=== PATIENT | female | born 1960 | race Caucasian/White ===

== ENCOUNTER 2019-11-28 14:50 | Emergency (ER) | payer OTHER, SELFPAY ==
[2019-11-28 15:01] VITALS: BP 125/74; PULSE 79; RESP 24; TEMP 36.7; O2SAT 95
--- NOTE | 2019-11-28 15:13 | ED.GENADULT ---
HPI - General Adult General Chief complaint: Skin/Abscess/Foreign Body Stated complaint: rash Time Seen by Provider: 11/28/19 15:13 Source: patient Mode of arrival: ambulatory Limitations: no limitations History of Present Illness HPI narrative: 59-year-old female patient presents to the [facility] with complaints of a rash to bilateral upper extremities and bilateral hands that started yesterday. Patient states that she has not had any new lotions soaps or detergents that she is aware of however she has started a new medication that she has been taking for anxiety. Patient states that she has been under a lot of stress recently as well. Patient states that the rash is itchy. Denies any pain to the rash. Denies any chest pain, shortness of breath. Denies any trouble swallowing or feeling like her throat is swelling up. Patient states she has been using hydrocortisone cream to the rash area. Related Data Home Medications Medication Instructions Recorded Confirmed alendronate mg PO 11/28/19 cyclobenzaprine mg 11/28/19 diclofenac sodium PO 11/28/19 ergocalciferol (vitamin D2) 11/28/19 gabapentin 11/28/19 levothyroxine 11/28/19 pravastatin 11/28/19 timolol maleate 11/28/19 Allergies Allergy/AdvReac Type Severity Reaction Status Date / Time codeine Allergy Mild Hives Verified 09/07/19 13:05 Penicillins Allergy Mild Hives Verified 09/07/19 13:05 Review of Systems Review of Systems: Narrative: CONSTITUTIONAL: Denies fever, chills, or sweats. EYES: Denies visual changes, redness, or discharge. ENT: Denies rhinorrhea, congestion, sore throat, or otalgia. CARDIOVASCULAR: Denies chest pain, palpitations, or edema. RESPIRATORY: Denies cough or dyspnea. GASTROINTESTINAL: Denies abdominal pain, nausea, vomiting, or diarrhea. GENITOURINARY: Denies dysuria or hematuria. SKIN: Positive rash with itching. MUSCULOSKELETAL: Denies back pain, joint pain, or myalgia. NEUROLOGIC: Denies headache, numbness, or weakness. PSYCHIATRIC: Denies anxiety or depression. [facility] Past Medical History Medical History Anxiety Depression Dyslipidemia Glaucoma Gout History of hepatitis C History of hypothyroidism Schizophrenia Surgical History Surgical History History of section Hx of cholecystectomy Social History Social History Substance use type: marijuana Comments At the time of my signature I agree with nursing past medical history, surgical, social, and family history. There is no relevant family history pertinent to the presenting complaint. Exam Narrative: Exam Narrative: GENERAL: Well-appearing, well-nourished, and in no acute distress. HEAD: Normocephalic, atraumatic. EYES: PERRLA and EOMI. ENT: Nares clear, no rhinorrhea or epistaxis. Mucous membranes moist. NECK: Supple. No lymphadenopathy CHEST: Clear to auscultation. No respiratory distress. HEART: Regular rate and rhythm. No murmur heard. Normal peripheral pulses. ABDOMEN: Soft, nontender, nondistended, normal active bowel sounds. EXTREMITIES: Normal range of motion. No edema. SKIN: Warm, dry, patient has large welts and irregular flat erythema areas to the left upper arm, areas to the left hand, and areas to the right upper arm. There is no open wounds or drainage. No tenderness noted on palpation. No warmth noted. NEURO: No focal deficits. Alert and oriented x3. Course Vital Signs Vital signs: Vital Signs Temperature 36.7 C 11/28/19 15:01 Pulse Rate 79 11/28/19 15:01 Respiratory Rate 24 H 11/28/19 15:01 Blood Pressure 125/74 11/28/19 15:01 Pulse Oximetry 95 11/28/19 15:01 Temperature 36.7 C 11/28/19 15:01 Pulse Rate 79 11/28/19 15:01 Respiratory Rate 24 H 11/28/19 15:01 Blood Pressure 125/74 11/28/19 15:01 Pulse Oximetry 95 11/28/19 15:01
== END 2019-11-28 15:24 | disposition home or self-care (01) ==
PROVIDERS: Emergency Provider Nurse Practitioner Family; PCP Internal Medicine Gastroenterology
DX: L50.9 Urticaria, unspecified (principal); E78.5 Hyperlipidemia, unspecified; H40.9 Unspecified glaucoma; M10.9 Gout, unspecified; Z86.19 Personal history of other infectious and parasitic diseases; E03.9 Hypothyroidism, unspecified
CPT/HCPCS: 99213; G0463

== ENCOUNTER 2021-06-03 10:25 | Emergency (ER) | payer OTHER, SELFPAY ==
--- NOTE | 2021-06-03 10:32 | ED.FEMALEGU ---
HPI - Female Genitourinary General Chief complaint: Urogenital-Female Stated complaint: uti symptoms/injured finger Source: patient Mode of arrival: ambulatory Limitations: no limitations History of Present Illness HPI Narrative: Patient is a 60-year-old female who presents complaining of dysuria and pressure intermittently x1 to 2 weeks. She denies fever, chills, body aches or other complaints. Patient denies flank pain. She denies exposure to Covid. Patient also reports injury to right index finger while lifting boxes, states it popped twice . She denies all other medical complaints at this time. Patient has not taken any [id number] medication for relief of symptoms. MD elicited complaint: UTI Related Data Home Medications Medication Instructions Recorded Confirmed alendronate mg PO 11/28/19 cyclobenzaprine mg 11/28/19 diclofenac sodium PO 11/28/19 ergocalciferol (vitamin D2) 11/28/19 gabapentin 11/28/19 levothyroxine 11/28/19 pravastatin 11/28/19 timolol maleate 11/28/19 Allergies Allergy/AdvReac Type Severity Reaction Status Date / Time codeine Allergy Mild Hives Verified 03/07/21 15:38 Penicillins Allergy Mild Hives Verified 03/07/21 15:38 Review of Systems Review of Systems: CONSTITUTIONAL: Denies fever, chills, or sweats. EYES: Denies visual changes, redness, or discharge. ENT: Denies rhinorrhea, congestion, sore throat, or otalgia. CARDIOVASCULAR: Denies chest pain, palpitations, or edema. RESPIRATORY: Denies cough or dyspnea. GASTROINTESTINAL: Denies abdominal pain, nausea, vomiting, or diarrhea. GENITOURINARY: Reports dysuria and pressure SKIN: Denies rash or itching. MUSCULOSKELETAL: Reports tenderness with range of motion to right index finger NEUROLOGIC: Denies headache, numbness, dizziness, or weakness. PSYCHIATRIC: Denies anxiety or depression. [facility] Past Medical History Medical History (Updated 06/03/21 @ 11:46 by BOB Corona) Anxiety Depression Dyslipidemia Glaucoma Gout History of hepatitis C History of hypothyroidism Schizophrenia Surgical History Surgical History History of section Hx of cholecystectomy Family History Family History Mother Family history of thyroid disease Hypertension Social History Social History Smoking status: Never smoker Alcohol intake: never Substance use type: marijuana Comments At the time of signature, I have reviewed and agree with nursing past medical, surgical, social, and family history unless otherwise noted. Please see nursing chart for further information. There is no relevant family history pertinent to the presenting complaint. Exam Narrative: GENERAL: Well-appearing, well-nourished, and in no acute distress. HEAD: Normocephalic, atraumatic. EYES: EOMI. No redness or drainage. Conjunctiva are normal. ENT: Mucous membranes pink and moist. . CHEST: No respiratory distress. HEART: Regular rate and rhythm. GI: Soft, nontender without rebound, or guarding. No distention. MUSCULOSKELETAL: No bony tenderness. EXTREMITIES: Normal range of motion. Mild edema to right index finger, tenderness with palpation SKIN: Warm, dry, no rash. NEURO: No focal deficits. Alert and oriented x3. Gait steady. PSYCH: Normal affect. No signs of depression or anxiety. Course Vital Signs Vital signs: Vital Signs Temperature 36.1 C L 06/03/21 10:34 Pulse Rate 62 06/03/21 10:34 Respiratory Rate 16 06/03/21 10:34 Blood Pressure 147/85 H 06/03/21 10:34 Pulse Oximetry 98 06/03/21 10:34 Temperature 36.1 C L 06/03/21 10:34 Pulse Rate 62 06/03/21 10:34 Respiratory Rate 16 06/03/21 10:34 Blood Pressure 147/85 H 06/03/21 10:34 Pulse Oximetry 98 06/03/21 10:34 Reviewed MDM - Female Genitourinary MDM Narr
[2021-06-03 10:34] VITALS: BP 147/85; PULSE 62; RESP 16; TEMP 36.1; O2SAT 98
== END 2021-06-03 11:14 | disposition home or self-care (01) ==
PROVIDERS: Emergency Provider Nurse Practitioner; PCP Internal Medicine Gastroenterology
DX: N39.0 Urinary tract infection, site not specified (principal); S69.91XA Unspecified injury of right wrist, hand and finger(s), initial encounter; X50.3XXA Overexertion from repetitive movements, initial encounter; E78.5 Hyperlipidemia, unspecified; H40.9 Unspecified glaucoma; M10.9 Gout, unspecified; E03.9 Hypothyroidism, unspecified; Z86.19 Personal history of other infectious and parasitic diseases
CPT/HCPCS: 81003; 87086; 87088; 99213; G0463

== ENCOUNTER 2021-08-04 11:25 | Emergency (ER) | payer OTHER, SELFPAY ==
--- NOTE | 2021-08-04 11:33 | ED.SKABFB ---
HPI - Skin/Abscess/Foreign Bdy General Chief complaint: Skin/Abscess/Foreign Body Stated complaint: pos spider bite Time Seen by Provider: 08/04/21 11:33 Source: patient and RN notes reviewed History of Present Illness HPI narrative: Patient is a 61-year-old female who presents the urgent care with complaints of a possible insect bite to the left wrist. Patient states that she noticed it at 6 PM last night and it has increased in swelling and redness since then. Patient denies of any fevers, nausea, vomiting. Is not sure what she got bit by about assumes is a spider . Patient has used ice to the area but denies any use of [id number] medication. No other acute complaints. No acute distress noted. Patient aware of the plan of care. Some parts of this dictation were generated by voice recognition software and may contain typographical and/or grammatical inaccuracies. Related Data Home Medications Medication Instructions Recorded Confirmed alendronate mg PO 11/28/19 07/23/21 ergocalciferol (vitamin D2) 11/28/19 07/23/21 levothyroxine 11/28/19 07/23/21 pravastatin 11/28/19 07/23/21 timolol maleate 11/28/19 07/23/21 bupropion HCl 300 mg 24 hr tablet, 300 mg PO QAM 07/22/21 07/23/21 extended release hydroxyzine HCl 25 mg tablet 25 mg PO BID PRN 07/22/21 07/23/21 tramadol 50 mg tablet 50 mg PO Q6H PRN 07/22/21 07/23/21 vilazodone 10 mg tablet 10 mg PO DAILY 07/22/21 07/23/21 Allergies Allergy/AdvReac Type Severity Reaction Status Date / Time codeine Allergy Mild Hives Verified 07/22/21 08:40 Penicillins Allergy Mild Hives Verified 07/22/21 08:40 Review of Systems Review of Systems: CONSTITUTIONAL: Denies fever, chills, or sweats. EYES: Denies visual changes, redness, or discharge. ENT: Denies rhinorrhea, congestion, sore throat, or otalgia. CARDIOVASCULAR: Denies chest pain, palpitations, or edema. RESPIRATORY: Denies cough or dyspnea. GASTROINTESTINAL: Denies abdominal pain, nausea, vomiting, or diarrhea. GENITOURINARY: Denies dysuria or hematuria. SKIN: Reports of a possible spider bite to the left wrist with redness, swelling and pain MUSCULOSKELETAL: Denies back pain, joint pain, or myalgia. NEUROLOGIC: Denies headache, numbness, or weakness. All other systems reviewed are negative, except as documented in HPI. [facility] Past Medical History Medical History Anxiety Depression Dyslipidemia Glaucoma Gout History of hepatitis C History of hypothyroidism Schizophrenia Surgical History Surgical History H/O breast augmentation H/O hemorrhoidectomy History of section Hx of cholecystectomy Family History Family History Mother Family history of thyroid disease Hypertension Social History Social History Smoking status: Current every day smoker Alcohol intake: never Substance use type: marijuana Comments At the time of my signature, I reviewed and agree with the nursing past medical, surgical, social, and family history. There is no relevant family history pertinent to the patient complaint. Exam Narrative: GENERAL: This is a well-nourished, well-developed patient, in no apparent distress. HEAD: normocephalic, atraumatic. EYES: PERRL. Sclera clear/white. Vision is grossly intact. EARS: External ears normal NOSE: External nose normal with no obvious nasal discharge, nares without redness, no rhinorrhea. THROAT: Mucous membranes moist NECK: Neck supple CARDIOVASCULAR: Regular rate and rhythm without murmurs, gallops, or rubs. RESPIRATORY: Clear to auscultation. Breath sounds equal bilaterally. No wheezes, rales, or rhonchi. SKIN: 12 x 5 cm area of erythema and mild edema to the dorsal aspect of the left breast with mild tenderness. Warm, intact with no suspicious l
[2021-08-04 11:37] VITALS: BP 142/77; PULSE 63; RESP 16; TEMP 36.3; O2SAT 98
== END 2021-08-04 11:45 | disposition home or self-care (01) ==
PROVIDERS: Emergency Provider Nurse Practitioner Family; PCP Internal Medicine Gastroenterology
DX: L03.114 Cellulitis of left upper limb (principal); E78.5 Hyperlipidemia, unspecified; H40.9 Unspecified glaucoma; M10.9 Gout, unspecified; E03.9 Hypothyroidism, unspecified; Z86.19 Personal history of other infectious and parasitic diseases; F17.200 Nicotine dependence, unspecified, uncomplicated; F32.A Depression, unspecified; F41.9 Anxiety disorder, unspecified
CPT/HCPCS: 99213; G0463

== ENCOUNTER → 2021-11-28 04:14 | Outpatient (CLI) | payer OTHER, SELFPAY ==
[2021-11-28 12:06] LABS: SARS-CoV-2 RNA PCR Negative
== END ==
PROVIDERS: PCP Family Medicine; Visit Provider Surgery
DX: Z01.812 Encounter for preprocedural laboratory examination (principal); Z20.822 Contact with and (suspected) exposure to COVID-19
CPT/HCPCS: 93005; C9803; U0003; U0005

== ENCOUNTER 2021-11-28 09:17 | Outpatient (CLI) | payer OTHER, SELFPAY ==
--- NOTE | 2021-11-28 09:26 | ECG_ITS ---
Measurements Intervals [place] Rate: 62 P: 60 [place]: 172 QRS: 48 QRSD: 93 T: 47 QT: 393 QTc: 401 Interpretive Statements SINUS RHYTHM BASELINE ARTIFACT- I, II, III, AVR, AVL, AVF, V4-V6 NORMAL ECG Electronically Signed On 11-28-2021 12:06:01 [address] REPORTER by Devon Ascencio D.O.
== END 2021-11-28 09:18 | disposition home or self-care (01) ==
PROVIDERS: PCP Internal Medicine Gastroenterology; Visit Provider Surgery
DX: Z72.0 Tobacco use (principal); Z01.818 Encounter for other preprocedural examination
CPT/HCPCS: 93005

== ENCOUNTER 2021-12-01 00:27 | Day surgery (SDC) | payer OTHER, SELFPAY ==
[2021-11-20 11:31] VITALS: BMI 33.2
--- NOTE | 2021-11-20 11:33 | PC.NURSE ---
Report to the Outpatient Waiting Room, entrance under the green pavilion located off [facility], at time _0600 on date __12/01/21 . OR Time: ____. - You will be asked a series of questions to screen for COVID 19 for your protection. - A mask is required within the hospital. - No visitors are allowed at this time. Preoperative COVID Testing Requirements: No COVID Test needed if: (proof is required; if not received patient will have Rapid Test prior to entry) - Patient has received COVID Vaccine at least 14 days prior to procedure date or - Patient has positive COVID test result within last 90 days of surgery date. COVID Test needed if above criteria is not met If not COVID vaccinated a COVID test must be conducted within 72 hours of surgery and patient is asked to isolate self from time of testing until procedure. You will go to the [facility] for your COVID testing. The [facility] is located at the corner of [address] [facility]. You will only be called if COVID results are positive and your surgeon may reschedule your elective surgery date. Patients may have clear liquids (water, carbonated beverages, clear teas, apple juice) until 3 hours prior to surgery with a maximum of 20 ounces. - No food from midnight until time of surgery - Infants may have breast milk until 4 hours before surgery, infant formula 6 hours prior to surgery. - Children will be allowed to drink immediately following surgery. If applicable, please bring a bottle or sippy cup to assist with drinking. Juice, water, soda, and popsicles are readily available. For infants on formula, please bring formula the day of surgery. Pacifiers are allowed. Take the following medications with a SIP of water the morning of surgery: ___LEVOTHYROXINE,HYDROXYZINE,TRAMADOL Medications to discontinue per physician VITAMIN D Date to take last dose DO NOT TAKE 11/30/21 Please no make-up, nail grenadian, hairspray, perfume, deodorant, or body powder the day of surgery. No jewelry (including any body piercings) or valuables the day of surgery, leave them at home. Please take a shower or bath the night before, or the morning of, surgery with an antibacterial soap. Wear comfortable, loose fitting clothing. Children are encouraged to wear pajamas. - Jewelry must be removed prior to entering the operating room. Rings and piercings that are not removed may be cut off. - The hospital will not accept responsibility for valuables. - Please leave all valuables, including medications, at home the day of surgery. If you are going home after surgery, a licensed entry driver operator must drive you home. - NO public transportation without another adult. - We recommend that an adult stay with you for 24 hours following discharge. - We also recommend that you do not drive, make important decision, drink alcoholic beverages, or take any drugs that were not prescribed by your health care provider for at least 24 hours after your discharge time. For Pediatric surgeries, we recommend two adults accompany the child home (only one inside the building at this time). Follow any additional instructions given to you from your surgeon. Telephone instructions given to __PT AND CAREGIVER and asked if any additional questions and then verbalized understanding. Patient advised to call surgeon office or pre surgery nurse liaison [phone] if any additional questions.
[2021-12-01] VITALS (7 sets, daily range): BP systolic 93–146; BP diastolic 52–82; PULSE 65–75; RESP 12–18; TEMP 36.2–36.4; O2SAT 97–99
[2021-12-01] MEDS: ACETAMINOPHEN 500 MG TABLET 1000 MG PO (08:20)
[2021-12-01] MEDS: LACTATED RINGERS 1,000 ML 30 ML IV CONT ×2 (08:30→11:12)
[2021-12-01] MEDS: KETOROLAC 15 MG/ML VIAL (*BKC) IV PUSH (09:11)
--- NOTE | 2021-12-01 09:14 | WPDANESEPPF ---
Anes - Initial Pre Proc Eval Procedure: Operation Date: 12/01/21 10:00 Proposed Procedures p Rectal Exam Under Anestheisa, Hemorrhoidectomy - Tati Morocho MD Date/Time: 12/01/21 09:14 Surgeon: Tati Morocho MD Pre Op Diagnosis: Hemorhoids Patient Data Age: 61 Gender: F Height: 1.6 m Weight: 84.5 kg Last Vital Signs Temp 36.2 C L 12/01/21 08:34 Pulse 66 12/01/21 08:34 Resp 18 12/01/21 08:34 BP 128/69 12/01/21 08:34 Pulse Ox 97 12/01/21 08:34 Allergies Allergy/AdvReac Type Severity Reaction Status Date / Time codeine Allergy Mild Hives Verified 12/01/21 08:13 Penicillins Allergy Mild Hives Verified 12/01/21 08:13 Home Medications Medication Instructions Recorded Confirmed Type alendronate 70 mg PO WEEKLY 11/28/19 12/01/21 History ergocalciferol (vitamin D2) 1,250 mcg PO WEEKLY 11/28/19 12/01/21 History levothyroxine 112 mcg PO DAILY 11/28/19 12/01/21 History pravastatin 20 mg PO DAILY 11/28/19 12/01/21 History timolol maleate 1 drp OPHTHALMIC (EYE) DAILY 11/28/19 12/01/21 History hydroxyzine HCl 25 mg tablet 25 mg PO BID PRN 07/22/21 12/01/21 History tramadol 50 mg tablet 50 mg PO Q6H PRN 07/22/21 12/01/21 History vilazodone 10 mg tablet 20 mg PO DAILY 07/22/21 11/20/21 History aripiprazole 5 mg PO DAILY 11/20/21 12/01/21 History Patient hx anesthesia problems: none Family hx anesthesia problems: none Results Review: All pre-operative results and documents have been reviewed as part of the pre-operative evaluation. [facility] Past Medical History Medical History Anxiety Depression Dyslipidemia Glaucoma Gout History of hepatitis C History of hypothyroidism Schizophrenia Surgical History Surgical History H/O breast augmentation H/O hemorrhoidectomy History of section Hx of cholecystectomy Family History Family History Mother Family history of thyroid disease Hypertension Social History Social History Smoking packs per day: 1 Smoking cigarettes per day: 20.0 Years smoked: 36 Smoking pack-years: 36.00 Smoking status: Current every day smoker Tobacco type: cigarettes Alcohol intake: never Substance use type: marijuana Other substance usage details: DAILY Living arrangements: alone Anes - Eval Final PreProcedure Day of Procedure 12/01/21 09:14 Patient weight: obese Heart: regular rate and rhythm Lungs: decreased breath sounds Airway: Mallampati scale class III Neurological: alert and oriented Last oral intake: >/= 8 hours ASA classification: III Emergent: no Anesthetic plan: proceed Anesthesia type and monitoring: general LMA and standard monitoring Results Review: All pre-operative results and documents have been reviewed as part of the pre-operative evaluation. Informed Consent: The patient's anesthetic plan and its attendant risks and benefits were discussed with the patient/family/POA. Questions were solicited and answers provided to the satisfaction of the patient/family/POA.
--- NOTE | 2021-12-01 09:19 | PM.IMHP ---
H&P: HPI History of Present Illness Date/Time: 12/01/21 09:19 She was originally evaluated on 07/22/2021 for external hemorrhoids with minimal inflammation, but no thrombosis. She was given a prescription for lidocaine/Nifedipine compound cream , but as it was not covered by insurance, she did not buy it. Instead, she was given Anusol, which didn't work, so she has been applying Vaseline and performing daily sitz baths also without relief of symptoms. She continues to experience persistent discomfort to the area, that worsens with activity. Chief Complaint: external hemorrhoids Review of Systems Review of Systems: All systems reviewed & are unremarkable except as noted in HPI and below PMFSH Past Medical History Medical History Anxiety Depression Dyslipidemia Glaucoma Gout History of hepatitis C History of hypothyroidism Schizophrenia Surgical History Surgical History H/O breast augmentation H/O hemorrhoidectomy History of section Hx of cholecystectomy Family History Family History Mother Family history of thyroid disease Hypertension Social History Social History Smoking packs per day: 1 Smoking cigarettes per day: 20.0 Years smoked: 36 Smoking pack-years: 36.00 Smoking status: Current every day smoker Tobacco type: cigarettes Alcohol intake: never Substance use type: marijuana Other substance usage details: DAILY Living arrangements: alone Meds Home Medications and Allergies Home Medications Medication Instructions Recorded Confirmed Type alendronate 70 mg PO WEEKLY 11/28/19 12/01/21 History ergocalciferol (vitamin D2) 1,250 mcg PO WEEKLY 11/28/19 12/01/21 History levothyroxine 112 mcg PO DAILY 11/28/19 12/01/21 History pravastatin 20 mg PO DAILY 11/28/19 12/01/21 History timolol maleate 1 drp OPHTHALMIC (EYE) DAILY 11/28/19 12/01/21 History hydroxyzine HCl 25 mg tablet 25 mg PO BID PRN 07/22/21 12/01/21 History tramadol 50 mg tablet 50 mg PO Q6H PRN 07/22/21 12/01/21 History vilazodone 10 mg tablet 20 mg PO DAILY 10/12/21 02/10/22 History aripiprazole 5 mg PO DAILY 11/20/21 12/01/21 History Allergies Allergy/AdvReac Type Severity Reaction Status Date / Time codeine Allergy Mild Hives Verified 12/01/21 08:13 Penicillins Allergy Mild Hives Verified 12/01/21 08:13 Vital Signs Vital Signs - 24 hr 12/01/21 08:34 Temperature 36.2 C L Pulse Rate 66 Respiratory Rate 18 Blood Pressure 128/69 Pulse Oximetry 97 Exam Const: General: cooperative, comfortable and no acute distress Orientation/consciousness: patient oriented x3 Limitations: no limitations Resp: Effort & Inspection: normal respiratory effort Auscultation: clear to auscultation bilaterally Cardio: Rate: regular rate Rhythm: regular rhythm GI: Inspection: normal to inspection and non-distended GI Palp: Yes Soft to palpation and No Tenderness to palpation present (GI) Other: external hemorrhoids - no thrombosis Assessment and Plan Assessment and plan (1) External hemorrhoids with complication: Code(s): K64.4 - Residual hemorrhoidal skin tags Status: Acute Assessment and Plan: refractory to conservative management, will setup for EUA, hemorrhoidectomy
--- NOTE | 2021-12-01 09:21 | WPDHPUPDATE1 ---
History and Physical Update Update Date/Time: 12/01/21 09:21 History and Physical has been reviewed, including an updated exam of the patient. There are NO changes in the patient's condition. Risks, benefits, and alternatives have been discussed and questions answered. Patient agrees to proceed with procedure.
[2021-12-01] MEDS: ceFAZolin 2 GM/D5W 50 ML 2 GM/50 ML BAG IVPB (09:43)
[2021-12-01] MEDS: LIDOCAINE HCL 2% GEL UROJET 10 ML PKG MUCOUS MEM (10:16)
--- NOTE | 2021-12-01 10:31 | W.PM.PROC2 ---
Procedure Note - Detailed Date of Procedure 12/01/21 Pre-op Diagnosis external hemorrhoids Post-op Diagnosis same Procedure Performed Exam under anesthesia, external hemorrhoidectomy involving left lateral and right anterior positions Surgeon Tati Morocho MD Anesthesia general Indications 61 y/o F c multiple external hemorrhoids c frequent flares causing pain, bleeding refractory to conservative measures. Findings multiple external hemorrhoids predominately in L lateral and R anterior Description of Procedure The patient was taken to the operating room and placed in the modified lithotomy position. After adequate induction of general anesthesia, the patient was prepped and draped in the normal sterile fashion. A time-out was then done to verify the patient's identity, as well as the procedure being performed. I began by doing a digital exam. There was noted to be multiple external hemorrhoids, however no internal hemorrhoids were noted. At this point, a bilateral pudendal block was done. Then used the lone Star retractor to further evaluate the anal canal as well as rectum, other than external hemorrhoids no other pathology was noted. I then began excising the external hemorrhoids using the hand-held LigaSure device. The hemorrhoids were noted to be in the left lateral and right anterior positions. Multiple hemorrhoids were excised using the LigaSure. The specimens will be sent to pathology for further review. Hemostasis was noted at all excision sites. I then placed a piece of Gelfoam covered with lidocaine jelly into the rectal vaultl. The patient tolerated the procedure and was extubated in the operating room postop. She will be transferred to the recovery room in stable condition. Implants Gelfoam covered with lidocaine jelly in the rectal vault Estimated Blood Loss 5 Drains No Packing Yes Pathology yes Complications No immediate complications Condition stable Disposition PACU
--- NOTE | 2021-12-01 12:05 | SUR.PHASEII ---
PATIENT STATES SHE HAS TOLERATED PERCOCET IN THE PAST. DR. SYKES AWARE AND WILL CHANGE PRESCRIPTION TO PERCOCET.
== END 2021-12-01 12:00 | disposition home or self-care (01) ==
PROVIDERS: PCP Internal Medicine Gastroenterology; Visit Provider Surgery
PROC: (CPT 46250; principal; 2021-12-01 10:00)
DX: K64.4 Residual hemorrhoidal skin tags (principal); E78.5 Hyperlipidemia, unspecified; F41.8 Other specified anxiety disorders; M10.9 Gout, unspecified; H40.9 Unspecified glaucoma; E03.9 Hypothyroidism, unspecified; F17.210 Nicotine dependence, cigarettes, uncomplicated; F12.90 Cannabis use, unspecified, uncomplicated
CPT/HCPCS: 46250; 88304; A9270; J0690; J1100; J1885; J2250; J2405; J2704; J3010; J7120

== ENCOUNTER 2022-02-07 12:42 | Emergency (ER) | payer OTHER, SELFPAY ==
[2022-02-07 12:51] VITALS: BP 139/76; PULSE 62; RESP 16; TEMP 35.7; O2SAT 98
[2022-02-07 12:54] VITALS: BP 139/76; PULSE 62; RESP 16; TEMP 35.7; O2SAT 98
--- NOTE | 2022-02-07 13:12 | ED.SKABFB ---
HPI - Skin/Abscess/Foreign Bdy General Chief complaint: Extremity Problem,Nontraumatic Stated complaint: fungus on big toe Source: patient, family, RN notes reviewed and old records reviewed Mode of arrival: ambulatory Limitations: no limitations History of Present Illness HPI narrative: 61 year old female accompanied by daughter with complaints of 2 week history of fungal infection to her right great toe. Patient states that previously noted whitish spot on her right great toe but now area has increased in size and her toe is slightly painful today. Patient states that she has appointment with her PCP on Wednesday and has other things to discuss with him didn't want to bother him with this too, Patient has past history of hepatitis and discussed with patient that oral treatment for toenail fungus require liver function studies prior to starting medication and we do not do labs at this facility. Wants to try topical preparation informed patient not sure if insurance will cover medication. MD complaint: other (fungus on right great toenail) Onset (ago): week(s) (2) Location: R foot (right great toe) Severity: mild Severity scale (1-10): 2 Quality: aching Treatments prior to arrival: none Related Data Home Medications Medication Instructions Recorded Confirmed alendronate 70 mg PO WEEKLY 11/28/19 12/17/21 ergocalciferol (vitamin D2) 1,250 mcg PO WEEKLY 11/28/19 12/17/21 levothyroxine 112 mcg PO DAILY 11/28/19 12/17/21 pravastatin 20 mg PO DAILY 11/28/19 12/17/21 timolol maleate 1 drp OPHTHALMIC (EYE) DAILY 11/28/19 12/17/21 hydroxyzine HCl 25 mg tablet 25 mg PO BID PRN 07/22/21 12/17/21 tramadol 50 mg tablet 50 mg PO Q6H PRN 07/22/21 12/17/21 vilazodone 10 mg tablet 20 mg PO DAILY 07/22/21 12/17/21 aripiprazole 5 mg PO DAILY 11/20/21 12/17/21 bupropion HCl PO 02/07/22 hydroxyzine HCl 02/07/22 Allergies Allergy/AdvReac Type Severity Reaction Status Date / Time codeine Allergy Mild Hives Verified 12/16/21 13:32 Penicillins Allergy Mild Hives Verified 12/16/21 13:32 Review of Systems Review of Systems: CONSTITUTIONAL: Denies fever, chills, or sweats. EYES: Denies visual changes, redness, or discharge. ENT: Denies rhinorrhea, congestion, sore throat, or otalgia. CARDIOVASCULAR: Denies chest pain, palpitations, or edema. RESPIRATORY: Denies cough or acute dyspnea. GASTROINTESTINAL: Denies abdominal pain, nausea, vomiting, or diarrhea. GENITOURINARY: Denies dysuria or hematuria. SKIN: Denies rash or itching.White area to right great toenail MUSCULOSKELETAL: Reports chronic neck pain, no other specific joint pain, or myalgia. NEUROLOGIC: Denies headache, numbness, or weakness. PSYCHIATRIC: Positive for history of anxiety or depression. All systems reviewed & are unremarkable except as noted in HPI and below PMFSH Past Medical History Medical History Anxiety Depression Dyslipidemia Glaucoma Gout History of hepatitis C History of hypothyroidism Schizophrenia Surgical History Surgical History H/O breast augmentation H/O hemorrhoidectomy History of section Hx of cholecystectomy Status post hemorrhoidectomy 12/01/21 Family History Family History Mother Family history of thyroid disease Hypertension Social History Social History Smoking packs per day: 1 Smoking cigarettes per day: 20.0 Years smoked: 36 Smoking pack-years: 36.00 Smoking status: Current every day smoker Tobacco type: cigarettes Alcohol intake: never Substance use type: marijuana Other substance usage details: DAILY Comments At time of signature, agree with nursing past medical, surgical, social and family history. There is no relevant family history pertinent to the presenting complaint Exam Narra
== END 2022-02-07 13:27 | disposition home or self-care (01) ==
PROVIDERS: Emergency Provider Registered Nurse; PCP Internal Medicine Gastroenterology
DX: B35.1 Tinea unguium (principal); F41.9 Anxiety disorder, unspecified; F32.9 Major depressive disorder, single episode, unspecified; E03.9 Hypothyroidism, unspecified; F17.210 Nicotine dependence, cigarettes, uncomplicated
CPT/HCPCS: 99213; G0463

== ENCOUNTER 2022-04-21 10:26 | Emergency (ER) | payer OTHER, SELFPAY ==
[2022-04-21 10:40] VITALS: BP 133/73; PULSE 59; RESP 16; TEMP 36; O2SAT 98
--- NOTE | 2022-04-21 10:45 | ED.FEMALEGU ---
HPI - Female Genitourinary General Chief complaint: Urogenital-Female Stated complaint: possible infection Time Seen by Provider: 04/21/22 11:00 Source: patient and RN notes reviewed Mode of arrival: ambulatory Limitations: no limitations History of Present Illness HPI Narrative: 61-year-old female presented for complaint of sharp intermittent pain in the vaginal area since yesterday. States it occurred about 5 times yesterday, states today it feels dry and painful like 'glass.' Endorses voiding smaller amounts despite drinking fluids. Denies vaginal bleeding, dysuria, hematuria, frequency or urgency. Denies abdominal pain, n/v/d, constipation, fever/chills. Follows with obgyn every 3 years. Related Data Home Medications Medication Instructions Recorded Confirmed alendronate 70 mg tablet 70 mg PO WEEKLY 11/28/19 04/21/22 ergocalciferol (vitamin D2) 1,250 1,250 mcg PO WEEKLY 11/28/19 04/21/22 mcg (50,000 unit) capsule levothyroxine 112 mcg tablet 112 mcg PO DAILY 11/28/19 04/21/22 pravastatin 20 mg tablet 20 mg PO DAILY 11/28/19 04/21/22 timolol maleate 0.5 % eye drops 1 drp ophthalmic (eye) DAILY 11/28/19 04/21/22 hydroxyzine HCl 25 mg tablet 25 mg PO BID PRN Anxiety 07/22/21 04/21/22 tramadol 50 mg tablet 50 mg PO Q6H PRN Pain 07/22/21 12/17/21 vilazodone 10 mg tablet (Viibryd) 20 mg PO DAILY 07/22/21 12/17/21 aripiprazole 5 mg tablet with 5 mg PO DAILY 11/20/21 04/21/22 sensor and strip bupropion HCl 100 mg tablet,12 hr 100 mg PO BID 02/07/22 04/21/22 sustained-release Allergies Allergy/AdvReac Type Severity Reaction Status Date / Time codeine Allergy Mild Hives Verified 04/21/22 10:59 Penicillins Allergy Mild Hives Verified 04/21/22 10:59 Review of Systems Review of Systems: CONSTITUTIONAL: Denies body aches, fever, chills, or sweats. CARDIOVASCULAR: Denies chest pain, palpitations, or edema. RESPIRATORY: Denies cough or dyspnea. GASTROINTESTINAL: Denies abdominal pain, nausea, vomiting, or diarrhea. GENITOURINARY: Denies dysuria, frequency, urgency, hematuria, flank pain SKIN: Denies rash, itching, or wounds. MUSCULOSKELETAL: Denies back pain or myalgia. [facility] Past Medical History Medical History Anxiety Depression Dyslipidemia Glaucoma Gout History of hepatitis C History of hypothyroidism Schizophrenia Surgical History Surgical History H/O breast augmentation H/O hemorrhoidectomy History of section Hx of cholecystectomy Status post hemorrhoidectomy 12/01/21 Family History Family History Mother Family history of thyroid disease Hypertension Social History Social History Smoking packs per day: 1 Smoking cigarettes per day: 20.0 Years smoked: 36 Smoking pack-years: 36.00 Smoking status: Current every day smoker Tobacco type: cigarettes Alcohol intake: never Substance use type: marijuana Other substance usage details: DAILY Comments At time of signature, I have reviewed and agree with nursing past medical, surgical, social and family history unless otherwise noted. Please see nursing chart for further information. There is no relevant family history pertinent to the presenting complaint Exam Narrative: GENERAL: Well-appearing ENT: Mucous membranes pink and moist. CHEST: Clear to auscultation. HEART: Regular rate and rhythm. ABDOMEN: Soft, nontender, nondistended, normal active bowel sounds. No CVA tenderness /Airway Controller: External labia without lesions, redness or swelling, alba is nontender with palpation, no active external drainage or bleeding SKIN: Warm, dry, no rash. NEURO: No focal deficits. Alert and oriented x3. PSYCH: Flat affect. Course Course Emergency Course: Patient is aware of diagnosis, understands and agre
== END 2022-04-21 11:27 | disposition home or self-care (01) ==
PROVIDERS: Emergency Provider Nurse Practitioner Family; PCP Internal Medicine Gastroenterology
DX: R10.2 Pelvic and perineal pain (principal); F17.210 Nicotine dependence, cigarettes, uncomplicated; E78.5 Hyperlipidemia, unspecified; H40.9 Unspecified glaucoma; M10.9 Gout, unspecified; E03.9 Hypothyroidism, unspecified; Z86.19 Personal history of other infectious and parasitic diseases; F41.9 Anxiety disorder, unspecified; F32.A Depression, unspecified
CPT/HCPCS: 81003; 87086; 87088; 99213; G0463

== ENCOUNTER 2023-09-16 16:50 | Emergency (ER) | payer MEDICARE, MEDICAID, SELFPAY ==
[2023-09-16 17:17] VITALS: BP 153/82; PULSE 70; RESP 18; TEMP 37; O2SAT 95
== END 2023-09-16 17:20 | disposition left against medical advice (07) ==
PROVIDERS: PCP Internal Medicine Gastroenterology
DX: S81.812A Laceration without foreign body, left lower leg, initial encounter (principal); W01.0XXA Fall on same level from slipping, tripping and stumbling without subsequent striking against object, initial encounter
CPT/HCPCS: 99199

== ENCOUNTER 2025-01-13 13:50 | Emergency (ER) | payer MEDICARE, MEDICAID, SELFPAY ==
--- NOTE | ~2025-01-13 | XR_ITS ---
EXAM: XR foot RT min 3V DATE: 01/13/2025 15:24 HISTORY: R heel pain . COMPARISON: 05/09/2018. FINDINGS: Osteopenia. No fracture or dislocation. No lytic or blastic lesion. Mild scattered degener ative changes. Achilles and plantar enthesopathy. No erosion or periosteal change. Soft tissues withi n normal limits. IMPRESSION: No acute osseous finding in the right foot. Reviewed, dictated and finalized at location K.
--- OUTSIDE RECORDS SUMMARY | 2025-01-13 13:52 | XMS_ITS | Continuity of Care Document ---
Author Organization [facility] Address [address] [place] [address] [address] [place] [address] Phone Care Team Providers Care Switchboard Operator Assistant Name Role Phone Rios Valentin Unavailable Unavailable Advance Directives Directive Yes / No Effective Date File Name No Information Encounters Encounter Description Practice Location Reason(s) For Visit Diagnoses Date Provider Providers Copied on Encounter [facility], [id number] [place] [address] [address], [place], [place], [id number], [place] tel:[phone] [address] [facility] No Information [address] , [address], [place], [address], [place]. tel:[phone] Family History Family Member Type Diagnosis Age At Onset No Information Payers Payer name Insurance type Covered alliance party ID Authoriza tion(s) Medicaid FORMERLY [facility] [id number] Social History Type Description Quantity Date Captured Comments Sex Female Smoking Status No Information Chief Complaint And Reason For Visit No Information Reason For Referral Reason For Referral No Information History Of Present Illness Encounter Date Complaint History Of Prese nt Illness No Information Functional Status Date Functional Assessmen t No Information Instructions Date Instruction Additional Infor mation No Information Assessments Type Assessment Date No Information Patient Care Teams Name Effective Dates (start - stop) Status Members No Information
--- OUTSIDE RECORDS SUMMARY | 2025-01-13 13:52 | XMS_ITS ---
Author Organization [facility] Address [address] [place] [address] Care Team Providers Care Framework Developer Name Role Phone Shae Philip Primary Care Provider Allergies Allergen (clinical drug ingredient) Drug/Non Drug Allergy documented on EMR Reaction Allergy Type Onset Date Status codeine Codeine hives Drug Allergy Active Penicillin hives Drug Allergy Active REASON FOR VISIT Psych F/U Medications Medication SIG (Take, Route, Frequency, Duration) Notes Start Date End Date Status traZODone HCl 150 MG 1 tablet at bedtime as needed Orally Once a day for 30 days Active Propranolol HCl 10 MG 1 tablet Orally On ce a day for 30 days Active Austedo XR 42 MG 1 tablet Orally Once a day for 30 days 12/06/2024 Active traZODone HCl 150 MG 1 tablet at bedtime Orally Once a day for 5 days 08/24/2024 Active Austedo XR 36 MG 1 tablet Orally Once a day for 14 days Active Influenza Vac Split Quad 0.5 ML as directed Intramuscular once Active hydrOXYzine HCl 50 MG TAKE 1 & 1/2 - 2 T ABLETS BY MOUTH ONCE DAILY if NEEDED FOR ANXIETY AND SLEEP for 30 days Active traMADol HCl 50 MG 1 tablet as needed O rally every 8 hours Active Levothyroxine Sodium 150 MCG 1 tablet on an empty stomach in the morning Orally Once a day Active Pravastatin Sodium 20 MG 1 tablet Orally Once a day for 30 day(s) 01/11/2020 Active Austedo XR 36 MG 1 tablet Orally Once a day for 2 weeks then increase to 42 mg script for 14 days Active ARIPiprazole 2 MG TAKE 1 TABLET BY [facility] DAILY for 30 days Active Alendronate Sodium 70 MG 1 tablet 30 min utes before the first food, beverage or medicine of the day with plain water Orally for 30 day(s) Active Cholecalciferol 1.25 MG (43650 UT) 1 capsule Orally once per week Active Wellbutrin XL 300 MG 1 tablet in the mor rick Orally Once a day for 30 days Active traZODone HCl 150 MG 1 tablet at bedtime as needed Orally Once a day for 30 days Active hydrOXYzine HCl 25 MG 1 tablet as needed Orally Once a day for 30 days Active Propranolol HCl 10 MG 1 tablet Orally On ce a day for 30 days Active Wellbutrin XL 150 MG 1 tablet in the mor rick Orally Once a day for 30 days Active ARIPiprazole 2 mg TAKE 1 TABLET BY ZOE TH DAILY for 30 Active Influenza Vac Subunit Quad 0.5 ML as directed Intramuscular once for 1 days Active Social History Sex Assigned At : Social History Observation Description Sex Assigned At Female Encounters Encounter Location Date Provider Diagnosis [address] [place] [address] 12/06/2024 Shae Philip Generalized anxiety disorder F41.1 ; Bipolar affective disorder F31.9 ; Tardive dyskinesia G24.01 ; Nicotine dependence, unspecified, uncomplicated F17.200 and Encounter for immunization Z23 Assessments Encounter Date Diagnosis (ICD Code) Assessment Notes Treatment Notes Treatment Clinical Notes Section Notes 12/06/2024 Generalized anxiety disorder (ICD-10 - F41.1) Hydroxyzine with rare use. Client reports intermittent dry mouth- discussed this can be SE of multiple medications and continue to monitor. Encouraged oral hygeine. 12/06/2024 Bipolar affective disorder (ICD-10 - F31.9) Will continue to monitor and evaluate as poor insight on patient behalf limits evaluation. May look to change SGA if needed, has not tried Geodon or Latuda. 12/06/2024 Tardive dyskinesia (ICD-10 - G24.01) Pt has Hx of TD since 02/2022. Pt has tried Ingrezza with no relief. 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 States has not tried alternatives besides ingrezza. Benztropine with worsened symptoms. 12/06/2024 Nicotine dependence, unspecified, uncomplicated (ICD-10 - F17.200) 12/06/2024 Encounter for immunization (ICD-10 - Z23) 12/06/2024 Other Reasons, potential benefits, potential risks, interactions and side effects of all medications were discussed. The Patient/Guardian asked appropriate questions, appeared to understand the answers, and decided to accept the treatment and continue being followed. Alternatives and expected course without treatment were reviewed. The Patient/Guardian is aware of the need to contact the office or return for an earlier appointment if any problems or concerns arise. May also contact the 24-hour crisis hotline (R), refer to the closest emergency room or call 911 if new symptoms arise of existing symptoms worsen. The Patient/Guardian is aware that this would apply to symptoms like: suicidal ideation, homicidal ideation, high risk behaviors, manic symptoms, psychotic symptoms, physical symptoms, or any other symptoms that may be dangerous to self or others. Greater than 50% of time spent on coordination and counseling where psychopharmacology as well as psychotherapeutic interventions were discussed along with review of treatments in the past. Education provided concerning need for adequate hydration. Patient/Guardian verbalized understanding of education, treatment plan and follow up. This session was completed telephonically with client/parental/guard sakshi consent: Unable to determine movement status, assess appearance, affect, AIMS, or vital signs. Plan Of Treatment Medication Medication Name Sig Start Date Stop Date Notes Austedo XR 42 MG 1 tablet Orally Once a day for 30 days 12/06/2024 Austedo XR 36 MG 1 tablet Orally Once a day for 2 weeks then increase to 42 mg script for 14 days Benztropine Mesylate 1 MG 1 tablet Orall y Twice a day for 30 days ARIPiprazole 2 MG TAKE 1 TABLET BY ZOE TH DAILY for 30 days Wellbutrin XL 300 MG 1 tablet in the mor rick Orally Once a day for 30 days traZODone HCl 150 MG 1 tablet at bedtime as needed Orally Once a day for 30 days hydrOXYzine HCl 25 MG 1 tablet as needed Orally Once a day for 30 days Propranolol HCl 10 MG 1 tablet Orally On ce a day for 30 days Wellbutrin XL 150 MG 1 tablet in the mor rick Orally Once a day for 30 days Treatment Notes Assessment Notes Generalized anxiety disorder Hydroxyzine with rare use. Client reports intermittent dry mouth- discussed this can be SE of multiple medications and continue to monitor. Encouraged oral hygeine. Tardive dyskinesia Pt has Hx of TD since 02/2022. Pt has tried Ingrezza with no relief. Pt understands that TD symptoms would be alf and irreversible. States has not tried alternatives besides ingrezza. Benztropine with worsened symptoms. Other Reasons, potential benefits, potential risks, interactions and side effects of all medications were discussed. The Patient/Guardian asked appropriate questions, appeared to understand the answers, and decided to accept the treatment and continue being followed. Alternatives and expected course without treatment were reviewed. The Patient/Guardian is aware of the need to contact the office or return for an earlier appointment if any problems or concerns arise. May also contact the 24-hour crisis hotline (R), refer to the closest emergency room or call 911 if new symptoms arise of existing symptoms worsen. The Patient/Guardian is aware that this would apply to symptoms like: suicidal ideation, homicidal ideation, high risk behaviors, manic symptoms, psychotic symptoms, physical symptoms, or any other symptoms that may be dangerous to self or others. Greater than 50% of time spent on coordination and counseling where psychopharmacology as well as psychotherapeutic interventions were discussed along with review of treatments in the past. Education provided concerning need for adequate hydration. Patient/Guardian verbalized understanding of education, treatment plan and follow up. This session was completed telephonically with client/parental/guardian consent: Unable to determine movement status, assess appearance, affect, AIMS, or vital signs. Next Appt Details Follow Up: 4 Weeks, Reason: Psych F/U in-office Progress Notes * Elin GÓMEZDOB:1960 ([age] yo F)Acc No.[id number]:12/06/2024 Patient: Collins JOSEki Provider: Juan Philip, MSN, HOTEL FRONT DESK CLERK, FINANCIAL REPRESENTATIVE-C :1960 A ge:64 Y S ex:Female Date:12/06/2024 Phone: Address:[facility] [place], [address] Subjective: * Chief Complaints: * P sych F/U * HPI: D epression Screening: PHQ-9 L ittle interest or pleasure in doing things M ore than half the days, F eeling down, depressed, or hopeless M ore than half the days, T rouble falling or staying asleep, or sleeping too much S everal days, F eeling tired or having little energy M ore than half the days, P oor appetite or overeating S everal days,?Feeling bad about yourself or that you are a failure, or have let yourself or your family down More than half the days, T rouble concentrating on things, such as reading the newspaper or watching television M ore than half the days, M oving or speaking so slowly that other people could have noticed; or the opposite, being so fidgety or restless that you have been moving around a lot more than usual N early every day, T houghts that you would be better off or of hurting yourself in some way N ot at all, T otal Score 1 5, I nterpretation M oderately Severe Depression. I ntervention D epression Screening Findings P ositive, F ollow-Up for Depression N o Referral necessary, patient involved in behavioral health treatment .. C SSRS Interpretation and Follow Up Plan: CSSRS Interpretation and Follow Up Plan C SSRS Screen documented using SF Y es, R isk Disposition from L ow - No Follow Up Plan Required, F ollow Up Plan N o Follow Up Plan required at this time.. S creening: Ruth Suicide Severity Rating Scale (LF) D o you want to initiate with S creener form, 1 . Wish to be : Have you wished you were or wished you could go to sleep and not wake up? N o, 2 . Suicidal Thoughts: Have you actually had any thoughts of killing yourself? N o, 6 . Suicide Behavior Question: Have you ever done anything,started to do anything, or prepared to end your life? N o, I nterpretation: L ow Risk. P sychiatric Assessment - Current Symptoms: How ct. doing today? Client is a 64 yo F on the phone today reporting she has been doing fair. Reports continued trouble with TD. States she feels mouth movements have worsened since decrease in Austedo. Is not sure if she started benztropine or not. Depression: A little, about the same. Anxiety: Still some Anger/irritability: A little Energy: Low Reports mouth movements have gotten worse. Sleep: Good with trazodone Appetite: Good Social: Gets out for appts, talks with Daya Reports doing self care. Hallucinations: Denies Paranoia: A little, about the same. Denies SI/HI. * ROS: P sych ROS: Constitutional D enies. E yes R eports, g laucoma. E ars/Nose/Mouth/Throat D enies. R espiratory D enies. A llergic/Immunologic?Denies. C ardiovascular D enies. G I D enies. G U D enies. M usculoskeletal R eports, a rthritis. N eurological D enies. I ntegumentary D enies. E ndocrine R eports, H ypothyroidism. H ematological/Lymphatic D enies. P sych R eports depression/anxiety. * Medical History: * Surgical History: C -section 1997 1997Kidney stone removed 2015breast implants-saline hemorrhoidectomy-[facility] 2021Left cataract removal ight cataract removal 09/2022 * Hospitalization/Major Diagno stic Procedure: * Family History: F ather: . M other: . 4 sister(s) . 1 son(s) , 1 daughter(s) - healthy. . Mother and sisters-thyroid problems. * Social History: P rimary Social History: L iving Arrangement L iving Arrangement: I ndependent Living. A lcohol Use A lcohol Use Frequency: N ever. I llicit Substance Usage I llicit Substance Usage: N o.?Employment Status E mployment Status: O n Disability. * Medications: T akingAlendronate Sodium 70 MG Tablet 1 tablet 30 minutes before the first food, beverage or medicine of the day with plain water Orally Cholecalciferol 1.25 MG (02321 UT) Capsule 1 capsule Orally once per week Levothyroxine Sodium 150 MCG Tablet 1 tablet on an empty stomach in the morning Orally Once a day Pravastatin Sodium 20 MG Tablet 1 tablet Orally Once a day traMADol HCl 50 MG Tablet 1 tablet as needed Orally every 8 hours Influenza Vac Split Quad 0.5 ML Suspension Prefilled Syringe as directed Intramuscular once hydrOXYzine HCl 50 MG Tablet TAKE 1 & 1/2 - 2 TABLETS BY MOUTH ONCE DAILY if NEEDED FOR ANXIETY AND SLEEP traZODone HCl 150 MG Tablet 1 tablet at bedtime as needed Orally Once a day Propranolol HCl 10 MG Tablet 1 tablet Orally Once a day traZODone HCl 150 MG Tablet 1 tablet at bedtime Orally Once a day Austedo XR 36 MG Tablet Extended Release 24 Hour 1 tablet Orally Once a day Wellbutrin XL 300 MG Tablet Extended Release 24 Hour 1 tablet in the morning Orally Once a day Propranolol HCl 10 MG Tablet 1 tablet Orally Once a day Wellbutrin XL 150 MG Tablet Extended Release 24 Hour 1 tablet in the morning Orally Once a day traZODone HCl 150 MG Tablet 1 tablet at bedtime as needed Orally Once a day hydrOXYzine HCl 25 MG Tablet 1 tablet as needed Orally Once a day Benztropine Mesylate 1 MG Tablet 1 tablet Orally Twice a day Influenza Vac Subunit Quad 0.5 ML Suspension Prefilled Syringe as directed Intramuscular once Austedo XR 30 MG Tablet Extended Release 24 Hour 1 tablet Orally Once a day , Notes to Pharmacist: Sending a 7 day bridge refill to cover until f/u.ARIPiprazole 2 mg Tablet TAKE 1 TABLET BY MOUTH DAILY Taking Alendronate Sodium 70 MG Tablet 1 tablet 30 minutes before the first food, beverage or medicine of the day with plain water Orally Taking Cholecalciferol 1.25 MG (85359 UT) Capsule 1 capsule Orally once per week Taking Levothyroxine Sodium 150 MCG Tablet 1 tablet on an empty stomach in the morning Orally Once a day Taking Pravastatin Sodium 20 MG Tablet 1 tablet Orally Once a day Taking traMADol HCl 50 MG Tablet 1 tablet as needed Orally every 8 hours Taking Influenza Vac Split Quad 0.5 ML Suspension Prefilled Syringe as directed Intramuscular once Taking hydrOXYzine HCl 50 MG Tablet TAKE 1 & 1/2 - 2 TABLETS BY MOUTH ONCE DAILY if NEEDED FOR ANXIETY AND SLEEP Taking traZODone HCl 150 MG Tablet 1 tablet at bedtime as needed Orally Once a day Taking Propranolol HCl 10 MG Tablet 1 tablet Orally Once a day Taking traZODone HCl 150 MG Tablet 1 tablet at bedtime Orally Once a day Taking Austedo XR 36 MG Tablet Extended Release 24 Hour 1 tablet Orally Once a day Taking Wellbutrin XL 300 MG Tablet Extended Release 24 Hour 1 tablet in the morning Orally Once a day Taking Propranolol HCl 10 MG Tablet 1 tablet Orally Once a day Taking Wellbutrin XL 150 MG Tablet Extended Release 24 Hour 1 tablet in the morning Orally Once a day Taking traZODone HCl 150 MG Tablet 1 tablet at bedtime as needed Orally Once a day Taking hydrOXYzine HCl 25 MG Tablet 1 tablet as needed Orally Once a day Taking Benztropine Mesylate 1 MG Tablet 1 tablet Orally Twice a day Taking Influenza Vac Subunit Quad 0.5 ML Suspension Prefilled Syringe as directed Intramuscular once Taking Austedo XR 30 MG Tablet Extended Release 24 Hour 1 tablet Orally Once a day , Notes to Pharmacist: Sending a 7 day bridge refill to cover until f/u.Taking ARIPiprazole 2 mg Tablet TAKE 1 TABLET BY MOUTH DAILY * Allergies: P enicillin: hives - AllergyCodeine: hives - Allergyno[Allergies Verified] Objective: * Vitals: * Examination: M ental Status Exam: SENSORIUM AND COGNITION Alert, Oriented to Person, Oriented to Place, Oriented to Time, Oriented to Situation. ATTENTION AND CONCENTRATION No deficits. ATTITUDE AND BEHAVIOR Cooperative, Receptive. MEMORY G rossly intact. MOOD E uthymic, intermittently dysphoric. SPEECH QUANTITY Appropriate. SPEECH QUALITY A ppropriate volume, Minimal slurring noted.? THOUGHT PROCESS Coherent and goal directed. THOUGHT CONTENT Appropriate - WNL. MOTOR ACTIVITY R eports worsened mouth/tongue movements..? SUICIDAL IDEATION Denies suicidal ideation. HOMICIDAL IDEATION Denies homicidal ideation. HALLUCINATIONS Denies hallucinations. INSIGHT F air. JUDGMENT F air. FUND OF KNOWLEDGE F air-poor. ABILITY TO PARTICIPATE IN TREATMENT M oderate. WILLINGNESS TO PARTICIPATE IN TREATMENT M oderate. SIGNIFICANT FINDINGS REGARDING MENTAL STATUS c aregibárbara Stapleton is helpful with client's compliance.. Assessment: * Assessment: 1. G eneralized anxiety disorder - F41.1 2 . B ipolar affective disorder - F31.9 (Primary) N otes :Will continue to monitor and evaluate as poor insight on patient behalf limits evaluation. 3 . T ardive dyskinesia - G24.01 4 . N icotine dependence, unspecified, uncomplicated - F17.200 5 . E ncounter for immunization - Z23 Plan: * Treatment: 2. G eneralized anxiety disorder Refill Wellbutrin XL Tablet Extended Release 24 Hour, 300 MG, 1 tablet in the morning, Orally, Once a day, 30 days, 30, Refills 0; R efill Propranolol HCl Tablet, 10 MG, 1 tablet, Orally, Once a day, 30 days, 30 Tablet, Refills 0; R efill Wellbutrin XL Tablet Extended Release 24 Hour, 150 MG, 1 tablet in the morning, Orally, Once a day, 30 days, 30, Refills 0; R efill hydrOXYzine HCl Tablet, 25 MG, 1 tablet as needed, Orally, Once a day, 30 days, 30, Refills 0. Notes: Hydroxyzine with rare use. Client reports intermittent dry mouth- discussed this can be SE of multiple medications and continue to monitor. Encouraged oral hygeine. 3. T ardive dyskinesia Increase Austedo XR Tablet Extended Release 24 Hour, 36 MG, 1 tablet, Orally, Once a day for 2 weeks then increase to 42 mg script, 14 days, 14, Refills 0; S top Benztropine Mesylate Tablet, 1 MG, 1 tablet, Orally, Twice a day, 30 days, 60 Tablet; I ncrease Austedo XR Tablet Extended Release 24 Hour, 42 MG, 1 tablet, Orally, Once a day, 30 days, 30, Refills 0. Notes: Pt has Hx of TD since 02/2022. Pt has tried Ingrezza with no relief. Pt understands that TD symptoms would be alf and irreversible. States has not tried alternatives besides ingrezza. Benztropine with worsened symptoms. 4. O thers Notes: Reasons, potential benefits, potential risks, interactions and side effects of all medications were discussed. The Patient/Guardian asked appropriate questions, appeared to understand the answers, and decided to accept the treatment and continue being followed. Alternatives and expected course without treatment were reviewed. The Patient/Guardian is aware of the need to contact the office or return for an earlier appointment if any problems or concerns arise. May also contact the 24-hour crisis hotline ([facility]), refer to the closest emergency room or call 911 if new symptoms arise of existing symptoms worsen. The Patient/Guardian is aware that this would apply to symptoms like: suicidal ideation, homicidal ideation, high risk behaviors, manic symptoms, psychotic symptoms, physical symptoms, or any other symptoms that may be dangerous to self or others. Greater than 50% of time spent on coordination and counseling where psychopharmacology as well as psychotherapeutic interventions were discussed along with review of treatments in the past. Education provided concerning need for adequate hydration. Patient/Guardian verbalized understanding of education, treatment plan and follow up. This session was completed telephonically with client/parental/guardian consent: Unable to determine movement status, assess appearance, affect, AIMS, or vital signs. * Procedure Codes: * Follow Up: 4 Weeks (Reason: Psych F/U in-office) * * TECHNICIAN Sign off status: Completed true * Provider: Juan Philip, MSN, HOTEL FRONT DESK CLERK, FINANCIAL REPRESENTATIVE-C Date: 12/06/2024 Generated for Lorenzo white/Brenda/eTransmitting on: 0 01/13/2025 01:52 PM CDT History and Physical Notes * HPI (History of Present Illness) Category Sub-Category Detail Notes Category Not es Depression Screening PHQ-9 Little inte rest or pleasure in doing things: More than half the days Feeling down, depressed, or hopeless: Mo re than half the days Trouble falling or staying asleep, or sl eeping too much: Several days Feeling tired or having little energy: M ore than half the days Poor appetite or overeating: Several day s Feeling bad about yourself o r that you are a failure, or have let yourself or your family down: More than half the days Trouble concentrating on thi ngs, such as reading the newspaper or watching television: More than half the days Moving or speaking so slowly that other people could have noticed; or the opposite, being so fidgety or restless that you have been moving around a lot more than usual: Nearly every day Thoughts that you would be b ginny off or of hurting yourself in some way: Not at all Total Score: 15 Interpretation: Moderately Severe Depres monalisa Intervention Depression Screening Findings: P ositive Follow-Up for Depression: No Referral necessary, patient involved in behavioral health treatment . Psychiatric Assessment - Current Symptoms How ct. doing today? Client is a 64 yo F on the phone today reporting she has been doing fair. Reports continued trouble with TD. States she feels mouth movements have worsened since decrease in Austedo. Is not sure if she started benztropine or not. Depression: A little, about the same. Anxiety: Still some Anger/irritability: A little Energy: Low Reports mouth movements have gotten worse. Sleep: Good with trazodone Appetite: Good Social: Gets out for appts, talks with Daya Reports doing self care. Hallucinations: Denies Paranoia: A little, about the same. Denies SI/HI. Screening Ruth Suicide Severity Rating Scale (LF) Do you want to initiate with: Screener form 1. Wish to be : Have you wished you were or wished you could go to sleep and not wake up?: No 2. Suicidal Thoughts: Have you actually had any thoughts of killing yourself?: No 6. Suicide Behavior Question: Have you ever done anything,started to do anything, or prepared to end your life?: No Interpretation:: Low Risk CSSRS Interpretation and Follow Up Plan CSSRS Interpretation and Follow Up Plan CSSRS Screen documented using SF: Yes Risk Disposition from SF: Low - No Follo w Up Plan Required Follow Up Plan: No Follow Up Plan requir ed at this time. Examination Category Sub-Category Detail Notes Category Not es Mental Status Exam SENSORIUM AND COGNITION Alert , Oriented to Person, Oriented to Place, Oriented to Time, Oriented to Situation ATTENTION AND CONCENTRATION No deficits ATTITUDE AND BEHAVIOR Cooperative, Application Performance Engineer tive MEMORY Grossly intact MOOD Euthymic, intermitte ntly dysphoric SPEECH QUANTITY Appropriate SPEECH QUALITY Appropriate volume, Minimal slurring noted THOUGHT PROCESS Coherent and goal di rected THOUGHT CONTENT Appropriate - WNL MOTOR ACTIVITY Reports worsened zoe th/tongue movements. SUICIDAL IDEATION Denies suicidal idea tion HOMICIDAL IDEATION Denies homicidal benedict ation HALLUCINATIONS Denies hallucination s INSIGHT Fair JUDGMENT Fair FUND OF KNOWLEDGE Fair-poor ABILITY TO PARTICIPATE IN TREATMENT Mode rate WILLINGNESS TO PARTICIPATE IN TREATMENT Moderate SIGNIFICANT FINDINGS REGARDI NG MENTAL STATUS caregiver Daya is helpful with client 's compliance.
--- OUTSIDE RECORDS SUMMARY | 2025-01-13 13:52 | XMS_ITS | Encounter Summary ---
Author Organization [facility] Address [address] [place] [address] Care Team Providers Care Human Resources Office Assistant Name Role Phone Noe Crooks MD Unavailable [phone] Paxton Lay MD Primary Care Provider [phone] Manpreet LAURA MD, Lan Copeland Primary Care Provider + [phone] Reason for Visit * Reason Onset Date Comments Medication Problem 06/12/2021 Encounter Details Date Type Department Care Team (Late st Contact Info) Description 06/12/2021 Telephone [facility] [address], [place] [id number] Omar Da Silva MD [address] [facility] [address] [place] [address] Medication Problem Social History Tobacco Use Types Packs/Day Years Used Date Smoking Tobacco: Every Day Cigarettes 1 40 Smokeless Tobacco: Never Alcohol Use Standard Drinks/Week Comments No 0 (1 standard drink = 0.6 oz pur e alcohol) Sex and Gender Information Value Date Recorded Sex Assigned at Not on file Gender Identity Not on file Sexual Orientation Not on file documented as of this encounter Miscellaneous Notes * Telephone Encounter - Omar Da Silva MD - 06/13/2021 4:32 PM CDT Sent rx for am lactin--computer says covered by insurance. Thank you * Telephone Encounter - Hiwot Foss - 06/12/2021 1:44 PM CDT Pt calling to report her Insurance does not cover this medication EpiCeram and it is NO LONGER IN STOCK , this cannot even be ordered, NO LONGER AVAILABLE. Pt had script sent to [facility] on [address] [phone] Pt phone [phone]. Please call to advise/discuss. documented in this encounter Plan of Treatment Upcoming Encounters Date Type Department Care Team (Late st Contact Info) Description 05/15/2025 10:00 AM CDT Office Visit [facility] - Ophthalmology [address] [place] [address] Gurmeet Romo OD [address] [place] [phone] documented as of this encounter Goals Goal Patient Goal Type Associated Problems Recent Progress Patient-Stated? Author Medication Management General No Lindsey Fontaine, RN Note: Expected end date: Ongoing Interventions: Take all medications as prescribed Let your doctor know right away about any changes in your medications Make sure to request a refill of your medication at least one week prior to your last dose documented as of this encounter Visit Diagnoses Not on filedocumented in this encounter Care Teams Human Resources Office Assistant Relationship Specialty Start Date End Date Paxton Lay MD [address] [place] [id number] PCP - General 11/28/19 10/22/21 Lan Case III, MD [address] [place] [address] [address] [place] [phone] PCP - General 10/23/21 Noe Crooks MD Dermatology 10/24/18 documented as of this encounter
--- OUTSIDE RECORDS SUMMARY | 2025-01-13 13:52 | XMS_ITS | Continuity of Care Document ---
Author Organization [facility] Address [address] [facility] [address] [facility] [place] [address] Phone Care Team Providers Care Oracle Brm Developer Name Role Phone Lindsey Wyman OT Unavailable Unavailable Procedures Procedure Date Therapeutic Activities Hot or Cold Pack Progress Note Therapeutic Activities Hot or Cold Pack Therapeutic Activities Hot or Cold Pack Therapeutic Activities Hot or Cold Pack Therapeutic Activities Hot or Cold Pack Therapeutic Activities Neuromuscular Re-Ed Hot or Cold Pack Therapeutic Activities Neuromuscular Re-Ed Hot or Cold Pack Doc neg elder mal no plan PRES/ABSN URINE INCON ASSESS Identified as not an unhealthy alcohol u ser Not identified as unhealthy alcohol via screening Identified as not an unhealthy alcohol u ser Not identified as unhealthy alcohol via screening Identified as not an unhealthy alcohol u ser Not identified as unhealthy alcohol via screening OT Evaluation Moderate Complexity Therapeutic Activities Neuromuscular Re-Ed Hot or Cold Pack Advance Directives Directive Yes / No Effective Date File Name No Information Encounters Encounter Description Practice Location Reason(s) For Visit Diagnoses Date Provider Providers Copied on Encounter [facility] [address], [place], [place], [id number], tel:[phone] [place] No Information 4 Zamzam Portillo. . [facility] [address], [place], [place], [id number], [place] tel:[phone] [place] No Information 4 Harcaprice Portillo. . Referring Provider: Kiley Zepeda [address], [place], [address]. tel:[phone] [facility] [address], [place], [place], [id number], tel:[phone] [place] No Information 4 Zamzam Portillo. . Referring Provider: Kiley Zepeda [address], [place], [address]. tel:[phone] [facility] [address], [place], [place], [id number], [place] tel:[phone] [place] No Information 4 Zamzam Portillo. . Referring Provider: Kiley Zepeda [address], [place], [address]. tel:[phone] [facility] [address], [place], [place], [id number], [place] tel:[phone] [place] No Information 4 Zamzam Portillo. . Referring Provider: Kiley Zepeda [address], [place], [address]. tel:[phone] [facility] [address], [place], [place], [id number], [place] tel:[phone] [place] No Information 4 Zamzam Portillo. . Referring Provider: Day [address] [facility] [address], [place], [address]. tel:[phone] [address], [place], [place], [id number], tel:[phone] [place] No Information Feb-0 8 4 Zamzam Portillo. . Referring Provider: Willie Dong [facility] [facility] [address], [place], [address]. tel:[phone], [place], [place], [id number], tel:[phone] [place] No Information Feb-0 4 Zamzam Portillo. . Referring Provider: Willie Dong [facility] [facility] [address], [place], [address]. tel:[phone] [address] [address], [place], [place], [id number], tel:[phone] [place] Unspecified urinary incontinence Feb-0 4 Carrillo Watson. . Referring Provider: Willie Dong [facility] [facility] [address], [place], [address]. tel:[phone] Family History Family Member Type Diagnosis Age At Onset No Information Payers Payer name Insurance type Covered libertarian ID Authoriza tion(s) Medicare [place] MB [id number] Medicaid OON Write Off CI 00 Social History Type Description Quantity Date Captured Comments Sex Female Smoking Status No Information Chief Complaint And Reason For Visit No Information Reason For Referral Reason For Referral No Information Plan Of Treatment Date Type Action Status Goal Tobacco cessation counseling completed Goal Tobacco Cessation Counseling completed Goal Tobacco Cessation Counseling completed Goal Tobacco Cessation Counseling completed Referral Ordered: Referrals: Specialist. Evaluate and Treat (related to Adjustment disorder with depressed mood) ordered Referral Ordered: Depression: Depression management program timeframe: 1 Day. (related to Depression) ordered Referral Ordered: Clinical Psychology (related to Depression) ordered Referral Ordered: Referrals: Specialist. Evaluate and Treat (related to Adjustment disorder with depressed mood) ordered Referral Ordered: Depression: Depression management program timeframe: 1 Day. (related to Depression) ordered Referral Ordered: Clinical Psychology (related to Depression) ordered Referral Ordered: Urology (related to Unspecified urinary incontinence) ordered Referral Ordered: Referrals: Specialist. Evaluate and Treat (related to Adjustment disorder with depressed mood) ordered Referral Ordered: Depression: Depression management program timeframe: 1 Day. (related to Depression) ordered Referral Ordered: Clinical Psychology (related to Depression) ordered Referral Ordered: Urology (related to Unspecified urinary incontinence) ordered History Of Present Illness Encounter Date Complaint History Of Prese nt Illness No Information Functional Status Date Functional Assessmen t No Information Instructions Date Instruction Additional Infor mation No Information Assessments Type Assessment Date No Information Patient Care Teams Name Effective Dates (start - stop) Status Members No Information
--- OUTSIDE RECORDS SUMMARY | 2025-01-13 13:52 | XMS_ITS ---
[facility] Organization [facility] Address [address] [place] [address] Care Team Providers Care Outbound Sales Professional Name Role Phone Shae Philip Primary Care Provider [phone] REASON FOR VISIT refill Medications Medication SIG (Take, Route, Frequency, Duration) Notes Start Date End Date Status Austedo XR 30 MG 1 tablet Orally Once a day for 7 days Sending a 7 day bridge refill to cover until f/u. Active Social History Sex Assigned At : Social History Observation Description Sex Assigned At Female Encounters Encounter Location Date Provider Diagnosis [facility] [address] [place] [address] 11/27/2024 Shae Philip Tardive dyskinesia G24.01 Assessments Encounter Date Diagnosis (ICD Code) Assessment Notes Treatment Notes Treatment Clinical Notes Section Notes 11/27/2024 Tardive dyskinesia (ICD-10 - G24.01) Plan Of Treatment Medication Medication Name Sig Start Date Stop Date Notes Austedo XR 30 MG 1 tablet Orally Once a day for 7 days Sending a 7 day brid ge refill to cover until f/u. Progress Notes * Elin GÓMEZDOB:1960 ([age] yo F)Acc No.[id number]:11/27/2024 Patient: Dilma BINTALukasElin :1960 A ge:64 Y S ex:Female Phone: Address:[address], [place], [address] * Refills Refill Austedo XR Tablet Extended Release 24 Hour, 30 MG, Orally, 7 Tablet, 1 tablet, Once a day, 7 days, Refills=0 * true * Date: Generated for Lorenzo white/Brenda/Tasneem on: 0 01/13/2025 01:52 PM CDT
--- OUTSIDE RECORDS SUMMARY | 2025-01-13 13:52 | XMS_ITS | Data Portability ---
Author Organization [facility], PTeodoraCTeodora Massena Address [address] [place] [address] Care Team Providers Care [facility] Former [facility] Name Role Phone LINDA FRANCISCO Primary Care Provider Assessment No assessment recorded. Plan of Treatment Reminders Order Date Submit Date Provider Last Modified By Organization Details Last Modified Time Details Appointments None recorded. Lab None recorded. Referral None recorded. Procedures None recorded. Surgeries None recorded. Imaging None recorded. Medication Orders fluconazole 150 mg tablet 2021 [place] [id number], [address] [place], [place], [phone], 15:49:35 nystatin-tr iamcinolone 100,000 unit/gram-0 .1 % topical ointment [id number] [address] [place], [place], [phone], 15:49:35 Patient TargetsNo targets recorded. Patient InstructionsNo instructions recorded. Reason for Referral None Reported. Results Created Date Observation Date Name Description Value Unit Range Abnormal Flag Note LastModifiedBy Organization Detail LastModifiedTime 04/23/2004/23/2022 VAGIN ITIS/ VAGIN OSIS, DNA PROBE tristen sp. detection, direct probe Negati ve negati ve Not Available [facility] [address] [place], [address], 04/24/2022 15:33:41 04/23/20 22 04/23/2022 VAGIN ITIS/ VAGIN OSIS, DNA PROBE gardnerella vag. detection, direct probe Negati ve negati ve Not Available [facility] [address] [place], [address], 04/24/2022 15:33:41 04/23/2004/23/2022 VAGIN ITIS/ VAGIN OSIS, DNA PROBE trichomonas vag. detection, direct probe Negati ve negati ve Not Available [facility] [address] [place], [address], 04/24/2022 15:33:41 Result Notes None recorded. Problems No Known Problems Procedures Surgical History Date Name Laterality Status Provider Name and Address Organization Details Recorded Time Date of Last Pap Smear completed Munira Gu [facility] 04/23/2022 15:20:29 Imaging Results None recorded. Procedure Notes None recorded. Medical Equipment None Reported. Allergies Allergen ID Allergen Name Allergen Category Reaction Reaction Severity Criticality Documentation Date Start Date Code Code System Note Provider Name and Address Organization Details Recorded Time 19322 codeine medicatio n Not available Not available Not available 04/23/2022 2670 RxNorm Munira n[address] [facility] 2 15:19:37 59624 Product containin g penicilli n (product) medicatio n Not available Not available Not available 04/23/2022 79131 8001 [facility]ED [facility] 15:19:56 Medications Name Sig Start Date Stop Date Status Note LastModified by Organization Details LastModified Time latanoprost 0.005 % eye drops INSTILL 1 DROP IN BOTH EYES EVERY NIGHT AT BEDTIME active Not Available Not Available N ot Available bupropion HCl SR 150 mg tablet,12 hr sustained-re lease TAKE 1 TABLET BY MOUTH EVERY DAY IN THE MORNING active Not Available Not Available No t Available prednisone 10 mg tablet active Not Available Not Available Not Available ammonium lactate 12 % lotion APPLY TOPICALLY TO AREAS PRONE TO DRYNESS TWICE DAILY active Not Available Not Available Not Available citalopram 40 mg tablet active Not Available Not Available Not Available nystatin 100,000 unit/gram topical ointment APPLY TOPICALLY TO THE AFFECTED AREA TWICE DAILY active Not Available Not Available No t Available fluconazole 150 mg tablet TAKE 1 TABLET BY MOUTH ONCE FOR 1 DAY active Not Available Not Available No t Available hydrocodone 5 mg-acetamino phen 325 mg tablet TAKE 1 TABLET BY MOUTH THREE TIMES DAILY NEEDED active Not Available Not Available No t Available alendronate 70 mg tablet TAKE 1 TABLET BY MOUTH EVERY WEEK active Not Available Not Available No t Available hydroxyzine HCl 50 mg tablet TAKE 1 & 1/2 - 2 TABLETS BY MOUTH ONCE DAILY NEEDED FOR ANXIETY AND SLEEP active Not Available Not Available No t Available tramadol 50 mg tablet TAKE 1 TABLET BY MOUTH EVERY 6 HOURS NEEDED FOR PAIN active Not Available Not Available No t Available bupropion HCl SR 100 mg tablet,12 hr sustained-re lease TAKE 1 TABLET BY MOUTH TWICE DAILY FOR 30 DAYS active Not Available Not Available No t Available ketorolac 0.5 % eye drops INSTILL 1 DROP IN LEFT EYE FOUR TIMES DAILY FOR 5 DAYS active Not Available Not Available No t Available nystatin-tri amcinolone 100,000 unit/gram-0. 1 % topical ointment APPLY TOPICALLY TO THE AFFECTED AREA TWICE DAILY FOR 5 DAYS active Not Available Not Available No t Available oxycodone-ac etaminophen 5 mg-325 mg tablet TAKE 1 TABLET BY MOUTH EVERY 6 HOURS NEEDED FOR PAIN active Not Available Not Available No t Available hydrocortiso ne 2.5 % topical cream with perineal applicator APPLY RECTALLY TO THE AFFECTED AREA DAILY NEEDED FOR HEMORRHOIDS active Not Available Not Available Not Available propranolol 10 mg tablet TAKE 1 TABLET BY MOUTH EVERY DAY FOR 14 DAYS NEEDED FOR ANXIETY active Not Available Not Available No t Available doxycycline monohydrate 100 mg capsule TAKE 1 CAPSULE BY MOUTH TWICE DAILY active Not Available Not Available No t Available triamcinolon e acetonide 0.1 % topical ointment APPLY THIN LAYER TOPICALLY TO THE AFFECTED AREA TWICE DAILY active Not Available Not Available No t Available levothyroxin e 150 mcg tablet TAKE 1 TABLET BY MOUTH EVERY DAY active Not Available Not Available No t Available lidocaine HCl 3 % topical cream APPLY TOPICALLY TO THE AFFECTED AREA ON SKIN THREE TIMES DAILY NEEDED FOR PAIN active Not Available Not Available No t Available hydroxyzine HCl 25 mg tablet active Not Available Not Available Not Available pravastatin 20 mg tablet TAKE 1 TABLET BY MOUTH EVERY DAY active Not Available Not Available No t Available ergocalcifer ol (vitamin D2) 1,250 mcg (50,000 unit) capsule TAKE 1 CAPSULE BY MOUTH EVERY WEDNESDAY active Not Available Not Available No t Available ibuprofen 600 mg tablet TAKE 1 TABLET BY MOUTH TWICE DAILY WITH FOOD OR MILK NEEDED FOR PAIN active Not Available Not Available No t Available methylpredni solone 4 mg tablets in a dose pack FOLLOW PACKAGE DIRECTIONS active Not Available Not Available N ot Available timolol maleate 0.5 % eye drops INSTILL 1 DROP IN BOTH EYES TWICE DAILY active Not Available Not Available Not Available fluoxetine 20 mg capsule TAKE 1 CAPSULE BY MOUTH EVERY DAY active Not Available Not Available No t Available levothyroxin e 112 mcg tablet TAKE 1 TABLET BY MOUTH EVERY DAY active Not Available Not Available No t Available aripiprazole 5 mg tablet TAKE 1 TABLET BY MOUTH EVERY DAY active Not Available Not Available No t Available nitrofuranto in monohydrate/ macrocrystal s 100 mg capsule TAKE 1 CAPSULE BY MOUTH EVERY 12 HOURS FOR 5 DAYS active Not Available Not Available N ot Available aripiprazole 2 mg tablet TAKE 1 TABLET BY MOUTH EVERY DAY active Not Available Not Available No t Available Viibryd 10 mg tablet TAKE 1 TABLET BY MOUTH EVERY DAY WITH FOOD FOR 8 DAYS active Not Available Not Available No t Available Viibryd 20 mg tablet TAKE 1 TABLET BY MOUTH EVERY DAY WITH FOOD active Not Available Not Available No t Available Rexulti 1 mg tablet TAKE 1 TABLET BY MOUTH EVERY DAY active Not Available Not Available No t Available Rexulti 2 mg tablet TAKE 1 TABLET BY MOUTH EVERY DAY active Not Available Not Available No t Available Vitals Date Recorded Body height Body mass index (BMI) Body weight Systolic blood pressure Diastolic blood pressure Provider Name and Address Organization Details Last Updated DateTime 04/23/2022 160.02 cm 31.7 kg/m2 34775.75 g 105 mm[Hg] 71 mm[Hg] Munira Gu [facility] 14:58:20 Social History Question Answer Notes LastModified by Organizat ion Details LastModified Time Tobacco Smoking Status Current Every Day Smoker Munira Gu [facility] 04/23/2022 15:22:30 What Is Your Level Of Alcohol Consumption? None Information not available 04/23/2022 Are You Blind Or Do You Have Difficulty Seeing? No Information not available 04/23/2022 Are You Deaf Or Do You Have Serious Difficulty Hearing? No Information not available 04/23/2022 What Type Of Diet Are You Following? REGULAR Information not available 04/23/2022 Sex: Unknown Functional Status Question Answer Note LastModified by Organizat ion Details LastModified Time Do you have difficulty walking or climbing stairs? No Information not available 04/23/2022 Are you able to walk? YESWOREST Information not available 04/23/2022 Are you able to care for yourself? Yes Information not available 04/23/2022 Do you have difficulty dressing or bathing? No Information not available 04/23/2022 What is your exercise level? None Information not available 04/23/2022 Mental Status None recorded. Family History Nothing Reported. Medical History Condition Response Allergies (Food, seasonal, environmental ) N Other N Breast Cancer N Drug/Latex Allergies/Reactions N Blood Transfusion N Dermatologic Disorders N Lung Disease N Defects or Inherited Disease N Breast Problem N Gestational Diabetes N Hematologic disorders N Anesthesia Complications N History of STI N Deep Vein Thrombosis N Polycystic ovary syndrome N Anxiety Disorder N Autoimmune disease N Arthritis N Infertility N Polyps N Acid Reflux (GERD) N History of abnormal pap N Cancer N Stroke N Varicosities N Neurologic/Epilepsy N Endometriosis N High Cholesterol Y Headaches N Fibromyalgia N Kidney Disease N Heart Problems N Kidney or Bladder Problems N Thyroid Problems Y GI Problems N Eating Disorder N Anemia N Art (IVF or FET) N Psychiatric Illness N Ovarian Cancer N Diabetes N Pulmonary (TB, Asthma) N Hepatitis/Liver Disease N No Past Medical History N Eczema N Urinary Tract Infection N Abuse/Domestic Violence N Asthma N Trauma/Violence N Depression/ depression N Heart Disease N Pre-Eclampsia N Hypertension N Osteoporosis N Thrombophilias N Gynecological History Statement/Question Response STIs/STDs N HPV Vaccine N Date of Last Pap Smear 10/11/2018 Sexual Problems? N Current Control Method Menopause Sexually Active? N Obstetrics History GPAL:G 3 P 0 0 2 1 Type Value Induced 2 Living 1 Total 3 Past Encounters Encounter ID Performer Location Encounter Start Date Encounter Closed Date Diagnosis/Indication Diagnosis SNOMED-CT Code Diagnosis ICD10 Code Diagnosis Note [id number] Emili JadechristopherJAMES Massena [address] [address] 04/23/2022 14:48:43 04/23/2022 16:06:11 Vaginal irritation 866783148 N89.8 On exam, mild vaginal atrophy notedPatie nt request only smallest speculum to be used, view of cervix was limitedVag initis panel sentGiven antibiotic use and vaginal itching/ir ritation, we discussed treatment for yeast infection based on symptoms. Patient requested fluconazol e, does NOT want to use creams. Has taken fluconazol e in the past with her current medication s she is on and states it worked well for her, no adverse effects.We discussed possibilit y of irritation being related to postmenopa usal changes/va ginal atrophy.We discussed vaginal estrogen, as I think this could help her symptomsPa tient declined vaginal estrogen at this time, would like to be treated for yeast firstTo use crisco or extra virgin olive oil to vulva twice daily, strict vaginal moisturizi ng routine encouraged !To call the office if symptoms persist past treatment R/B of medication discussed and accepted by patient NOTE:Albertae nt unsure what medication s she is on, per patient and patient's family has:Macrob id for UTIHypothy roidism: on levothyrox ineOn cholestero l medication , unsure what kind or doseEye drops for glaucomaVi tamin D Time spent in visit is a total of 25 mins with at least 50% of visit consisting of counseling and review of plan of care. Health Concerns Section Related Observation LastModified by Organization Detai ls LastModified Time None Recorded Concern Status LastModified by Organization Details LastModified Time None Recorded Advance Directives Directive None Recorded Payers Encounter Date Sequence Insurance Name Policy Number Policy Curran Covered Member ID Curran Member ID Guarantor Name 04/23/2022 1 [facility] - DOS ON OR AFTER 21 (MEDICAID REPLACEMENT - HMO) Elin Stevenson [id number] Elin Stevenson Notes Date Note Type Note Provider Name and Address Organization Details Recorded Time 04/23/2022 text/html Here for vaginal pain / itching x 3 daysLocated in the vagina on the right side per patientNo odors or dischargeOn antibiotics for UTI, macrobid, diagnosed at the urgent careNo sexually activeNo urinary symptoms currentlyPap smear last 3 years ago, normal per patient. No hx of abnormal papsDoes not wear pads dailyNo vaginal soaps or products JAMES Fernandez [address], [place], [address], [place] [facility] 04/23/2022 15:54:16 OBGyn Episode Ob Episode Information Episode Created Date Number of Fetuses Patient Bloodtype Patient rh Status Prepregnancy Weight lbs Domestic Partner Domestic Partner Phone Father Name Regulatory Attorney Status 04/23/20 22 1 CLOSED Fetus Data First Name Last Name Admitted to NICU Weight (g) Sex Living Outcome Pediatric Complications Fetus ID Race Codes Race Delivery Type 3401.94 F [id number] Primary Jhon Calculation Initial Jhon Date Initial Exam Date Initial Exam Provider Initial Ultrasound Date Last Menstrual Period Date Ultra Sound Weeks Gestation 0 Eighteen To Twenty Week Jhon Update Ultra Sound Date Fundal Height At Umbil Quickening Date Ultra Sound Latest Weeks Gestation Final Jhon Confirmed By Final Jhon Confirmed Date Final Jhon Date Ultra Sound Latest Days Gestation 0 0 Menstrual History Last Menstrual Date Menses Monthly On Bcp Conception Prior Menses Frequency Hcg Plus Date Menarche Onset Age Delivery Information Delivery Date Delivery Type Labor Anesthesia Weeks Gestation Incision Type Labor Labor Length Hrs Delivered By Post Complications Tubal Sterilization Discharge Date Comments 3 Discharge Information Feeding Method Contraceptive Method Maternal HG B and HCT Levels
--- OUTSIDE RECORDS SUMMARY | 2025-01-13 13:52 | XMS_ITS | Clinical Summary ---
Author Organization [facility] Address [address] [place] [address] Care Team Providers Care Senior Java Architect Name Role Phone Noe Crooks MD Unavailable [phone] Manpreet LAURA MD, Lan Copeland Primary Care Provider [phone] Source Comments [facility],non-owned Affiliates and Associated Physician Practices is amultiple site organization consisting of ambulatory clinics and hospital sitesin [place], [place], [place] and [place]. This disclosure is being madepursuant to the Care Everywhere program and may not contain all information available regarding this patient. Last updated 18.[facility] Allergies Active Allergy Reactions Criticality Noted Date Comments Codeine Urticaria Medium 02/03/2022 Glecaprevir-Pibrentasvir Urticaria Medium 01/10/2019 Penicillins Urticaria Medium 12/24/2017 Medications * Be aware that medications may not be up to date on this document. Alwaysverify current medications with the patient. Medication Sig Dispensed Refills Start Date End Date Status vitamin D, ergocalciferol, (DRISDOL) 79305 UNITS capsule Take 1 (one) capsule by mouth every 7 days 10 12/02/2018 Active pravastatin (PRAVACHOL) 20 MG tablet Take 1 (one) tablet by mouth at bedtime Active alendronate (FOSAMAX) 70 MG tablet Take 1 (one) tablet by mouth every 7 days before meal Take in morning with full glass of water on empty stomach and remain upright for 30 min Active cetirizine (ZYRTEC) 10 MG tablet TK 2 TS PO BID 07/09/2020 Active hyaluronan (ORTHOVISC) 30 MG/2ML prefilled syringe 2 mL Active traMADol (ULTRAM) 50 MG tablet 1 tablet as needed Active buPROPion XL 24hr (Wellbutrin-XL) 150 MG tablet TAKE 1 TABLET BY MOUTH EVERY DAY IN THE MORNING Active Lidocaine HCl 3 % APPLY TOPICALLY TO THE AFFECTED AREA ON SKIN THREE TIMES DAILY NEEDED FOR PAIN Active nicotine (Nicoderm CQ) 14 MG/24HR patch APPLY 1 PATCH TOPICALLY TO THE SKIN EVERY DAY Active Austedo XR 12 MG TB24 03/08/2024 Act michael Austedo XR 6 MG TB24 03/08/2024 Acti ve hydrOXYzine HCl (Atarax) 25 MG tablet Act michael traZODone (Desyrel) 100 MG tablet Take 1 (one) tablet by mouth at bedtime 03/08/2024 Active buPROPion XL 24hr (Wellbutrin-XL) 300 MG tablet TAKE 1 TABLET BY MOUTH DAILY IN THE MORNING 03/08/2024 Active levothyroxine (Synthroid) 150 MCG tablet Take 1 (one) tablet by mouth once daily Active propranolol (Inderal) 10 MG tablet TAKE 1 TABLET BY MOUTH EVERY DAY FOR 14 DAYS NEEDED FOR ANXIETY Active Active Problems Problem Noted Date Diagnosed Date Age-related nuclear cataract of right eye 2021 Chronic angle-closure glaucoma, mild stage, righ t 07/11/2021 Overview (07/11/2021): Baseline gonioscopy on the glaucoma service shows significant plateau configuration of the iris left eye greater than right with suggestion of possible old appositional closure and early peripheral anterior synechia inferior temporal on the right and borderline superiorly on the left with areas of borderline appositional closure undilated with 1+ trabecular meshwork pigmentation were visible. 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 We are considering options of cataract extraction versus laser iridotomy in addition to medication. Shant Castillo MD 07/11/2021 11:05 AM Chronic angle-closure glaucoma of eye, left, mod erate stage 07/11/2021 Rash and other nonspecific skin eruption 020 History of hepatitis 05/22/2020 Medication monitoring encounter 05/22/2020 Post-inflammatory hyperpigmentation 05/22/2020 Other pruritus 05/12/2020 Chronic urticaria 05/12/2020 High risk medications (not anticoagulants) long- term use 05/12/2020 Chronic hepatitis C 05/05/2018 Overview (06/26/2018): 06/06/18 Fibroscan CAP 147, E 6.5 kPa Primary open angle glaucoma (POAG) of left eye, moderate stage Encounters Date Type Department Care Team Description 11/15/2024 3:20 PM SEAL DELIVERY VEHICLE TEAM TECHNICIAN Clinical Support [facility] - Ophthalmology [address] [place] [phone] Gurmeet Romo, OD Primary open angle glaucoma (POAG) of left eye, moderate stage (Primary Dx) 11/15/2024 3:15 PM SEAL DELIVERY VEHICLE TEAM TECHNICIAN [facility] [address] [place] [phone] Gurmeet Romo, OD Primary open angle glaucoma (POAG) of left eye, moderate stage (Primary Dx) 11/15/2024 3:00 PM SEAL DELIVERY VEHICLE TEAM TECHNICIAN Office Visit [facility] - Ophthalmology [address] [place] [phone] Gurmeet Romo, OD Primary open angle glaucoma (POAG) of left eye, moderate stage (Primary Dx); Primary open angle glaucoma (POAG) of right eye, mild stage; Pseudophakia 11/15/2024 Travel from Last 3 Months Family History Medical History Relation Name Comments Cancer - Skin, Melanoma Sister Cancer - Skin, Non Melanoma Sister Glaucoma Sister Asthma Neg Hx CVA Neg Hx Cancer - Breast Neg Hx Cancer - Other Neg Hx Eczema Neg Hx Hemophilia Neg Hx Psoriasis Neg Hx Relation Name Status Comments Sister Social History Tobacco Use Types Packs/Day Years Used Date Smoking Tobacco: Every Day Cigarettes 0.5 48 Smokeless Tobacco: Never Tobacco Cessation:Ready to Q uit: Not Asked; Counseling Given: Not Answered Alcohol Use Standard Drinks/Week Comments No 0 (1 standard drink = 0.6 oz pur e alcohol) Sex and Gender Information Value Date Recorded Sex Assigned at Not on file Gender Identity Not on file Sexual Orientation Not on file Last Filed Vital Signs Vital Sign Reading Time Taken Comments Blood Pressure 107/61 09/09/2022 1:55 PM SEAL DELIVERY VEHICLE TEAM TECHNICIAN Pulse 60 09/09/2022 1:55 PM SEAL DELIVERY VEHICLE TEAM TECHNICIAN Temperature 36.2 C (97.2 F) 09/09/2022 1:40 PM SEAL DELIVERY VEHICLE TEAM TECHNICIAN Respiratory Rate 16 09/09/2022 1:55 PM SEAL DELIVERY VEHICLE TEAM TECHNICIAN Oxygen Saturation 97% 09/09/2022 1:55 PM SEAL DELIVERY VEHICLE TEAM TECHNICIAN Inhaled Oxygen Concentration - - Weight 77.1 kg (170 lb) 09/09/2022 10:48 AM SEAL DELIVERY VEHICLE TEAM TECHNICIAN Height 160 cm (5' 3 ) 09/09/2022 10:48 AM SEAL DELIVERY VEHICLE TEAM TECHNICIAN Body Mass Index 30.11 09/09/2022 10:48 AM SEAL DELIVERY VEHICLE TEAM TECHNICIAN Plan of Treatment Upcoming Encounters Date Type Department Care Team (Late st Contact Info) Description 05/15/2025 10:00 AM CDT Office Visit [facility] - Ophthalmology [address] [place] [phone] Gurmeet Romo, PEDRO [address] [place] [address] Health Maintenance Due Date Last Done Comments BONE DENSITY TESTING 1960 COLOGUARD (AGES 45-75) - COLON CA SCREENING 1958 COLON MONITORING 1958 COLONOSCOPY - COLON CA SCREENING 1958 CT COLONOGRAPHY - COLON CA SCREENING 1958 Colorectal Cancer Screening 1958 FIT - COLON CA SCREENING 1958 FLEX SIG - COLON CA SCREENING 1958 MAMMOGRAM 1960 MEDICARE AWV 12 MONTHS 1958 DTAP/TDAP/TD VACCINES (1 - Tdap) 1977 PNEUMOCOCCAL VACCINE 50+ (1 of 2 - PCV) 1977 LUNG CANCER SCREENING 2008 ZOSTER VACCINE (1 of 2) 2008 HEPATITIS B VACCINE (1 of 3 - Risk 3-dose series) 2018 Respiratory Syncytial Virus (RSV) Vaccine Pt: or over 60 yrs (1 - Risk 60-74 years 1-dose series) 2018 COVID-19 VACCINE ( season) 2024 DEPRESSION SCREENING 10/11/2024 HEPATITIS C SCREENING Completed 05/31/2020 , 05/31/2020, 02/14/2019, Additional history exists INFLUENZA VACCINE Completed 10/24/2024 HIB VACCINE Aged Out No longer eligi ble based on patient's age to complete this topic HPV VACCINE Aged Out No longer eligi ble based on patient's age to complete this topic MENINGOCOCCAL (Group B) VACCINE SHARED DECISION-MAKING Aged Out No longer eligible based on patient's age to complete this topic MENINGOCOCCAL GROUPS A/C/Y/W VACCINE Aged Out No longer eligible based on patient's age to complete this topic Goals Goal Patient Goal Type Associated Problems Recent Progress Patient-Stated? Author Medication Management General No Lindsey Fontaine, RN Note: Expected end date: Ongoing Interventions: Take all medications as prescribed Let your doctor know right away about any changes in your medications Make sure to request a refill of your medication at least one week prior to your last dose Mobility General No Danielle Man, MARY Note: Expected end date: 10/10/2021 The goal is to maintain or improve your mobility at the optimum level for you. Interventions: Medical Devices Implanted Type Area Joint Cutter Machine Device Identifier Shelf Expiration Date Model / Serial / Lot [employer] - Envista Iol Implanted:Qty: 1 on 09/09/2022 by Shant Castillo MD at [facility] Ocular [employer] 10/10/2024 [id number] / [id number] / NA [employer] Implanted:Qty: 1 on 08/26/2022 by Shant Castillo MD at [facility] Left: Eye 10/10/2024 MX60E 22.5 / [id number] / [id number] Procedures Procedure Name Priority Date/Time Associated Diagnosis Comments OPTIC NERVE ANALYSIS OCT Routine 11/15/2024 3:11 PM SEAL DELIVERY VEHICLE TEAM TECHNICIAN Primary open angle glaucoma (POAG) of left eye, moderate stage MELÉNDEZ AUT[employer] VISUAL FIELD EXTENDED Routine 11/15/2024 3:11 PM SEAL DELIVERY VEHICLE TEAM TECHNICIAN Primary open angle glaucoma (POAG) of left eye, moderate stage HEPATITIS C AB W/RFLX TO HCV RNA QN PCR Routine 05/31/2020 1:05 PM CDT History of hepatitis from Last 3 Months or Most Recently Relevant to Health Maintenance Results * OPTIC NERVE ANALYSIS OCT (11/15/2024 3:11 PM SEAL DELIVERY VEHICLE TEAM TECHNICIAN) Anatomical Region Laterality Modality Head External-Camera Photography Narrative 11/15/2024 3:51 PM SEAL DELIVERY VEHICLE TEAM TECHNICIAN Images from the original result were not included. OD: poor quality, large artifact (likely due to small pupil) or PCO OS: good image (9) - overall stable with average RNFL drop from 81 --> 79, inferior average difference (47 --> 46) Overall stable Gurmeet Romo OD OPHTHALMOLOGY SCHED ORD W PACS * MELÉNDEZ AUTO VISUAL FIELD EXTENDED (11/15/2024 3:11 PM SEAL DELIVERY VEHICLE TEAM TECHNICIAN) Anatomical Region Laterality Modality Head External-Camera Photography Narrative 11/15/2024 3:53 PM SEAL DELIVERY VEHICLE TEAM TECHNICIAN Images from the original result were not included. OD: high Fls, significant rim artifact - overall no glaucomatous concerns OS: some Fls, Fps, and Fns - very stable SAD as seen to match on RNFL with inferior thinning Gurmeet Romo OD OPHTHALMOLOGY SCHED ORD W PACS * (ABNORMAL) HEPATITIS C AB W/RFLX TO HCV RNA QN PCR (05/31/2020 1:05 PM CDT) Hepatitis C Antibody REACTIVE( A) NON-REACT [facility] Signal to Cut-Off 32.90(H) <1.00 [facility] Comment: HCV antibody was reactive. The sample will be tested for HCV RNA by a Nucleic Acid Amplification Test (NAAT) to determine if the patient has a current active infection. Test Performed at: [facility] [id number] [place] [address] MADELEINE WALKER DO,MPH Blood BLOOD SPECIMEN / Unknown 05/31/2020 1:05 PM CDT 05/31/2020 1:10 PM CDT Catrachita Zamudio MD LAB - CHEMISTRY [place] [facility] [id number] [place] [address] from Last 3 Months or Most Recently Relevant to Health Maintenance Care Teams Senior Java Architect Relationship Specialty Start Date End Date Lan Case III, MD [address] [address] PCP - General 10/23/21 Noe Crooks MD Dermatology 10/24/18
--- OUTSIDE RECORDS SUMMARY | 2025-01-13 13:52 | XMS_ITS | CONTINUITY OF CARE DOCUMENT ---
Author Name aryan baeza Address Unknown Organization [facility] Address [address] [place] [address] Phone [phone] Care Team Providers Care Double Cut Off Saw Operator Name Role Phone Joaquin Pabon MD Unavailable [phone] LINDA FRANCISCO MD Unavailable [phone] LINDA FRANCISCO MD Unavailable INSURANCE PROVIDERS Payer name Policy type / Coverage type [place] red republican ID [place] Medicare [id number] [place] (2) Medicaid [id number]
--- OUTSIDE RECORDS SUMMARY | 2025-01-13 13:53 | XMS_ITS | Continuity of Care Document ---
Author Organization [facility] Address [address] [place] [address] Phone Care Team Providers Care Document Improvement Specialist Name Role Phone Yuri London MD Unavailable Unavailable Allergies, Adverse Reactions, Alerts Substance Reaction Status Criticality penicillin G Active No Information Medications Medication Instructions Dosage Effective Dates (start - stop) Status Comments Adderall 30 mg tablet take 1 tablet (30MG) by oral route 2 times every day 30 MG - Active oxycodone 15 mg tablet take 1 tablet (15MG) by oral route 4 times every day 15 MG - Active avoid driving or operate machines Synthroid 100 mcg tablet take 1 tablet (100MCG) by oral route every day 100 MCG - Active Procedures Procedure Date OFFICE/OUTPATIENT VISIT, EST OFFICE/OUTPATIENT VISIT, EST OFFICE/OUTPATIENT VISIT, EST OFFICE/OUTPATIENT VISIT, EST OFFICE/OUTPATIENT VISIT, EST OFFICE/OUTPATIENT VISIT, EST OFFICE/OUTPATIENT VISIT, EST OFFICE/OUTPATIENT VISIT, EST OFFICE/OUTPATIENT VISIT, EST OFFICE/OUTPATIENT VISIT, EST Advance Directives Directive Yes / No Effective Date File Name No Information Encounters Encounter Description Practice Location Reason(s) For Visit Diagnoses Date Provider Providers Copied on Encounter [facility], [address], [id number], [place] tel:[phone] [facility] No Information 3 Surya Welch. [email or web address], [place], [place], [address] , [place]. tel:[phone] Referring Provider: Ricardo Crespo [address], [place], [place], [id number]. tel:[phone] OFFICE/OUTPA TIENT VISIT, [facility], [address], [place], [place], [address], [place] tel:[phone] [facility] chronic pain (chief complaint)ADd (chief complaint) Dietary surveillance and counselingAtte ntion deficit disorder of childhood without mention of hyperactivityC HRONIC PAIN NEC 3 Surya Welch. [address], [address], [place], [place], [address] , [place]. tel:[phone] Referring Provider: Ricardo Crespo [address], [place], [place], [address]. tel:[phone] OFFICE/OUTPA TIENT VISIT, [facility], [address], [place], [place], [address], [place] tel:[phone] [facility] Neck pain (chief complaint)ADD (chief complaint)Hep C (chief complaint) Dietary surveillance and counselingCHRO LILI PAIN NECAttention deficit disorder of childhood without mention of hyperactivityH ypertension, Unspecified 3 Surya Welch. [address], [address], [place], [place], [address] , [place]. tel:[phone] Referring Provider: Ricardo Crespo [address], [place], [place], [address]. tel:[phone] OFFICE/OUTPA TIENT VISIT, [facility], [address], [place], [address], [place] tel:[phone] [facility] chronic pain (chief complaint)ADD (chief complaint)Hep C (chief complaint) Dietary surveillance and counselingCHRO LILI PAIN NECHypothyroid ismAcute hepatitis C without mention of hepatic coma 3 Surya Welch. [address], [address], [place], [place], [address] , [place]. tel:[phone] Referring Provider: Yuri London, [address], [place], [place], [address]. tel:[phone] OFFICE/OUTPA TIENT VISIT, [facility], [address], [place], [place], [address], [place] tel:[phone] [facility] Neck pain (chief complaint)Hypot hryoidism (chief complaint)ADD (chief complaint) Dietary surveillance and counselingCHRO LILI PAIN NECHypothyroid ismAttention deficit disorder of childhood without mention of hyperactivityH ypertension, Unspecified Jan- 3 Surya Welch. [address], [address], [place], [place], [address] , [place]. [phone] Referring Provider: Yuri London [address], [place], [place], [address]. tel:[phone] OFFICE/OUTPA TIENT VISIT, [facility], [address], [place], [address], [place] tel:[phone] [facility] hypothyroidism (chief complaint)neck pain (chief complaint)ADD (chief complaint) Dietary surveillance and counselingCerv icalgiaHypothy roidismAttenti on deficit disorder of childhood without mention of hyperactivity 3 Surya Welch. [address], [address], [place], [place], [address] , [place]. [phone] Referring Provider: Ricardo Crespo [address], [place], [place], [address]. tel:[phone] OFFICE/OUTPA TIENT VISIT, [facility], [address], [place], [place], [address], [place] tel:[phone] [facility] Neck pain (chief complaint)ADD (chief complaint)Hypot hyroidism (chief complaint) Dietary surveillance and counselingHypo thyroidismCHRO LILI PAIN NECAttention deficit disorder of childhood without mention of hyperactivity 3 Surya Welch. [address], [address], [place], [place], [address] , [place]. tel:[phone] Referring Provider: Ricardo Crespo [address], [place], [place], [address]. tel:[phone] OFFICE/OUTPA TIENT VISIT, [facility], [address], [place], [address], [place] tel:[phone] [facility] neck pain (chief complaint)Hypot hyroidism (chief complaint)ADD (chief complaint) Dietary surveillance and counselingCHRO LILI PAIN NECAttention deficit disorder of childhood without mention of hyperactivity 2 Surya Welch. [address], [address], [place], [place], [address] , [place]. [phone] Referring Provider: Ricardo Crespo [address], [place], [place], [address]. tel:[phone] OFFICE/OUTPA TIENT VISIT, [facility], [facility] [address], [place], [place], [address], [place] tel:[phone] [facility] hep C (chief complaint)HLP (chief complaint)hypot hyroidism (chief complaint)chron ic pain (chief complaint) Dietary surveillance and counselingOthe r and unspecified hyperlipidemia Acute hepatitis C without mention of hepatic comaOther specified acquired hypothyroidism CHRONIC PAIN NEC 2 Surya Welch. [address], [address], [place], [place], [address] , [place]. [phone] Referring Provider: Ricardo Crespo [address], [place], [place], [address]. tel:[phone] OFFICE/OUTPA TIENT VISIT, [facility], [address], [place], [address], [place] tel:[phone] [facility] well woman (chief complaint) CHRONIC PAIN NEC 2 Surya Welch. [address], [address], [place], [address] , [place]. [phone] Referring Provider: Ricardo Crespo [address], [place], [place], [address]. tel:[phone] OFFICE/OUTPA TIENT VISIT, EST [facility], [address], [place], [place], [address], [place] tel:[phone] [facility] neck pain (chief complaint)ADD (chief complaint) Dietary surveillance and counselingCHRO LILI PAIN NECAttention deficit disorder of childhood without mention of hyperactivity 2 Surya Yuri. [address], [address], [address] , [place]. tel:[phone] Referring Provider: Yuri London, [address], [place], [place], [address]. tel:[phone] Family History Family Member Type Diagnosis Age At Onset Father Problem (finding) suicide Mother Problem (finding) colon infection Payers Payer name Insurance type Covered green party ID Authoriza tion(s) No Information Social History Type Description Quantity Date Captured Comments Sex Female Smoking Status No Information Chief Complaint And Reason For Visit No Information Plan Of Treatment Date Type Action Status Goal Tobacco cessation counseling completed Goal Tobacco cessation counseling completed Goal Tobacco cessation counseling completed Goal Tobacco cessation counseling completed Goal Tobacco cessation counseling completed Goal Tobacco cessation counseling completed Goal Tobacco cessation counseling completed Goal Tobacco cessation counseling completed Goal Tobacco cessation counseling completed Referral Ordered: Referral: OBGYN. ordered History Of Present Illness Encounter Date Complaint History Of Prese nt Illness No Information Instructions Date Instruction Additional Infor ulices Decrease caloric intake Related to Dietary surveillance counseling Dietary counseling Related to Di etary surveillance counseling Decrease caloric intake Related to Dietary surveillance counseling Dietary counseling Related to Di etary surveillance counseling Dietary counseling Related to Di etary surveillance counseling Decrease caloric intake Related to Dietary surveillance counseling Decrease caloric intake Related to Dietary surveillance counseling Dietary counseling Related to Di etary surveillance counseling Decrease caloric intake Related to Dietary surveillance counseling Dietary counseling Related to Di etary surveillance counseling Dietary counseling Related to Di etary surveillance counseling Decrease caloric intake Related to Dietary surveillance counseling Dietary counseling Related to Di etary surveillance counseling Decrease caloric intake Related to Dietary surveillance counseling Decrease caloric intake Related to Dietary surveillance counseling Dietary counseling Related to Di etary surveillance counseling Dietary counseling Related to Di etary surveillance counseling Decrease caloric intake Related to Dietary surveillance counseling Assessments Type Assessment Date No Information
--- OUTSIDE RECORDS SUMMARY | 2025-01-13 13:53 | XMS_ITS ---
Author Organization [facility] Address [address] [place] [address] Care Team Providers Care Field Specialist Name Role Phone Shae Philip Primary Care Provider Allergies Allergen (clinical drug ingredient) Drug/Non Drug Allergy documented on EMR Reaction Allergy Type Onset Date Status codeine Codeine hives Drug Allergy Active Penicillin hives Drug Allergy Active REASON FOR VISIT 4 week F/U Medications Medication SIG (Take, Route, Frequency, Duration) Notes Start Date End Date Status Cholecalciferol 1.25 MG (75767 UT) 1 capsule Orally once per week Not-Taking Levothyroxine Sodium 150 MCG 1 tablet on an empty stomach in the morning Orally Once a day Not-Taking ARIPiprazole 2 mg TAKE 1 TABLET BY MOUTH DAILY for 30 Active Austedo XR 36 MG 1 tablet Orally Once a day for 14 days Active Influenza Vac Subunit Quad 0.5 ML as directed Intramuscular once for 1 days Active traZODone HCl 150 MG 1 tablet at bedtime as needed Orally Once a day for 30 days Active Propranolol HCl 10 MG 1 tablet Orally Once a day for 30 days Active Influenza Vac Split Quad 0.5 ML as directed Intramuscular once Active hydrOXYzine HCl 50 MG TAKE 1 & 1/2 - 2 TABLETS BY MOUTH ONCE DAILY if NEEDED FOR ANXIETY AND SLEEP for 30 days Active Pravastatin Sodium 20 MG 1 tablet Orally Once a day for 30 day(s) 01/11/2020 Active traMADol HCl 50 MG 1 tablet as needed Orally every 8 hours Active Alendronate Sodium 70 MG 1 tablet 30 minutes before the first food, beverage or medicine of the day with plain water Orally Once a week for 30 days Active traZODone HCl 150 MG 1 tablet at bedtime as needed Orally Once a day for 30 days Active Austedo XR 48 MG 1 tablet Orally Once a day for 2 weeks then increase to 42 mg script for 14 days 42 mg x 2 weeks then increase to 48 mg; thanks 01/23/2025 Active Austedo XR 42 MG 1 tablet Orally Once a day for 30 days 42 mg x 2 weeks then increase to 48 mg; thanks 01/09/2025 Active hydrOXYzine HCl 25 MG 1 tablet as needed Orally Once a day for 30 days Active ARIPiprazole 2 MG TAKE 1 TABLET BY MOUTH DAILY for 30 days Active Wellbutrin XL 150 MG 1 tablet in the morning Orally Once a day for 30 days Active Propranolol HCl ER 60 MG 1 capsule Orally Once a day for 30 day(s) 01/09/2025 Active Wellbutrin XL 300 MG 1 tablet in the morning Orally Once a day for 30 days Active Social History Tobacco Use: Social History Observation Description Date Details (start date - stop date) Never Smoker NA - NA Sex Assigned At : Social History Observation Description Sex Assigned At Female Tobacco Control (Standard) Question Answer Notes Tobacco use: Nonsmoker Problems Problem Type SNOMED Code ICD Code Onset Dates Problem Status W/U Status Risk Notes Problem Overweight (132560107) Over weight (E66.3) Active confirmed Vital Signs Weight 164.0 lbs 01/09/2025 Height 63 in 01/09/2025 BMI 29.05 kg/m2 01/09/2025 Blood pressure systolic 128 mm Hg 01/10/20 25 Blood pressure diastolic 88 mm Hg 025 Heart Rate 67 /min 01/09/2025 Oximetry 99 % 01/09/2025 Temperature 97.9 degrees Fahrenheit 01/10/20 25 Respiratory Rate 16 /min 01/09/2025 Encounters Encounter Location Date Provider Diagnosis [facility] [address] [place] [address] 01/09/2025 Shae Philip Over weight E66.3 ; Generalized anxiety disorder F41.1 ; Bipolar affective disorder F31.9 ; Tardive dyskinesia G24.01 ; Nicotine dependence, unspecified, uncomplicated F17.200 and Encounter for immunization Z23 Assessments Encounter Date Diagnosis (ICD Code) Assessment Notes Treatment Notes Treatment Clinical Notes Section Notes 01/09/2025 Over weight (ICD-10 - E66.3) 01/09/2025 Generalized anxiety disorder (ICD-10 - F41.1) Changing to propranolol ER for anxiety- discussed r/b/se, monitor depression. Hydroxyzine with rare use. Client reports intermittent dry mouth- discussed this can be SE of multiple medications and continue to monitor. Encouraged oral hygeine. 01/09/2025 Bipolar affective disorder (ICD-10 - F31.9) Will continue to monitor and evaluate as poor insight on patient behalf limits evaluation. May look to change SGA if needed, has not tried Geodon or Latuda. 01/09/2025 Tardive dyskinesia (ICD-10 - G24.01) Pt has Hx of TD since 02/2022. Pt has tried Ingrezza with no relief. Pt understands that TD symptoms would be snf and irreversible. States has not tried alternatives besides ingrezza. Benztropine with worsened symptoms. Increase Austedo. 01/09/2025 Nicotine dependence, unspecified, uncomplicated (ICD-10 - F17.200) 01/09/2025 Encounter for immunization (ICD-10 - Z23) 01/09/2025 Other Reasons, potential benefits, potential risks, interactions [...] of education, treatment plan and follow up. Plan Of Treatment Medication Medication Name Sig Start Date Stop Date Notes traZODone HCl 150 MG 1 tablet at bedtime as needed Orally Once a day for 30 days Austedo XR 48 MG 1 tablet Orally Once a day for 2 weeks then increase to 42 mg script for 14 days 01/23/2025 42 mg x 2 weeks then increase to 48 mg; thanks Austedo XR 42 MG 1 tablet Orally Once a day for 30 days 01/09/2025 42 mg x 2 weeks then increase to 48 mg; thanks hydrOXYzine HCl 25 MG 1 tablet as needed Orally Once a day for 30 days ARIPiprazole 2 MG TAKE 1 TABLET BY MOUTH DAILY for 30 days Wellbutrin XL 150 MG 1 tablet in the morning Orally Once a day for 30 days Propranolol HCl ER 60 MG 1 capsule Orall y Once a day for 30 day(s) 01/09/2025 Wellbutrin XL 300 MG 1 tablet in the morning Orally Once a day for 30 days Propranolol HCl 10 MG 1 tablet Orally On ce a day for 30 days Treatment Notes Assessment Notes Generalized anxiety disorder Changing to propranolol ER for anxiety- discussed r/b/se, monitor depression. Hydroxyzine with rare use. Client reports intermittent dry mouth- discussed this can be SE of multiple medications and continue to monitor. Encouraged oral hygeine. Tardive dyskinesia Pt has Hx of TD since 02/2022. Pt has tried Ingrezza with no relief. Pt understands that TD symptoms would be long term acute care registered nurse and irreversible. States has not tried alternatives besides ingrezza. Benztropine with worsened symptoms. Increase Austedo. Other Reasons, potential benefits, potential risks, interactions [...] of education, treatment plan and follow up. Next Appt Details Follow Up: 4 Weeks, Reason: Psych F/U in-office Progress Notes * Elin GÓMEZDOB:1960 ([age] yo F)Acc No.[id number]:01/09/2025 Patient: Elin JOSE Provider: Juan Philip, MSN, SOLID FIBER PASTER OPERATOR, FUR DRY CLEANER-C :1960 A ge:64 Y S ex:Female Date:01/09/2025 Phone: Address:[facility] [address] [address], [address] Check In:10:29 AM LEAD DATABASE ADMINISTRATOR Subjective: * Chief Complaints: * 4 week F/U * HPI: I nterim History: Emergency room visit N o. W as hospitalized N o.? D epression Screening: PHQ-9 L ittle interest or pleasure in doing things N early every day, F eeling down, depressed, or hopeless N early every day, T rouble falling or staying asleep, or sleeping too much N ot at all, F eeling tired or having little energy Nearly every day, P oor appetite or overeating N ot at all, F eeling bad about yourself or that you are a failure, or have let yourself or your family down N early every day, Trouble concentrating on things, such as reading the newspaper or watching television N early every day, M oving or speaking so slowly that other people could have noticed; or the opposite, being so fidgety or restless that you have been moving around a lot more than usual N ot at all,?Thoughts that you would be better off or of hurting yourself in some way N ot at all, Total Score 1 5, I nterpretation M oderately Severe Depression. I ntervention?Depression Screening Findings P ositive, F ollow-Up for Depression N o Referral necessary, patient involved in behavioral health treatment .. S creening: Pacific Suicide Severity Rating Scale (LF) D o [...] N o, I nterpretation: L ow Risk. C SSRS Interpretation and Follow Up Plan: CSSRS Interpretation and Follow Up Plan C SSRS Screen documented using SF Y es, R isk Disposition from SF L ow - No Follow Up Plan Required, F ollow Up Plan N o Follow Up Plan required at this time., T imeframe of Screening T tobias.? D epression Screening PHQ9: c/o PHQ-2 (2015 Edition). PHQ9 D epression Screening Finding P ositive, F ollow-up Depression W arm hand-off to staff. P reventative Health and Wellness follow-up: . P sychiatric Assessment - Current Symptoms: How is ct doing today? Client is a 64 yo F in the office today states she is doing fair. States has been feeling off-balance sometimes. Reports this has been intermittent, last time feeling off-balance was last night. Reports taking her off benztroping due to confusion a few weeks ago, med was d/c'd by provider as well. Depression: Reports sadness, about the same. Anxiety: Bad, about the same Concentration is poor Anger/irritability: Denies Appetite: Good Sleep: Good with the trazodone Energy: No, nonexistent. PCP is Archie Lay States her dry mouth is same Denies SI/HI. A bnormal Involuntary Movement Scale: Facial and Oral Movements M uscles of Facial Expression?0- None, L ips and Perioral Area 1 - Minimal, J aw 2 - Mild, T ongue 3 - Moderate. E xtremity Movements U pper (arms, wrists, hands, fingers) 1 - Minimal, L ower (legs, knees, ankles, toes) 0 - None. T runk Movements N rosy, Shoulders and hips?0- None. G lobal Judgement S everity of abnormal movements overall 3 - Moderate, I ncapacitation due to abnormal movements 3 - Moderate, P atient's awareness of abnormal movements 3 - Aware, moderate distress. D ental Status C urrent problems with teeth and/or dentures N o, D o movements disappear with sleep? N o. * ROS: P sych ROS: Constitutional D [...] removal 09/2022 * Hospitalization/Major Diagno stic Procedure: N o Hospitalization History. * Family History: F ather: . M other: . 4 sister(s) . 1 son(s) , 1 daughter(s) - healthy. . Mother and sisters-thyroid problems. * Social History: P rimary Social History: L iving Arrangement L iving Arrangement: I ndependent Living. A lcohol Use A lcohol Use Frequency: N ever. I llicit Substance Usage I llicit Substance Usage: N o. Employment Status E mployment Status: O n Disability. S gisselle Question Alcohol Screening H ow may times in the past year have you had (4 for women, or 5 for men) or more drinks in a day? 0 . T obacco Use: T obacco Control (Standard) T obacco use: N onsmoker. M iscellaneous: M ethod of learning P referred method of learning: R marino,Discussion,Demonstration,Hearing. * Medications: T akingAlendronate Sodium 70 MG Tablet 1 tablet 30 minutes before the first food, beverage or medicine of the day with plain water Orally Once a week Pravastatin Sodium 20 MG Tablet 1 tablet Orally Once a day traMADol HCl 50 MG Tablet 1 tablet as needed Orally every 8 hours Influenza Vac Split Quad 0.5 ML Suspension Prefilled Syringe as directed Intramuscular once hydrOXYzine HCl 50 MG Tablet TAKE 1 & 1/2 - 2 TABLETS BY MOUTH ONCE DAILY if NEEDED FOR ANXIETY AND SLEEP Austedo XR 36 MG Tablet Extended Release 24 Hour 1 tablet Orally Once a day Influenza Vac Subunit Quad 0.5 ML Suspension Prefilled Syringe as directed Intramuscular once ARIPiprazole 2 mg Tablet TAKE 1 TABLET BY MOUTH DAILY Wellbutrin XL 300 MG Tablet Extended Release 24 Hour 1 tablet in the morning Orally Once a day Wellbutrin XL 150 MG Tablet Extended Release 24 Hour 1 tablet in the morning Orally Once a day traZODone HCl 150 MG Tablet 1 tablet at bedtime as needed Orally Once a day Propranolol HCl 10 MG Tablet 1 tablet Orally Once a day Taking Alendronate Sodium 70 MG Tablet 1 tablet 30 minutes before the first food, beverage or medicine of the day with plain water Orally Once a week Taking Pravastatin Sodium 20 MG Tablet 1 [...] if NEEDED FOR ANXIETY AND SLEEP Taking Austedo XR 36 MG Tablet Extended Release 24 Hour 1 tablet Orally Once a day Taking Influenza Vac Subunit Quad 0.5 ML Suspension Prefilled Syringe as directed Intramuscular once Taking ARIPiprazole 2 mg Tablet TAKE 1 TABLET BY MOUTH DAILY Taking Wellbutrin XL 300 MG Tablet Extended Release 24 Hour 1 tablet in the morning Orally Once a day Taking Wellbutrin XL 150 MG Tablet Extended Release 24 Hour 1 tablet in the morning Orally Once a day Taking traZODone HCl 150 MG Tablet 1 tablet at bedtime as needed Orally Once a day Taking Propranolol HCl 10 MG Tablet 1 tablet Orally Once a day Not-TakingCholecalciferol 1.25 MG (49147 UT) Capsule 1 capsule Orally once per week Levothyroxine Sodium 150 MCG Tablet 1 tablet on an empty stomach in the morning Orally Once a day hydrOXYzine HCl 25 MG Tablet 1 tablet as needed Orally Once a day Not-Taking Cholecalciferol 1.25 MG (55560 UT) Capsule 1 capsule Orally once per week Not-Taking Levothyroxine Sodium 150 MCG Tablet 1 tablet on an empty stomach in the morning Orally Once a day Not-Taking hydrOXYzine HCl 25 MG Tablet 1 tablet as needed Orally Once a day DiscontinuedARIPiprazole 2 MG Tablet TAKE 1 TABLET BY MOUTH DAILY Austedo XR 36 MG Tablet Extended Release 24 Hour 1 tablet Orally Once a day for 2 weeks then increase to 42 mg script Austedo XR 42 MG Tablet Extended Release 24 Hour 1 tablet Orally Once a day Medication List reviewed and reconciled with the patientDiscontinued ARIPiprazole 2 MG Tablet TAKE 1 TABLET BY MOUTH DAILY Discontinued Austedo XR 36 MG Tablet Extended Release 24 Hour 1 tablet Orally Once a day for 2 weeks then increase to 42 mg script Discontinued Austedo XR 42 MG Tablet Extended Release 24 Hour 1 tablet Orally Once a day Medication List reviewed and reconciled with the patient * Allergies: P enicillin: hives - AllergyCodeine: hives - Allergyno[Allergies Verified] Objective: * Vitals: I nitials: TT, Wt:164.0, Ht: 63, BMI:29.05, BP:128/88, HR:67, Oxygen sat %:99, Temp:97.9, RR:16, LMP: No Menses, Pain scale:0. * Examination: M ental Status Exam: SENSORIUM [...] oderate. SIGNIFICANT FINDINGS REGARDING MENTAL STATUS c nancy Stapleton is helpful with client's compliance.. Assessment: * Assessment: 1. O bárbara weight - E66.3 2 . G eneralized anxiety disorder - F41.1 ? 3 . B ipolar affective disorder - F31.9 (Primary) N otes :Will continue to monitor and evaluate as poor insight on patient behalf limits evaluation. 4 . T ardive dyskinesia - G24.01 5 . N icotine dependence, unspecified, uncomplicated - F17.200 6 . E ncounter for immunization - Z23 Plan: * Treatment: 2. G eneralized anxiety disorder Refill Wellbutrin XL Tablet Extended Release 24 Hour, 300 MG, 1 tablet in the morning, Orally, Once a day, 30 days, 30, Refills 0; S top Propranolol HCl Tablet, 10 MG, 1 tablet, Orally, Once a day, 30 days, 30 Tablet; R efill Wellbutrin XL Tablet Extended Release 24 Hour, 150 MG, 1 tablet in the morning, Orally, Once a day, 30 days, 30, Refills 0; R efill hydrOXYzine HCl Tablet, 25 MG, 1 tablet as needed, Orally, Once a day, 30 days, 30, Refills 0; S tart Propranolol HCl ER Capsule Extended Release 24 Hour, 60 MG, 1 capsule, Orally, Once a day, 30 day(s), 30. Notes: Changing to propranolol ER for anxiety- discussed r/b/se, monitor depression. Hydroxyzine with rare use. Client reports intermittent dry mouth- discussed this can be SE of multiple medications and continue to monitor. Encouraged oral hygeine. 3. T ardive dyskinesia Increase Austedo XR Tablet Extended Release 24 Hour, 48 MG, 1 tablet, Orally, Once a day for 2 weeks then increase to 42 mg script, 14 days, 14, Refills 0, Notes to Pharmacist: 42 mg x 2 weeks then increase to 48 mg; thanks; I ncrease Austedo XR Tablet Extended Release 24 Hour, 42 MG, 1 tablet, Orally, Once a day, 30 days, 30, Refills 0, Notes to Pharmacist: 42 mg x 2 weeks then increase to 48 mg; thanks. Notes: Pt has Hx of TD since 02/2022. Pt has tried Ingrezza with no relief. Pt understands that TD symptoms would be long term acute care registered nurse and irreversible. States has not tried alternatives besides ingrezza. Benztropine with worsened symptoms. Increase Austedo. 4. O thers Notes: Reasons, potential benefits, [...] May also contact the 24-hour crisis hotline ([facility]), refer to the closest emergency room or [...] of education, treatment plan and follow up. * Recommended Wellness and Pre vention Guidelines: * S tatus A lert L ast Done N ext Due A ction Taken N ONCOMPLIANT B reast cancer screening - 0 01/09/2025 - N ONCOMPLIANT C olorectal cancer screening - 0 01/09/2025 - N ONCOMPLIANT D epression followup 0 12/06/2024 0 01/09/2025 - N ONCOMPLIANT P neumococcal vaccine - 0 01/09/2025 - * Procedure Codes: 3 008F BODY MASS INDEX [id number] [facility] VISIT ESTABLISHED PATIENT * Preventive Medicine: Counseling: C are goal follow-up plan: B WA management provided Fred Balbuena Normal BMI Follow-up L ifestyle education regarding diet. * Follow Up: 4 Weeks (Reason: Psych F/U in-office) * * Sign off status: Completed true * Provider: Juan Philip, MSN, SOLID FIBER PASTER OPERATOR, FUR DRY CLEANER-C Date: 0 01/09/2025 Generated for Lorenzo white/Brenda/eTransmitting on: 0 01/13/2025 01:53 PM CDT History and Physical Notes * HPI (History of Present Illness) Category Sub-Category Detail Notes Category Not es Interim History Was hospitalized No Emergency room visit No Depression Screening PHQ9 PHQ9 Depression Screening Finding: Positive Follow-up Depression: Warm hand-off to [facility] staff Depression Screening PHQ-9 Little inte rest or pleasure in doing things: Nearly every day Feeling down, depressed, or hopeless: Ne lyndsay every day Trouble falling or staying asleep, or sl eeping too much: Not at all Feeling tired or having little energy: N early every day Poor appetite or overeating: Not at all Feeling bad about yourself o r that you are a failure, or have let yourself or your family down: Nearly every day Trouble concentrating on thi ngs, such as reading the newspaper or watching television: Nearly every day Moving or speaking so slowly that other people could have noticed; or the opposite, being so fidgety or restless that you have been moving around a lot more than usual: Not at all Thoughts that you would be b ginny off or of hurting yourself in some way: Not at all Total Score: 15 Interpretation: Moderately Severe Depres monalisa Intervention Depression Screening Findings: P ositive Follow-Up for Depression: No Referral necessary, patient involved in behavioral health treatment . Abnormal Involuntary Movement Scale Facial and Oral Movements Muscles of Facial Expression: 0- None Lips and Perioral Area: 1- Minimal Jaw: 2- Mild Tongue: 3- Moderate Extremity Movements Upper (arms, wrists, hands, fingers): 1- Minimal Lower (legs, knees, ankles, toes): 0- No ne Trunk Movements Neck, Shoulders and hips: 0- Non e Global Judgement Severity of abnormal movements overall: 3- Moderate Incapacitation due to abnormal movements : 3- Moderate Patient's awareness of abnormal movement s: 3- Aware, moderate distress Dental Status Current problems with teeth and/ or dentures: No Do movements disappear with sleep?: No Psychiatric Assessment - Current Symptoms How is ct doing today? Client is a 64 yo F in the office today states she is doing fair. States has been feeling off-balance sometimes. Reports this has been intermittent, last time feeling off-balance was last night. Reports taking her off benztroping due to confusion a few weeks ago, med was d/c'd by provider as well. Depression: Reports sadness, about the same. Anxiety: Bad, about the same Concentration is poor Anger/irritability: Denies Appetite: Good Sleep: Good with the trazodone Energy: No, nonexistent. PCP is Archie Lay States her dry mouth is same Denies SI/HI. Screening Pacific Suicide Severity Rating Scale (LF) Do you [...] end your life?: No Interpretation:: Low Risk Preventative Health and Wellness follow-up . CSSRS Interpretation and Follow Up Plan CSSRS Interpretation and Follow Up Plan CSSRS Screen documented using SF: Yes Risk Disposition from SF: Low - No Follo w Up Plan Required Follow Up Plan: No Follow Up Plan requir ed at this time. Timeframe of Screening: Today Examination Category Sub-Category Detail Notes Category Not es Mental Status Exam SENSORIUM AND COGNITION Alert , Oriented to Person, Oriented to Place, Oriented to Time, Oriented to Situation ATTENTION AND CONCENTRATION No deficits ATTITUDE AND BEHAVIOR Cooperative, [employer] tive MEMORY Grossly intact MOOD Euthymic, intermitte ntly dysphoric SPEECH QUANTITY Appropriate SPEECH QUALITY Appropriate volume, Minimal slurring noted THOUGHT PROCESS Coherent and goal di rected THOUGHT CONTENT Appropriate - WNL MOTOR ACTIVITY Reports worsened naun th/tongue movements. SUICIDAL IDEATION Denies suicidal idea tion HOMICIDAL IDEATION Denies homicidal benedict ation HALLUCINATIONS Denies hallucination s INSIGHT Fair JUDGMENT Fair FUND OF KNOWLEDGE Fair-poor ABILITY TO PARTICIPATE IN TREATMENT Mode rate WILLINGNESS TO PARTICIPATE IN TREATMENT Moderate SIGNIFICANT FINDINGS REGARDI NG MENTAL STATUS caregiver Daya is helpful with client 's compliance.
--- OUTSIDE RECORDS SUMMARY | 2025-01-13 13:53 | XMS_ITS | Clinical Summary ---
Author Organization [facility] Address [address], [facility] [address] [place] [address] Phone Care Team Providers Care Pinion Polisher Name Role Phone Braulio Mccabe MD Primary Care Provider [phone] Allergies Active Allergy Reactions Criticality Noted Date Comments Codeine Hives 12/24/2017 Penicillins Hives 12/24/2017 Medications latanoprost (XALATAN) 0.005 % Solution Place 2 Drops in affected eye(s) nightly. Each eye. 8 Active sertraline (ZOLOFT) 100 MG Tablet Take 100 mg by mouth daily. 8 Active levothyroxine (SYNTHROID) 112 MCG Tablet Take 112 mcg by mouth daily. 8 Active ergocalciferol (VITAMIN D) 07274 UNIT Capsule TK 1 C PO Q WK 8 Active hydrocortisone (PROCTOSOL HC) 2.5 % Cream Apply daily. Apply to rectum as directed. 1 Tube 8 Active Additional Information Patient not taking.Reported on 12/28/2017 polyethylene glycol (MIRALAX) Powder Use entire bottle of 255 grams of miralax for Colon prep as directed by office. 255 g 8 Active famotidine (PEPCID) 20 MG Tablet Take 1 Tab by mouth 2 times daily as needed. 30 Tab 8 Active Additional Information Patient not taking.Reported on 12/28/2017 cetirizine (ZYRTEC) 10 MG Tablet Take 1 Tab by mouth daily. 15 Tab 8 Active Additional Information Patient not taking.Reported on 12/28/2017 Active Problems No known active problems Family History Medical History Relation Name Comments Mental Disorder, Other Father Depression Mother Mental Disorder, Other Mother Thyroid Disease Mother Relation Name Status Comments Father Mother Social History Tobacco Use Types Packs/Day Years Used Date Smoking Tobacco: Some Days Cigarettes 0.5 44 Smokeless Tobacco: Never Tobacco Cessation:Ready to Q uit: No; Counseling Given: Yes Alcohol Use Standard Drinks/Week Comments No 0 (1 standard drink = 0.6 oz pur e alcohol) Comments No Sex and Gender Information Value Date Recorded Sex Assigned at Not on file Legal Sex Female 12:35 AM CDT Gender Identity Not on file Sexual Orientation Not on file Last Filed Vital Signs Vital Sign Reading Time Taken Comments Blood Pressure 145/91 12/24/2017 11:18 AM CDT Pulse 84 12/24/2017 10:49 AM CDT Temperature 36.1 C (96.9 F) 12/24/2017 10:49 AM CDT Respiratory Rate 18 12/24/2017 10:49 AM CDT Oxygen Saturation 94% 12/24/2017 10:49 AM CDT Inhaled Oxygen Concentration - - Weight 87.5 kg (193 lb) 12/28/2017 9:00 AM CDT Height 160 cm (5' 3 ) 12/28/2017 9:00 AM CDT Body Mass Index 34.19 12/28/2017 9:00 AM CDT Plan of Treatment Health Maintenance Due Date Last Done Comments Colonoscopy 2003 Colorectal Cancer Screening 2003 Cologuard 2008 Immunochemical Fecal Occult Blood 2008 Pneumococcal Immunization (5 0+ years) (1 of 1 - PCV) 2008 Zoster Immunization (1 of 2) 2008 Influenza Immunization (#1) 2024 11/0 11/2016, 09/23/2014 SARS-COV-2 Immunization ( - 2023- season) 2024 Respiratory Syncytial Virus (RSV) Immunization (Adult) (1 - 1-dose 75+ series) 2033 DTaP/Tdap/Td Immunization Discontinued 10/11/2013 TdaP Immunization Completed 10/11/2013 Hepatitis B Immunization Aged Out No longer eligible based on patient's age to complete this topic Meningococcal Immunization (ACWY) Aged Out No longer eligible based on patient's age to complete this topic Rotavirus Immunization Aged Out No lo nger eligible based on patient's age to complete this topic Insurance MEDICAID [employer] Care Teams Pinion Polisher Relationship Specialty Start Date End Date Braulio Mccabe MD [address] [place] [address] PCP - General Internal Medicine 06/10/17
[2025-01-13 13:55] VITALS: BP 125/81; PULSE 62; RESP 18; TEMP 36.6; O2SAT 98
--- OUTSIDE RECORDS SUMMARY | 2025-01-13 14:41 | XMS_ITS | Continuity of Care Document ---
Author Organization [facility] Address [address] [place] [address] Phone Care Team Providers Care Supervisor [employer] Name Role Phone Yuri London MD Unavailable Unavailable Allergies, Adverse Reactions, Alerts Substance Reaction Status Criticality penicillin G Active No Information Medications Medication Instructions Dosage Effective Dates (start - stop) Status Comments oxycodone 15 mg tablet take 1 tablet (15MG) by oral route 4 times every day 15 MG - Active avoid driving or operate machines Adderall 30 mg tablet take 1 tablet (30MG) by oral route 2 times every day 30 MG - Active Synthroid 100 mcg tablet take 1 tablet [...] Diagnoses Date Provider Providers Copied on Encounter [facility], [address], [address], [place] tel:[phone] [facility] No Information 3 Surya Welch. [address], [place], [place], [address] , [place]. tel:[phone] Referring Provider: Ricardo Crespo [address], [place], [place], [address]. tel:[phone] OFFICE/OUTPA TIENT VISIT, [facility], [place], [facility], [address], [place], [place], [address], [place] tel:[phone] [facility] chronic pain (chief complaint)ADd (chief complaint) Dietary surveillance and counselingAtte ntion deficit disorder of childhood without mention of hyperactivityC HRONIC PAIN NEC 3 Surya Welch. [address], [place], [place], [address] , [place]. tel:[phone] Referring Provider: Ricardo Crespo [address], [place], [place], [address]. tel:[phone] OFFICE/OUTPA TIENT VISIT, [facility] [place], [facility], [address], [place], [place], [address], [place] tel:[phone] [facility] Neck pain (chief complaint)ADD (chief complaint)Hep C (chief complaint) Dietary surveillance and counselingCHRO LILI PAIN NECAttention deficit disorder of childhood without mention of hyperactivityH ypertension, Unspecified 3 Surya Welch. [address], [address], [place], [place], [address] , [place]. tel:[phone] Referring Provider: Ricardo Crespo [address], [place], [place], [address]. tel:[phone] OFFICE/OUTPA TIENT VISIT, [facility] [place], [facility], [address], [place], [place], [address], [place] tel:[phone] [facility] chronic pain (chief complaint)ADD (chief complaint)Hep C (chief complaint) Dietary surveillance and counselingCHRO LILI PAIN NECHypothyroid ismAcute hepatitis C without mention of hepatic coma 3 Surya Welch. [address], [place], [place], [address] , [place]. tel:[phone] Referring Provider: Yuri London, [address], [place], [place], [address]. tel:[phone] OFFICE/OUTPA TIENT VISIT, [facility] [place], [address], [place], [place], [address], [place] tel:[phone] [facility] Neck pain (chief complaint)Hypot hryoidism (chief complaint)ADD (chief complaint) Dietary surveillance and counselingCHRO LILI PAIN NECHypothyroid ismAttention deficit disorder of childhood without mention of hyperactivityH ypertension, Unspecified Jan- 3 Surya Welch. [address], [place], [place], [address] , [place]. [phone] Referring Provider: Yuri London [address], [place], [place], [address]. tel:[phone] OFFICE/OUTPA TIENT VISIT, [facility] [place], [address], [place], [place], [address], [place] tel:[phone] [facility] hypothyroidism (chief complaint)neck pain (chief complaint)ADD (chief complaint) Dietary surveillance and counselingCerv icalgiaHypothy roidismAttenti on deficit disorder of childhood without mention of hyperactivity 3 Surya Welch. [address], [place], [place], [address] , [place]. [phone] Referring Provider: Ricardo Crespo [address], [place], [place], [address]. tel:[phone] OFFICE/OUTPA TIENT VISIT, [facility] [place], [address], [place], [place], [address], [place] tel:[phone] [facility] Neck pain (chief complaint)ADD (chief complaint)Hypot hyroidism (chief complaint) Dietary surveillance and counselingHypo thyroidismCHRO LILI PAIN NECAttention deficit disorder of childhood without mention of hyperactivity 3 Surya Welch. [address], [place], [place], [address] , [place]. tel:[phone] Referring Provider: Ricardo Cresp[address], [place], [place], [address]. tel:[phone] OFFICE/OUTPA TIENT VISIT, [facility] [place], [facility], [address], [place], [place], [address], [place] tel:[phone] [facility] neck pain (chief complaint)Hypot hyroidism (chief complaint)ADD (chief complaint) Dietary surveillance and counselingCHRO LILI PAIN NECAttention deficit disorder of childhood without mention of hyperactivity 2 Surya Welch. [address], [place], [place], [address] , [place]. [phone] Referring Provider: Ricardo Cresp[address], [place], [place], [address]. tel:[phone] OFFICE/OUTPA TIENT VISIT, [facility] [place], [facility] [address], [place], [place], [address], [place] tel:[phone] [facility] hep C (chief complaint)HLP (chief complaint)hypot hyroidism (chief complaint)chron ic pain (chief complaint) Dietary surveillance and counselingOthe r and unspecified hyperlipidemia Acute hepatitis C without mention of hepatic comaOther specified acquired hypothyroidism CHRONIC PAIN NEC 2 Surya Welch. [address], [address], [place], [place], [address] , [place]. [phone] Referring Provider: Ricardo Cresp[address], [place], [place], [address]. tel:[phone] OFFICE/OUTPA TIENT VISIT, [facility] [place], [address], [place], [place], [address], [place] tel:[phone] [facility] well woman (chief complaint) CHRONIC PAIN NEC 2 Surya Welch. [address], [address], [place], [place], [address] , [place]. [phone] Referring Provider: Ricardo [address], [place], [place], [address]. tel:[phone] OFFICE/OUTPA TIENT VISIT, [facility], [address], [place], [place], [address], [place] tel:[phone] [facility] Medicine neck pain (chief complaint)ADD (chief complaint) Dietary surveillance and counselingCHRO LILI PAIN NECAttention deficit disorder of childhood without mention of hyperactivity 2 Surya Yuri. [address], [address], [address] , [place]. tel:[phone] Referring Provider: Yuri London [address], [place], [place], [address]. tel:[phone] Family History Family Member Type Diagnosis Age At Onset Father Problem (finding) suicide Mother Problem (finding) colon infection Payers Payer name Insurance type Covered democrat ID Authoriza tion(s) No Information Social History [...] Information Instructions Date Instruction Additional Infor ulices Dietary counseling Related to Di etary surveillance [...]
--- OUTSIDE RECORDS SUMMARY | 2025-01-13 14:41 | XMS_ITS | Encounter Summary ---
Author Organization [facility] Address [address] [place] [address] Care Team Providers Care Bundle Helper Name Role Phone Noe Crooks MD Unavailable [phone] Paxton Lay MD Primary Care Provider [phone] Manpreet LAURA MD, Lan Copeland Primary Care Provider [phone] Reason for Visit * Reason Onset Date Comments Medication Problem 06/12/2021 Encounter Details Date Type Department Care Team (Late st Contact Info) Description 06/12/2021 Telephone [facility] [address] [place], [place] [id number] Omar Da Silva MD [address] [facility] [address] [place] [address] Medication Problem Social History Tobacco Use Types [...] LONGER AVAILABLE. Pt had script sent to [facility] on [address] [phone] Pt phone [phone]. Please call to advise/discuss. documented in this encounter Plan of Treatment Upcoming Encounters Date Type Department Care Team (Late st Contact Info) Description 05/15/2025 10:00 AM CDT Office Visit [facility] - Op[facility]mology [address] [place] [address] Gurmeet Romo OD [address] [place] [phone] documented as of this encounter Goals [...] on filedocumented in this encounter Care Teams Bundle Helper Relationship Specialty Start Date End Date Paxton Lay MD [address] [place] [phone] PCP - General 11/28/19 10/22/21 Lan Case III, MD [address] [place] [address] [address] [place] [address] PCP - General 10/23/21 Noe Crooks MD Dermatology 10/24/18 documented as of this encounter
--- OUTSIDE RECORDS SUMMARY | 2025-01-13 14:41 | XMS_ITS | CONTINUITY OF CARE DOCUMENT ---
Author Name aryan baeza Address Unknown Organization [facility] Address [address] [place] [address] Phone [phone] Care Team Providers Care Staff Appraiser Name Role Phone Joaquin Pabon MD Unavailable LINDA FRANCISCO MD Unavailable LINDA FRANCISCO MD Unavailable [phone] INSURANCE PROVIDERS Payer name Policy type / Coverage type Barnes red democrat ID [place] MED[place] Medicare [id number] [employer] (2) Medicaid [id number]
--- OUTSIDE RECORDS SUMMARY | 2025-01-13 14:41 | XMS_ITS | Continuity of Care Document ---
Author Organization [facility] Address [address] [place] [address] [address] [place] [address] Phone Care Team Providers Care Manufacturing Director Name Role Phone Rios Valentin Unavailable Unavailable Advance Directives Directive Yes / No Effective Date File Name No Information Encounters Encounter Description Practice Location Reason(s) For Visit Diagnoses Date Provider Providers Copied on Encounter [facility], [address] [place] [address] [address], [place], [place], [address], [place] tel:[phone] [facility] [place] No Information 1[address]. [address] [place] , [address], [place], [address], [place]. tel:[phone] Family History Family Member Type Diagnosis Age At Onset No Information Payers Payer name Insurance type Covered libertarian ID Authoriza tion(s) Medicaid [facility] [id number] Social History Type Description Quantity Date Captured [...]
--- OUTSIDE RECORDS SUMMARY | 2025-01-13 14:41 | XMS_ITS | Clinical Summary ---
Author Organization [facility] Address [address] [facility] [place] [address] Care Team Providers Care Auto Body Detailer Name Role Phone Noe Crooks MD Unavailable [phone] Manpreet LAURA MD, Lan Copeland Primary Care Provider [phone] [facility],non-owned Affiliates and Associated Physician Practices is amultiple site organization consisting of ambulatory clinics and hospital sitesin [place], [place] and [place]. This disclosure is being madepursuant to the Care Everywhere program and may not contain all information available regarding this patient. Last updated 18.[facility] Allergies Active Allergy Reactions Criticality Noted Date Comments Codeine Urticaria Medium 02/03/2022 Glecaprevir-Pibrentasvir Urticaria Medium 01/10/2019 Penicillins Urticaria Medium 12/24/2017 Medications * Be aware that medications may not be up to date on this document. Alwaysverify current medications with the patient. Medication Sig Dispensed Refills Start Date End Date Status vitamin D, ergocalciferol, (DRISDOL) 65960 UNITS capsule Take 1 (one) capsule by [...] Department Care Team Description 11/15/2024 3:20 PM SUPERVISOR MIRROR FABRICATION Clinical Support [facility] [address] [place] [phone] Gurmeet Romo, OD Primary open angle glaucoma (POAG) of left eye, moderate stage (Primary Dx) 11/15/2024 3:15 PM SUPERVISOR MIRROR FABRICATION [facility] [address] [place] [phone] Gurmeet Romo, OD Primary open angle glaucoma (POAG) of left eye, moderate stage (Primary Dx) 11/15/2024 3:00 PM SUPERVISOR MIRROR FABRICATION Office Visit [facility] [address] [place] [phone] Gurmeet Romo, OD Primary open angle glaucoma [...] Comments Blood Pressure 107/61 09/09/2022 1:55 PM SUPERVISOR MIRROR FABRICATION Pulse 60 09/09/2022 1:55 PM SUPERVISOR MIRROR FABRICATION Temperature 36.2 C (97.2 F) 09/09/2022 1:40 PM SUPERVISOR MIRROR FABRICATION Respiratory Rate 16 09/09/2022 1:55 PM SUPERVISOR MIRROR FABRICATION Oxygen Saturation 97% 09/09/2022 1:55 PM SUPERVISOR MIRROR FABRICATION Inhaled Oxygen Concentration - - Weight 77.1 kg (170 lb) 09/09/2022 10:48 AM SUPERVISOR MIRROR FABRICATION Height 160 cm (5' 3 ) 09/09/2022 10:48 AM SUPERVISOR MIRROR FABRICATION Body Mass Index 30.11 09/09/2022 10:48 AM SUPERVISOR MIRROR FABRICATION Plan of Treatment Upcoming Encounters Date Type Department Care Team (Late st Contact Info) Description 05/15/2025 10:00 AM CDT Office Visit [facility] [address] [place] [phone] Gurmeet Romo, PEDRO [address] [place] [address] Health Maintenance Due Date Last Done Comments [...] you. Interventions: Medical Devices Implanted Type Area Senior Resident Care Director Device Identifier Shelf Expiration Date Model / Serial / Lot [employer] - Envista Iol Implanted:Qty: 1 on 09/09/2022 by Shant Castillo MD at [facility] Ocular [employer] Surgical 10/10/2024 [id number] / [id number] / NA [employer] Implanted:Qty: 1 on 08/26/2022 by Shant Castillo MD at [facility] Left: Eye 10/10/2024 MX60E 22.5 / [id number] / [id number] Procedures Procedure Name Priority Date/Time Associated Diagnosis Comments OPTIC NERVE ANALYSIS OCT Routine 11/15/2024 3:11 PM SUPERVISOR MIRROR FABRICATION Primary open angle glaucoma (POAG) of left eye, moderate stage MELÉNDEZ AUTO VISUAL FIELD EXTENDED Routine 11/15/2024 3:11 PM SUPERVISOR MIRROR FABRICATION Primary open angle glaucoma (POAG) of left eye, moderate stage HEPATITIS C AB W/RFLX TO HCV RNA QN PCR Routine 05/31/2020 1:05 PM CDT History of hepatitis from Last 3 Months or Most Recently Relevant to Health Maintenance Results * OPTIC NERVE ANALYSIS OCT (11/15/2024 3:11 PM SUPERVISOR MIRROR FABRICATION) Anatomical Region Laterality Modality Head External-Camera Photography Narrative 11/15/2024 3:51 PM SUPERVISOR MIRROR FABRICATION Images from the original result were not included. OD: poor quality, large artifact (likely due to small pupil) or PCO OS: good image (9) - overall stable with average RNFL drop from 81 --> 79, inferior average difference (47 --> 46) Overall stable Gurmeet Romo OD OPHTHALMOLOGY SCHED ORD W PACS * MELÉNDEZ AUTO VISUAL FIELD EXTENDED (11/15/2024 3:11 PM SUPERVISOR MIRROR FABRICATION) Anatomical Region Laterality Modality Head External-Camera Photography Narrative 11/15/2024 3:53 PM SUPERVISOR MIRROR FABRICATION Images from the original result were not [...] a current active infection. Test Performed at: [facility] [address] [place] [address] MADELEINE WALKER DO,MPH Blood BLOOD SPECIMEN / Unknown 05/31/2020 1:05 PM CDT 05/31/2020 1:10 PM CDT Catrachita Zamudio MD LAB - CHEMISTRY [place] [facility] [place] [address] from Last 3 Months or Most Recently Relevant to Health Maintenance Care Teams Auto Body Detailer Relationship Specialty Start Date End Date Lan Case III, MD [address] [address] PCP - General 10/23/21 Noe Crooks MD Dermatology 10/24/18
--- OUTSIDE RECORDS SUMMARY | 2025-01-13 14:41 | XMS_ITS | Clinical Summary ---
Author Organization [facility] Address [address], [facility] [address] [place] [address] Phone Care Team Providers Care Creamery Worker Name Role Phone Braulio Mccabe MD Primary Care Provider [phone] Allergies Active Allergy Reactions Criticality Noted Date Comments Codeine Hives 12/24/2017 Penicillins Hives 12/24/2017 Medications latanoprost (XALATAN) 0.005 % Solution Place 2 Drops in affected eye(s) nightly. Each eye. 8 Active sertraline (ZOLOFT) 100 MG Tablet Take 100 mg by mouth daily. 8 Active levothyroxine (SYNTHROID) 112 MCG Tablet Take 112 mcg by mouth daily. 8 Active ergocalciferol (VITAMIN D) 53102 UNIT Capsule TK 1 C PO Q [...] Insurance MEDICAID [employer] Care Teams Creamery Worker Relationship Specialty Start Date End Date Braulio Mccabe MD [address] [place] [address] PCP - General Internal Medicine 06/10/17
--- OUTSIDE RECORDS SUMMARY | 2025-01-13 14:41 | XMS_ITS | Continuity of Care Document ---
Author Organization [facility] Address [address] [facility] [address] [place] [address] Phone Care Team Providers Care Outbound Sales Specialist Name Role Phone Lindsey Wyman OT Unavailable [...] Diagnoses Date Provider Providers Copied on Encounter [facility] [address], [place], [place], [address], tel:[phone] [place] No Information 4 Zamzam Portillo. . [facility] [address], [place], [place], [address], [place] tel:[phone] [place] No Information 4 Harcaprice Portillo. . Referring Provider: Kiley Z[address], [place], [address]. tel:[phone] [facility] [address], [place], [place], [address], tel:[phone] [place] No Information 4 Zamzam Portillo. . Referring Provider: Kiley [address], [place], [address]. tel:[phone] [facility] [address], [place], [place], [address], [place] tel:[phone] [place] No Information 4 Zamzam Portillo. . Referring Provider: Kiley [address], [place], [address]. tel:[phone] [facility] [address], [place], [place], [address], [place] tel:[phone] [place] No Information 4 Zamzam Portillo. . Referring Provider: Kiley [address], [place], [address]. tel:[phone] [facility] [address], [place], [place], [address], [place] tel:[phone] [place] No Information 4 Zamzam Portillo. . Referring Provider: Day [address] [facility] [address], [place], [address]. tel:[phone] [address], [place], [place], [address], tel:[phone] [place] No Information Feb-0 8 4 Zamzam Portillo. . Referring Provider: Willie Dong [facility] [facility] [address], [place], [address]. tel:[phone], [place], [place], [address], tel:[phone] [place] No Information Feb-0 4 Zamzam Portillo. . Referring Provider: Willie Dong [facility] [facility] [address], [place], [address]. tel:[phone] [address] [address], [place], [place], [address], tel:[phone] [place] Unspecified urinary incontinence Feb-0 4 Carrillo Watson. . Referring Provider: Willie Dong [facility] [facility] [address], [place], [address]. tel:[phone] Family History Family Member Type Diagnosis Age At Onset No Information Payers Payer name Insurance type Covered republican ID Authoriza tion(s) Medicare [place] MB [id number] Medicaid OON Write Off CI 00 Social [...]
--- OUTSIDE RECORDS SUMMARY | 2025-01-13 14:41 | XMS_ITS | Patient Health Record ---
Author Organization [facility] Address [address] [place] [address] Care Team Providers Care Ophthalmic Surgeon Name Role Phone Shae Philip Primary Care Provider [phone] JoshRadha Unavailable [phone] Allergies Allergen (clinical drug ingredient) Drug/Non Drug Allergy documented on EMR Reaction Allergy Type Onset Date Status codeine Codeine hives Drug Allergy Active Penicillin hives Drug Allergy Active Results Component Value Reference Range Notes CMP 14 Comprehensive Metabol ic Panel* Reviewed date:09/08/2024 09:27:29 AM Interpretation:Normal Performing Lab:[facility] [place], [address] [facility], [place], Phone - [phone], Director - Sridhar Notes/Report: Glucose 92 70-99 mg/dL BUN 18 8-27 mg/dL Creatinine 0.97 0.57-1.00 mg/dL eGFR 64 >59 mL/min/1.73 BUN/Creatinine Ratio 19 12-28 Sodium 144 134-144 mmol/L Potassium 4.1 3.5-5.2 mmol/L Chloride 104 96-106 mmol/L Carbon Dioxide, Total 24 20-29 mmol/L Calcium 9.5 8.7-10.3 mg/dL Protein, Total 6.8 6.0-8.5 g/dL Albumin 4.4 3.9-4.9 g/dL Globulin, Total 2.4 1.5-4.5 g/dL Bilirubin, Total 0.6 0.0-1.2 mg/dL Alkaline Phosphatase 61 44-121 IU/L AST (SGOT) 19 0-40 IU/L ALT (SGPT) 12 0-32 IU/L Lipid Panel* Reviewed date:09/08/2024 09:27:17 AM Interpretation:Normal Performing Lab:[facility], [address] [facility], Phone - [phone], Director - [facility] Notes/Report: Cholesterol, Total 184 100-199 mg/dL Triglycerides 88 0-149 mg/dL HDL Cholesterol 70 >39 mg/dL VLDL Cholesterol [place] 16 5-40 mg/dL LDL Chol Calc ([facility]) 98 0-99 mg/dL Vitamin D, 25-Hydroxy* Reviewed date:09/08/2024 09:26:29 AM Interpretation:Normal Performing Lab:[facility], [address] [facility], Phone - [phone], Director - [facility] Notes/Report: Vitamin D, 25-Hydroxy 63.6 30.0-100.0 ng/mL Vitamin D deficiency has been defined by the [place] of [place] and an Endocrine Society practice guideline as a level of serum 25-OH vitamin D less than 20 ng/mL (1,2). The Endocrine Society went on to further define vitamin D insufficiency as a level between 21 and 29 ng/mL (2). 1. IOM ([place] of [place]). 2010. Dietary reference intakes for calcium and D. [place]: The National Academies Press. 2. Deena MF, Martin [place], Raymon CHOWDARY, et al. Evaluation, treatment, and prevention of vitamin D deficiency: an Endocrine Society clinical practice guideline. JCEM. 2010; 96(7):1911-30. CBC With Differential/Platel et* Reviewed date:09/08/2024 09:27:41 AM Interpretation:Abnormal Performing Lab:[facility], [address] [facility], Phone - [phone], Director - [facility] Notes/Report: WBC 4.7 3.4-10.8 x10E3/uL Effective September 11, 2024 profile [id number] WBC will be made non-orderable as a stand-alone order code. RBC 4.37 3.77-5.28 x10E6/uL Hemoglobin 14.4 11.1-15.9 g/dL Hematocrit 43.7 34.0-46.6 % MCV 100 79-97 fL MCH 33.0 26.6-33.0 pg MCHC 33.0 31.5-35.7 g/dL RDW 12.2 11.7-15.4 % Platelets 277 150-450 x10E3/uL Neutrophils 46 Not Estab. % Lymphs 41 Not Estab. % Monocytes 10 Not Estab. % Eos 2 Not Estab. % Basos 1 Not Estab. % Neutrophils (Absolute) 2.1 1.4-7.0 x10E3/uL Lymphs (Absolute) 1.9 0.7-3.1 x10E3/uL Monocytes(Absolute) 0.5 0.1-0.9 x10E3/uL Eos (Absolute) 0.1 0.0-0.4 x10E3/uL Baso (Absolute) 0.1 0.0-0.2 x10E3/uL Immature Granulocytes 0 Not Estab. % Immature Grans (Abs) 0.0 0.0-0.1 x10E3/uL TSH* Reviewed date:09/08/2024 09:27:07 AM Interpretation:Low Performing Lab:[facility] [place], [address] [place] [address], Phone - [phone], Director - [facility] Notes/Report: TSH 0.036 0.450-4.500 uIU/mL Hemoglobin A1c* Reviewed date:09/08/2024 09:26:55 AM Interpretation:Normal Performing Lab:[facility] [address] [place] [address], Phone - [phone], Director - [facility] Notes/Report: Hemoglobin A1c 5.4 4.8-5.6 % . Prediabetes: 5.7 - 6.4 Diabetes: >6.4 Glycemic control for adults with diabetes: <7.0 Vitamin B12 and Folate Reviewed date:09/08/2024 09:26:42 AM Interpretation:Normal Performing Lab:[facility] [place], [address] [place] [address], Phone - [phone], Director - [facility] Notes/Report: Vitamin B12 640 847-9326 pg/mL Folate (Folic Acid), Serum >20.0 >3.0 ng/mL A serum folate concentration of less than 3.1 ng/mL is considered to represent clinical deficiency. Reason For Referral Reason Housing Diagnosis 1 Bipolar affective di sorder (F31.9) Diagnosis 2 Anxiety (F41.9) Referral Organization [facility] Referring Provider First Name Shae Referring Provider Last Name Cedrick Referring Provider Speciality Psychiatry Referred Provider Specialty Photoengraving PhotographerSports Equipment Racker Notes Shae Philip Fred 01:51:20 PM > Client states she is currently living in a mobile home that may lose access to water soon. She would like to discuss possible housing options with [place]. Please refer. Thank you! Clinical Notes Dalia Locke 07/27/2024 09:21:07 AM >HN reached the home health care worker for the client Elin Stevenson. HN's phone number was text to the client and home energy consultant, so the client could reach out later for resources pertaining to housing. Referral Priority Routine Reason Movement disorder, t ardive dyskinesia Diagnosis 1 Tardive dyskinesia ( G24.01) Referral Organization [facility] Referring Provider First Name Shae Referring Provider Last Name Cedrick Referring Provider Speciality Psychiatry Referred Provider Specialty Neurology General Notes Shae Philip Fred 12/2023 10:46:18 AM > Client has tried and failed multiple medications. Has been on Ingrezza and Austedo. Currently taking Austedo 48 mg (max dose). Please refer to neuro to see if they have any further suggestions and for further assessment. Thank you. Clinical Notes Francia Laura RN 06/2024 09:54:00 AM >Referral sent to [facility] in [place]. Referral Priority Routine Medications Medication SIG (Take, Route, Frequency, Duration) Notes Start Date End Date Status Wellbutrin XL 150 MG 1 tablet in the morning Orally Once a day for 30 days Active Propranolol HCl ER 60 MG 1 capsule Orally Once a day for 30 day(s) 01/09/2025 Active ARIPiprazole 2 mg TAKE 1 TABLET BY MOUTH DAILY for 30 Active traZODone HCl 150 MG 1 tablet at bedtime as needed Orally Once a day for 30 days Active Wellbutrin XL 300 MG 1 tablet in the morning Orally Once a day for 30 days Active Austedo XR 36 MG 1 tablet Orally Once a day for 14 days Active Influenza Vac Subunit Quad 0.5 ML as directed Intramuscular once for 1 days Active Influenza Vac Split Quad 0.5 ML as directed Intramuscular once Active hydrOXYzine HCl 50 MG TAKE 1 & 1/2 - 2 TABLETS BY MOUTH ONCE DAILY if NEEDED FOR ANXIETY AND SLEEP for 30 days Active Pravastatin Sodium 20 MG 1 tablet Orally Once a day for 30 day(s) 01/11/2020 Active Cholecalciferol 1.25 MG (56150 UT) 1 capsule Orally once per week Not-Taking traMADol HCl 50 MG 1 tablet as needed Orally every 8 hours Active Levothyroxine Sodium 150 MCG 1 tablet on an empty stomach in the morning Orally Once a day Not-Taking Austedo XR 48 MG 1 tablet Orally [...] BY MOUTH DAILY for 30 days Active traZODone HCl 150 MG 1 tablet at bedtime as needed Orally Once a day for 30 days Active Alendronate Sodium 70 MG 1 tablet 30 minutes before the first food, beverage or medicine of the day with plain water Orally Once a week for 30 days Active Propranolol HCl 10 MG 1 tablet Orally Once a day for 30 days Active Immunizations Vaccine Route Administration Date Status Comme nts Influenza, virus vaccine, trivalent, preservative free IM Intramuscular 10/24/2024 Administered Ludmila Ratliff 10/24/2024 10:33:36 AM HEALTH SCREENER >Pt tolerated well FLU VAC NO PRSV 4VAL 6 mo+ IM Intramuscular 07/27/2019 Administered Pt wil well. FLU VAC NO PRSV 4VAL 6 mo+ IM Intramuscular 07/17/2021 Administered Patient tolerated well. FLU VAC NO PRSV 4VAL 6 mo+ IM Intramuscular 08/19/2022 Administered Patient tolerated well. Social History Tobacco Use: Social History Observation Description Date Details (start date - stop date) Never Smoker NA - NA Sex Assigned At : Social History Observation Description Sex Assigned At Female Tobacco Control (Standard) Question Answer Notes Tobacco use: Nonsmoker Section Notes: [id number] 01/14/2022 01/13/2022 Hydrocodon-acetaminophen 21.0 7 5MG-325MG 15 Paxton Lay Md - [id number] [place], [place] NA 0 [place] 1 [id number] 12/16/2021 12/16/2021 oxyCODONE-ACETAMINOPHEN 20.0 5 5MG-325MG 30 Rashawn Duffy [facility] [id number] [place], [place] NA 0 [place] 1 [id number] 12/08/2021 12/08/2021 oxyCODONE-ACETAMINOPHEN 15.0 3 5MG-325MG 37.50 Km Wyman (Do) - [id number] [place], [place] NA 0 [place] 1 [id number] 12/01/2021 12/01/2021 oxyCODONE-ACETAMINOPHEN 30.0 7 5MG-325MG 32.14 [facility] Tati [facility] [id number] [place], [place] NA 0 [place] 1 [id number] 12/01/2021 12/01/2021 traMADol 30.0 7 50MG 21.43 Rashawn [id number] 01/14/2022 01/13/2022 Hydrocodon-acetaminophen 21.0 7 5MG-325MG 15 Paxton Lay Md [id number] [place], [place] NA [place] 1 [id number] 12/16/2021 12/16/2021 oxyCODONE-ACETAMINOPHEN 20.0 5 5MG-325MG 30 [facility] Tati [facility] [id number] [place], [place] 1 [id number] 12/08/2021 12/08/2021 oxyCODONE-ACETAMINOPHEN 15.0 3 5MG-325MG 37.50 Km Wyman () - [id number] [place], [place] NA [place] 1 [id number] 12/01/2021 12/01/2021 oxyCODONE-ACETAMINOPHEN 30.0 7 5MG-325MG 32.14 [place] T[facility] [id number] [place], [place] 1 [id number] 12/01/2021 12/01/2021 traMADol 30.0 7 50MG 21.43 Rashawn Stone [id number] 01/14/2022 01/13/2022 Hydrocodon-acetaminophen 21.0 7 5MG-325MG 15 Paxton Lay Md [id number] [place], [place] NA [place] 1 [id number] 12/16/2021 12/16/2021 oxyCODONE-ACETAMINOPHEN 20.0 5 5MG-325MG 30 Rashawn Duffy [facility] [id number] [place], [place] 1 [id number] 12/08/2021 12/08/2021 oxyCODONE-ACETAMINOPHEN 15.0 3 5MG-325MG 37.50 Km Wyman (Do) - [id number] [place], [place] 1 [id number] 12/01/2021 12/01/2021 oxyCODONE-ACETAMINOPHEN 30.0 7 5MG-325MG 32.14 [facility] Tati [facility] [id number] [place], [place] 1 [id number] 12/01/2021 12/01/2021 traMADol 30.0 7 50MG 21.43 Rashawn Duffy [id number] 01/14/2022 01/13/2022 Hydrocodon-acetaminophen 21.0 7 5MG-325MG 15 Paxton Lay Md [id number] [place], [place] 1 [id number] 12/16/2021 12/16/2021 oxyCODONE-ACETAMINOPHEN 20.0 5 5MG-325MG 30 Rashawn Duffy [facility] [id number] [place], [place] 1 [id number] 12/08/2021 12/08/2021 oxyCODONE-ACETAMINOPHEN 15.0 3 5MG-325MG 37.50 Km Wyman () - [id number] [place], [place] 1 [id number] 12/01/2021 12/01/2021 oxyCODONE-ACETAMINOPHEN 30.0 7 5MG-325MG 32.14 [place] T[facility] [id number] [place], [place] 1 [id number] 12/01/2021 12/01/2021 traMADol 30.0 7 50MG 21.43 Rashawn Duffy [facility]1449912 [id number] 01/14/2022 01/13/2022 Hydrocodon-acetaminophen 21.0 7 5MG-325MG 15 Paxton Lay Md [id number] [place], [place] 1 [id number] 12/16/2021 12/16/2021 oxyCODONE-ACETAMINOPHEN 20.0 5 5MG-325MG 30 Rashawn Duffy [facility] [id number] [place], [place] 1 [id number] 12/08/2021 12/08/2021 oxyCODONE-ACETAMINOPHEN 15.0 3 5MG-325MG 37.50 Km Wyman (Do) - [id number] [place], [place] NA 0 [place] 1 [id number] 12/01/2021 12/01/2021 oxyCODONE-ACETAMINOPHEN 30.0 7 5MG-325MG 32.14 Rashawn Duffy [facility] [id number] [place], [place] 1 [id number] 12/01/2021 12/01/2021 traMADol 30.0 7 50MG 21.43 Rashawn Stone [id number] 01/14/2022 01/13/2022 Hydrocodon-acetaminophen 21.0 7 5MG-325MG 15 Paxton Lay Md [id number] [place], [place] NA 0 [place] 1 [id number] 12/16/2021 12/16/2021 oxyCODONE-ACETAMINOPHEN 20.0 5 5MG-325MG 30 Rashawn Duffy [facility] [id number] [place], [place] 1 [id number] 12/08/2021 12/08/2021 oxyCODONE-ACETAMINOPHEN 15.0 3 5MG-325MG 37.50 Km Wyman (Do) - [id number] [place], [place] NA 0 [place] 1 [id number] 12/01/2021 12/01/2021 oxyCODONE-ACETAMINOPHEN 30.0 7 5MG-325MG 32.14 Rashawn Duffy [facility] [id number] [place], [place] 1 [id number] 12/01/2021 12/01/2021 traMADol 30.0 7 50MG 21.43 Rashawn Stone [id number] 01/14/2022 01/13/2022 Hydrocodon-acetaminophen 21.0 7 5MG-325MG 15 Paxton Lay Md [id number] [place], [place] NA [place] 1 [id number] 12/16/2021 12/16/2021 oxyCODONE-ACETAMINOPHEN 20.0 5 5MG-325MG 30 Rashawn Duffy [facility] [id number] [place], [place] 1 [id number] 12/08/2021 12/08/2021 oxyCODONE-ACETAMINOPHEN 15.0 3 5MG-325MG 37.50 Km Wyman (Do) - [id number] [place], [place] NA 0 [place] 1 [id number] 12/01/2021 12/01/2021 oxyCODONE-ACETAMINOPHEN 30.0 7 5MG-325MG 32.14 Rashawn Duffy [facility] [id number] [place], [place] 1 [id number] 12/01/2021 12/01/2021 traMADol 30.0 7 50MG 21.43 Rashawn Stone [id number] 01/14/2022 01/13/2022 Hydrocodon-acetaminophen 21.0 7 5MG-325MG 15 Paxton Lay Md [id number] [place], [place] 1 [id number] 12/16/2021 12/16/2021 oxyCODONE-ACETAMINOPHEN 20.0 5 5MG-325MG 30 Rashawn Duffy [facility] [id number] [place], [place] 1 [id number] 12/08/2021 12/08/2021 oxyCODONE-ACETAMINOPHEN 15.0 3 5MG-325MG 37.50 Km Wyman (Do) - [id number] [place], [place] 0 [place] 1 [id number] 12/01/2021 12/01/2021 oxyCODONE-ACETAMINOPHEN 30.0 7 5MG-325MG 32.14 [place] T[facility] [id number] [place], [place] 0 [place] 1 [id number] 12/01/2021 12/01/2021 traMADol 30.0 7 50MG 21.43 Rashawn Stone [id number] 01/14/2022 01/13/2022 Hydrocodon-acetaminophen 21.0 7 5MG-325MG 15 Paxton Lay Md [id number] [place], [place] NA 0 [place] 1 [id number] 12/16/2021 12/16/2021 oxyCODONE-ACETAMINOPHEN 20.0 5 5MG-325MG 30 [place] Tati Stone [id number] [place], [place] NA 0 [place] 1 [id number] 12/08/2021 12/08/2021 oxyCODONE-ACETAMINOPHEN 15.0 3 5MG-325MG 37.50 Km Wyman (Do) - [id number] [place], [place] NA 0 [place] 1 [id number] 12/01/2021 12/01/2021 oxyCODONE-ACETAMINOPHEN 30.0 7 5MG-325MG 32.14 [facility] Tati [facility] [id number] [place], [place] 0 [place] 1 [id number] 12/01/2021 12/01/2021 traMADol 30.0 7 50MG 21.43 Rashawn Stone [id number] 01/14/2022 01/13/2022 Hydrocodon-acetaminophen 21.0 7 5MG-325MG 15 Paxton Lay Md [id number] [place], [place] 0 [place] 1 [id number] 12/16/2021 12/16/2021 oxyCODONE-ACETAMINOPHEN 20.0 5 5MG-325MG 30 Rashawn Duffy [facility] [id number] [place], [place] 0 [place] 1 [id number] 12/08/2021 12/08/2021 oxyCODONE-ACETAMINOPHEN 15.0 3 5MG-325MG 37.50 Km Wyman (Do) - [id number] [place], [place] NA 0 [place] 1 [id number] 12/01/2021 12/01/2021 oxyCODONE-ACETAMINOPHEN 30.0 7 5MG-325MG 32.14 Rashawn Duffy [facility] [id number] [place], [place] 0 [place] 1 [id number] 12/01/2021 12/01/2021 traMADol 30.0 7 50MG 21.43 Rashawn Stone [id number] 01/14/2022 01/13/2022 Hydrocodon-acetaminophen 21.0 7 5MG-325MG 15 Paxton Lay Md [id number] [place], [place] NA 0 [place] 1 [id number] 12/16/2021 12/16/2021 oxyCODONE-ACETAMINOPHEN 20.0 5 5MG-325MG 30 Rashawn Stone [id number] [place], [place] NA 0 [place] 1 [id number] 12/08/2021 12/08/2021 oxyCODONE-ACETAMINOPHEN 15.0 3 5MG-325MG 37.50 Km Wyman (Do) - [id number] [place], [place] NA 0 [place] 1 [id number] 12/01/2021 12/01/2021 oxyCODONE-ACETAMINOPHEN 30.0 7 5MG-325MG 32.14 [place] Tati [facility] [id number] [place], [place] 0 [place] 1 [id number] 12/01/2021 12/01/2021 traMADol 30.0 7 50MG 21.43 Rashawn Stone [id number] 01/14/2022 01/13/2022 Hydrocodon-acetaminophen 21.0 7 5MG-325MG 15 Paxton Lay Md [id number] [place], [place] NA 0 [place] 1 [id number] 12/16/2021 12/16/2021 oxyCODONE-ACETAMINOPHEN 20.0 5 5MG-325MG 30 [place] Tati [facility] [id number] [place], [place] 0 [place] 1 [id number] 12/08/2021 12/08/2021 oxyCODONE-ACETAMINOPHEN 15.0 3 5MG-325MG 37.50 Km Wyman () - [id number] [place], [place] NA 0 [place] 1 [id number] 12/01/2021 12/01/2021 oxyCODONE-ACETAMINOPHEN 30.0 7 5MG-325MG 32.14 Rashawn Duffy [facility] [id number] [place], [place] 0 [place] 1 [id number] 12/01/2021 12/01/2021 traMADol 30.0 7 50MG 21.43 Rashawn Stone [id number] 01/14/2022 01/13/2022 Hydrocodon-acetaminophen 21.0 7 5MG-325MG 15 Paxton Lay Md [id number] [place], [place] NA 0 [place] 1 [id number] 12/16/2021 12/16/2021 oxyCODONE-ACETAMINOPHEN 20.0 5 5MG-325MG 30 Rashawn Duffy [facility] [id number] [place], [place] 0 [place] 1 [id number] 12/08/2021 12/08/2021 oxyCODONE-ACETAMINOPHEN 15.0 3 5MG-325MG 37.50 Km Wyman (Do) - [id number] [place], [place] 0 [place] 1 [id number] 12/01/2021 12/01/2021 oxyCODONE-ACETAMINOPHEN 30.0 7 5MG-325MG 32.14 [place] T[facility] [id number] [place], [place] 0 [place] 1 [id number] 12/01/2021 12/01/2021 traMADol 30.0 7 50MG 21.43 Rashawn Stone [id number] 01/14/2022 01/13/2022 Hydrocodon-acetaminophen 21.0 7 5MG-325MG 15 Paxton Lay Md [id number] [place], [place] NA 0 [place] 1 [id number] 12/16/2021 12/16/2021 oxyCODONE-ACETAMINOPHEN 20.0 5 5MG-325MG 30 Rashawn Stone [id number] [facility] [place] NA 0 [place] 1 [id number] 12/08/2021 12/08/2021 oxyCODONE-ACETAMINOPHEN 15.0 3 5MG-325MG 37.50 Km Wyman (Do) - [id number] [place], [place] NA 0 [place] 1 [id number] 12/01/2021 12/01/2021 oxyCODONE-ACETAMINOPHEN 30.0 7 5MG-325MG 32.14 Rashawn Stone [id number] [place], [place] NA 0 [place] 1 [id number] 12/01/2021 12/01/2021 traMADol 30.0 7 50MG 21.43 Rashawn [id number] 12/16/2021 12/16/2021 oxyCODONE-ACETAMINOPHEN 20.0 5.0 5MG-325MG 30 [place] Tati [facility] [id number] [place], [place] NA 0 [place] 1 [id number] 12/08/2021 12/08/2021 oxyCODONE-ACETAMINOPHEN 15.0 3.0 5MG-325MG 37.50 Km Wyman (Do) - [id number] [place], [place] NA 0 [place] 1 [id number] 12/01/2021 12/01/2021 oxyCODONE-ACETAMINOPHEN 30.0 7.0 5MG-325MG 32.14 [facility] Tati [facility] [id number] [place], [place] 0 [place] 1 [id number] 12/01/2021 12/01/2021 traMADol 30.0 7.0 50MG 21.43 Rashawn Duffy [facility] [id number] 01/14/2022 01/13/2022 Hydrocodon-acetaminophen 21.0 7 5MG-325MG 15 Paxton Lay Md - [id number] [place], [place] 1 [id number] 12/16/2021 12/16/2021 oxyCODONE-ACETAMINOPHEN 20.0 5 5MG-325MG 30 [facility] Tati [facility] [id number] [place], [place] NA 0 [place] 1 [id number] 12/08/2021 12/08/2021 oxyCODONE-ACETAMINOPHEN 15.0 3 5MG-325MG 37.50 Km Wyman (Do) - [id number] [place], [place] NA 0 [place] 1 [id number] 12/01/2021 12/01/2021 oxyCODONE-ACETAMINOPHEN 30.0 7 5MG-325MG 32.14 Rashawn Duffy [facility] [id number] [place], [place] 0 [place] 1 [id number] 12/01/2021 12/01/2021 traMADol 30.0 7 50MG 21.43 Rashawn Stone [id number] 01/14/2022 01/13/2022 Hydrocodon-acetaminophen 21.0 7 5MG-325MG 15 Paxton Lay Md [id number] [place], [place] NA 0 [place] 1 [id number] 12/16/2021 12/16/2021 oxyCODONE-ACETAMINOPHEN 20.0 5 5MG-325MG 30 Rashawn Stone [id number] [place], [place] 0 [place] 1 [id number] 12/08/2021 12/08/2021 oxyCODONE-ACETAMINOPHEN 15.0 3 5MG-325MG 37.50 Km Wyman (Do) - [id number] [place], [place] 0 [place] 1 [id number] 12/01/2021 12/01/2021 oxyCODONE-ACETAMINOPHEN 30.0 7 5MG-325MG 32.14 [place] T[facility] [id number] [place], [place] NA 0 [place] 1 [id number] 12/01/2021 12/01/2021 traMADol 30.0 7 50MG 21.43 Rashawn Stone [id number] 01/14/2022 01/13/2022 Hydrocodon-acetaminophen 21.0 7 5MG-325MG 15 Paxton Lay Md [id number] [place], [place] 0 [place] 1 [id number] 12/16/2021 12/16/2021 oxyCODONE-ACETAMINOPHEN 20.0 5 5MG-325MG 30 [place] Tati Stone [id number] [place], [place] NA 0 [place] 1 [id number] 12/08/2021 12/08/2021 oxyCODONE-ACETAMINOPHEN 15.0 3 5MG-325MG 37.50 Km Wyman (Do) - [id number] [place], [place] NA 0 [place] 1 [id number] 12/01/2021 12/01/2021 oxyCODONE-ACETAMINOPHEN 30.0 7 5MG-325MG 32.14 [place] T[facility] [id number] [place], [place] 0 [place] 1 [id number] 12/01/2021 12/01/2021 traMADol 30.0 7 50MG 21.43 Rashawn Stone [id number] 01/14/2022 01/13/2022 Hydrocodon-acetaminophen 21.0 7 5MG-325MG 15 Paxton Lay Md [id number] [place], [place] 0 [place] 1 [id number] 12/16/2021 12/16/2021 oxyCODONE-ACETAMINOPHEN 20.0 5 5MG-325MG 30 Rashawn Duffy [facility] [id number] [place], [place] 0 [place] 1 [id number] 12/08/2021 12/08/2021 oxyCODONE-ACETAMINOPHEN 15.0 3 5MG-325MG 37.50 Km Wyman (Do) - [id number] [place], [place] NA 0 [place] 1 [id number] 12/01/2021 12/01/2021 oxyCODONE-ACETAMINOPHEN 30.0 7 5MG-325MG 32.14 [place] T[facility] [id number] [place], [place] NA 0 [place] 1 [id number] 12/01/2021 12/01/2021 traMADol 30.0 7 50MG 21.43 Rashawn Stone [id number] 01/14/2022 01/13/2022 Hydrocodon-acetaminophen 21.0 7 5MG-325MG 15 Paxton Lay Md [id number] [place], [place] NA 0 [place] 1 [id number] 12/16/2021 12/16/2021 oxyCODONE-ACETAMINOPHEN 20.0 5 5MG-325MG 30 Rashawn Duffy [facility] [id number] [place], [place] NA 0 [place] 1 [id number] 12/08/2021 12/08/2021 oxyCODONE-ACETAMINOPHEN 15.0 3 5MG-325MG 37.50 Km Wyman (Do) - [id number] [place], [place] NA 0 [place] 1 [id number] 12/01/2021 12/01/2021 oxyCODONE-ACETAMINOPHEN 30.0 7 5MG-325MG 32.14 Rashawn Duffy [facility] [id number] [place], [place] NA 0 [place] 1 [id number] 12/01/2021 12/01/2021 traMADol 30.0 7 50MG 21.43 Rashawn Stone - [id number] Problems Problem Type SNOMED Code ICD Code Onset Dates Problem Status W/U Status Risk Notes Problem Tobacco user (455340788) Nicotine dependence, unspecified, uncomplicated (F17.200) Active confirmed Problem Generalized anxiety disorder (61485590) Generalized anxiety disorder (F41.1) Active confirmed Problem 73271422 Anxiety (F41.9) Active confirmed Problem Bipolar affective disorder (12778348) Bipolar affective disorder (F31.9) 10/20/19 22 Active confirmed Will continue to monitor and evaluate as poor insight on patient behalf limits evaluation . 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) Active confirmed Problem Tardive dyskinesia (228580699) Tardive dyskinesia (G24.01) Active confirmed Problem Body mass index 30.00 to 34.99 (4450205067002 07) Body mass index [BMI] 31.0-31.9, adult (Z68.31) Active confirmed Vital Signs Heart Rate 67 /min 01/09/2025 Temperature 97.9 degrees Fahrenheit 01/09/2025 Respiratory Rate 16 /min 01/09/2025 Oximetry 99 % 01/09/2025 Blood pressure diastolic 88 mm Hg 01/09/2025 Height 63 in 01/09/2025 Blood pressure systolic 128 mm Hg 01/09/2025 Weight 164.0 lbs 01/09/2025 BMI 29.05 kg/m2 01/09/2025 Encounters Encounter Location Date Provider Diagnosis [address] [place] [address] 02/09/2024 Radha Josh Nicotine dependence, unspecified, uncomplicated F17.200 ; Generalized anxiety disorder F41.1 ; Bipolar affective disorder F31.9 and Tardive dyskinesia G24.[address] [place] [address] 03/08/2024 Radha Josh Nicotine dependence, unspecified, uncomplicated F17.200 ; Generalized anxiety disorder F41.1 ; Bipolar affective disorder F31.9 and Tardive dyskinesia G24.[address] [address] 05/24/2024 Radha Josh Nicotine dependence, unspecified, uncomplicated F17.200 ; Generalized anxiety disorder F41.1 ; Bipolar affective disorder F31.9 and Tardive dyskinesia G24.[address] [address] 06/28/2024 Radha Josh Nicotine dependence, unspecified, uncomplicated F17.200 ; Generalized anxiety disorder F41.1 ; Bipolar affective disorder F31.9 and Tardive dyskinesia G24.[address] [address] [place] [address] 07/25/2024 Shae Philip Nicotine dependence, unspecified, uncomplicated F17.200 ; Generalized anxiety disorder F41.1 ; Bipolar affective disorder F31.9 and Tardive dyskinesia G24.01 [address] [place] [address] 08/29/2024 Shae Philip Generalized anxiety disorder F41.1 ; Bipolar affective disorder F31.9 ; Tardive dyskinesia G24.01 ; Fatigue R53.83 ; Medication monitoring encounter Z51.81 and Nicotine dependence, unspecified, uncomplicated F17.200 [address] [place] [address] 08/30/2024 Shae Philip Fatigue R53.83 ; Medication monitoring encounter Z51.81 and Bipolar affective disorder F31.[address] [place] [address] 09/25/2024 Shae Philip Generalized anxiety disorder F41.1 ; Bipolar affective disorder F31.9 ; Tardive dyskinesia G24.01 and Nicotine dependence, unspecified, uncomplicated F17.200 [facility] [place] [address] 10/24/2024 Shae Philip Generalized anxiety disorder F41.1 ; Bipolar affective disorder F31.9 ; Tardive dyskinesia G24.01 ; Nicotine dependence, unspecified, uncomplicated F17.200 and Encounter for immunization Z23 [address] [address] 12/06/2024 Shae Philip Generalized anxiety disorder F41.1 ; Bipolar affective disorder F31.9 ; Tardive dyskinesia G24.01 ; Nicotine dependence, unspecified, uncomplicated F17.200 and Encounter for immunization Z23 [address] [place] [address] 01/09/2025 Shae Philip Over weight E66.3 ; Generalized anxiety disorder F41.1 ; Bipolar affective disorder F31.9 ; Tardive dyskinesia G24.01 ; Nicotine dependence, unspecified, uncomplicated F17.200 and Encounter for immunization [address] [address] 02/15/2024 Radha Moreno [address] [address] 03/31/2024 Radha Moreno Tardive dyskinesia G24.[address] [place] [address] 05/03/2024 Radha Moreno Generalized anxiety disorder F41.1 and Bipolar affective disorder F31.[address] [place] [address] 06/07/2024 Radha Moreno [address] [place] [address] 07/25/2024 Shae Philip [address] [place] [address] 07/27/2024 Shae Philip Bipolar affective disorder F31.9 ; Generalized anxiety disorder F41.1 and Tardive dyskinesia G24.01 [facility] [address] [place] [address] 08/23/2024 Shae Philip [facility] [address] [place] [address] 08/24/2024 Shae Philip Bipolar affective disorder F31.9 and Tardive dyskinesia G24.[address] [place] [address] 09/05/2024 Shae Philip [address] [place] [address] 09/12/2024 Shae Philip Generalized anxiety disorder F41.1 and Tardive dyskinesia G24.01 [facility] [address] [address] 09/12/[address] [place] [address] 10/19/2024 [facility] [address] [place] [address] 11/27/2024 Shae Philip Tardive dyskinesia G24.01 Assessments Encounter Date Diagnosis (ICD Code) Assessment Notes Treatment Notes Treatment Clinical Notes Section Notes 02/09/2024 Nicotine dependence, unspecified, uncomplicated (ICD-10 - F17.200) 03/08/2024 Nicotine dependence, unspecified, uncomplicated (ICD-10 - F17.200) 03/31/2024 Tardive dyskinesia (ICD-10 - G24.01) 05/03/2024 Generalized anxiety disorder (ICD-10 - F41.1) 05/24/2024 Nicotine dependence, unspecified, uncomplicated (ICD-10 - F17.200) 06/28/2024 Nicotine dependence, unspecified, uncomplicated (ICD-10 - F17.200) 07/25/2024 Nicotine dependence, unspecified, uncomplicated (ICD-10 - F17.200) 07/27/2024 Bipolar affective disorder (ICD-10 - F31.9) Past symptoms c/w hypomania/ivette a with elevated moods, increased interest, racing thoughts, irritability and changes to sleep. Symptoms worsened with SSRI and has appeared to improve with Abilify. Will continue to monitor and evaluate as poor insight on patient behalf limits evaluation. 08/24/2024 Bipolar affective disorder (ICD-10 - F31.9) Past symptoms c/w hypomania/ivette a with elevated moods, increased interest, racing thoughts, irritability and changes to sleep. Symptoms worsened with SSRI and has appeared to improve with Abilify. Will continue to monitor and evaluate as poor insight on patient behalf limits evaluation. 08/29/2024 Generalized anxiety disorder (ICD-10 - F41.1) Hydroxyzine with rare use. Client reports intermittent dry mouth- discussed this can be SE of multiple medications and continue to monitor. Encouraged oral hygeine. 08/29/2024 Bipolar affective disorder (ICD-10 - F31.9) Will continue to monitor and evaluate as poor insight on patient behalf limits evaluation. May look to change SGA if needed, discussed fatigue, labs ordered, has not tried Geodon or Latuda. 08/30/2024 Fatigue (ICD-10 - R53.83) 09/25/2024 Generalized anxiety disorder (ICD-10 - F41.1) Hydroxyzine with rare use. Client reports intermittent dry mouth- discussed this can be SE of multiple medications and continue to monitor. Encouraged oral hygeine. 09/12/2024 Generalized anxiety disorder (ICD-10 - F41.1) 09/12/2024 Tardive dyskinesia (ICD-10 - G24.01) 10/24/2024 Generalized anxiety disorder (ICD-10 - F41.1) Hydroxyzine with rare use. Client reports intermittent dry mouth- discussed this can be SE of multiple medications and continue to monitor. Encouraged oral hygeine. 11/27/2024 Tardive dyskinesia (ICD-10 - G24.01) 12/06/2024 Generalized anxiety disorder (ICD-10 - F41.1) Hydroxyzine with rare use. Client reports intermittent dry mouth- discussed this can be SE of multiple medications and continue to monitor. Encouraged oral hygeine. 01/09/2025 Over weight (ICD-10 - E66.3) 12/06/2024 Bipolar affective disorder (ICD-10 - F31.9) Will continue to monitor and evaluate as poor insight on patient behalf limits evaluation. May look to change SGA if needed, has not tried Geodon or Latuda. 01/09/2025 Generalized anxiety disorder (ICD-10 - F41.1) Changing to propranolol ER for anxiety- discussed r/b/se, monitor depression. Hydroxyzine with rare use. Client reports intermittent dry mouth- discussed this can be SE of multiple medications and continue to monitor. Encouraged oral hygeine. 07/27/2024 Generalized anxiety disorder (ICD-10 - F41.1) 10/24/2024 Bipolar affective disorder (ICD-10 - F31.9) Will continue to monitor and evaluate as poor insight on patient behalf limits evaluation. May look to change SGA if needed, has not tried Geodon or Latuda. 09/25/2024 Bipolar affective disorder (ICD-10 - F31.9) Will continue to monitor and evaluate as poor insight on patient behalf limits evaluation. Client to f/u with PCP at her earliest convenience for thyroid monitoring. May look to change SGA if needed, discussed fatigue, has not tried Geodon or Latuda. 09/25/2024 Tardive dyskinesia (ICD-10 - G24.01) Pt has Hx of TD since 02/2022. Pt has tried Ingrezza with no relief. Reports that she feels mouth movements have worsened since increase in Austedo, decreasing. Pt understands that TD symptoms would be oil heaterman and irreversible. 08/30/2024 Medication monitoring encounter (ICD-10 - Z51.81) 08/29/2024 Tardive dyskinesia (ICD-10 - G24.01) Pt has Hx of TD since 02/2022. Pt has tried Ingrezza with no relief. Will increase Austedo XR to 48mg to aid TD symptoms. Pt has been toleratng Austedo XR well. Denies side effects. Pt understands that TD symptoms would be group home and irreversible. 08/24/2024 Tardive dyskinesia (ICD-10 - G24.01) 07/25/2024 Generalized anxiety disorder (ICD-10 - F41.1) Hydroxyzine with rare use. Client reports intermittent dry mouth- discussed this can be SE of multiple medications and continue to monitor. Encouraged oral hygeine. 06/28/2024 Generalized anxiety disorder (ICD-10 - F41.1) Pt and caregiver report that pt has only needed to take the Hydroxyzine a few times since her last visit. Will continue Hydroxyzine PRN to aid anxiety. Reports that she is tolerating meds well. Denies side effects. Pt denies therapy referral at this time. 05/24/2024 Generalized anxiety disorder (ICD-10 - F41.1) Pt and caregiver reprot that pt has only needed to take the Hydroxyzine a few times since her last visit.. Will continue Hydroxyzine PRN to aid anxiety. Reports that she is tolerating meds well. Denies side effects. Pt denies therapy referral at this time. 05/03/2024 Bipolar affective disorder (ICD-10 - F31.9) 03/08/2024 Generalized anxiety disorder (ICD-10 - F41.1) Pt and caregiver reprot that pt has only needed to take the Hydroxyzine a few times since her last visit.. Will continue Hydroxyzine PRN to aid anxiety. Reports that she is tolerating meds well. Denies side effects. Pt denies therapy referral at this time. 02/09/2024 Generalized anxiety disorder (ICD-10 - F41.1) Pt and caregiver reprot that pt has only needed to take the Hydroxyzine a few times since her last visit.. Will continue Hydroxyzine PRN to aid anxiety. Reports that she is tolerating meds well. Denies side effects. Pt denies therapy referral at this time. 02/09/2024 Bipolar affective disorder (ICD-10 - F31.9) Past symptoms c/w hypomania/ivette a with elevated moods, increased interest, racing thoughts, irritability and changes to sleep. Symptoms worsened with SSRI and has appeared to improve with Abilify. Will continue to monitor and evaluate as poor insight on patient behalf limits evaluation. Will increase Trazodone at this tme; pt reports that she has been sleeping better after taking 2 tablets of the trazodone at night. pt denies side effects to med at this time. Pt reports that her moods are stbale since stopping the Abilify and she does not want to restart a med at this time. Will cont to monitor moods. pt is concnered about drooling that she has noticed over the past ew months; reports that it worsened after stopping the Abilify. Pt refueses to restart Abilify at this time as her moods are under control. Will dsicuss stating Benztopine with colabhugo GOMEZ tomorrow 03/08/2024 Bipolar affective disorder (ICD-10 - F31.9) Past symptoms c/w hypomania/ivette a with elevated moods, increased interest, racing thoughts, irritability and changes to sleep. Symptoms worsened with SSRI and has appeared to improve with Abilify. Will continue to monitor and evaluate as poor insight on patient behalf limits evaluation. Will increase Trazodone at this time; pt reports that she has been sleeping better after taking 2 tablets of the trazodone at night. Pt reports that [facility] filled 50mg tabs of Trazodone and not 100mg tablets. Will refill 100mg tablets at this time. Pt denies side effects to med at this time. Pt reports that her moods are stable since stopping the Abilify, and she does not want to restart a med at this time. Will cont to monitor moods. Pt reports that drooling has improved. Pt refuses to restart Abilify at this time as her moods are under control. 05/24/2024 Bipolar affective disorder (ICD-10 - F31.9) Past symptoms c/w hypomania/ivette a with elevated moods, increased interest, racing thoughts, irritability and changes to sleep. Symptoms worsened with SSRI and has appeared to improve with Abilify. Will continue to monitor and evaluate as poor insight on patient behalf limits evaluation. Will increase Trazodone to 150mg at this time; pt reports that she has been sleeping better after taking increase dose of Trazodone; Pt denies side effects to med at this time. Pt reports that her moods are stable since stopping the Abilify, and she does not want to restart a med at this time. Will cont to monitor moods. Pt refuses to restart Abilify at this time as her moods are under control. 06/28/2024 Bipolar affective disorder (ICD-10 - F31.9) Past symptoms c/w hypomania/ivette a with elevated moods, increased interest, racing thoughts, irritability and changes to sleep. Symptoms worsened with SSRI and has appeared to improve with Abilify. Will continue to monitor and evaluate as poor insight on patient behalf limits evaluation. Will refill Trazodone 150mg at this time; pt reports that she has been sleeping well; Pt denies side effects to med at this time. Will refill Abiliy at this time; pt and caregiver feel like her moods have imporved since restarting medications. Will cont to monitor moods. Pt refuses to change anti-psychotics at this time and would like to increase Austedo first. 07/25/2024 Bipolar affective disorder (ICD-10 - F31.9) Past symptoms c/w hypomania/ivette a with elevated moods, increased interest, racing thoughts, irritability and changes to sleep. Symptoms worsened with SSRI and has appeared to improve with Abilify. Will continue to monitor and evaluate as poor insight on patient behalf limits evaluation. Discussed fatigue, client wants to try holding Abilify and will restart with any hyperactivity. Discussed r/b/se. May look to change SGA if needed, has not tried Geodon or Latuda. 07/27/2024 Tardive dyskinesia (ICD-10 - G24.01) 08/29/2024 Fatigue (ICD-10 - R53.83) 08/30/2024 Bipolar affective disorder (ICD-10 - F31.9) 10/24/2024 Tardive dyskinesia (ICD-10 - G24.01) Pt has Hx of TD since 02/2022. Pt has tried Ingrezza with no relief. Reports that she feels mouth movements have worsened since increase in Austedo, decreasing. Pt understands that TD symptoms would be oil heaterman and irreversible. States has not tried alternatives besides ingrezza, starting benztropine. 09/25/2024 Nicotine dependence, unspecified, uncomplicated (ICD-10 - F17.200) 01/09/2025 Bipolar affective disorder (ICD-10 - F31.9) Will continue to monitor and evaluate as poor insight on patient behalf limits evaluation. May look to change SGA if needed, has not tried Geodon or Latuda. 12/06/2024 Tardive dyskinesia (ICD-10 - G24.01) Pt has Hx of TD since 02/2022. Pt has tried Ingrezza with no relief. Pt understands that TD symptoms would be oil heaterman and irreversible. States has not tried alternatives besides ingrezza. Benztropine with worsened symptoms. 01/09/2025 Tardive dyskinesia (ICD-10 - G24.01) Pt has Hx of TD since 02/2022. Pt has tried Ingrezza with no relief. Pt understands that TD symptoms would be group home and irreversible. States has not tried alternatives besides ingrezza. Benztropine with worsened symptoms. Increase Austedo. 12/06/2024 Nicotine dependence, unspecified, uncomplicated (ICD-10 - F17.200) 10/24/2024 Nicotine dependence, unspecified, uncomplicated (ICD-10 - F17.200) 08/29/2024 Medication monitoring encounter (ICD-10 - Z51.81) 07/25/2024 Tardive dyskinesia (ICD-10 - G24.01) Pt has Hx of TD since 02/2022. Pt has tried Ingrezza with no relief. Will increase Austedo XR to 36mg to aid TD symptoms. Pt has been toleratng Austedo XR well. Denies side effects. Pt understands that TD symptoms would be oil heaterman and irreversible. 06/28/2024 Tardive dyskinesia (ICD-10 - G24.01) Pt has Hx of TD since 02/2022. Pt has tried Ingrezza with no relief. Will increase Austedo XR to 30mg to aid TD symptoms. Pt has been toleratng Austedo XR well. Denies side effects. Pt understands that TD symptoms would be oil heaterman and irreversible. 05/24/2024 Tardive dyskinesia (ICD-10 - G24.01) Pt has Hx of TD since 02/2022. Pt has tried Ingrezza with no relief. Will increase Austedo XR to 24mg to aid TD symptoms. Pt has been toleratng Austedo XR well. Denies side effects. Pt understands that TD symptoms would be oil heaterman and irreversible. 03/08/2024 Tardive dyskinesia (ICD-10 - G24.01) Pt has Hx of TD since 02/2022. Pt has tried Ingrezza with no relief. Pt and caregiver report that mouth movements have decreased since stopping Abilify. Will increase Austedo XR to 18mg to aid TD symptoms. Pt has been toleratng Austedo XR well. Denies side effects. Pt understands that TD symptoms would be group home and irreversible. 02/09/2024 Tardive dyskinesia (ICD-10 - G24.01) Pt has Hx of TD since 02/2022. Pt has tried Ingrezza with no relief. Pt and caregiver report that mouth movements have decreased since stopping Abilify. Pt and caregiver report that TD symptoms have improved some since the Austedo dose was increased at last visit but pt reports that there is still room for improvement. Will change Austedo to XR version to see if this helps the symptoms more. Pt understands that TD symptoms would be oil heaterman and irreversible. 08/29/2024 Nicotine dependence, unspecified, uncomplicated (ICD-10 - F17.200) 10/24/2024 Encounter for immunization (ICD-10 - Z23) pt tolerated well. Ordered per standing orders for administering influenza vaccine to adults. 01/09/2025 Nicotine dependence, unspecified, uncomplicated (ICD-10 - F17.200) 12/06/2024 Encounter for immunization (ICD-10 - Z23) 01/09/2025 Encounter for immunization (ICD-10 - Z23) 02/09/2024 Other Discussed treat ment planDiscussed sleep hygiene and caffeine intakeReturn to clinic 4 weeksEncouraged counselingDiscussed treatment plan; patient is agreeable and accepting of treatment plan. Patient denies further questions or concerns at this time. The Patient/Guardian asked appropriate questions, appeared to understand the answers, and decided to accept the treatment and continue being followed.The Patient/Guardian is aware of the need to contact the office or return for an earlier appointment if any problems or concerns arise. May also contact the 24-hour crisis hotline ([facility]), refer to the closest emergency room or call 911 if new symptoms arise of existing symptoms worsen; the Patient/Guardian is aware that this would apply to symptoms such as: suicidal ideation, homicidal ideation, high risk behaviors, manic symptoms, psychotic symptoms, physical symptoms, or any other symptoms that may be dangerous to self or others. 03/08/2024 Other Discussed treat ment planDiscussed sleep hygiene and caffeine intakeReturn to clinic 4 weeksEncouraged counselingDiscussed treatment plan; patient is agreeable and accepting of treatment plan. Patient denies further questions or concerns at this time. The Patient/Guardian asked appropriate questions, appeared to understand the answers, and decided to accept the treatment and continue being followed.The Patient/Guardian is aware of the need to contact the office or return for an earlier appointment if any problems or concerns arise. May also contact the 24-hour crisis hotline ([facility]), refer to the closest emergency room or call 911 if new symptoms arise of existing symptoms worsen; the Patient/Guardian is aware that this would apply to symptoms such as: suicidal ideation, homicidal ideation, high risk behaviors, manic symptoms, psychotic symptoms, physical symptoms, or any other symptoms that may be dangerous to self or others. 05/24/2024 Other Discussed treat ment planDiscussed sleep hygiene and caffeine intakeReturn to clinic 4 weeksEncouraged counselingDiscussed treatment plan; patient is agreeable and accepting of treatment plan. Patient denies further questions or concerns at this time. The Patient/Guardian asked appropriate questions, appeared to understand the answers, and decided to accept the treatment and continue being followed.The Patient/Guardian is aware of the need to contact the office or return for an earlier appointment if any problems or concerns arise. [facility] also [facility]), refer to the closest emergency room or call 911 if new symptoms arise of existing symptoms worsen; the Patient/Guardian is aware that this would apply to symptoms such as: suicidal ideation, homicidal ideation, high risk behaviors, manic symptoms, psychotic symptoms, physical symptoms, or any other symptoms that may be dangerous to self or others. 06/28/2024 Other Discussed treatment planDiscussed sleep hygiene and caffeine intakeReturn to clinic 4 weeksEncouraged counselingDiscussed treatment plan; patient is agreeable and accepting of treatment plan. Patient denies further questions or concerns at this time. The Patient/Guardian asked appropriate questions, appeared to understand the answers, and decided to accept the treatment and continue being followed.The Patient/Guardian is aware of the need to contact the office or return for an earlier appointment if any problems or concerns arise. May also contact the [address] [place] [address] ([facility]), refer to the closest emergency room or call 911 if new symptoms arise of existing symptoms worsen; the Patient/Guardian is aware that this would apply to symptoms such as: suicidal ideation, homicidal ideation, high risk behaviors, manic symptoms, psychotic symptoms, physical symptoms, or any other symptoms that may be dangerous to self or others. Patient made aware that this provider will be leaving [facility] as of 07/05/2024, and she will be transitioned to a new provider at that time. 07/25/2024 Other Reasons, potential benefits, potential risks, interactions [...] May also contact the 24-hour crisis hotline ([facility]), refer to the closest emergency room [...] of education, treatment plan and follow up. 08/29/2024 Other Reasons, potential benefits, potential risks, interactions [...] May also contact the 24-hour crisis hotline ([facility]), refer to the closest emergency room [...] assess appearance, affect, AIMS, or vital signs. 09/25/2024 Other Reasons, potential benefits, potential risks, interactions [...] May also contact the 24-hour crisis hotline ([facility]), refer to the closest emergency room [...] of education, treatment plan and follow up. 10/24/2024 Other Reasons, potential benefits, potential risks, interactions [...] May also contact the 24-hour crisis hotline ([facility]), refer to the closest emergency room [...] of education, treatment plan and follow up. 12/06/2024 Other Reasons, potential benefits, potential risks, [...] May also contact the 24-hour crisis hotline ([facility]), refer to the closest emergency room [...] assess appearance, affect, AIMS, or vital signs. 01/09/2025 Other Reasons, potential benefits, potential risks, [...] May also contact the 24-hour crisis hotline ([facility]), refer to the closest emergency room [...] plan and follow up. Plan Of Treatment No Information Insurance Providers Payer Name Payer Address Payer Phone Subscriber Number Group Number Insured Name Patient Relationship to Insured Coverage Start Date Coverage End Date MEDICARE PART A [address] [place] [address] [id number] Elin Stevenson Self - patient is the insured 3 [facility] Att[facility] Claims Department [address] [facility] [place] [address] [id number] Elin Stevenson Self - patient is the insured 3 MEDICARE [employer] [address] [place] [address] [id number] Elin Stevenson Self - patient is the insured 3 Medical (General) History Medical History History ICD Code glaucoma depression anxiety hepatitis C goiter hypothyroid disorder Arthritis Surgical History Surgery Date(Month/Year) 1997 1997 Kidney stone removed 2016 breast implants-saline hemorrhoidectomy-[facility] 2021 Left cataract removal 08/2022 Right cataract removal 09/2022 Hospitalization History Reason Date(Month/Year)
--- NOTE | 2025-01-13 15:52 | ED.EXTPRO ---
HPI - Extremity Problem General Chief complaint: Extremity Problem,Nontraumatic Stated complaint: R HEEL PAIN X3 WKS Time Seen by Provider: 01/13/25 14:30 Source: patient Mode of arrival: ambulatory Limitations: no limitations History of Present Illness HPI Narrative: This is a 64-year-old female who presents with her caregiver and for chief complaint of right heel pain. Reports this has been going on for the past 3-4 weeks. Reports it is worse in the morning when she wakes up from bed. Reports the pain does continue throughout the day in her to or with weight-bearing. States the pain is limited to the right heel. Denies injury. Denies numbness or weakness. Related Data Home Medications ?Medication ?Instructions ?Recorded ?Confirmed ?Last Taken ?Type alendronate 70 mg tablet 70 mg PO WEEKLY 11/28/19 04/21/22 11/30/21 History ergocalciferol (vitamin D2) 1,250 1,250 mcg PO WEEKLY 11/28/19 04/21/22 11/23/21 History mcg (50,000 unit) capsule levothyroxine 112 mcg tablet 112 mcg PO DAILY 11/28/19 04/21/22 11/30/21 History pravastatin 20 mg tablet 20 mg PO DAILY 11/28/19 04/21/22 11/30/21 History timolol maleate 0.5 % eye drops 1 drp ophthalmic (eye) DAILY 11/28/19 04/21/22 11/30/21 History hydroxyzine HCl 25 mg tablet 25 mg PO BID PRN Anxiety 07/22/21 04/21/22 Unknown History tramadol 50 mg tablet 50 mg PO Q6H PRN Pain 07/22/21 12/17/21 Unknown History vilazodone 10 mg tablet (Viibryd) 20 mg PO DAILY 07/22/21 12/17/21 Unknown History aripiprazole 5 mg tablet with 5 mg PO DAILY 11/20/21 04/21/22 11/30/21 History sensor and strip bupropion HCl 100 mg tablet,12 hr 100 mg PO BID 02/07/22 04/21/22 Unknown History sustained-release Allergies Allergy/AdvReac Type Severity Reaction Status Date / Time codeine Allergy Mild Hives Verified 01/13/25 13:51 Penicillins Allergy Mild Hives Verified 01/13/25 13:51 Review of Systems Review of Systems: All systems as dictated in [facility] Past Medical History Medical History Anxiety Depression Dyslipidemia Glaucoma Gout History of hepatitis C History of hypothyroidism Schizophrenia Surgical History Surgical History H/O breast augmentation H/O hemorrhoidectomy History of section Hx of cholecystectomy Status post hemorrhoidectomy 12/01/21 Family History Family History Mother Family history of thyroid disease Hypertension Social History Social History Smoking packs per day: 1 Smoking cigarettes per day: 20.0 Years smoked: 36 Smoking pack-years: 36.00 Smoking status: Current every day smoker Tobacco type: cigarettes Alcohol intake: never Substance use type: marijuana Other substance usage details: DAILY Living arrangements: alone Occupation/Education: unemployed Exam Narrative: GENERAL: Well-appearing, well-nourished, and in no acute distress. HEAD: Normocephalic, atraumatic. EYES: PERRLA and EOMI. ENT: Nares clear, no rhinorrhea or epistaxis. Mucous membranes moist. Oropharynx without tonsillar hypertrophy exudate or other lesions. NECK: Supple. No adenopathy or masses. CHEST: No respiratory distress. Clear to auscultation. No wheezes rales or rhonchi HEART: Regular rate and rhythm. No murmur heard. Normal peripheral pulses. ABDOMEN: Soft, nontender, nondistended, normal active bowel sounds. MSK: Normal range of motion. No edema. SKIN: Warm, dry, no rash. NEURO: Alert and oriented x4. No focal deficits. PSYCH: Normal mood and affect. Course Vital Signs Vital signs: Vital Signs Temperature 97.8 F 01/13/25 13:55 Pulse Rate 62 01/13/25 13:55 Respiratory Rate 18 01/13/25 13:55 Blood Pressure 125/81 01/13/25 13:55 Pulse Oximetry 98 01/13/25 13:55 Temperature 97.8 F 01/13/25 13:55 Pulse Rate 62 01/13/25 16:03 Respiratory Rate 18 01/13/25 16:03 Blood Pressure 127/80 01/13/25 16:03 Pulse Oximetry 99 01/13/25 16:03 MDM - Extremity (Nontraumatic) MDM Narrative Medical decision making narrative: This is a 64-year-old female who presents to the ED for chief complaint of right heel pain for the past several weeks. Vitals are normal. Exam consistent with plantar fasciitis. X-ray show enthesopathy of the heel which is consistent with her exam. Discussed supportive measures for plantar fascitis with the patient and gave podiatry referral. Pt will be discharged in stable condition. Return precautions given and supportive measures discussed. Pt is understanding and agreeable with plan for discharge and follow-up with podiatry Discharge Plan Discharge Clinical Impression: Plantar fasciitis of right foot Patient Disposition: Home, Self-Care Condition: Stable Instructions: Antibiotic Form, Plantar Fasciitis (ED) Additional Instructions: Exam today shows evidence of plantar fasciitis. Please use Tylenol 500 mg and ibuprofen 600 mg for additional pain and inflammation control. Follow-up with podiatry. Make sure that you are wearing comfortable she was with plenty of question. If you have any new or worsening symptoms please return to the ER for further evaluation. Patient Language: Estonian Prescriptions: No Action alendronate 70 mg tablet 70 mg PO WEEKLY Rx Instructions: WEDNESDAY ergocalciferol (vitamin D2) 1,250 mcg (50,000 unit) capsule 1,250 mcg PO WEEKLY Rx Instructions: WEDNESDAY levothyroxine 112 mcg tablet 112 mcg PO DAILY pravastatin 20 mg tablet 20 mg PO DAILY timolol maleate 0.5 % drops 1 drp ophthalmic (eye) DAILY bupropion HCl 100 mg tablet sustained-release 12 hr 100 mg PO BID ciclopirox 8 % solution 1 applic topical DAILY 28 Days Qty: 6.6 0RF Rx Instructions: apply to right great toe once daily after 7 days remove with acetone then start reapplication lidocaine HCl 3 % cream 1 applic topical TID PRN (Reason: pain) Qty: 28.3 0RF nitrofurantoin monohyd/m-cryst [Macrobid] 100 mg capsule 100 mg PO Q12H 5 Days Qty: 10 0RF Rx Instructions: must administer with a meal/food hydroxyzine HCl 25 mg tablet 25 mg PO BID PRN (Reason: Anxiety) tramadol 50 mg tablet 50 mg PO Q6H PRN (Reason: Pain) Viibryd 10 mg tablet 20 mg PO DAILY Rx Instructions: must administer with a meal/food aripiprazole 5 mg Tablet With Sensor And Strip 5 mg PO DAILY docusate sodium [Colace] 100 mg capsule 100 mg PO BID Qty: 30 0RF Follow-up/Referrals: Christo Alexander Jr., KVNGM [Physician] - Alireza,Paxton Ibarra MD [Primary Care Provider] - Time of Disposition: 15:55
[2025-01-13] MEDS: ACETAMINOPHEN 500 MG TABLET 1000 MG PO (15:59)
[2025-01-13] MEDS: IBUPROFEN 400 MG TABLET 800 MG PO (15:59)
[2025-01-13 16:03] VITALS: BP 127/80; PULSE 62; RESP 18; O2SAT 99
== END 2025-01-13 16:05 | disposition home or self-care (01) ==
PROVIDERS: Emergency Provider Physician Assistant; PCP Internal Medicine Gastroenterology
DX: M72.2 Plantar fascial fibromatosis (principal); E78.5 Hyperlipidemia, unspecified; E03.9 Hypothyroidism, unspecified; H40.9 Unspecified glaucoma; M10.9 Gout, unspecified; F20.9 Schizophrenia, unspecified; F32.A Depression, unspecified; F41.9 Anxiety disorder, unspecified; F17.210 Nicotine dependence, cigarettes, uncomplicated; Z86.19 Personal history of other infectious and parasitic diseases; Z90.49 Acquired absence of other specified parts of digestive tract; Z79.899 Other long term (current) drug therapy
CPT/HCPCS: 73630; 99283; A9270

== ENCOUNTER 2025-01-25 12:39 | Emergency (ER) | payer MEDICARE, MEDICAID, SELFPAY ==
--- NOTE | ~2025-01-25 | XR_ITS ---
3 VIEWS LUMBAR SPINE Ordering provider: Gwyn Bradshaw MD History: . back pain . Comparison: None. FINDINGS: VERTEBRAL BODIES: No visible fracture or subluxation. Osteopenia of the bones. Minimal anterolisthesi s at the level of L4-L5. DISK SPACES: Slight narrowing of the disc L2-L3 and L4-L5. SOFT TISSUES: Atherosclerotic changes of the aorta. IMPRESSION: No acute osseous abnormality lumbar spine. Mild narrowing of the disc L2-L3 and L4-L5. Reviewed, dictated and finalized at location A.
--- NOTE | ~2025-01-25 | CT_ITS ---
CT abdomen pelvis wo con Ordering provider: Gwyn Bradshaw MD History: 64 years Female with . back pain, hematuria . Comparison: November 18, 2017 Without IV and without oral contrast. 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 The dose-length product was 417.72 mGy-cm. Findings: Bilateral calcified breast implants. VISUALIZED LOWER CHEST: Normal. UPPER ABDOMINAL ORGANS: Liver: Normal. Gallbladder: Contracted. Spleen: Normal. Calcified granulomas. Stomach/duodenum: Small sliding hiatus hernia. Pancreas: Normal. Adrenals: Normal. Kidneys: Left kidney simple cyst measuring 1.9 cm. Focus of calcification is seen in the right kidney cortex. PELVIC ORGANS: The bladder is underfilled with thickened wall. Evaluation for cystitis is advised. BOWEL AND MESENTERY: Colon: No evidence of diverticulitis. The colon is loaded with fecal material.. Normal appendix. Small Bowel: Normal. No obstruction. Peritoneum/mesentery: No free air or free fluid. No mesenteric lymphadenopathy. RETROPERITONEUM: Mild atheromatous disease of the abdominal aorta. No retroperitoneal lymphadenopat hy. MUSCULOSKELETAL: Superficial soft tissues: Small fat-containing umbilical hernia. The superficial soft tissues are nor mal. Bones: Age appropriate degenerative changes of the spine. IMPRESSION: 1. No evidence of appendicitis, diverticulitis or intestinal obstruction. 2. Underfilled urinary bladder with thickened wall. Evaluation for cystitis advised. 3. Constipation 4. Focus of calcification the right renal cortex. 5. Left kidney cyst. Reviewed, dictated and finalized at location A. IMPRESSION: 1. No evidence of appendicitis, diverticulitis or intestinal obstruction. 2. Underfilled urinary bladder with thickened wall. Evaluation for cystitis ad vised. 3. Constipation 4. Focus of calcification the right renal cortex. 5. Left kidney cyst.
[2025-01-25 12:46] VITALS: BP 128/80; PULSE 61; RESP 17; TEMP 36.4; O2SAT 96
--- OUTSIDE RECORDS SUMMARY | 2025-01-25 12:51 | XMS_ITS ---
Author Organization [facility] Address [address] [place] [address] Care Team Providers Care Internship Name Role Phone Shae Philip Primary Care [...] ARIPiprazole 2 MG TAKE 1 TABLET BY [facility] DAILY for 30 days Active Alendronate Sodium 70 MG 1 tablet 30 min utes before the first food, beverage or medicine of the day with plain water Orally for 30 day(s) Active Cholecalciferol 1.25 MG (71632 UT) 1 capsule Orally once per week [...] Female Encounters Encounter Location Date Provider Diagnosis [address] [place] [address] 12/06/2024 Shae Philip Generalized anxiety disorder F41.1 [...] Pt understands that TD symptoms would be intermediate manager and irreversible. States has not tried alternatives [...] Pt understands that TD symptoms would be intermediate manager and irreversible. States has not tried alternatives [...] * Elin GÓMEZDOB:1960 ([age] yo F)Acc No.[id number]:12/06/2024 Patient: Collins JOSEki Provider: Juan Philip, MSN, SURGERY MANAGER, MANAGER SOURCING-C :1960 A ge:64 Y S ex:Female Date:12/06/2024 Phone: Address:[facility] [place], [address] Subjective: * Chief Complaints: * P [...] Plan required at this time.. S creening: [place] Suicide Severity Rating Scale (LF) D o [...] with plain water Orally Cholecalciferol 1.25 MG (14748 UT) Capsule 1 capsule Orally once per [...] plain water Orally Taking Cholecalciferol 1.25 MG (65304 UT) Capsule 1 capsule Orally once per [...] Pt understands that TD symptoms would be longterm and irreversible. States has not tried alternatives [...] May also contact the 24-hour crisis hotline ([facility]), refer to the closest emergency room or [...] Weeks (Reason: Psych F/U in-office) * * NDING PATHOLOGIST Sign off status: Completed true * Provider: Juan Philip, MSN, SURGERY MANAGER, MANAGER SOURCING-C Date: 0 12/06/2024 Generated for Lorenzo white/Brenda/eTransmitting on: 0 01/25/2025 12:51 PM CDT History and Physical Notes * [...] little, about the same. Denies SI/HI. Screening [place] Suicide Severity Rating Scale (LF) Do you [...] CONCENTRATION No deficits ATTITUDE AND BEHAVIOR Cooperative, Corrections Identification Technician tive MEMORY Grossly intact MOOD Euthymic, intermitte [...]
--- OUTSIDE RECORDS SUMMARY | 2025-01-25 12:51 | XMS_ITS | Encounter Summary ---
Author Organization [facility] Address [address] [place] [address] Care Team Providers Care Tax Compliance Agent Name Role Phone Noe Crooks MD Unavailable [phone] Paxton Lay MD Primary Care Provider [phone] Manpreet LAURA MD, Lan Copeland Primary Care Provider + [phone] Reason for Visit * Reason Onset Date Comments Medication Problem 06/12/2021 Encounter Details Date Type Department Care Team (Late st Contact Info) Description 06/12/2021 Telephone [facility] [address] [place] [address] Omar Da Silva MD [address] [facility] [address] [place] [address] Medication Problem Social History Tobacco Use Types Packs/Day Years Used Date Smoking Tobacco: Every Day Cigarettes 1 40 Smokeless Tobacco: Never Alcohol Use Standard Drinks/Week Comments No 0 (1 standard drink = 0.6 oz pur e alcohol) Comments No Sex and Gender Information Value Date Recorded Sex Assigned at Not on file 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 Pt had script sent to [facility] on [address] [phone] Pt phone [phone]. Please call to advise/discuss. documented in this encounter Plan of Treatment Upcoming Encounters Date Type Department Care Team (Late st Contact Info) Description 05/15/2025 10:00 AM CDT Office Visit [facility] - Ophthalmology [address] [place] [phone] Gurmeet Romo OD [address] [place] [phone] documented as of this encounter Goals Goal [...] on filedocumented in this encounter Care Teams Tax Compliance Agent Relationship Specialty Start Date End Date Paxton Lay MD [address] [place] [phone] PCP - General 11/28/19 10/22/21 Lan Case III, MD [address] [place] [address] [place] [phone] PCP - General 10/23/21 Noe Crooks MD Dermatology 10/24/18 documented as of this encounter
--- OUTSIDE RECORDS SUMMARY | 2025-01-25 12:51 | XMS_ITS | Data Portability ---
Author Organization [facility] Address [address] [place] [address] Care Team Providers Care Cotton Classer Aide Name Role Phone LINDA FRANCISCO Primary Care Provider [phone] Assessment No assessment recorded. Plan of Treatment Reminders Order Date Submit Date Provider Last Modified By Organization Details Last Modified Time Details Appointments None recorded. Lab None recorded. Referral None recorded. Procedures None recorded. Surgeries None recorded. Imaging None recorded. Medication Orders fluconazole 150 mg tablet 2021 [id number], [address] [place], [place], [id number], 15:49:35 nystatin-tr iamcinolone 100,000 unit/gram-0 .1 % topical ointment 2021 [id number] [address] [place], [place], [phone], 15:49:35 Patient TargetsNo targets recorded. Patient InstructionsNo instructions recorded. Reason for Referral None Reported. Results Created Date Observation Date Name Description Value Unit Range Abnormal Flag Note LastModifiedBy Organization Detail LastModifiedTime 04/23/2004/23/2022 VAGIN ITIS/ VAGIN OSIS, DNA PROBE tristen sp. detection, direct probe Negati ve negati ve Not Available [facility] [address] [place], [address], 04/24/2022 15:33:41 04/23/20 22 04/23/2022 VAGIN ITIS/ VAGIN OSIS, DNA PROBE gardnerella vag. detection, direct probe Negati ve negati ve Not Available [facility] [address] [place], [address], 04/24/2022 15:33:41 04/23/2004/23/2022 VAGIN ITIS/ VAGIN OSIS, DNA PROBE trichomonas vag. detection, direct probe Negati ve negati ve Not Available [facility] [address] [place], [address], 04/24/2022 15:33:41 Result Notes None recorded. Problems No Known Problems Procedures Surgical History Date Name Laterality Status Provider Name and Address Organization Details Recorded Time Date of Last Pap Smear completed Munira Gu [facility] 04/23/2022 15:20:29 Imaging Results None recorded. Procedure Notes None recorded. Medical Equipment None Reported. Allergies Allergen ID Allergen Name Allergen Category Reaction Reaction Severity Criticality Documentation Date Start Date Code Code System Note Provider Name and Address Organization Details Recorded Time 19109 codeine medicatio n Not available Not available Not available 04/23/2022 2670 RxNorm Munira nelson [facility] 2 15:19:37 57009 Product containin g penicilli n (product) medicatio n Not available Not available Not available 04/23/2022 65402 8001 SNOMED [facility] 15:19:56 Medications Name Sig Start [...] Updated DateTime 04/23/2022 160.02 cm 31.7 kg/m2 44588.75 g 105 mm[Hg] 71 mm[Hg] Munira Gu [facility] 14:58:20 Social History Question Answer Notes LastModified by Organizat ion Details LastModified Time Tobacco Smoking Status Current Every Day Smoker Munira Gu [facility] 04/23/2022 15:22:30 What Is Your Level [...] SNOMED-CT Code Diagnosis ICD10 Code Diagnosis Note [id number] Emili JadechristopherJAMES Tasley [address] [address] 04/23/2022 14:48:43 04/23/2022 16:06:11 Vaginal irritation [id number] N89.8 On exam, mild vaginal atrophy notedPatie [...] of medication discussed and accepted by patient NOTE:Alberate nt unsure what medication s she is [...] Curran Member ID Guarantor Name 04/23/2022 1 [facility] - DOS ON OR AFTER 21 (MEDICAID REPLACEMENT - HMO) Elin Stevenson [id number] Elin Stevenson Notes Date Note Type Note [...] or products JAMES Fernandez [address], [place], [address], [place] [facility] 04/23/2022 15:54:16 OBGyn Episode Ob Episode Information Episode Created Date Number of Fetuses Patient Bloodtype Patient rh Status Prepregnancy Weight lbs Domestic Partner Domestic Partner Phone Father Name Dispatch Specialist Status 04/23/20 22 1 CLOSED Fetus Data First Name Last Name Admitted to NICU Weight (g) Sex Living Outcome Pediatric Complications Fetus ID Race Codes Race Delivery Type 3401.94 F [id number] Primary Jhon Calculation Initial Jhon Date Initial [...]
--- OUTSIDE RECORDS SUMMARY | 2025-01-25 12:51 | XMS_ITS | Clinical Summary ---
Author Organization [facility] Address [address] [facility] [place] [address] Care Team Providers Care Recruitment Advertising Manager Name Role Phone Noe Crooks MD Unavailable [phone] Manpreet LAURA MD, Lan Copeland Primary Care Provider [phone] Source Comments [facility],non-owned Affiliates and Associated Physician Practices is amultiple site organization consisting of ambulatory clinics and hospital sitesin [place], [place] and [place]. This disclosure is being madepursuant to the Care Everywhere program and may not contain all information available regarding this patient. Last updated 18.[facility] Allergies Active Allergy Reactions Criticality Noted Date Comments Codeine Urticaria Medium 02/03/2022 Glecaprevir-Pibrentasvir Urticaria Medium 01/10/2019 Penicillins Urticaria Medium 12/24/2017 Medications * Be aware that medications may not be up to date on this document. Alwaysverify current medications with the patient. vitamin D, ergocalciferol, (DRISDOL) 18360 UNITS capsule Take 1 (one) capsule by mouth every 7 days 10 9 Active pravastatin (PRAVACHOL) 20 MG tablet Take 1 (one) tablet by mouth at bedtime Active alendronate (FOSAMAX) 70 MG tablet Take 1 (one) tablet by mouth every 7 days before meal Take in morning with full glass of water on empty stomach and remain upright for 30 min Active cetirizine (ZYRTEC) 10 MG tablet TK 2 TS PO BID 09/29/202 0 Active hyaluronan (ORTHOVISC) 30 MG/2ML prefilled syringe [...] DAY Active Austedo XR 12 MG TB24 4 Active Austedo XR 6 MG TB24 4 Active hydrOXYzine HCl (Atarax) 25 MG tablet Active traZODone (Desyrel) 100 MG tablet Take 1 (one) tablet by mouth at bedtime 4 Active buPROPion XL 24hr (Wellbutrin-XL) 300 MG tablet TAKE 1 TABLET BY MOUTH DAILY IN THE MORNING 4 Active levothyroxine (Synthroid) 150 MCG tablet Take [...] Care Team Description 11/15/2024 3:20 PM SUPERVISOR MAINSPRING FABRICATION Clinical Support [facility] [address] [place] [phone] Gurmeet Romo, OD Primary open angle glaucoma (POAG) of left eye, moderate stage (Primary Dx) 11/15/2024 3:15 PM SUPERVISOR MAINSPRING FABRICATION [facility] [address] [place] [phone] Gurmeet Romo, OD Primary open angle glaucoma (POAG) of left eye, moderate stage (Primary Dx) 11/15/2024 3:00 PM SUPERVISOR MAINSPRING FABRICATION Office Visit [facility] [address] [place] [phone] Gurmeet Romo, OD Primary open angle glaucoma [...] on file Legal Sex Female 6:18 AM SUPERVISOR MAINSPRING FABRICATION Gender Identity Not on file Sexual Orientation Not on file Last Filed Vital Signs Vital Sign Reading Time Taken Comments Blood Pressure 107/61 09/09/2022 1:55 PM SUPERVISOR MAINSPRING FABRICATION Pulse 60 09/09/2022 1:55 PM SUPERVISOR MAINSPRING FABRICATION Temperature 36.2 C (97.2 F) 09/09/2022 1:40 PM SUPERVISOR MAINSPRING FABRICATION Respiratory Rate 16 09/09/2022 1:55 PM SUPERVISOR MAINSPRING FABRICATION Oxygen Saturation 97% 09/09/2022 1:55 PM SUPERVISOR MAINSPRING FABRICATION Inhaled Oxygen Concentration - - Weight 77.1 kg (170 lb) 09/09/2022 10:48 AM SUPERVISOR MAINSPRING FABRICATION Height 160 cm (5' 3 ) 09/09/2022 10:48 AM SUPERVISOR MAINSPRING FABRICATION Body Mass Index 30.11 09/09/2022 10:48 AM SUPERVISOR MAINSPRING FABRICATION Plan of Treatment Upcoming Encounters Date Type Department Care Team (Late st Contact Info) Description 05/15/2025 10:00 AM CDT Office Visit [facility] [address] [facility], [place] [address] Gurmeet Romo, OD [address] [place] [address] Health Maintenance Due Date Last Done Comments [...] last dose Mobility General No Danielle Man, RN Note: Expected end date: 10/10/2021 The goal is to maintain or improve your mobility at the optimum level for you. Interventions: Medical Devices Implanted Type Area Financial Planning Consultant Device Identifier Shelf Expiration Date Model / Serial / Lot [employer] - Envista Iol Implanted:Qty: 1 on 09/09/2022 by Shant Castillo MD at [facility] Ocular [employer] Surgical 10/10/2024 [id number] / [id number] / NA [employer] Implanted:Qty: 1 on 08/26/2022 by Shant Castillo MD at [facility] Left: Eye 10/10/2024 MX60E 22.5 / [id number] / [id number] Procedures Procedure Name Priority Date/Time Associated Diagnosis Comments OPTIC NERVE ANALYSIS OCT Routine 11/15/2024 3:11 PM SUPERVISOR MAINSPRING FABRICATION Primary open angle glaucoma (POAG) of left eye, moderate stage MELÉNDEZ AUTO VISUAL FIELD EXTENDED Routine 11/15/2024 3:11 PM SUPERVISOR MAINSPRING FABRICATION Primary open angle glaucoma (POAG) of left eye, moderate stage HEPATITIS C AB W/RFLX TO HCV RNA QN PCR Routine 05/31/2020 1:05 PM CDT History of hepatitis from Last 3 Months or Most Recently Relevant to Health Maintenance Results * OPTIC NERVE ANALYSIS OCT (11/15/2024 3:11 PM SUPERVISOR MAINSPRING FABRICATION) Anatomical Region Laterality Modality Head External-Camera Photography Narrative 11/15/2024 3:51 PM SUPERVISOR MAINSPRING FABRICATION Images from the original result were not included. OD: poor quality, large artifact (likely due to small pupil) or PCO OS: good image (9) - overall stable with average RNFL drop from 81 --> 79, inferior average difference (47 --> 46) Overall stable us Gurmeet Romo OD OPHTHALMOLOGY SCHED ORD W PACS F inal Result * MELÉNDEZ AUTO VISUAL FIELD EXTENDED (11/15/2024 3:11 PM SUPERVISOR MAINSPRING FABRICATION) Anatomical Region Laterality Modality Head External-Camera Photography Narrative 11/15/2024 3:53 PM SUPERVISOR MAINSPRING FABRICATION Images from the original result were not included. OD: high Fls, significant rim artifact - overall no glaucomatous concerns OS: some Fls, Fps, and Fns - very stable SAD as seen to match on RNFL with inferior thinning us Gurmeet Romo OD OPHTHALMOLOGY SCHED ORD W PACS F inal Result * (ABNORMAL) HEPATITIS C AB W/RFLX TO HCV RNA QN PCR (05/31/2020 1:05 PM CDT) Hepatitis C Antibody REACTIVE( A) NON-REACT [facility] Signal to Cut-Off 32.90(H) <1.00 [facility] Comment: HCV antibody was reactive. The sample will be tested for HCV RNA by a Nucleic Acid Amplification Test (NAAT) to determine if the patient has a current active infection. Test Performed at: [facility] [address] [place] [address] MADELEINE WALKER DO,MPH Blood BLOOD SPECIMEN / Unknown 05/31/2020 1:05 PM CDT 05/31/2020 1:10 PM CDT us Catrachita Zamudio MD LAB - CHEMISTRY ORDERABLES F inal Result [facility] [address] [place] [address] from Last 3 Months or Most Recently Relevant to Health Maintenance Insurance [facility] MEDICARE Care Teams Recruitment Advertising Manager Relationship Specialty Start Date End Date Lan Case III, MD [address] [address] PCP - General 10/23/21 Noe Crooks MD Dermatology 10/24/18
--- OUTSIDE RECORDS SUMMARY | 2025-01-25 12:51 | XMS_ITS | CONTINUITY OF CARE DOCUMENT ---
Author Name aryan baeza Address Unknown Organization [facility] Address [address] [facility] [address] [place] [address] Phone [phone] Care Team Providers Care Distribution Field Technician Name Role Phone Joaquin Pabon MD Unavailable LINDA FRANCISCO MD Unavailable LINDA FRANCISCO MD Unavailable INSURANCE PROVIDERS Payer name Policy type / Coverage type [place] [employer] party ID [place] Medicare [id number] [place] (2) Medicaid [id number]
--- OUTSIDE RECORDS SUMMARY | 2025-01-25 12:52 | XMS_ITS | Clinical Summary ---
Author Organization [facility] Address [address], [facility] [address] [place] [address] Phone Care Team Providers Care Clinique Counter Manager Name Role Phone Braulio Mccabe MD Primary Care Provider [phone] Allergies Active Allergy Reactions Criticality Noted Date Comments Codeine Hives 12/24/2017 Penicillins Hives 12/24/2017 Medications latanoprost (XALATAN) 0.005 % Solution Place 2 Drops in affected eye(s) nightly. Each eye. 8 Active sertraline (ZOLOFT) 100 MG Tablet Take 100 mg by mouth daily. 8 Active levothyroxine (SYNTHROID) 112 MCG Tablet Take 112 mcg by mouth daily. 8 Active ergocalciferol (VITAMIN D) 41988 UNIT Capsule TK 1 C PO Q [...] Insurance MEDICAID [employer] Care Teams Clinique Counter Manager Relationship Specialty Start Date End Date Braulio Mccabe MD [address] [place] [address] PCP - General Internal Medicine 06/10/17
--- OUTSIDE RECORDS SUMMARY | 2025-01-25 12:52 | XMS_ITS ---
Author Organization [facility] Address [address] [place] [address] Care Team Providers Care Puncher Name Role Phone Shae Philip Primary Care Provider Allergies Allergen (clinical drug ingredient) Drug/Non Drug Allergy documented on EMR Reaction Allergy Type Onset Date Status codeine Codeine hives Drug Allergy Active Penicillin hives Drug Allergy Active REASON FOR VISIT 4 week F/U Medications Medication SIG (Take, Route, Frequency, Duration) Notes Start Date End Date Status Cholecalciferol 1.25 MG (01765 UT) 1 capsule Orally once per week [...] Status W/U Status Risk Notes Problem Overweight (958687466) Over weight (E66.3) Active confirmed Vital Signs Weight 164.0 lbs 01/09/2025 Height 63 in 01/09/2025 BMI 29.05 kg/m2 01/09/2025 Blood pressure systolic 128 mm Hg 01/10/20 25 Blood pressure diastolic 88 mm Hg 025 Heart Rate 67 /min 01/09/2025 Oximetry 99 % 01/09/2025 Temperature 97.9 degrees Fahrenheit 01/10/20 25 Respiratory Rate 16 /min 01/09/2025 Encounters Encounter Location Date Provider Diagnosis [facility] [address] [place] [address] 01/09/2025 Shae Philip Over weight E66.3 ; [...] Pt understands that TD symptoms would be halfway and irreversible. States has not tried alternatives [...] Pt understands that TD symptoms would be halfway and irreversible. States has not tried alternatives [...] * Elin GÓMEZDOB:1960 ([age] yo F)Acc No.[id number]:01/09/2025 Patient: Elin JOSE Provider: Juan Philip, MSN, DRIVER/MERCHANDISER, CLOTHING WORKER-C :1960 A ge:64 Y S ex:Female Date:01/09/2025 Phone: Address:[facility] [address], [address] Check In:10:[address] Subjective: * Chief Complaints: * 4 week [...] in behavioral health treatment .. S creening: [place] Suicide Severity Rating Scale (LF) D o [...] Orally Once a day Not-TakingCholecalciferol 1.25 MG (87981 UT) Capsule 1 capsule Orally once per week Levothyroxine Sodium 150 MCG Tablet 1 tablet on an empty stomach in the morning Orally Once a day hydrOXYzine HCl 25 MG Tablet 1 tablet as needed Orally Once a day Not-Taking Cholecalciferol 1.25 MG (06662 UT) Capsule 1 capsule Orally once per [...] Pt understands that TD symptoms would be halfway and irreversible. States has not tried alternatives [...] Procedure Codes: 3 008F BODY MASS INDEX [id number] [facility] VISIT ESTABLISHED PATIENT * Preventive Medicine: Counseling: C are goal follow-up plan: B NV management provided Fred Balbuena Normal BMI Follow-up L ifestyle education regarding diet. * Follow Up: 4 Weeks (Reason: Psych F/U in-office) * * Sign off status: Completed true * Provider: Juan Philip, MSN, DRIVER/MERCHANDISER, CLOTHING WORKER-C Date: 0 01/09/2025 Generated for Lorenzo white/Brenda/eTransmitting on: 0 01/25/2025 [...] dry mouth is same Denies SI/HI. Screening [place] Suicide Severity Rating Scale (LF) Do you [...] CONCENTRATION No deficits ATTITUDE AND BEHAVIOR Cooperative, Adjunct Psychology Faculty Member tive MEMORY Grossly intact MOOD Euthymic, intermitte [...]
--- OUTSIDE RECORDS SUMMARY | 2025-01-25 14:37 | XMS_ITS | CONTINUITY OF CARE DOCUMENT ---
Author Name aryan baeza Address Unknown Organization [facility] Address [address] [place] [address] Phone [phone] Care Team Providers Care Print Finishing Worker Name Role Phone Joaquin Pabon MD Unavailable LINDA FRANCISCO MD Unavailable LINDA FRANCISCO MD Unavailable INSURANCE PROVIDERS Payer name Policy type / Coverage type [place] red republican ID [place] MED[place] Medicare [id number] [employer] (2) Medicaid [id number]
--- OUTSIDE RECORDS SUMMARY | 2025-01-25 14:37 | XMS_ITS | Clinical Summary ---
Author Organization [facility] Address [address] [place] [address] Care Team Providers Care Correctional Cook Name Role Phone Noe Crooks MD Unavailable [phone] Manpreet LAURA MD, Lan Copeland Primary Care Provider [phone] Source Comments [facility],non-owned Affiliates and Associated Physician Practices is amultiple site organization consisting of ambulatory clinics and hospital sitesin [place], [place], [place] and [place]. This disclosure is being madepursuant to the Care Everywhere program and may not contain all information available regarding this patient. Last updated 18.[facility] Allergies Active Allergy Reactions Criticality Noted Date Comments Codeine Urticaria Medium 02/03/2022 Glecaprevir-Pibrentasvir Urticaria Medium 01/10/2019 Penicillins Urticaria Medium 12/24/2017 Medications * Be aware that medications may not be up to date on this document. Alwaysverify current medications with the patient. vitamin D, ergocalciferol, (DRISDOL) 05143 UNITS capsule Take 1 (one) capsule by [...] Department Care Team Description 11/15/2024 3:20 PM DIGITAL AD TRAFFICKER Clinical Support [facility] [address] [place] [phone] Gurmeet Romo, OD Primary open angle glaucoma (POAG) of left eye, moderate stage (Primary Dx) 11/15/2024 3:15 PM DIGITAL AD TRAFFICKER [facility] [address] [place] [phone] Gurmeet Romo, OD Primary open angle glaucoma (POAG) of left eye, moderate stage (Primary Dx) 11/15/2024 3:00 PM DIGITAL AD TRAFFICKER Office Visit [facility] [address] [place] [phone] Gurmeet Romo, OD Primary open angle glaucoma [...] on file Legal Sex Female 6:18 AM DIGITAL AD TRAFFICKER Gender Identity Not on file Sexual Orientation Not on file Last Filed Vital Signs Vital Sign Reading Time Taken Comments Blood Pressure 107/61 09/09/2022 1:55 PM DIGITAL AD TRAFFICKER Pulse 60 09/09/2022 1:55 PM DIGITAL AD TRAFFICKER Temperature 36.2 C (97.2 F) 09/09/2022 1:40 PM DIGITAL AD TRAFFICKER Respiratory Rate 16 09/09/2022 1:55 PM DIGITAL AD TRAFFICKER Oxygen Saturation 97% 09/09/2022 1:55 PM DIGITAL AD TRAFFICKER Inhaled Oxygen Concentration - - Weight 77.1 kg (170 lb) 09/09/2022 10:48 AM DIGITAL AD TRAFFICKER Height 160 cm (5' 3 ) 09/09/2022 10:48 AM DIGITAL AD TRAFFICKER Body Mass Index 30.11 09/09/2022 10:48 AM DIGITAL AD TRAFFICKER Plan of Treatment Upcoming Encounters Date Type Department Care Team (Late st Contact Info) Description 05/15/2025 10:00 AM CDT Office Visit [facility] [address] [facility], [place] [address] Gurmeet Romo, OD [address] [place] [address] Health Maintenance Due Date Last Done Comments [...] you. Interventions: Medical Devices Implanted Type Area Home Hospice Aide Device Identifier Shelf Expiration Date Model / Serial / Lot [employer] - Envista Iol Implanted:Qty: 1 on 09/09/2022 by Shant Castillo MD at [facility] Ocular [employer] Surgical 10/10/2024 [id number] / [id number] / NA [employer] Implanted:Qty: 1 on 08/26/2022 by Shant Castillo MD at [facility] Left: Eye 10/10/2024 MX60E 22.5 / [id number] / [id number] Procedures Procedure Name Priority Date/Time Associated Diagnosis Comments OPTIC NERVE ANALYSIS OCT Routine 11/15/2024 3:11 PM DIGITAL AD TRAFFICKER Primary open angle glaucoma (POAG) of left eye, moderate stage MELÉNDEZ AUTO VISUAL FIELD EXTENDED Routine 11/15/2024 3:11 PM DIGITAL AD TRAFFICKER Primary open angle glaucoma (POAG) of left eye, moderate stage HEPATITIS C AB W/RFLX TO HCV RNA QN PCR Routine 05/31/2020 1:05 PM CDT History of hepatitis from Last 3 Months or Most Recently Relevant to Health Maintenance Results * OPTIC NERVE ANALYSIS OCT (11/15/2024 3:11 PM DIGITAL AD TRAFFICKER) Anatomical Region Laterality Modality Head External-Camera Photography Narrative 11/15/2024 3:51 PM DIGITAL AD TRAFFICKER Images from the original result were not [...] AUTO VISUAL FIELD EXTENDED (11/15/2024 3:11 PM DIGITAL AD TRAFFICKER) Anatomical Region Laterality Modality Head External-Camera Photography Narrative 11/15/2024 3:53 PM DIGITAL AD TRAFFICKER Images from the original result were not [...] a current active infection. Test Performed at: [facility] [address] [place] [address] MADELEINE WALKER DO,MPH Blood BLOOD SPECIMEN / Unknown 05/31/2020 1:05 PM CDT 05/31/2020 1:10 PM CDT us Catrachita Zamudio MD LAB - CHEMISTRY ORDERABLES F inal Result [facility] [address] [place] [address] from Last 3 Months or Most Recently Relevant to Health Maintenance Insurance [facility] MEDICARE Care Teams Correctional Cook Relationship Specialty Start Date End Date Lan Case III, MD [address] [address] PCP - General 10/23/21 Noe Crooks MD Dermatology 10/24/18
--- OUTSIDE RECORDS SUMMARY | 2025-01-25 14:37 | XMS_ITS | Encounter Summary ---
Author Organization [facility] Address [address] [place] [place] [address] Care Team Providers Care Controls Designer Name Role Phone Noe Crooks MD Unavailable [phone] Paxton Lay MD Primary Care Provider [phone] Manpreet LAURA MD, Lan Copeland Primary Care Provider [phone] Reason for Visit * Reason Onset Date Comments Medication Problem 06/12/2021 Encounter Details Date Type Department Care Team (Late st Contact Info) Description 06/12/2021 Telephone [facility] [address] [place] [address] Omar Da Silva MD [address] [facility] [address] [place] [address] Medication Problem Social History Tobacco Use Types Packs/Day Years Used Date Smoking Tobacco: Every Day Cigarettes 1 40 Smokeless Tobacco: Never Alcohol Use Standard Drinks/Week Comments No 0 (1 standard drink = 0.6 oz pur e alcohol) Comments No Sex and Gender Information Value Date Recorded Sex Assigned at Not on file Legal Sex Female 6:18 AM EXTENSION SERVICE SUPERVISOR Gender Identity Not on file Sexual Orientation [...] LONGER AVAILABLE. Pt had script sent to [facility] on [address] [phone] Pt phone [phone]. Please call to advise/discuss. documented in this encounter Plan of Treatment Upcoming Encounters Date Type Department Care Team (Late st Contact Info) Description 05/15/2025 10:00 AM CDT Office Visit [facility] Op[facility]mology [address] [place] [phone] Gurmeet Romo OD [address] [place] [phone] documented as of this encounter Goals Goal [...] on filedocumented in this encounter Care Teams Controls Designer Relationship Specialty Start Date End Date Paxton Lay MD [address] [place] [phone] PCP - General 11/28/19 10/22/21 Lan Case III, MD [address] [place] [address] [place] [phone] PCP - General 10/23/21 Noe Crooks MD Dermatology 10/24/18 documented as of this encounter
--- OUTSIDE RECORDS SUMMARY | 2025-01-25 14:37 | XMS_ITS ---
Author Organization [facility] Address [address] [place] [address] Care Team Providers Care Orthopedic Brace Maker Name Role Phone Shae Philip Primary Care Provider REASON FOR VISIT refill Medications Medication SIG (Take, Route, Frequency, Duration) Notes Start Date End Date Status Austedo XR 30 MG 1 tablet Orally Once a day for 7 days Sending a 7 day bridge refill to cover until f/u. Active Social History Sex Assigned At : Social History Observation Description Sex Assigned At Female Encounters Encounter Location Date Provider Diagnosis [facility] [address] [place] [address] 11/27/2024 Shae Philip Tardive dyskinesia G24.01 Assessments [...] * Elin GÓMEZDOB:1960 ([age] yo F)Acc No.[id number]:11/27/2024 Patient: Dilma BINTALukasElin :1960 A ge:64 Y S ex:Female Phone: Address:[address], [place], [address] * Refills Refill Austedo XR Tablet Extended Release 24 Hour, 30 MG, Orally, 7 Tablet, 1 tablet, Once a day, 7 days, Refills=0 * true * Date: Generated for Lorenzo white/Brenda/Tasneem on: 0 01/25/2025 02:37 PM CDT
--- OUTSIDE RECORDS SUMMARY | 2025-01-25 14:38 | XMS_ITS | Patient Health Record ---
Author Organization [facility] Address [address] [place] [address] Care Team Providers Care Billing And Accounting Staff Assistant Name Role Phone Shae Philip Primary Care Provider JoshRadha Unavailable [phone] Allergies Allergen (clinical drug ingredient) Drug/Non Drug Allergy documented on EMR Reaction Allergy Type Onset Date Status codeine Codeine hives Drug Allergy Active Penicillin hives Drug Allergy Active Results Component Value Reference Range Notes CMP 14 Comprehensive Metabol ic Panel* Reviewed date:09/08/2024 09:27:29 AM Interpretation:Normal Performing Lab:[facility] [place], [address] [facility], [place], Phone - [phone], Director - Sridhar Notes/Report: Glucose 92 70-99 [...] Panel* Reviewed date:09/08/2024 09:27:17 AM Interpretation:Normal Performing Lab:[facility], [address] [facility], Phone - [phone], Director - [facility] Notes/Report: Cholesterol, Total 184 100-199 mg/dL Triglycerides 88 0-149 mg/dL HDL Cholesterol 70 >39 mg/dL VLDL Cholesterol [place] 16 5-40 mg/dL LDL Chol Calc ([facility]) 98 0-99 mg/dL Vitamin D, 25-Hydroxy* Reviewed date:09/08/2024 09:26:29 AM Interpretation:Normal Performing Lab[facility], [address] [facility], Phone - [phone], Director - [facility] Notes/Report: Vitamin D, 25-Hydroxy 63.6 30.0-100.0 ng/mL Vitamin D deficiency has been defined by the [place] of [employer] and an Endocrine Society practice guideline as a level of serum 25-OH vitamin D less than 20 ng/mL (1,2). The Endocrine Society went on to further define vitamin D insufficiency as a level between 21 and 29 ng/mL (2). 1. IOM ([place] of [employer]). 2010. Dietary reference intakes for calcium and D. [place]: The National Academies Press. 2. Deena MF, Martin [place], Raymon CHOWDARY, et al. Evaluation, treatment, and prevention of vitamin D deficiency: an Endocrine Society clinical practice guideline. JCEM. 2010; 96(7):1911-30. CBC With Differential/Platel et* Reviewed date:09/08/2024 09:27:41 AM Interpretation:Abnormal Performing Lab:[facility], [address] [facility], Phone - [phone], Director - [facility] Notes/Report: WBC 4.7 3.4-10.8 x10E3/uL Effective September 11, 2024 profile [id number] WBC will be made non-orderable as a [...] TSH* Reviewed date:09/08/2024 09:27:07 AM Interpretation:Low Performing Lab:[facility] [place], [address] [place] [address], Phone - [phone], Director - [facility] Notes/Report: TSH 0.036 0.450-4.500 uIU/mL Hemoglobin A1c* Reviewed date:09/08/2024 09:26:55 AM Interpretation:Normal Performing Lab[place] [address] [place] [address], Phone - [phone], Director - [facility] Notes/Report: Hemoglobin A1c 5.4 4.8-5.6 % . Prediabetes: 5.7 - 6.4 Diabetes: >6.4 Glycemic control for adults with diabetes: <7.0 Vitamin B12 and Folate Reviewed date:09/08/2024 09:26:42 AM Interpretation:Normal Performing Lab:[facility] [place], [address] [place] [address], Phone - [phone], Director - [facility] Notes/Report: Vitamin B12 896 647-7552 pg/mL Folate (Folic Acid), Serum >20.0 >3.0 ng/mL A serum folate concentration of less than 3.1 ng/mL is considered to represent clinical deficiency. Reason For Referral Reason Housing Diagnosis 1 Bipolar affective di sorder (F31.9) Diagnosis 2 Anxiety (F41.9) Referral Organization [facility] Referring Provider First Name Shae Referring Provider Last Name Cedrick Referring Provider Speciality Psychiatry Referred Provider Specialty Forensic AnthropologistLow Pressure Kettle Operator Notes Shae Philip Fred 01:51:20 PM > Client states she is currently living in a mobile home that may lose access to water soon. She would like to discuss possible housing options with [place]. Please refer. Thank you! Clinical Notes Dalia Locke 07/27/2024 09:21:07 AM >HN reached the home health care worker for the client Elni Stevenson. HN's phone number was text to the client and rn homecare, so the client could reach out later for resources pertaining to housing. Referral Priority Routine Reason Movement disorder, t ardive dyskinesia Diagnosis 1 Tardive dyskinesia ( G24.01) Referral Organization [facility] Referring Provider First Name Shae Referring Provider [...] RN 06/2024 09:54:00 AM >Referral sent to [facility] in [place]. Referral Priority Routine Medications Medication SIG (Take, [...] 30 day(s) 01/11/2020 Active Cholecalciferol 1.25 MG (44612 UT) 1 capsule Orally once per week [...] Vaccine Route Administration Date Status Comme nts FLU VAC NO PRSV 4VAL 6 mo+ IM Intramuscular 07/27/2019 Administered Pt wil well. FLU VAC NO PRSV 4VAL 6 mo+ IM Intramuscular 07/17/2021 Administered Patient tolerated well. FLU VAC NO PRSV 4VAL 6 mo+ IM Intramuscular 08/19/2022 Administered Patient tolerated well. Influenza, virus vaccine, trivalent, preservative free IM Intramuscular 10/24/2024 Administered Ludmila Ratliff 10/24/2024 10:33:36 AM ENVIRONMENTAL HEALTH AIDE >Pt tolerated well Social History Tobacco Use: Social History Observation Description Date Details (start date - stop date) Never Smoker NA - NA Sex Assigned At : Social History Observation Description Sex Assigned At Female Tobacco Control (Standard) Question Answer Notes Tobacco use: Nonsmoker Section Notes: [id number] 01/14/2022 01/13/2022 Hydrocodon-acetaminophen 21.0 7 5MG-325MG 15 Paxton Lay Md - [id number] [place], [place] 1 [id number] 12/16/2021 12/16/2021 oxyCODONE-ACETAMINOPHEN 20.0 5 5MG-325MG 30 Rashawn Duffy [facility] [id number] [place], [place] 1 [id number] 12/08/2021 12/08/2021 oxyCODONE-ACETAMINOPHEN 15.0 3 5MG-325MG 37.50 Km Wyman (Do) - [id number] [place], [place] NA [place] 1 [id number] 12/01/2021 12/01/2021 oxyCODONE-ACETAMINOPHEN 30.0 7 5MG-325MG 32.14 [facility] [id number] [place], [place] 1 [id number] 12/01/2021 12/01/2021 traMADol 30.0 7 50MG 21.43 Rashawn [id number] 01/14/2022 01/13/2022 Hydrocodon-acetaminophen 21.0 7 5MG-325MG 15 Paxton Lay Md [id number] [place], [place] 1 [id number] 12/16/2021 12/16/2021 oxyCODONE-ACETAMINOPHEN 20.0 5 5MG-325MG 30 [facility] [id number] [place], [place] 1 [id number] 12/08/2021 12/08/2021 oxyCODONE-ACETAMINOPHEN 15.0 3 5MG-325MG 37.50 Km Wyman () - [id number] [place], [place] 1 [id number] 12/01/2021 12/01/2021 oxyCODONE-ACETAMINOPHEN 30.0 7 5MG-325MG 32.14 [place] [facility] [id number] [place], [place] 1 [id number] 12/01/2021 12/01/2021 traMADol 30.0 7 50MG 21.43 Rashawn Stone [id number] 01/14/2022 01/13/2022 Hydrocodon-acetaminophen 21.0 7 5MG-325MG 15 Paxton Lay Md [id number] [place], [place] 1 [id number] 12/16/2021 12/16/2021 oxyCODONE-ACETAMINOPHEN 20.0 5 5MG-325MG 30 Rashawn Duffy [facility] [id number] [place], [place] 1 [id number] 12/08/2021 12/08/2021 oxyCODONE-ACETAMINOPHEN 15.0 3 5MG-325MG 37.50 Km Wyman (Do) - [id number] [place], [place] 1 [id number] 12/01/2021 12/01/2021 oxyCODONE-ACETAMINOPHEN 30.0 7 5MG-325MG 32.14 [facility] [id number] [place], [place] 1 [id number] 12/01/2021 12/01/2021 traMADol 30.0 7 50MG 21.43 Rashawn Duffy [id number] 01/14/2022 01/13/2022 Hydrocodon-acetaminophen 21.0 7 5MG-325MG 15 Paxton Lay Md [id number] [place], [place] 1 [id number] 12/16/2021 12/16/2021 oxyCODONE-ACETAMINOPHEN 20.0 5 5MG-325MG 30 Rashawn Duffy [facility] [id number] [place], [place] 1 [id number] 12/08/2021 12/08/2021 oxyCODONE-ACETAMINOPHEN 15.0 3 5MG-325MG 37.50 Km Wyman () - [id number] [place], [place] 1 [id number] 12/01/2021 12/01/2021 oxyCODONE-ACETAMINOPHEN 30.0 7 5MG-325MG 32.14 [place] [facility] [id number] [place], [place] 1 [id number] 12/01/2021 12/01/2021 traMADol 30.0 7 50MG 21.43 Rashawn Duffy [id number] 01/14/2022 01/13/2022 Hydrocodon-acetaminophen 21.0 7 5MG-325MG 15 Paxton Lay Md [id number] [place], [place] 1 [id number] 12/16/2021 12/16/2021 oxyCODONE-ACETAMINOPHEN 20.0 5 5MG-325MG 30 Rashawn Duffy [facility] [id number] [place], [place] 1 [id number] 12/08/2021 12/08/2021 oxyCODONE-ACETAMINOPHEN 15.0 3 5MG-325MG 37.50 Km Wyman (Do) - [id number] [place], [place] 1 [id number] 12/01/2021 12/01/2021 oxyCODONE-ACETAMINOPHEN 30.0 7 5MG-325MG 32.14 Rashawn Duffy [facility] [id number] [place], [place] 1 [id number] 12/01/2021 12/01/2021 traMADol 30.0 7 50MG 21.43 Rashawn Stone [id number] 01/14/2022 01/13/2022 Hydrocodon-acetaminophen 21.0 7 5MG-325MG 15 Paxton Lay Md [id number] [place], [place] 1 [id number] 12/16/2021 12/16/2021 oxyCODONE-ACETAMINOPHEN 20.0 5 5MG-325MG 30 Rashawn Duffy [facility] [id number] [place], [place] 1 [id number] 12/08/2021 12/08/2021 oxyCODONE-ACETAMINOPHEN 15.0 3 5MG-325MG 37.50 Km Wyman (Do) - [id number] [place], [place] 1 [id number] 12/01/2021 12/01/2021 oxyCODONE-ACETAMINOPHEN 30.0 7 5MG-325MG 32.14 Rashawn Duffy [facility] [id number] [place], [place] 1 [id number] 12/01/2021 12/01/2021 traMADol 30.0 7 50MG 21.43 Rashawn Stone [id number] 01/14/2022 01/13/2022 Hydrocodon-acetaminophen 21.0 7 5MG-325MG 15 Paxton Lay Md [id number] [place], [place] 1 [id number] 12/16/2021 12/16/2021 oxyCODONE-ACETAMINOPHEN 20.0 5 5MG-325MG 30 Rashawn Duffy [facility] [id number] [place], [place] 1 [id number] 12/08/2021 12/08/2021 oxyCODONE-ACETAMINOPHEN 15.0 3 5MG-325MG 37.50 Km Wyman (Do) - [id number] [place], [place] 1 [id number] 12/01/2021 12/01/2021 oxyCODONE-ACETAMINOPHEN 30.0 7 5MG-325MG 32.14 Rashawn Duffy [facility] [id number] [place], [place] 1 [id number] 12/01/2021 12/01/2021 traMADol 30.0 7 50MG 21.43 Rashawn Stone [id number] 01/14/2022 01/13/2022 Hydrocodon-acetaminophen 21.0 7 5MG-325MG 15 Paxton Lay Md [id number] [place], [place] 1 [id number] 12/16/2021 12/16/2021 oxyCODONE-ACETAMINOPHEN 20.0 5 5MG-325MG 30 Rashawn Duffy [facility] [id number] [place], [place] 1 [id number] 12/08/2021 12/08/2021 oxyCODONE-ACETAMINOPHEN 15.0 3 5MG-325MG 37.50 Km Wyman (Do) - [id number] [place], [place] 1 [id number] 12/01/2021 12/01/2021 oxyCODONE-ACETAMINOPHEN 30.0 7 5MG-325MG 32.14 [place] [facility] [id number] [place], [place] 1 [id number] 12/01/2021 12/01/2021 traMADol 30.0 7 50MG 21.43 Rashawn Stone [id number] 01/14/2022 01/13/2022 Hydrocodon-acetaminophen 21.0 7 5MG-325MG 15 Paxton Lay Md [id number] [place], [place] 1 [id number] 12/16/2021 12/16/2021 oxyCODONE-ACETAMINOPHEN 20.0 5 5MG-325MG 30 [place] Tati Stone [id number] [place], [place] 1 [id number] 12/08/2021 12/08/2021 oxyCODONE-ACETAMINOPHEN 15.0 3 5MG-325MG 37.50 Km Wyman (Do) - [id number] [place], [place] 1 [id number] 12/01/2021 12/01/2021 oxyCODONE-ACETAMINOPHEN 30.0 7 5MG-325MG 32.14 [facility] [id number] [place], [place] 1 [id number] 12/01/2021 12/01/2021 traMADol 30.0 7 50MG 21.43 Rashawn Stone [id number] 01/14/2022 01/13/2022 Hydrocodon-acetaminophen 21.0 7 5MG-325MG 15 Paxton Lay Md [id number] [place], [place] 1 [id number] 12/16/2021 12/16/2021 oxyCODONE-ACETAMINOPHEN 20.0 5 5MG-325MG 30 Rashawn Duffy [facility] [id number] [place], [place] 1 [id number] 12/08/2021 12/08/2021 oxyCODONE-ACETAMINOPHEN 15.0 3 5MG-325MG 37.50 Km Wyman (Do) - [id number] [place], [place] 1 [id number] 12/01/2021 12/01/2021 oxyCODONE-ACETAMINOPHEN 30.0 7 5MG-325MG 32.14 Rashawn Duffy [facility] [id number] [place], [place] 1 [id number] 12/01/2021 12/01/2021 traMADol 30.0 7 50MG 21.43 Rashawn Stone [id number] 01/14/2022 01/13/2022 Hydrocodon-acetaminophen 21.0 7 5MG-325MG 15 Paxton Lay Md [id number] [place], [place] 1 [id number] 12/16/2021 12/16/2021 oxyCODONE-ACETAMINOPHEN 20.0 5 5MG-325MG 30 Rashawn Stone [id number] [place], [place] 1 [id number] 12/08/2021 12/08/2021 oxyCODONE-ACETAMINOPHEN 15.0 3 5MG-325MG 37.50 Km Wyman (Do) - [id number] [place], [place] 1 [id number] 12/01/2021 12/01/2021 oxyCODONE-ACETAMINOPHEN 30.0 7 5MG-325MG 32.14 [place] [facility] [id number] [place], [place] 1 [id number] 12/01/2021 12/01/2021 traMADol 30.0 7 50MG 21.43 Rashawn Stone [id number] 01/14/2022 01/13/2022 Hydrocodon-acetaminophen 21.0 7 5MG-325MG 15 Paxton Lay Md [id number] [place], [place] 1 [id number] 12/16/2021 12/16/2021 oxyCODONE-ACETAMINOPHEN 20.0 5 5MG-325MG 30 [place] [facility] [id number] [place], [place] 1 [id number] 12/08/2021 12/08/2021 oxyCODONE-ACETAMINOPHEN 15.0 3 5MG-325MG 37.50 Km Wyman () - [id number] [place], [place] 1 [id number] 12/01/2021 12/01/2021 oxyCODONE-ACETAMINOPHEN 30.0 7 5MG-325MG 32.14 Rashawn Duffy [facility] [id number] [place], [place] 1 [id number] 12/01/2021 12/01/2021 traMADol 30.0 7 50MG 21.43 Rashawn Stone [id number] 01/14/2022 01/13/2022 Hydrocodon-acetaminophen 21.0 7 5MG-325MG 15 Paxton Lay Md [id number] [place], [place] 1 [id number] 12/16/2021 12/16/2021 oxyCODONE-ACETAMINOPHEN 20.0 5 5MG-325MG 30 Rashawn Duffy [facility] [id number] [place], [place] 1 [id number] 12/08/2021 12/08/2021 oxyCODONE-ACETAMINOPHEN 15.0 3 5MG-325MG 37.50 Km Wyman (Do) - [id number] [place], [place] 1 [id number] 12/01/2021 12/01/2021 oxyCODONE-ACETAMINOPHEN 30.0 7 5MG-325MG 32.14 [place] [facility] [id number] [place], [place] 1 [id number] 12/01/2021 12/01/2021 traMADol 30.0 7 50MG 21.43 Rashawn Stone [id number] 01/14/2022 01/13/2022 Hydrocodon-acetaminophen 21.0 7 5MG-325MG 15 Paxton Lay Md [id number] [place], [place] 1 [id number] 12/16/2021 12/16/2021 oxyCODONE-ACETAMINOPHEN 20.0 5 5MG-325MG 30 Rashawn Stone [id number] [facility] [place] 1 [id number] 12/08/2021 12/08/2021 oxyCODONE-ACETAMINOPHEN 15.0 3 5MG-325MG 37.50 Km Wyman (Do) - [id number] [place], [place] 1 [id number] 12/01/2021 12/01/2021 oxyCODONE-ACETAMINOPHEN 30.0 7 5MG-325MG 32.14 Rashawn Stone [id number] [place], [place] 1 [id number] 12/01/2021 12/01/2021 traMADol 30.0 7 50MG 21.43 [id number] 12/16/2021 12/16/2021 oxyCODONE-ACETAMINOPHEN 20.0 5.0 5MG-325MG 30 [place] [facility] [id number] [place], [place] 1 [id number] 12/08/2021 12/08/2021 oxyCODONE-ACETAMINOPHEN 15.0 3.0 5MG-325MG 37.50 Km Wyman (Do) - [id number] [place], [place] 0 [place] 1 [id number] 12/01/2021 12/01/2021 oxyCODONE-ACETAMINOPHEN 30.0 7.0 5MG-325MG 32.14 [facility] [id number] [place], [place] 1 [id number] 12/01/2021 12/01/2021 traMADol 30.0 7.0 50MG 21.43 Rashawn Duffy [facility] [id number] 01/14/2022 01/13/2022 Hydrocodon-acetaminophen 21.0 7 5MG-325MG 15 Paxton Lay Md - [id number] [place], [place] 1 [id number] 12/16/2021 12/16/2021 oxyCODONE-ACETAMINOPHEN 20.0 5 5MG-325MG 30 [facility] [id number] [place], [place] 1 [id number] 12/08/2021 12/08/2021 oxyCODONE-ACETAMINOPHEN 15.0 3 5MG-325MG 37.50 Km Wyman (Do) - [id number] [place], [place] 1 [id number] 12/01/2021 12/01/2021 oxyCODONE-ACETAMINOPHEN 30.0 7 5MG-325MG 32.14 Rashawn Duffy [facility] [id number] [place], [place] 1 [id number] 12/01/2021 12/01/2021 traMADol 30.0 7 50MG 21.43 Rashawn Stone [id number] 01/14/2022 01/13/2022 Hydrocodon-acetaminophen 21.0 7 5MG-325MG 15 Paxton Lay Md [id number] [place], [place] 0 [place] 1 [id number] 12/16/2021 12/16/2021 oxyCODONE-ACETAMINOPHEN 20.0 5 5MG-325MG 30 Rashawn Stone [id number] [place], [place] 0 [place] 1 [id number] 12/08/2021 12/08/2021 oxyCODONE-ACETAMINOPHEN 15.0 3 5MG-325MG 37.50 Km Wyman (Do) - [id number] [place], [place] 0 [place] 1 [id number] 12/01/2021 12/01/2021 oxyCODONE-ACETAMINOPHEN 30.0 7 5MG-325MG 32.14 [place] [facility] [id number] [place], [place] 1 [id number] 12/01/2021 12/01/2021 traMADol 30.0 7 50MG 21.43 Rashawn Stone [id number] 01/14/2022 01/13/2022 Hydrocodon-acetaminophen 21.0 7 5MG-325MG 15 Paxton Lay Md [id number] [place], [place] 0 [place] 1 [id number] 12/16/2021 12/16/2021 oxyCODONE-ACETAMINOPHEN 20.0 5 5MG-325MG 30 [place] Tati Stone [id number] [place], [place] 0 [place] 1 [id number] 12/08/2021 12/08/2021 oxyCODONE-ACETAMINOPHEN 15.0 3 5MG-325MG 37.50 Km Wyman (Do) - [id number] [place], [place] 1 [id number] 12/01/2021 12/01/2021 oxyCODONE-ACETAMINOPHEN 30.0 7 5MG-325MG 32.14 [place] [facility] [id number] [place], [place] 1 [id number] 12/01/2021 12/01/2021 traMADol 30.0 7 50MG 21.43 Rashawn Stone [id number] 01/14/2022 01/13/2022 Hydrocodon-acetaminophen 21.0 7 5MG-325MG 15 Paxton Lay Md [id number] [place], [place] 1 [id number] 12/16/2021 12/16/2021 oxyCODONE-ACETAMINOPHEN 20.0 5 5MG-325MG 30 Rashawn Duffy [facility] [id number] [place], [place] 1 [id number] 12/08/2021 12/08/2021 oxyCODONE-ACETAMINOPHEN 15.0 3 5MG-325MG 37.50 Km Wyman (Do) - [id number] [place], [place] 1 [id number] 12/01/2021 12/01/2021 oxyCODONE-ACETAMINOPHEN 30.0 7 5MG-325MG 32.14 [place] [facility] [id number] [place], [place] 1 [id number] 12/01/2021 12/01/2021 traMADol 30.0 7 50MG 21.43 Rashawn Stone [id number] 01/14/2022 01/13/2022 Hydrocodon-acetaminophen 21.0 7 5MG-325MG 15 Paxton Lay Md [id number] [place], [place] 1 1647433 12/16/2021 12/16/2021 oxyCODONE-ACETAMINOPHEN 20.0 5 5MG-325MG 30 Rashawn Duffy [facility] [id number] [place], [place] 1 [id number] 12/08/2021 12/08/2021 oxyCODONE-ACETAMINOPHEN 15.0 3 5MG-325MG 37.50 Km Wyman (Do) - [id number] [place], [place] 1 [id number] 12/01/2021 12/01/2021 oxyCODONE-ACETAMINOPHEN 30.0 7 5MG-325MG 32.14 Rashawn Duffy [facility] [id number] [place], [place] 1 [id number] 12/01/2021 12/01/2021 traMADol 30.0 7 50MG 21.43 Rashawn Stone - [id number] Problems Problem Type SNOMED Code ICD Code Onset Dates Problem Status W/U Status Risk Notes Problem Tobacco user (596939611) Nicotine dependence, unspecified, uncomplicated (F17.200) Active confirmed Problem Generalized anxiety disorder (57745648) Generalized anxiety disorder (F41.1) Active confirmed Problem 01119703 Anxiety (F41.9) Active confirmed Problem Bipolar affective disorder (78973626) Bipolar affective disorder (F31.9) 10/20/19 22 Active confirmed Will continue to monitor and evaluate as poor insight on patient behalf limits evaluation . Problem Overweight (349433205) Over weight (E66.3) Active confirmed Problem Chronic tension-type headache (418365832) Chronic tension headaches (G44.229) Active confirmed Problem 30673084 Depression, unspecified depression type (F32.9) Active confirmed Problem 033879089 Episode of recurrent major depressive disorder, unspecified depression episode severity (F33.9) Active confirmed Problem Drug monitoring done (231247787) Therapeutic drug monitoring (Z51.81) Active confirmed Problem 562753744 Methamphetamine use disorder, 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) Active confirmed Problem Tardive dyskinesia (716267359) Tardive dyskinesia (G24.01) Active confirmed Problem Body mass index 30.00 to 34.99 (4210067317600 07) Body mass index [BMI] 31.0-31.9, adult (Z68.31) Active confirmed Vital Signs Heart Rate 67 /min 01/09/2025 Temperature 97.9 degrees Fahrenheit 01/09/2025 Respiratory Rate 16 /min 01/09/2025 Oximetry 99 % 01/09/2025 Blood pressure diastolic 88 mm Hg 01/09/2025 Height 63 in 01/09/2025 Blood pressure systolic 128 mm Hg 01/09/2025 Weight 164.0 lbs 01/09/2025 BMI 29.05 kg/m2 01/09/2025 Encounters Encounter Location Date Provider Diagnosis [address] [place] [address] 02/09/2024 Radha Josh Nicotine dependence, unspecified, uncomplicated F17.200 ; Generalized anxiety disorder F41.1 ; Bipolar affective disorder F31.9 and Tardive dyskinesia G24.[address] [place] [address] 03/08/2024 Radha Josh Nicotine dependence, unspecified, uncomplicated F17.200 ; Generalized anxiety disorder F41.1 ; Bipolar affective disorder F31.9 and Tardive dyskinesia G24.[address] [address] 05/24/2024 Radha Josh Nicotine dependence, unspecified, uncomplicated F17.200 ; Generalized anxiety disorder F41.1 ; Bipolar affective disorder F31.9 and Tardive dyskinesia G24.[address] [address] 06/28/2024 Radha Josh Nicotine dependence, unspecified, uncomplicated F17.200 ; Generalized anxiety disorder F41.1 ; Bipolar affective disorder F31.9 and Tardive dyskinesia G24.01 [address] [address] [place] [address] 07/25/2024 Shae Philip Nicotine dependence, unspecified, uncomplicated F17.200 ; Generalized anxiety disorder F41.1 ; Bipolar affective disorder F31.9 and Tardive dyskinesia G24.01 [address] [address] [place] [address] 08/29/2024 Shae Philip Generalized anxiety disorder F41.1 ; Bipolar affective disorder F31.9 ; Tardive dyskinesia G24.01 ; Fatigue R53.83 ; Medication monitoring encounter Z51.81 and Nicotine dependence, unspecified, uncomplicated F17.200 [address] [address] [place] [address] 08/30/2024 Shae Philip Fatigue R53.83 ; Medication monitoring encounter Z51.81 and Bipolar affective disorder F31.[address] [place] [address] 09/25/2024 Shae Philip Generalized anxiety disorder F41.1 ; Bipolar affective disorder F31.9 ; Tardive dyskinesia G24.01 and Nicotine dependence, unspecified, uncomplicated F17.200 [facility] [place] [address] 10/24/2024 Shae Philip Generalized anxiety disorder F41.1 ; Bipolar affective disorder F31.9 ; Tardive dyskinesia G24.01 ; Nicotine dependence, unspecified, uncomplicated F17.200 and Encounter for immunization Z23 [address] [address] 12/06/2024 Shae Philip Generalized anxiety disorder F41.1 ; Bipolar affective disorder F31.9 ; Tardive dyskinesia G24.01 ; Nicotine dependence, unspecified, uncomplicated F17.200 and Encounter for immunization Z23 [address] [address] [place] [address] 01/09/2025 Shae Philip Over weight E66.3 ; Generalized anxiety disorder F41.1 ; Bipolar affective disorder F31.9 ; Tardive dyskinesia G24.01 ; Nicotine dependence, unspecified, uncomplicated F17.200 and Encounter for immunization [address] [address] 02/15/2024 Radha Moreno [address] [address] 03/31/2024 Radha Moreno Tardive dyskinesia G24.[address] [place] [address] 05/03/2024 Radha Moreno Generalized anxiety disorder F41.1 and Bipolar affective disorder F31.[address] [place] [address] 06/07/2024 Radha Moreno [address] [place] [address] 07/25/2024 Shae Philip [address] [place] [address] 07/27/2024 Shae Philip Bipolar affective disorder F31.9 ; Generalized anxiety disorder F41.1 and Tardive dyskinesia G24.01 [facility] [address] [place] [address] 08/23/2024 Shae Philip [facility] [address] [place] [address] 08/24/2024 Shae Philip Bipolar affective disorder F31.9 and Tardive dyskinesia G24.[address] [place] [address] 09/05/2024 Shae Philip [address] [place] [address] 09/12/2024 Shae Philip Generalized anxiety disorder F41.1 and Tardive dyskinesia G24.01 [facility] [address] [place] [address] 09/12/[address] [place] [address] 10/19/2024 [facility] [address] [place] [address] 11/27/2024 Shae Philip Tardive dyskinesia G24.01 Assessments [...] 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 08/30/2024 Medication monitoring encounter (ICD-10 - Z51.81) 08/29/2024 Tardive dyskinesia (ICD-10 - G24.01) Pt has Hx of TD since 02/2022. Pt has tried Ingrezza with no relief. Will increase Austedo XR to 48mg to aid TD symptoms. Pt has been toleratng Austedo XR well. Denies side effects. Pt understands that TD symptoms would be jail and irreversible. 08/24/2024 Tardive dyskinesia (ICD-10 - [...] Pt understands that TD symptoms would be jail and irreversible. States has not tried alternatives [...] Pt understands that TD symptoms would be jail and irreversible. 06/28/2024 Tardive dyskinesia (ICD-10 - G24.01) Pt has Hx of TD since 02/2022. Pt has tried Ingrezza with no relief. Will increase Austedo XR to 30mg to aid TD symptoms. Pt has been toleratng Austedo XR well. Denies side effects. 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 05/24/2024 Tardive dyskinesia (ICD-10 - G24.01) Pt has Hx of TD since 02/2022. Pt has tried Ingrezza with no relief. Will increase Austedo XR to 24mg to aid TD symptoms. Pt has been toleratng Austedo XR well. Denies side effects. 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 03/08/2024 Tardive dyskinesia (ICD-10 - G24.01) Pt has Hx of TD since 02/2022. Pt has tried Ingrezza with no relief. Pt and caregiver report that mouth movements have decreased since stopping Abilify. Will increase Austedo XR to 18mg to aid TD symptoms. Pt has been toleratng Austedo XR well. Denies side effects. Pt understands that TD symptoms would be jail and irreversible. 02/09/2024 Tardive dyskinesia (ICD-10 - [...] Pt understands that TD symptoms would be jail and irreversible. 08/29/2024 Nicotine dependence, unspecified, uncomplicated [...] May also contact the 24-hour crisis hotline ([facility]), refer to the closest emergency room [...] concerns arise. May also contact the [facility] ([facility]), refer to the closest emergency room [...] or concerns arise. May also contact the [address] [place] [address] ([facility]), refer to the closest emergency room [...] aware that this provider will be leaving [facility] as of 07/05/2024, and she will [...] May also contact the 24-hour crisis hotline ([facility]), refer to the closest emergency room [...] May also contact the 24-hour crisis hotline ([facility]), refer to the closest emergency room [...] May also contact the 24-hour crisis hotline ([facility]), refer to the closest emergency room [...] May also contact the 24-hour crisis hotline ([facility]), refer to the closest emergency room [...] May also contact the 24-hour crisis hotline ([facility]), refer to the closest emergency room [...] May also contact the 24-hour crisis hotline ([facility]), refer to the closest emergency room [...] Date MEDICARE PART A [address] [place] [address] [id number] Elin Stevenson Self - patient is the insured 3 [facility] Attn Claims Department [address] [facility] [place] [address] [id number] Elin Stevenson Self - patient is the insured 3 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
--- OUTSIDE RECORDS SUMMARY | 2025-01-25 14:38 | XMS_ITS | Clinical Summary ---
Author Organization [facility] Address [address], [facility] [address] [place] [address] Phone Care Team Providers Care Allergist/Pediatric Pulmonologist Name Role Phone Braulio Mccabe MD Primary Care Provider [phone] Allergies Active Allergy Reactions Criticality Noted Date Comments Codeine Hives 12/24/2017 Penicillins Hives 12/24/2017 Medications latanoprost (XALATAN) 0.005 % Solution Place 2 Drops in affected eye(s) nightly. Each eye. 8 Active sertraline (ZOLOFT) 100 MG Tablet Take 100 mg by mouth daily. 8 Active levothyroxine (SYNTHROID) 112 MCG Tablet Take 112 mcg by mouth daily. 8 Active ergocalciferol (VITAMIN D) 46968 UNIT Capsule TK 1 C PO Q [...] Insurance MEDICAID [employer] Care Teams Allergist/Pediatric Pulmonologist Relationship Specialty Start Date End Date Braulio Mccabe MD [address] [place] [address] PCP - General Internal Medicine 06/10/17
[2025-01-25 17:13] LABS: Add Urine Microscopic? YES; Appearance Urine Clear (Clear); Bacteria Urine None Seen /hpf; Bilirubin Urine Negative (Negative); Blood Urine 1+ (Negative); Color Urine Yellow (Yellow); Glucose Urine UA Negative (Negative); Ketones Urine Negative (Negative); Leukocyte Esterase Ur Negative LEU/UL (Negative); Nitrate Urine Negative (Negative); Non Pathogenic Casts 0-2; Protein Urine Negative (Negative); RBC Urine 0-2 /hpf (0-2); Squamous Epithelial Cell Urine None Seen /hpf (Few); Urobilinogen Urine 0.2 mg/dL (<2.0); WBC Urine 0-5 /hpf (0-3); pH Urine 5.5 (5.0-9.0)
--- NOTE | 2025-01-25 17:26 | ED.GENADULT ---
HPI - General Adult General Chief complaint: Back Pain/Injury Stated complaint: back pain Time Seen by Provider: 01/25/25 14:21 History of Present Illness HPI narrative: 64-year-old female presented emergency department for evaluation for lower back pain. Patient reports pain has been bothering her for the last few days. Patient denies any specific incident fall or injury. Patient has been taking tramadol for pain control without significant improvement. Patient denies any change in bowel or bladder habits. Patient denies any associated numbness or weakness. Related Data Home Medications ?Medication ?Instructions ?Recorded ?Confirmed ?Last Taken ?Type alendronate 70 mg tablet 70 mg PO WEEKLY 11/28/19 04/21/22 11/30/21 History ergocalciferol (vitamin D2) 1,250 1,250 mcg PO WEEKLY 11/28/19 04/21/22 11/23/21 History mcg (50,000 unit) capsule levothyroxine 112 mcg tablet 112 mcg PO DAILY 11/28/19 04/21/22 11/30/21 History pravastatin 20 mg tablet 20 mg PO DAILY 11/28/19 04/21/22 11/30/21 History timolol maleate 0.5 % eye drops 1 drp ophthalmic (eye) DAILY 11/28/19 04/21/22 11/30/21 History hydroxyzine HCl 25 mg tablet 25 mg PO BID PRN Anxiety 07/22/21 04/21/22 Unknown History tramadol 50 mg tablet 50 mg PO Q6H PRN Pain 07/22/21 12/17/21 Unknown History vilazodone 10 mg tablet (Viibryd) 20 mg PO DAILY 07/22/21 12/17/21 Unknown History aripiprazole 5 mg tablet with 5 mg PO DAILY 11/20/21 04/21/22 11/30/21 History sensor and strip bupropion HCl 100 mg tablet,12 hr 100 mg PO BID 02/07/22 04/21/22 Unknown History sustained-release Allergies Allergy/AdvReac Type Severity Reaction Status Date / Time codeine Allergy Mild Hives Verified 01/13/25 13:51 Penicillins Allergy Mild Hives Verified 01/13/25 13:51 Review of Systems Review of Systems: All systems reviewed & are unremarkable except as noted in HPI and below PMFSH Past Medical History Medical History Anxiety Depression Dyslipidemia Glaucoma Gout History of hepatitis C History of hypothyroidism Schizophrenia Surgical History Surgical History H/O breast augmentation H/O hemorrhoidectomy History of section Hx of cholecystectomy Status post hemorrhoidectomy 12/01/21 Family History Family History Mother Family history of thyroid disease Hypertension Social History Social History Smoking packs per day: 1 Smoking cigarettes per day: 20.0 Years smoked: 36 Smoking pack-years: 36.00 Smoking status: Current every day smoker Tobacco type: cigarettes Alcohol intake: never Substance use type: marijuana Other substance usage details: DAILY Living arrangements: alone Occupation/Education: unemployed Exam Narrative: APPEARANCE: Well appearing, no pain, no distress, well-nourished. HEAD: normocephalic, atraumatic. EYES: PERRLA/EOMI, conjunctivae clear. NOSE: Normal no drainage EARS:TMS clear with good light reflex. THROAT: Pharynx clear, no exudate. NECK: Supple. No adenopathy, no masses. RESPIRATORY: Airway patent, respirations nonlabored. Clear to auscultation bilaterally, no rales, rhonchi, wheezing. CARDIOVASCULAR: Regular rate and rhythm without murmurs rubs or gallops. ABDOMINAL: Soft, nontender, nondistended, normal bowel sounds MUSCULOSKELETAL: Midline lower back pain NEURO: Alert. Cranial nerves II through XII intact. Grossly intact SKIN: Warm, dry. Normal Color Course Vital Signs Vital signs: Vital Signs Temperature 97.6 F 01/25/25 12:46 Pulse Rate 61 01/25/25 12:46 Respiratory Rate 17 01/25/25 12:46 Blood Pressure 128/80 01/25/25 12:46 Pulse Oximetry 96 01/25/25 12:46 Oxygen Delivery Room Air 01/25/25 12:46 Temperature 97.6 F 01/25/25 12:46 Pulse Rate 61 01/25/25 12:46 Respiratory Rate 17 01/25/25 12:46 Blood Pressure 128/80 01/25/25 12:46 Pulse Oximetry 96 01/25/25 12:46 Oxygen Delivery Room Air 01/25/25 12:46 Medical Decision Making [facility] Narrative Medical decision making narrative: 64-year-old female present to the emergency department for evaluation for lower back pain. UA was negative for infection but did show evidence of hematuria. CT scan was ordered to evaluate for ureteral calculi this was negative. Patient was advised to stop her tramadol and she was switched to Flexeril and [place] for additional pain control. Patient was encouraged close follow-up with primary care physician. Differential Diagnosis Differential Diagnosis: Urinary tract infection, lumbar fracture, kidney stone Vital Signs Vital Signs: Vital Signs Temperature 97.6 F 01/25/25 12:46 Pulse Rate 61 01/25/25 12:46 Respiratory Rate 17 01/25/25 12:46 Blood Pressure 128/80 01/25/25 12:46 Pulse Oximetry 96 01/25/25 12:46 Oxygen Delivery Room Air 01/25/25 12:46 Temperature 97.6 F 01/25/25 12:46 Pulse Rate 61 01/25/25 12:46 Respiratory Rate 17 01/25/25 12:46 Blood Pressure 128/80 01/25/25 12:46 Pulse Oximetry 96 01/25/25 12:46 Oxygen Delivery Room Air 01/25/25 12:46 Lab Data Lab results reviewed: Yes I reviewed the patient's lab results. Labs: Lab Results 01/25/25 Range/Units 16:30 Urine Color Yellow (Yellow) Urine Appearance Clear (Clear) Urine pH 5.5 (5.0-9.0) Ur Specific [place] 1.010 (1.001-1.035) Urine Protein Negative (Negative) mg/dL Urine Glucose (UA) Negative (Negative) mg/dL Urine Ketones Negative (Negative) mg/dL Ur Blood (Man) 1+ H (Negative) Urine Nitrate Negative (Negative) Urine Bilirubin Negative (Negative) Urine Urobilinogen 0.2 (<2.0) mg/dL Leukocyte Esterase Rfl Negative (Negative) JUAN JOSE/UL Urine RBC 0-2 (0-2) /hpf Urine WBC 0-5 (0-3) /hpf Ur Squamous Epith Cells None seen (Few) /hpf Urine Bacteria None seen /hpf Urine Casts 0-2 Imaging Data Radiologist's impression: Impressions Lumbar Spine X-Ray 01/25/25 16:48 IMPRESSION: No acute osseous abnormality lumbar spine. Mild narrowing of the disc L2-L3 and L4-L5. Abdomen/Pelvis CT 01/25/25 18:02 IMPRESSION: 1. No evidence of appendicitis, diverticulitis or intestinal obstruction. 2. Underfilled urinary bladder with thickened wall. Evaluation for cystitis advised. 3. Constipation 4. Focus of calcification the right renal cortex. 5. Left kidney cyst. Discharge Plan Discharge Clinical Impression: Back pain Patient Disposition: Home Condition: Stable Instructions: Antibiotic Form, Back Pain (ED) Additional Instructions: Stop taking the tramadol. Replace with [place]. Flexeril for muscle spasm. Have close follow-up with your primary care physician. If you have any worsening symptoms then please call or return to the emergency department. Patient Language: German Prescriptions: New cyclobenzaprine 10 mg tablet 10 mg PO BID PRN (Reason: muscle spasm) Qty: 14 0RF hydrocodone-acetaminophen 5-325 mg tablet 1 tablet PO Q12H PRN (Reason: pain) Qty: 14 0RF No Action alendronate 70 mg tablet 70 mg PO WEEKLY Rx Instructions: WEDNESDAY ergocalciferol (vitamin D2) 1,250 mcg (50,000 unit) capsule 1,250 mcg PO WEEKLY Rx Instructions: WEDNESDAY levothyroxine 112 mcg tablet 112 mcg PO DAILY pravastatin 20 mg tablet 20 mg PO DAILY timolol maleate 0.5 % drops 1 drp ophthalmic (eye) DAILY bupropion HCl 100 mg tablet sustained-release 12 hr 100 mg PO BID ciclopirox 8 % solution 1 applic topical DAILY 28 Days Qty: 6.6 0RF Rx Instructions: apply to right great toe once daily after 7 days remove with acetone then start reapplication lidocaine HCl 3 % cream 1 applic topical TID PRN (Reason: pain) Qty: 28.3 0RF nitrofurantoin monohyd/m-cryst [Macrobid] 100 mg capsule 100 mg PO Q12H 5 Days Qty: 10 0RF Rx Instructions: must administer with a meal/food hydroxyzine HCl 25 mg tablet 25 mg PO BID PRN (Reason: Anxiety) tramadol 50 mg tablet 50 mg PO Q6H PRN (Reason: Pain) Viibryd 10 mg tablet 20 mg PO DAILY Rx Instructions: must administer with a meal/food aripiprazole 5 mg Tablet With Sensor And Strip 5 mg PO DAILY docusate sodium [Colace] 100 mg capsule 100 mg PO BID Qty: 30 0RF Follow-up/Referrals: Alireza,Paxton Ibarra MD [Primary Care Provider] -
== END 2025-01-25 18:26 | disposition home or self-care (01) ==
PROVIDERS: Emergency Provider Emergency Medicine; PCP Internal Medicine Gastroenterology
DX: M54.50 Low back pain, unspecified (principal); E78.5 Hyperlipidemia, unspecified; E03.9 Hypothyroidism, unspecified; H40.9 Unspecified glaucoma; M10.9 Gout, unspecified; F20.9 Schizophrenia, unspecified; F41.9 Anxiety disorder, unspecified; F32.A Depression, unspecified; Z86.19 Personal history of other infectious and parasitic diseases; Z90.49 Acquired absence of other specified parts of digestive tract; F17.210 Nicotine dependence, cigarettes, uncomplicated; Z79.899 Other long term (current) drug therapy; M48.061 Spinal stenosis, lumbar region without neurogenic claudication; K59.00 Constipation, unspecified; N28.1 Cyst of kidney, acquired; R93.41 Abnormal radiologic findings on diagnostic imaging of renal pelvis, ureter, or bladder
CPT/HCPCS: 72100; 74176; 81001; 99284

== ENCOUNTER 2025-03-14 10:36 | Outpatient (CLI) | payer MEDICARE, MEDICAID, SELFPAY ==
--- NOTE | ~2025-03-14 | XR_ITS ---
3 VIEWS THORACIC SPINE Ordering provider: Paxton Lay, History: . ACUTE RT SIDED THORACIC SPINE PAIN . Comparison: None. FINDINGS: VERTEBRAL BODIES: Severe kyphosis. Normal height and alignment. No visible fracture or subluxation. D egenerative changes of the spine DISK SPACES: Narrowing of multiple disc spaces in the mid and lower thoracic area. SOFT TISSUES: Normal. IMPRESSION: No acute osseous abnormality of the thoracic spine. Multilevel degenerative disc disease. Kyphosis. Reviewed, dictated and finalized at location A.
--- OUTSIDE RECORDS SUMMARY | 2025-03-14 10:42 | XMS_ITS | Patient Health Record ---
Author Organization [facility] Address [address] [place] [address] Care Team Providers Care Post Graduate Internship Name Role Phone Shae Philip Primary Care Provider JoshRadha Unavailable [phone] Allergies Allergen (clinical drug ingredient) Drug/Non Drug Allergy documented on EMR Reaction Allergy Type Onset Date Status codeine Codeine hives Drug Allergy Active Penicillin hives Drug Allergy Active Results Component Value Reference Range Notes CMP 14 Comprehensive Metabol ic Panel* Reviewed date:09/08/2024 09:27:29 AM Interpretation:Normal Performing Lab:[facility] [place], [address] [facility], [place], Phone - [phone], Director - Sridhar Notes/Report: Glucose 92 70-99 [...] Panel* Reviewed date:09/08/2024 09:27:17 AM Interpretation:Normal Performing Lab:[facility], [address] [facility], Phone - [phone], Director - [facility] Notes/Report: Cholesterol, Total 184 100-199 mg/dL Triglycerides 88 0-149 mg/dL HDL Cholesterol 70 >39 mg/dL VLDL Cholesterol [place] 16 5-40 mg/dL LDL Chol Calc ([facility]) 98 0-99 mg/dL Vitamin D, 25-Hydroxy* Reviewed date:09/08/2024 09:26:29 AM Interpretation:Normal [facility]forming Lab[facility], [address] [facility], Phone - [phone], Director - [facility] Notes/Report: Vitamin D, 25-Hydroxy 63.6 30.0-100.0 ng/mL Vitamin D deficiency has been defined by the [place] of Medicine and an Endocrine Society practice guideline as a level of serum 25-OH vitamin D less than 20 ng/mL (1,2). The Endocrine Society went on to further define vitamin D insufficiency as a level between 21 and 29 ng/mL (2). 1. IOM ([place] of Medicine). 2010. Dietary reference intakes for calcium and D. [place]: The National Academies Press. 2. Deena MF, Martin [place], Raymon CHOWDARY, et al. Evaluation, treatment, and prevention of vitamin D deficiency: an Endocrine Society clinical practice guideline. JCEM. 2010; 96(7):1911-30. CBC With Differential/Platel et* Reviewed date:09/08/2024 09:27:41 AM Interpretation:Abnormal [facility]forming Lab[facility], [address] [facility], Phone - [phone], Director - [facility] Notes/Report: WBC 4.7 3.4-10.8 x10E3/uL Effective September 11, 2024 profile [id number] WBC will be made non-orderable as a [...] TSH* Reviewed date:09/08/2024 09:27:07 AM Interpretation:Low Performing Lab:[facility] [place], [address] [place] [address], Phone - [phone], Director - [facility] Notes/Report: TSH 0.036 0.450-4.500 uIU/mL Hemoglobin A1c* Reviewed date:09/08/2024 09:26:55 AM Interpretation:Normal Performing Lab:[facility] [address] [place] [address], Phone - [phone], Director - [facility] Notes/Report: Hemoglobin A1c 5.4 4.8-5.6 % . Prediabetes: 5.7 - 6.4 Diabetes: >6.4 Glycemic control for adults with diabetes: <7.0 Vitamin B12 and Folate Reviewed date:09/08/2024 09:26:42 AM Interpretation:Normal Performing Lab:[facility] [place], [address] [place] [address], Phone - [phone], Director - [facility] Notes/Report: Vitamin B12 830 722-2716 pg/mL Folate (Folic Acid), Serum >20.0 >3.0 ng/mL A serum folate concentration of less than 3.1 ng/mL is considered to represent clinical deficiency. Reason For Referral Reason Housing Diagnosis 1 Bipolar affective di sorder (F31.9) Diagnosis 2 Anxiety (F41.9) Referral Organization [facility] Referring Provider First Name Shae Referring Provider Last Name Cedrick Referring Provider Speciality Psychiatry Referred Provider Specialty Energy Conservation SpecialistFruit Pitter Notes Shae Philip Fred 01:51:20 PM > Client states she is currently living in a mobile home that may lose access to water soon. She would like to discuss possible housing options with [place]. Please refer. Thank you! Clinical Notes Dalia Locke 07/27/2024 09:21:07 AM >HN reached the home health care worker for the client Elin Stevenson. HN's phone number was text to the client and psychometrist, so the client could reach out later for resources pertaining to housing. Referral Priority Routine Reason Movement disorder, t ardive dyskinesia Diagnosis 1 Tardive dyskinesia ( G24.01) Referral Organization [facility] Referring Provider First Name Shae Referring Provider [...] RN 06/2024 09:54:00 AM >Referral sent to [facility] in [place]. Referral Priority Routine Medications Medication SIG (Take, Route, Frequency, Duration) Notes Start Date End Date Status Wellbutrin XL 300 MG 1 tablet in the morning Orally Once a day for 7 days then decrease to 150mg script Active traZODone HCl 150 MG 1 tablet at bedtime as needed Orally Once a day for 30 days Active Wellbutrin XL 150 MG 1 tablet in the morning Orally Once a day for 7 days, then take every other day for 3 doses, then stop this medication Active ARIPiprazole 2 MG TAKE 1 TABLET BY MOUTH DAILY for 30 days Active hydrOXYzine HCl 25 MG 1 tablet as needed Orally Once a day for 30 days Active Austedo XR 48 MG 1 tablet Orally Once a day for 30 days . Active Propranolol HCl ER 60 MG 1 capsule Orally Once a day for 30 days Active Propranolol HCl 10 MG 1 tablet Orally Once a day for 30 days Active Influenza Vac Subunit Quad 0.5 ML as directed Intramuscular once for 1 days Active Austedo XR 42 MG 1 tablet Orally Once a day for 30 days 42 mg x 2 weeks then increase to 48 mg; thanks 01/09/2025 Not-Taking Alendronate Sodium 70 MG 1 tablet 30 minutes before the first food, beverage or medicine of the day with plain water Orally Once a week for 30 days Active traZODone HCl 150 MG 1 tablet at bedtime as needed Orally Once a day for 30 days Active buPROPion HCl ER (XL) 300 mg TAKE 1 TABLET BY MOUTH EVERY MORNING for 30 Active traMADol HCl 50 MG 1 tablet as needed Orally every 8 hours Active ARIPiprazole 2 MG TAKE 1 TABLET BY MOUTH DAILY for 30 days Active Pravastatin Sodium 20 MG 1 tablet Orally Once a day for 30 day(s) 01/11/2020 Active buPROPion HCl ER (XL) 150 mg TAKE 1 TABLET BY MOUTH EVERY MORNING for 30 Active hydrOXYzine HCl 50 MG TAKE 1 & 1/2 - 2 TABLETS BY MOUTH ONCE DAILY if NEEDED FOR ANXIETY AND SLEEP for 30 days Active Levothyroxine Sodium 150 MCG 1 tablet on an empty stomach in the morning Orally Once a day Not-Taking Influenza Vac Split Quad 0.5 ML as directed Intramuscular once Active Cholecalciferol 1.25 MG (70524 UT) 1 capsule Orally once per week Not-Taking Austedo XR 36 MG 1 tablet Orally Once a day for 14 days Active Immunizations Vaccine Route Administration Date Status Comme nts Influenza, virus vaccine, trivalent, preservative free IM Intramuscular 10/24/2024 Administered Ludmila Ratliff 10/24/2024 10:33:36 AM 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 FLU VAC NO PRSV 4VAL 6 mo+ IM Intramuscular 07/17/2021 Administered Patient tolerated well. FLU VAC NO PRSV 4VAL 6 mo+ IM Intramuscular 08/19/2022 Administered Patient tolerated well. Social History Tobacco Use: Social History Observation Description Date Details (start date - stop date) Current Smoker NA - NA Sex Assigned At : Social History Observation Description Sex Assigned At Female Tobacco Control (Standard) Question Answer Notes Tobacco use: Current smoker Section Notes: [id number] 01/14/2022 01/13/2022 Hydrocodon-acetaminophen 21.0 7 5MG-325MG 15 Paxton Lay Md [id number] [place], [place] NA 0 [place] 1 [id number] 12/16/2021 12/16/2021 oxyCODONE-ACETAMINOPHEN 20.0 5 5MG-325MG 30 Rashawn Duffy [facility] [id number] [place], [place] NA 0 [place] 1 [id number] 12/08/2021 12/08/2021 oxyCODONE-ACETAMINOPHEN 15.0 3 5MG-325MG 37.50 Km Wyman (Do) - [id number] [place], [place] NA 0 [place] 1 [id number] 12/01/2021 12/01/2021 oxyCODONE-ACETAMINOPHEN 30.0 7 5MG-325MG 32.14 Rashawn Duffy [facility] [id number] [place], [place] 1 [id number] 12/01/2021 12/01/2021 traMADol 30.0 7 50MG 21.43 Rashawn Stone [id number] 01/14/2022 01/13/2022 Hydrocodon-acetaminophen 21.0 7 5MG-325MG 15 Paxton Lay Md [id number] [place], [place] NA [place] 1 [id number] 12/16/2021 12/16/2021 oxyCODONE-ACETAMINOPHEN 20.0 5 5MG-325MG 30 Rashawn Duffy [facility] [id number] [place], [place] 1 [id number] 12/08/2021 12/08/2021 oxyCODONE-ACETAMINOPHEN 15.0 3 5MG-325MG 37.50 Km Wyman (Do) - [id number] [place], [place] 1 [id number] 12/01/2021 12/01/2021 oxyCODONE-ACETAMINOPHEN 30.0 7 5MG-325MG 32.14 Rashawn Duffy [facility] [id number] [place], [place] 1 [id number] 12/01/2021 12/01/2021 traMADol 30.0 7 50MG 21.43 Rashawn Stone [facility] [id number] 01/14/2022 01/13/2022 Hydrocodon-acetaminophen 21.0 7 5MG-325MG 15 Paxton Lay Md [id number] [place], [place] 1 [id number] 12/16/2021 12/16/2021 oxyCODONE-ACETAMINOPHEN 20.0 5 5MG-325MG 30 Rashawn Duffy [facility] [id number] [place], [place] 1 [id number] 12/08/2021 12/08/2021 oxyCODONE-ACETAMINOPHEN 15.0 3 5MG-325MG 37.50 Km Wyman (Do) - [id number] [place], [place] 1 [id number] 12/01/2021 12/01/2021 oxyCODONE-ACETAMINOPHEN 30.0 7 5MG-325MG 32.14 Rashawn Duffy [facility] [id number] [place], [place] 1 [id number] 12/01/2021 12/01/2021 traMADol 30.0 7 50MG 21.43 Rashawn Stone [id number] 01/14/2022 01/13/2022 Hydrocodon-acetaminophen 21.0 7 5MG-325MG 15 Paxton Lay Md [id number] [place], [place] 1 [id number] 12/16/2021 12/16/2021 oxyCODONE-ACETAMINOPHEN 20.0 5 5MG-325MG 30 Rashawn Duffy [facility] [id number] [place], [place] 1 [id number] 12/08/2021 12/08/2021 oxyCODONE-ACETAMINOPHEN 15.0 3 5MG-325MG 37.50 Km Wyman (Do) - [id number] [place], [place] 1 [id number] 12/01/2021 12/01/2021 oxyCODONE-ACETAMINOPHEN 30.0 7 5MG-325MG 32.14 Morocho Tati [facility] [id number] [place], [place] 1 [id number] 12/01/2021 12/01/2021 traMADol 30.0 7 50MG 21.43 Rashawn Stone [facility] [id number] 01/14/2022 01/13/2022 Hydrocodon-acetaminophen 21.0 7 5MG-325MG 15 Paxton Lay Md [id number] [place], [place] 1 [id number] 12/16/2021 12/16/2021 oxyCODONE-ACETAMINOPHEN 20.0 5 5MG-325MG 30 Morocho Tati Stone [id number] [place], [place] 1 [id number] 12/08/2021 12/08/2021 oxyCODONE-ACETAMINOPHEN 15.0 3 5MG-325MG 37.50 Km Wyman (Do) - [id number] [place], [place] 1 [id number] 12/01/2021 12/01/2021 oxyCODONE-ACETAMINOPHEN 30.0 7 5MG-325MG 32.14 [facility] Tati [facility] [id number] [place], [place] 1 [id number] 12/01/2021 12/01/2021 traMADol 30.0 7 50MG 21.43 Rashawn Stone [id number] 01/14/2022 01/13/2022 Hydrocodon-acetaminophen 21.0 7 5MG-325MG 15 Paxton Lay Md [id number] [place], [place] 1 [id number] 12/16/2021 12/16/2021 oxyCODONE-ACETAMINOPHEN 20.0 5 5MG-325MG 30 Rashawn Duffy [facility] [id number] [place], [place] 1 [id number] 12/08/2021 12/08/2021 oxyCODONE-ACETAMINOPHEN 15.0 3 5MG-325MG 37.50 Km Wyman (Do) - [id number] [place], [place] 1 [id number] 12/01/2021 12/01/2021 oxyCODONE-ACETAMINOPHEN 30.0 7 5MG-325MG 32.14 Rashawn Duffy [facility] [id number] [place], [place] 1 [id number] 12/01/2021 12/01/2021 traMADol 30.0 7 50MG 21.43 Rashawn Stone [id number] 01/14/2022 01/13/2022 Hydrocodon-acetaminophen 21.0 7 5MG-325MG 15 Paxton Lay Md [id number] [place], [place] 1 [id number] 12/16/2021 12/16/2021 oxyCODONE-ACETAMINOPHEN 20.0 5 5MG-325MG 30 Rashawn Stone [id number] [place], [place] 1 [id number] 12/08/2021 12/08/2021 oxyCODONE-ACETAMINOPHEN 15.0 3 5MG-325MG 37.50 Km Wyman (Do) - [id number] [place], [place] 1 [id number] 12/01/2021 12/01/2021 oxyCODONE-ACETAMINOPHEN 30.0 7 5MG-325MG 32.14 Morocho Tati [facility] [id number] [place], [place] 1 [id number] 12/01/2021 12/01/2021 traMADol 30.0 7 50MG 21.43 Rashawn Stone [id number] 01/14/2022 01/13/2022 Hydrocodon-acetaminophen 21.0 7 5MG-325MG 15 Paxton Lay Md [id number] [place], [place] 1 [id number] 12/16/2021 12/16/2021 oxyCODONE-ACETAMINOPHEN 20.0 5 5MG-325MG 30 Morocho Tati [facility] [id number] [place], [place] 1 [id number] 12/08/2021 12/08/2021 oxyCODONE-ACETAMINOPHEN 15.0 3 5MG-325MG 37.50 Km Wyman () - [id number] [place], [place] 1 [id number] 12/01/2021 12/01/2021 oxyCODONE-ACETAMINOPHEN 30.0 7 5MG-325MG 32.14 Rashawn Duffy [facility] [id number] [place], [place] 1 [id number] 12/01/2021 12/01/2021 traMADol 30.0 7 50MG 21.43 Rashawn Stone [id number] 01/14/2022 01/13/2022 Hydrocodon-acetaminophen 21.0 7 5MG-325MG 15 Paxton Lay Md [id number] [place], [place] 1 [id number] 12/16/2021 12/16/2021 oxyCODONE-ACETAMINOPHEN 20.0 5 5MG-325MG 30 Rashawn Duffy [facility] [id number] [place], [place] 1 [id number] 12/08/2021 12/08/2021 oxyCODONE-ACETAMINOPHEN 15.0 3 5MG-325MG 37.50 Km Wyman (Do) - [id number] [place], [place] 1 [id number] 12/01/2021 12/01/2021 oxyCODONE-ACETAMINOPHEN 30.0 7 5MG-325MG 32.14 Morocho Tati [facility] [id number] [place], [place] 1 [id number] 12/01/2021 12/01/2021 traMADol 30.0 7 50MG 21.43 Rashawn Stone [id number] 01/14/2022 01/13/2022 Hydrocodon-acetaminophen 21.0 7 5MG-325MG 15 Paxton Lay Md [id number] [place], [place] 1 [id number] 12/16/2021 12/16/2021 oxyCODONE-ACETAMINOPHEN 20.0 5 5MG-325MG 30 Rashawn Stone [id number] [facility], [place] 1 [id number] 12/08/2021 12/08/2021 oxyCODONE-ACETAMINOPHEN 15.0 3 5MG-325MG 37.50 Km Wyman (Do) - [id number] [place], [place] 0 [place] 1 [id number] 12/01/2021 12/01/2021 oxyCODONE-ACETAMINOPHEN 30.0 7 5MG-325MG 32.14 Rashawn Stone [id number] [place], [place] 1 [id number] 12/01/2021 12/01/2021 traMADol 30.0 7 50MG 21.43 Rashawn Duffy [id number] 01/14/2022 01/13/2022 Hydrocodon-acetaminophen 21.0 7 5MG-325MG 15 Paxton Lay Md [id number] [place], [place] 0 [place] 1 [id number] 12/16/2021 12/16/2021 oxyCODONE-ACETAMINOPHEN 20.0 5 5MG-325MG 30 [facility] Tati [facility] [id number] [place], [place] 1 [id number] 12/08/2021 12/08/2021 oxyCODONE-ACETAMINOPHEN 15.0 3 5MG-325MG 37.50 Km Wyman (Do) - [id number] [place], [place] 1 [id number] 12/01/2021 12/01/2021 oxyCODONE-ACETAMINOPHEN 30.0 7 5MG-325MG 32.14 [facility] Tati [facility] [id number] [place], [place] 1 [id number] 12/01/2021 12/01/2021 traMADol 30.0 7 50MG 21.43 Rashawn Duffy [facility] [id number] 01/14/2022 01/13/2022 Hydrocodon-acetaminophen 21.0 7 5MG-325MG 15 Paxton Lay Md [id number] [place], [place] 1 [id number] 12/16/2021 12/16/2021 oxyCODONE-ACETAMINOPHEN 20.0 5 5MG-325MG 30 [facility] [id number] [place], [place] 1 [id number] 12/08/2021 12/08/2021 oxyCODONE-ACETAMINOPHEN 15.0 3 5MG-325MG 37.50 Km Wyman (Do) - [id number] [place], [place] 1 [id number] 12/01/2021 12/01/2021 oxyCODONE-ACETAMINOPHEN 30.0 7 5MG-325MG 32.14 [facility] Tati [facility] [id number] [place], [place] 1 [id number] 12/01/2021 12/01/2021 traMADol 30.0 7 50MG 21.43 Rashawn Stone [id number] 01/14/2022 01/13/2022 Hydrocodon-acetaminophen 21.0 7 5MG-325MG 15 Paxton Lay Md [id number] [place], [place] 0 [place] 1 [id number] 12/16/2021 12/16/2021 oxyCODONE-ACETAMINOPHEN 20.0 5 5MG-325MG 30 [facility] Tati [facility] [id number] [place], [place] 1 [id number] 12/08/2021 12/08/2021 oxyCODONE-ACETAMINOPHEN 15.0 3 5MG-325MG 37.50 Km Wyman (Do) - [id number] [place], [place] 0 [place] 1 [id number] 12/01/2021 12/01/2021 oxyCODONE-ACETAMINOPHEN 30.0 7 5MG-325MG 32.14 [facility] [id number] [place], [place] 1 [id number] 12/01/2021 12/01/2021 traMADol 30.0 7 50MG 21.43 Rashawn Duffy [facility] [id number] 01/14/2022 01/13/2022 Hydrocodon-acetaminophen 21.0 7 5MG-325MG 15 Paxton Lay Md [id number] [facility], [place] 1 [id number] 12/16/2021 12/16/2021 oxyCODONE-ACETAMINOPHEN 20.0 5 5MG-325MG 30 [facility] [id number] [place], [place] 0 [place] 1 [id number] 12/08/2021 12/08/2021 oxyCODONE-ACETAMINOPHEN 15.0 3 5MG-325MG 37.50 Km Wyman () - [id number] [place], [place] 0 [place] 1 [id number] 12/01/2021 12/01/2021 oxyCODONE-ACETAMINOPHEN 30.0 7 5MG-325MG 32.14 [facility] Tati [facility] [id number] [place], [place] 1 [id number] 12/01/2021 12/01/2021 traMADol 30.0 7 50MG 21.43 Rashawn Stone [id number] 01/14/2022 01/13/2022 Hydrocodon-acetaminophen 21.0 7 5MG-325MG 15 Paxton Lay Md - [id number] [place], [place] 0 [place] 1 [id number] 12/16/2021 12/16/2021 oxyCODONE-ACETAMINOPHEN 20.0 5 5MG-325MG 30 [facility] [id number] [place], [place] 1 [id number] 12/08/2021 12/08/2021 oxyCODONE-ACETAMINOPHEN 15.0 3 5MG-325MG 37.50 Km Wyman () - [id number] [place], [place] 0 [place] 1 [id number] 12/01/2021 12/01/2021 oxyCODONE-ACETAMINOPHEN 30.0 7 5MG-325MG 32.14 [facility] [id number] [place], [place] 1 [id number] 12/01/2021 12/01/2021 traMADol 30.0 7 50MG 21.43 Rashawn Stone [id number] 12/16/2021 12/16/2021 oxyCODONE-ACETAMINOPHEN 20.0 5.0 5MG-325MG 30 [facility] [id number] [place], [place] 1 [id number] 12/08/2021 12/08/2021 oxyCODONE-ACETAMINOPHEN 15.0 3.0 5MG-325MG 37.50 Km Wyman () - [id number] [place], [place] 0 [place] 1 [id number] 12/01/2021 12/01/2021 oxyCODONE-ACETAMINOPHEN 30.0 7.0 5MG-325MG 32.14 [facility] [id number] [place], [place] 0 [place] 1 [id number] 12/01/2021 12/01/2021 traMADol 30.0 7.0 50MG 21.43 Rashawn Stone [id number] 01/14/2022 01/13/2022 Hydrocodon-acetaminophen 21.0 7 5MG-325MG 15 Paxton Lay Md [id number] [place], [place] 0 [place] 1 [id number] 12/16/2021 12/16/2021 oxyCODONE-ACETAMINOPHEN 20.0 5 5MG-325MG 30 Rashawn Stone [id number] [place], [place] 0 [place] 1 [id number] 12/08/2021 12/08/2021 oxyCODONE-ACETAMINOPHEN 15.0 3 5MG-325MG 37.50 Km Wyman (Do) - [id number] [place], [place] 1 [id number] 12/01/2021 12/01/2021 oxyCODONE-ACETAMINOPHEN 30.0 7 5MG-325MG 32.14 Rashawn Duffy [facility] [id number] [place], [place] 1 [id number] 12/01/2021 12/01/2021 traMADol 30.0 7 50MG 21.43 Rashawn Stone [id number] 01/14/2022 01/13/2022 Hydrocodon-acetaminophen 21.0 7 5MG-325MG 15 Paxton Lay Md [id number] [place], [place] NA 0 [place] 1 [id number] 12/16/2021 12/16/2021 oxyCODONE-ACETAMINOPHEN 20.0 5 5MG-325MG 30 Rashawn Stone [id number] [place], [place] NA 0 [place] 1 [id number] 12/08/2021 12/08/2021 oxyCODONE-ACETAMINOPHEN 15.0 3 5MG-325MG 37.50 Km Wyman (Do) - [id number] [place], [place] 0 [place] 1 [id number] 12/01/2021 12/01/2021 oxyCODONE-ACETAMINOPHEN 30.0 7 5MG-325MG 32.14 [facility] [id number] [place], [place] 1 [id number] 12/01/2021 12/01/2021 traMADol 30.0 7 50MG 21.43 Rashawn Duffy [facility] [id number] 01/14/2022 01/13/2022 Hydrocodon-acetaminophen 21.0 7 5MG-325MG 15 Paxton Lay Md [id number] [place], [place] 0 [place] 1 [id number] 12/16/2021 12/16/2021 oxyCODONE-ACETAMINOPHEN 20.0 5 5MG-325MG 30 [facility] [id number] [place], [place] 1 [id number] 12/08/2021 12/08/2021 oxyCODONE-ACETAMINOPHEN 15.0 3 5MG-325MG 37.50 Km Wyman (Do) - [id number] [place], [place] NA 0 [place] 1 [id number] 12/01/2021 12/01/2021 oxyCODONE-ACETAMINOPHEN 30.0 7 5MG-325MG 32.14 [facility] [id number] [place], [place] 1 [id number] 12/01/2021 12/01/2021 traMADol 30.0 7 50MG 21.43 Rashawn Duffy [facility] [id number] 01/14/2022 01/13/2022 Hydrocodon-acetaminophen 21.0 7 5MG-325MG 15 Paxton Lay Md [id number] [place], [place] NA 0 [place] 1 [id number] 12/16/2021 12/16/2021 oxyCODONE-ACETAMINOPHEN 20.0 5 5MG-325MG 30 [facility] [id number] [place], [place] 1 [id number] 12/08/2021 12/08/2021 oxyCODONE-ACETAMINOPHEN 15.0 3 5MG-325MG 37.50 Km Wyman () - [id number] [place], [place] NA 0 [place] 1 [id number] 12/01/2021 12/01/2021 oxyCODONE-ACETAMINOPHEN 30.0 7 5MG-325MG 32.14 Rashawn Stone [id number] [place], [place] NA 0 [place] 1 [id number] 12/01/2021 12/01/2021 traMADol 30.0 7 50MG 21.43 Rashawn Stone [id number] Problems Problem Type SNOMED Code ICD Code Onset Dates Problem Status W/U Status Risk Notes Problem Tobacco user (000062499) Nicotine dependence, unspecified, uncomplicated (F17.200) Active confirmed Problem Generalized anxiety disorder (93690191) Generalized anxiety disorder (F41.1) Active confirmed Problem 12988967 Anxiety (F41.9) Active confirmed Problem Bipolar affective disorder (76441560) Bipolar affective disorder (F31.9) 10/20/19 22 Active confirmed Will continue to monitor and evaluate as poor insight on patient behalf limits evaluation . Problem Overweight (748466150) Over weight (E66.3) Active confirmed Problem Chronic tension-type headache (979828508) Chronic tension headaches (G44.229) Active confirmed Problem 41995380 Depression, unspecified depression type (F32.9) Active confirmed Problem 296718465 Episode of recurrent major depressive disorder, unspecified depression episode severity (F33.9) Active confirmed Problem Drug monitoring done (893835515) Therapeutic drug monitoring (Z51.81) Active confirmed Problem 384603056 Methamphetamine use disorder, 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) Active confirmed Problem Tardive dyskinesia (561644830) Tardive dyskinesia (G24.01) Active confirmed Problem Body mass index 30.00 to 34.99 (6023287463193 07) Body mass index [BMI] 31.0-31.9, adult (Z68.31) Active confirmed Vital Signs Heart Rate 80 /min 03/06/2025 Temperature 97.7 degrees Fahrenheit 03/06/2025 Respiratory Rate 20 /min 03/06/2025 Oximetry 98 % 03/06/2025 Blood pressure diastolic 78 mm Hg 03/06/2025 Height 61 in 03/06/2025 Blood pressure systolic 138 mm Hg 03/06/2025 Weight 163.6 lbs 03/06/2025 BMI 30.91 kg/m2 03/06/2025 Encounters Encounter Location Date Provider Diagnosis [address] [place] [address] 05/24/2024 Radha Josh Nicotine dependence, unspecified, uncomplicated F17.200 ; Generalized anxiety disorder F41.1 ; Bipolar affective disorder F31.9 and Tardive dyskinesia G24.[address] [place] [address] 06/28/2024 Radha Josh Nicotine dependence, unspecified, uncomplicated F17.200 ; Generalized anxiety disorder F41.1 ; Bipolar affective disorder F31.9 and Tardive dyskinesia G24.01 [address] [address] [place] [address] 07/25/2024 Shae Philip Nicotine dependence, unspecified, uncomplicated F17.200 ; Generalized anxiety disorder F41.1 ; Bipolar affective disorder F31.9 and Tardive dyskinesia G24.01 [address] [address] [place] [address] 08/29/2024 Shae Philip Generalized anxiety disorder F41.1 ; Bipolar affective disorder F31.9 ; Tardive dyskinesia G24.01 ; Fatigue R53.83 ; Medication monitoring encounter Z51.81 and Nicotine dependence, unspecified, uncomplicated F17.200 [address] [place] [address] 08/30/2024 Shae Philip Fatigue R53.83 ; Medication monitoring encounter Z51.81 and Bipolar affective disorder F31.[address] [place] [address] 09/25/2024 Shae Philip Generalized anxiety disorder F41.1 ; Bipolar affective disorder F31.9 ; Tardive dyskinesia G24.01 and Nicotine dependence, unspecified, uncomplicated F17.200 [facility] [place] [address] 10/24/2024 Shae Philip Generalized anxiety disorder F41.1 ; Bipolar affective disorder F31.9 ; Tardive dyskinesia G24.01 ; Nicotine dependence, unspecified, uncomplicated F17.200 and Encounter for immunization Z23 [place] [place] [address] 12/06/2024 Shae Philip Generalized anxiety disorder F41.1 ; Bipolar affective disorder F31.9 ; Tardive dyskinesia G24.01 ; Nicotine dependence, unspecified, uncomplicated F17.200 and Encounter for immunization Z23 [address] [place] [address] 01/09/2025 Shae Philip Over weight E66.3 ; Generalized anxiety disorder F41.1 ; Bipolar affective disorder F31.9 ; Tardive dyskinesia G24.01 ; Nicotine dependence, unspecified, uncomplicated F17.200 and Encounter for immunization Z23 [address] [place] [address] 03/06/2025 Shae Philip Over weight E66.3 ; Generalized anxiety disorder F41.1 ; Bipolar affective disorder F31.9 ; Tardive dyskinesia G24.01 ; Nicotine dependence, unspecified, uncomplicated F17.200 and Encounter for immunization Z23 [address] [place] [address] 03/31/2024 Radha Moreno Tardive dyskinesia G24.[address] [place] [address] 05/03/2024 Radhamaría Moreno Generalized anxiety disorder F41.1 and Bipolar affective disorder F31.[address] [place] [address] 06/07/2024 Radha Moreno [address] [place] [address] 07/25/2024 Shae Philip [address] [place] [address] 07/27/2024 Shae Philip Bipolar affective disorder F31.9 ; Generalized anxiety disorder F41.1 and Tardive dyskinesia G24.[address] [address] 08/23/2024 Shae Philip [address] [address] [place] [address] 08/24/2024 Shae Philip Bipolar affective disorder F31.9 and Tardive dyskinesia G24.[address] [place] [address] 09/05/2024 Shae Philip [address] [place] [address] 09/12/2024 Saheeugene Philip Generalized anxiety disorder F41.1 and Tardive dyskinesia G24.01 [facility] [address] [address] 09/12/2024 Shae Philip [address] [place] [address] 10/19/2024 [facility] [address] [place] [address] 11/27/2024 Shae Philip Tardive dyskinesia G24.01 [facility] [address] [address] 02/13/2025 Shae Shoemakernnan Tardive dyskinesia G24.01 ; Bipolar affective disorder F31.9 and Generalized anxiety disorder F41.1 Assessments Encounter Date Diagnosis (ICD Code) Assessment Notes Treatment Notes Treatment Clinical Notes Section Notes 03/31/2024 Tardive dyskinesia (ICD-10 - G24.01) 05/03/2024 Generalized anxiety disorder (ICD-10 - F41.1) 08/30/2024 Fatigue (ICD-10 - R53.83) 12/06/2024 Generalized anxiety disorder (ICD-10 - F41.1) Hydroxyzine with rare use. Client reports intermittent dry mouth- discussed this can be SE of multiple medications and continue to monitor. Encouraged oral hygeine. 01/09/2025 Over weight (ICD-10 - E66.3) 03/06/2025 Over weight (ICD-10 - E66.3) 02/13/2025 Tardive dyskinesia (ICD-10 - G24.01) 11/27/2024 Tardive dyskinesia (ICD-10 - G24.01) 10/24/2024 Generalized anxiety disorder (ICD-10 - F41.1) Hydroxyzine with rare use. Client reports intermittent dry mouth- discussed this can be SE of multiple medications and continue to monitor. Encouraged oral hygeine. 09/25/2024 Generalized anxiety disorder (ICD-10 - F41.1) Hydroxyzine with rare use. Client reports intermittent dry mouth- discussed this can be SE of multiple medications and continue to monitor. Encouraged oral hygeine. 08/29/2024 Generalized anxiety disorder (ICD-10 - F41.1) [...] ordered, has not tried Geodon or Latuda. 09/12/2024 Generalized anxiety disorder (ICD-10 - F41.1) 09/12/2024 Tardive dyskinesia (ICD-10 - G24.01) 08/24/2024 Bipolar affective disorder (ICD-10 - F31.9) Past symptoms c/w hypomania/ivette a with elevated moods, increased interest, racing thoughts, irritability and changes to sleep. Symptoms worsened with SSRI and has appeared to improve with Abilify. Will continue to monitor and evaluate as poor insight on patient behalf limits evaluation. 07/27/2024 Bipolar affective disorder (ICD-10 - F31.9) Past symptoms c/w hypomania/ivette a with elevated moods, increased interest, racing thoughts, irritability and changes to sleep. Symptoms worsened with SSRI and has appeared to improve with Abilify. Will continue to monitor and evaluate as poor insight on patient behalf limits evaluation. 07/25/2024 Nicotine dependence, unspecified, uncomplicated (ICD-10 - F17.200) 06/28/2024 Nicotine dependence, unspecified, uncomplicated (ICD-10 - F17.200) 05/24/2024 Nicotine dependence, unspecified, uncomplicated (ICD-10 - F17.200) 05/24/2024 Generalized anxiety disorder (ICD-10 - F41.1) Pt and caregiver reprot that pt has only needed to take the Hydroxyzine a few times since her last visit.. Will continue Hydroxyzine PRN to aid anxiety. Reports that she is tolerating meds well. Denies side effects. Pt denies therapy referral at this time. 06/28/2024 Generalized anxiety disorder (ICD-10 - F41.1) Pt and caregiver report that pt has only needed to take the Hydroxyzine a few times since her last visit. Will continue Hydroxyzine PRN to aid anxiety. Reports that she is tolerating meds well. Denies side effects. Pt denies therapy referral at this time. 07/25/2024 Generalized anxiety disorder (ICD-10 - F41.1) Hydroxyzine with rare use. Client reports intermittent dry mouth- discussed this can be SE of multiple medications and continue to monitor. Encouraged oral hygeine. 08/24/2024 Tardive dyskinesia (ICD-10 - G24.01) 07/27/2024 Generalized anxiety disorder (ICD-10 - F41.1) 02/13/2025 Bipolar affective disorder (ICD-10 - F31.9) Will continue to monitor and evaluate as poor insight on patient behalf limits evaluation. 08/29/2024 Tardive dyskinesia (ICD-10 - G24.01) Pt has Hx of TD since 02/2022. Pt has tried Ingrezza with no relief. Will increase Austedo XR to 48mg to aid TD symptoms. Pt has been toleratng Austedo XR well. Denies side effects. Pt understands that TD symptoms would be intermediate and irreversible. 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 10/24/2024 Bipolar affective disorder (ICD-10 - F31.9) Will continue to monitor and evaluate as poor insight on patient behalf limits evaluation. May look to change SGA if needed, has not tried Geodon or Latuda. 03/06/2025 Generalized anxiety disorder (ICD-10 - F41.1) Client reports intermittent dry mouth- discussed this can be SE of multiple medications and continue to monitor. Encouraged oral hygeine. Wellbutrin has been seen to cause abnormal movements in some cases. This provider monitored and evaluated client's chart- noted mouth movements started around when wellbutrin was started in 2021, decrease and stop this medication. May look to add other antidepressant in if needed and mouth movement improvement noted. Client v/u and agreement to this plan. 12/06/2024 Bipolar affective disorder (ICD-10 - F31.9) [...] and continue to monitor. Encouraged oral hygeine. 08/30/2024 Medication monitoring encounter (ICD-10 - Z51.81) 05/03/2024 Bipolar affective disorder (ICD-10 - F31.9) 08/30/2024 Bipolar affective disorder (ICD-10 - F31.9) 12/06/2024 Tardive dyskinesia (ICD-10 - G24.01) Pt has Hx of TD since 02/2022. Pt has tried Ingrezza with no relief. Pt understands that TD symptoms would be intermediate and irreversible. States has not tried alternatives besides ingrezza. Benztropine with worsened symptoms. 01/09/2025 Bipolar affective disorder (ICD-10 - F31.9) Will continue to monitor and evaluate as poor insight on patient behalf limits evaluation. May look to change SGA if needed, has not tried Geodon or Latuda. 03/06/2025 Bipolar affective disorder (ICD-10 - F31.9) Will continue to monitor and evaluate as poor insight on patient behalf limits evaluation. May look to change SGA if needed, has not tried Geodon or Latuda. 02/13/2025 Generalized anxiety disorder (ICD-10 - F41.1) 10/24/2024 Tardive dyskinesia (ICD-10 - G24.01) Pt has Hx of TD since 02/2022. Pt has tried Ingrezza with no relief. Reports that she feels mouth movements have worsened since increase in Austedo, decreasing. 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 States has not tried alternatives besides ingrezza, starting benztropine. 09/25/2024 Nicotine dependence, unspecified, uncomplicated (ICD-10 - F17.200) 08/29/2024 Fatigue (ICD-10 - R53.83) 07/27/2024 Tardive dyskinesia (ICD-10 - G24.01) 07/25/2024 Bipolar affective disorder (ICD-10 - F31.9) [...] needed, has not tried Geodon or Latuda. 06/28/2024 Bipolar affective disorder (ICD-10 - F31.9) [...] and would like to increase Austedo first. 05/24/2024 Bipolar affective disorder (ICD-10 - F31.9) [...] as her moods are under control. 05/24/2024 Tardive dyskinesia (ICD-10 - G24.01) Pt has Hx of TD since 02/2022. Pt has tried Ingrezza with no relief. Will increase Austedo XR to 24mg to aid TD symptoms. Pt has been toleratng Austedo XR well. Denies side effects. Pt understands that TD symptoms would be intermediate and irreversible. 06/28/2024 Tardive dyskinesia (ICD-10 - G24.01) Pt has Hx of TD since 02/2022. Pt has tried Ingrezza with no relief. Will increase Austedo XR to 30mg to aid TD symptoms. Pt has been toleratng Austedo XR well. Denies side effects. 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 07/25/2024 Tardive dyskinesia (ICD-10 - G24.01) Pt has Hx of TD since 02/2022. Pt has tried Ingrezza with no relief. Will increase Austedo XR to 36mg to aid TD symptoms. Pt has been toleratng Austedo XR well. Denies side effects. Pt understands that TD symptoms would be intermediate and irreversible. 08/29/2024 Medication monitoring encounter (ICD-10 - Z51.81) 10/24/2024 Nicotine dependence, unspecified, uncomplicated (ICD-10 - F17.200) 01/09/2025 Tardive dyskinesia (ICD-10 - G24.01) Pt has Hx of TD since 02/2022. Pt has tried Ingrezza with no relief. 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 States has not tried alternatives besides ingrezza. Benztropine with worsened symptoms. Increase Austedo. 03/06/2025 Tardive dyskinesia (ICD-10 - G24.01) Pt has Hx of TD since 02/2022. Pt has tried Ingrezza with no relief. 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 States has not tried alternatives besides ingrezza. Benztropine with worsened symptoms. Continue Austedo. 12/06/2024 Nicotine dependence, unspecified, uncomplicated (ICD-10 - F17.200) 12/06/2024 Encounter for immunization (ICD-10 - Z23) 03/06/2025 Nicotine dependence, unspecified, uncomplicated (ICD-10 - F17.200) 01/09/2025 Nicotine dependence, unspecified, uncomplicated (ICD-10 - F17.200) 10/24/2024 Encounter for immunization (ICD-10 - Z23) pt tolerated well. Ordered per standing orders for administering influenza vaccine to adults. 08/29/2024 Nicotine dependence, unspecified, uncomplicated (ICD-10 - F17.200) 01/09/2025 Encounter for immunization (ICD-10 - Z23) 03/06/2025 Encounter for immunization (ICD-10 - Z23) 05/24/2024 Other Discussed treat ment planDiscussed sleep [...] also contact the 24-hour crisis hotline ([facility]), refer to the closest emergency room or call 911 if new symptoms arise of existing symptoms worsen; the Patient/Guardian is aware that this would apply to symptoms such as: suicidal ideation, homicidal ideation, high risk behaviors, manic symptoms, psychotic symptoms, physical symptoms, or any other symptoms that may be dangerous to self or others. Patient made aware that this provider will be leaving [facility] as of 07/05/2024, and she will [...] also contact the 24-hour crisis hotline ([facility]), refer to the closest emergency room or [...] also contact the 24-hour crisis hotline ([facility]), refer to the closest emergency room or [...] also contact the 24-hour crisis hotline ([facility]), refer to the closest emergency room or [...] also contact the 24-hour crisis hotline ([facility]), refer to the closest emergency room or [...] also contact the 24-hour crisis hotline ([facility]), refer to the closest emergency room or [...] also contact the 24-hour crisis hotline ([facility]), refer to the closest emergency room or [...] of education, treatment plan and follow up. 03/06/2025 Other Reasons, potential benefits, potential risks, interactions [...] also contact the 24-hour crisis hotline ([facility]), refer to the closest emergency room or [...] plan and follow up. Plan Of Treatment Next Appt Details Provider Name:Shae fuentes, 03/27/2025 01:00:00 PM, [address], [place], [address], Insurance Providers Payer Name Payer Address Payer Phone Subscriber Number Group Number Insured Name Patient Relationship to Insured Coverage Start Date Coverage End Date MEDICARE PART A [address] [place] [address] [id number] Elin Stevenson Self - patient is the insured 3 [facility] Claims Department [address] [place] [address] [phone] [id number] Elin Stevenson Self - patient is the insured 3 MEDICARE BEHAV HOUSING LIAISON [address] [place] [address] [id number] Elin Stevenson Self - patient is the insured 3 Medical (General) History Medical History History ICD Code glaucoma depression anxiety hepatitis C goiter hypothyroid disorder Arthritis Surgical History Surgery Date(Month/Year) 1997 1997 Kidney stone removed 2015 breast implants-saline hemorrhoidectomy-[facility] 2021 Left cataract removal 08/2022 Right cataract removal 09/2022 Hospitalization History Reason Date(Month/Year)
--- OUTSIDE RECORDS SUMMARY | 2025-03-14 10:42 | XMS_ITS ---
Author Organization [facility] Address [address] [place] [address] Care Team Providers Care Mint Wafer Depositor Name Role Phone Shae Philip Primary Care Provider REASON FOR VISIT 4 week F/U Social History Sex Assigned At : Social History Observation Description Sex Assigned At Female Encounters Encounter Location Date Provider Diagnosis [facility] [address] [place] [address] 02/20/2025 Shae Philip Plan Of Treatment Next Appt Details Provider Name:Shae fuentes, 03/27/2025 01:00:00 PM, [address], [place], [address], Progress Notes * Elin GÓMEZDOB:1960 ([age] yo F)Acc No.[id number]:02/20/2025 UNLOCKED PROGRESS NOTE Patient: Dilma [place] Elin Provider: Juan Philip, MSN, EMBEDDED HARDWARE ENGINEER, MANAGER WATER-C :1960 A ge:64 Y S ex:Female Date:02/20/2025 Phone: Address:[address], [facility] [address], [place] Subjective: * Chief Complaints: * 1 . 4 week F/U. * Medical History: Objective: * Vitals: Assessment: Plan: * Treatment: * * Electronic signature of Soraida Philip , [id number] on 03/14/2025 at 10:42 AM CDT Sign off status: Pending * Provider: Juan Philip, KATERINE, EMBEDDED HARDWARE ENGINEER, MANAGER WATER-C Date: 0 02/20/2025 Generated for Lorenzo white/Brenda/Tasneem on: 0 03/14/2025 10:42 AM CDT
== END 2025-03-14 10:37 | disposition home or self-care (01) ==
LOC: ANHASCIMG 10:38
PROVIDERS: PCP Internal Medicine Gastroenterology; Visit Provider Internal Medicine Gastroenterology
DX: M51.34 Other intervertebral disc degeneration, thoracic region (principal)
CPT/HCPCS: 72070

== ENCOUNTER 2025-04-12 14:14 | Emergency (ER) | payer MEDICARE, MEDICAID, SELFPAY ==
--- OUTSIDE RECORDS SUMMARY | 2025-04-12 14:18 | XMS_ITS | Encounter Summary ---
Author Organization [facility] Healthcare Address [address] [place] [address] Care Team Providers Care Makeup Editor Name Role Phone Shae Philip NP Primary Care Provider [phone] Reason for Visit * Consultation (Routine) - Closed Specialty Diagnoses / Procedures Referred By Melita wen Referred To Contact Neurology Diagnoses Tardive dyskinesia Shae Philip, [address] [place] [address] Phone: tel: fax: Parveen Bertrand MD [address] [place] [address] [address] [facility] [place] [address] Phone: tel: fax: Referral ID Status Reason Start Date Expiration Date V isits Requested Visits Authorized [id number] Closed Specialty Services Required 10/20/2024 11/19/2025 1 1 Encounter Details Date Type Department Care Team (Late st Contact Info) Description 04/11/2025 10:00 AM CDT Office [facility] [address] 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 Gender Identity Not on file Sexual Orientation Not on file documented as of this encounter Last Filed Vital Signs Vital Sign Reading Time Taken Comments Blood Pressure 142/68 04/11/2025 10:07 AM CDT Pulse 92 04/11/2025 10:07 AM CDT Temperature - - Respiratory Rate - - Oxygen Saturation 92% 04/11/2025 10:07 AM CDT Inhaled Oxygen Concentration - - Weight 71.7 kg (158 lb) 04/11/2025 10:07 AM CDT Height 154.9 cm (5' 1) 04/11/2025 10:07 AM CDT Body Mass Index 29.85 04/11/2025 10:07 AM CDT documented in this encounter Ordered Prescriptions Prescription Sig Dispense Quantity Refills Last Filled Start Date End Date amantadine (SYMMETREL) 100 mg capsule Take 1 capsule (100 mg total) by mouth 2 (two) times a day 60 capsule 5 04/11/2025 documented in this encounter Plan of Treatment Not on file documented as of this encounter Visit Diagnoses Diagnosis Tardive dyskinesia Subacute dyskinesia due to drugs documented in this encounter Discontinued Medications Medication Sig Discontinue Reason Start Date End Da te amantadine (SYMMETREL) 100 mg capsule Take 1 capsule (100 mg total) by mouth 2 (two) times a day Reorder 04/11/2025 documented as of this encounter Historical Medications * This list may reflect changes made after this encounter. hydrOXYzine (ATARAX) 25 mg tablet Take 1 tablet (25 mg total) by mouth every 6 (six) hours as needed traMADoL (ULTRAM) 50 mg tablet Take 1 tablet (50 mg total) by mouth 3 (three) times a day as needed levothyroxine (SYNTHROID) 137 mcg tablet Take 1 tablet (137 mcg total) by mouth fisher gill net before breakfast pravastatin (PRAVACHOL) 20 mg tablet Take 1 tablet (20 mg total) by mouth daily alendronate (FOSAMAX) 70 mg tablet Take 1 tablet (70 mg total) by mouth every 7 days amantadine (SYMMETREL) 100 mg capsule Take 1 capsule (100 mg total) by mouth 2 (two) times a day 5 added in this encounter Orders Outpatient Referral Count Last Ordered Date Fir st Ordered Date AMB REFERRAL TO NEUROLOGY 1 04/11/2025 documented in this encounter Care Teams Makeup Editor Relationship Specialty Start Date End Date Shae Philip NP [address] [place] [address] PCP - General Family Medicine 10/20/24 documented as of this encounter
--- OUTSIDE RECORDS SUMMARY | 2025-04-12 14:18 | XMS_ITS | Referral Summary ---
Author Organization [facility] Office Building [facility] Address [address] [place] [address] Care Team Providers Care Clinical Program Consultant Name Role Phone Shae Philip NP Primary Care Provider [phone] Encounters Date Type Department Care Team Description 04/11/2025 10:00 AM CDT Office [place] [facility] [address] [facility] [address] [place] [address] Parveen Bertrand MD Tardive dyskinesia from Last 3 Months Allergies Active Allergy Reactions Criticality Noted Date Comments Codeine Hives,Urticaria Medium 12/24/2017 Penicillins Medications alendronate (FOSAMAX) 70 mg tablet Take 1 tablet (70 mg total) by mouth every 7 days Active pravastatin (PRAVACHOL) 20 mg tablet Take 1 tablet (20 mg total) by mouth daily Active levothyroxine (SYNTHROID) 137 mcg tablet Take 1 tablet (137 mcg total) by mouth coupon redemption clerk before breakfast Active traMADoL (ULTRAM) 50 mg tablet Take 1 tablet (50 mg total) by mouth 3 (three) times a day as needed Active hydrOXYzine (ATARAX) 25 mg tablet Take 1 tablet (25 mg total) by mouth every 6 (six) hours as needed Active amantadine (SYMMETREL) 100 mg capsule Take 1 capsule (100 mg total) by mouth 2 (two) times a day 60 capsule 5 5 Active amantadine (SYMMETREL) 100 mg capsule Take 1 capsule (100 mg total) by mouth 2 (two) times a day 04/11/20 25 Discontinu ed(Reorder ) Social History Tobacco Use Types Packs/Day Years Used Date Smoking Tobacco: Never Smokeless Tobacco: Never Comments Unknown Sex and Gender Information Value Date Recorded Sex Assigned at Not on file 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
--- OUTSIDE RECORDS SUMMARY | 2025-04-12 14:18 | XMS_ITS | Clinical Summary ---
Author Organization [facility] Building [facility] Address [address] [place] [address] Care Team Providers Care Web Art Director Name Role Phone Shae Philip NP Primary Care Provider [phone] Allergies Active Allergy Reactions Criticality Noted Date Comments Codeine Hives,Urticaria Medium 12/24/2017 Penicillins Medications alendronate (FOSAMAX) 70 mg tablet Take 1 tablet (70 mg total) by mouth every 7 days Active pravastatin (PRAVACHOL) 20 mg tablet Take 1 tablet (20 mg total) by mouth daily Active levothyroxine (SYNTHROID) 137 mcg tablet Take 1 tablet (137 mcg total) by mouth heading saw operator before breakfast Active traMADoL (ULTRAM) 50 mg [...] (two) times a day 60 capsule 5 Active amantadine (SYMMETREL) 100 mg capsule Take 1 capsule (100 mg total) by mouth 2 (two) times a day 04/11/20 25 Discontinu ed(Reorder ) Encounters Date Type Department Care Team Description 04/11/2025 10:00 AM CDT Office Visit [facility] [address] [facility] [address] [place] [address] Parveen Bertrand MD Tardive dyskinesia from Last 3 Months Surgical History Surgery Date Site/Laterality Comments BREAST IMPLANT REMOVAL SECTION Medical History Medical History Date Comments Anxiety Arthritis Depression Thyroid disease Social History Tobacco Use Types Packs/Day Years Used Date Smoking Tobacco: Never Smokeless Tobacco: Never Comments Unknown Sex and Gender Information Value Date Recorded Sex Assigned at Not on file 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 Gender Identity Not on file Sexual Orientation Not on file Obstetrics History Last Filed Vital Signs Vital Sign Reading [...] 04/11/2025 10:07 AM CDT Plan of Treatment Health Maintenance Due Date Last Done Comments Breast Cancer Screening-Mammogram 1960 Colon Cancer Screening-Colonoscopy 1960 Depression Screening 1960 Fall Risk Assessment 1960 Osteoporosis Screening-Bone Density Scan 1960 DTaP/Tdap/Td Vaccine (1 - Tdap) 1969 Hepatitis B Screening 1976 Pneumococcal vaccine 65+ (1 of 1 - PCV) 2008 Zoster Vaccine (1 of 2) 2008 Well Visit 65+ 2023 Influenza Vaccine (#1) 2025 07/12/2018 Hepatitis C Screening Completed 02/13/2015 Insurance [employer] MEDICARE Care Teams Web Art Director Relationship Specialty Start Date End Date Shae Philip NP [address] [place] [address] PCP - General Family Medicine 10/20/24
--- OUTSIDE RECORDS SUMMARY | 2025-04-12 14:18 | XMS_ITS | Patient Health Record ---
Author Organization [facility] Address [address] [place] [address] Care Team Providers Care Athletic Equipment Manager Name Role Phone Shae Philip Primary Care Provider [phone] JoshAnupam wyattae Unavailable [phone] Allergies Allergen (clinical drug ingredient) Drug/Non Drug Allergy documented on EMR Reaction Allergy Type Onset Date Status codeine Codeine hives Drug Allergy Active Penicillin hives Drug Allergy Active Results Component Value Reference Range Notes Vitamin B12 and Folate Reviewed date:09/08/2024 09:26:42 AM Interpretation:Normal Performing Lab:[facility], [address] [facility] ([facility]), Phone - [phone], Director - Sridhar Notes/Report: Vitamin B12 395 010-0211 pg/mL Folate (Folic Acid), Serum >20.0 >3.0 ng/mL A serum folate concentration of less than 3.1 ng/mL is considered to represent clinical deficiency. Hemoglobin A1c* Reviewed date:09/08/2024 09:26:55 AM Interpretation:Normal Performing Lab:[facility], [employer] [employer] [facility] ([facility] Phone - [phone], Director - PhDNorma Notes/Report: Hemoglobin A1c 5.4 4.8-5.6 % . Prediabetes: 5.7 - 6.4 Diabetes: >6.4 Glycemic control for adults with diabetes: <7.0 TSH* Reviewed date:09/08/2024 09:27:07 AM Interpretation:Low Performing Lab:[facility], [address] [employer] [facility] ([facility] Phone - [phone], Director - PhDNorma Notes/Report: TSH 0.036 0.450-4.500 uIU/mL CBC With Differential/Platel et* Reviewed date:09/08/2024 09:27:41 AM Interpretation:Abnormal [facility]forming [facility], [address] [facility], Phone - [phone], Director - [facility] Notes/Report: WBC 4.7 3.4-10.8 x10E3/uL Effective September 11, 2024 profile [id number] WBC will be made non-orderable as a [...] % Immature Grans (Abs) 0.0 0.0-0.1 x10E3/uL Vitamin D, 25-Hydroxy* Reviewed date:09/08/2024 09:26:29 AM Interpretation:Normal Performing Lab:[facility] [place], [address] [facility] [place], Phone - [phone], Director [facility] Notes/Report: Vitamin D, 25-Hydroxy 63.6 30.0-100.0 ng/mL Vitamin D deficiency has been defined by the [place] of Medicine and an Endocrine Society practice guideline as a level of serum 25-OH vitamin D less than 20 ng/mL (1,2). The Endocrine Society went on to further define vitamin D insufficiency as a level between 21 and 29 ng/mL (2). 1. IOM ([place] of Medicine). 2010. Dietary reference intakes for calcium and D. [place]: The National Academies Press. 2. Deena MF, Martin ACOSTA, Raymon CHOWDARY, et al. Evaluation, treatment, and prevention of vitamin D deficiency: an Endocrine Society clinical practice guideline. JCEM. 2010; 96(7):1911-30. Lipid Panel* Reviewed date:09/08/2024 09:27:17 AM Interpretation:Normal [facility]forming [facility] [place], [address] [facility], Phone - [phone], Director - [facility] Notes/Report: Cholesterol, Total 184 100-199 mg/dL Triglycerides 88 0-149 mg/dL HDL Cholesterol 70 >39 mg/dL VLDL Cholesterol [place] 16 5-40 mg/dL LDL Chol Calc ([facility]) 98 0-99 mg/dL CMP 14 Comprehensive Metabol ic Panel* Reviewed date:09/08/2024 09:27:29 AM Interpretation:Normal Performing Lab:[facility] [place], [address] [facility], Phone - [phone], Director - [facility] Notes/Report: Glucose 92 70-99 mg/dL BUN 18 [...] 0-40 IU/L ALT (SGPT) 12 0-32 IU/L Reason For Referral Reason Housing Diagnosis 1 Bipolar affective di sorder (F31.9) Diagnosis 2 Anxiety (F41.9) Referral Organization [facility] Referring Provider First Name Shae Referring Provider Last Name Cedrick Referring Provider Speciality Psychiatry Referred Provider Specialty 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 She would like to discuss possible housing options with [place]. Please refer. Thank you! Clinical Notes Dalia Locke 07/27/2024 09:21:07 AM >HN reached the home health care worker for the client Elin Stevenson. HN's phone number was text to the client and personal care home administrator, so the client could reach out later for resources pertaining to housing. Referral Priority Routine Reason Movement disorder, t ardive dyskinesia Diagnosis 1 Tardive dyskinesia ( G24.01) Referral Organization [facility] Referring Provider First Name Shae Referring Provider Last Name Cedrick Referring Provider Speciality Psychiatry Referred Provider Specialty Neurology General Notes Cedrick Shae Ibarra 12/2023 10:46:18 AM > Client has tried and failed multiple medications. Has been on Ingrezza and Austedo. Currently taking Austedo 48 mg (max dose). Please refer to neuro to see if they have any further suggestions and for further assessment. Thank you. Clinical Notes Francia Laura RN 06/2024 09:54:00 AM >Referral sent to [facility] Neurology in [place]., Cedrick Shae Ibarra 03/27/2025 01:32:01 PM > Appointment in April. Referral Priority Routine Medications Medication SIG (Take, Route, Frequency, Duration) Notes Start Date End Date Status traZODone HCl 150 MG 1 tablet at bedtime as needed Orally Once a day; Duration: 30 days Not-Takin g Levothyroxine Sodium 150 MCG 1 tablet on an empty stomach in the morning Orally Once a day Active Propranolol HCl 10 MG 1 tablet Orally On ce a day; Duration: 30 days Active Influenza Vac Split Quad 0.5 ML as directed Intramuscular once Not-Taking Influenza Vac Subunit Quad 0.5 ML as directed Intramuscular once; Duration: 1 days Not-Taking hydrOXYzine HCl 50 MG TAKE 1 & 1/2 - 2 TABLETS BY MOUTH ONCE DAILY if NEEDED FOR ANXIETY AND SLEEP; Duration: 30 days Active Cholecalciferol 1.25 MG (46536 UT) 1 capsule Orally once per week Not-Taking Austedo XR 36 MG 1 tablet Orally Once a day; Duration: 14 days Active ARIPiprazole 2 MG TAKE 1 TABLET BY ZOE TH DAILY; Duration: 30 days Not-Taking Wellbutrin XL 300 MG 1 tablet in the mor rick Orally Once a day for 7 days then decrease to 150mg script Not-Taking buPROPion HCl ER (XL) 300 mg TAKE 1 TABLET BY MOUTH EVERY MORNING; Duration: 30 Not-Taking traZODone HCl 300 MG 1 tablet at bedtime as needed Orally Once a day; Duration: 30 days Active buPROPion HCl ER (XL) 150 mg TAKE 1 TABLET BY MOUTH EVERY MORNING; Duration: 30 Not-Taking traMADol HCl 50 MG 1 tablet as needed Orally every 8 hours Active Alendronate Sodium 70 MG 1 tablet 30 min utes before the first food, beverage or medicine of the day with plain water Orally Once a week; Duration: 30 days Active Wellbutrin XL 150 MG 1 tablet in the [facility] Orally Once a day for 7 days, then take every other day for 3 doses, then stop this medication Not-Taking Pravastatin Sodium 20 MG 1 tablet Orally Once a day; Duration: 30 day(s) 01/11/2020 Active Austedo XR 48 MG 1 tablet Orally Once a day; Duration: 30 days after 42 mg, start this script 04/11/2025 Active Austedo XR 42 MG 1 tablet Orally Once a day; Duration: 7 days after 36 mg, take 42 mg x1 week then increase to 48 mg script 04/11/2025 Active Austedo XR Patient Titration 12 & 18 & 24 & 30 MG as directed Orally 04/11/2025 Active hydrOXYzine HCl 25 MG 1 tablet as needed Orally Once a day; Duration: 30 days Active Austedo XR 36 MG 1 tablet Orally Once a day; Duration: 7 days after titration kit, take 36 mg x1 week then increase to 42 mg script 01/09/2025 Active Immunizations Vaccine Route Administration Date Status Comme nts FLU VAC NO PRSV 4VAL 6 mo+ IM Intramuscular 07/27/2019 Administered Pt wil well. FLU VAC NO PRSV 4VAL 6 mo+ IM Intramuscular 07/17/2021 Administered Patient tolerated well. FLU VAC NO PRSV 4VAL 6 mo+ IM Intramuscular 08/19/2022 Administered Patient tolerated well. Influenza, virus vaccine, trivalent, preservative free IM Intramuscular 10/24/2024 Administered Ratliff, Ludmila Sánchez 10/24/2024 10:33:36 AM WHEEL BUFFER >Pt tolerated well Social History Tobacco Use: Social History Observation Description Date Details (start date - stop date) Current Smoker NA - NA Sex Assigned At : Social History Observation Description Sex Assigned At Female Tobacco Control (Standard) Question Answer Notes Tobacco use: Current smoker Section Notes: [id number] 01/14/2022 01/13/2022 Hydrocodon-acetaminophen 21.0 7 5MG-325MG 15 Paxton Lay Md [id number] [place], [place] NA 0 [place] 1 [id number] 12/16/2021 12/16/2021 oxyCODONE-ACETAMINOPHEN 20.0 5 5MG-325MG 30 Rashawn Kauffman [id number] [place], [place] NA 0 [place] 1 [id number] 12/08/2021 12/08/2021 oxyCODONE-ACETAMINOPHEN 15.0 3 5MG-325MG 37.50 Km Wyman (Do) - [id number] [place], [place] NA [place] 1 [id number] 12/01/2021 12/01/2021 oxyCODONE-ACETAMINOPHEN 30.0 7 5MG-325MG 32.14 Rashawn Stone [id number] [place] 1 [id number] 12/01/2021 12/01/2021 traMADol 30.0 7 50MG 21.43 Rashawn Kauffman [id number] 01/14/2022 01/13/2022 Hydrocodon-acetaminophen 21.0 7 5MG-325MG 15 Paxton Lay Md [id number] [place], [place] 1 [id number] 12/16/2021 12/16/2021 oxyCODONE-ACETAMINOPHEN 20.0 5 5MG-325MG 30 Rashawn Kauffman [id number] [place], [place] 1 [id number] 12/08/2021 12/08/2021 oxyCODONE-ACETAMINOPHEN 15.0 3 5MG-325MG 37.50 Km Wyamn (Do) - [id number] [place] 1 [id number] 12/01/2021 12/01/2021 oxyCODONE-ACETAMINOPHEN 30.0 7 5MG-325MG 32.14 Rashawn Duffy [facility] [id number] [place] 1 [id number] 12/01/2021 12/01/2021 traMADol 30.0 7 50MG 21.43 Rashawn Stone [id number] 01/14/2022 01/13/2022 Hydrocodon-acetaminophen 21.0 7 5MG-325MG 15 Paxton Lya Md [id number] [place], [place] 1 [id number] 12/16/2021 12/16/2021 oxyCODONE-ACETAMINOPHEN 20.0 5 5MG-325MG 30 [facility] Tati [facility] [id number] [place], [place] 1 [id number] 12/08/2021 12/08/2021 oxyCODONE-ACETAMINOPHEN 15.0 3 5MG-325MG 37.50 Km Wyman (Do) - [id number] [place] 1 [id number] 12/01/2021 12/01/2021 oxyCODONE-ACETAMINOPHEN 30.0 7 5MG-325MG 32.14 Rashawn Duffy [facility] [id number] [place] 1 [id number] 12/01/2021 12/01/2021 traMADol 30.0 7 50MG 21.43 [facility]awn [id number] 01/14/2022 01/13/2022 Hydrocodon-acetaminophen 21.0 7 5MG-325MG 15 Paxton Lay Md [id number] [place], [place] 1 [id number] 12/16/2021 12/16/2021 oxyCODONE-ACETAMINOPHEN 20.0 5 5MG-325MG 30 [place] Tati [facility] [id number] [place] 1 [id number] 12/08/2021 12/08/2021 oxyCODONE-ACETAMINOPHEN 15.0 3 5MG-325MG 37.50 Km Wyman (Do) - [id number] [place] 1 [id number] 12/01/2021 12/01/2021 oxyCODONE-ACETAMINOPHEN 30.0 7 5MG-325MG 32.14 Rashawn Duffy [facility] [id number] [place] 1 [id number] 12/01/2021 12/01/2021 traMADol 30.0 7 50MG 21.43 Rashawn Stone [id number] 01/14/2022 01/13/2022 Hydrocodon-acetaminophen 21.0 7 5MG-325MG 15 Paxton Lay Md [id number] [place], [place] 1 [id number] 12/16/2021 12/16/2021 oxyCODONE-ACETAMINOPHEN 20.0 5 5MG-325MG 30 [facility] Tati [facility] [id number] [place], [place] 1 [id number] 12/08/2021 12/08/2021 oxyCODONE-ACETAMINOPHEN 15.0 3 5MG-325MG 37.50 Km Wyman (Do) - [id number] [place] 1 [id number] 12/01/2021 12/01/2021 oxyCODONE-ACETAMINOPHEN 30.0 7 5MG-325MG 32.14 Rashawn Duffy [facility] [id number] [place] 1 [id number] 12/01/2021 12/01/2021 traMADol 30.0 7 50MG 21.43 Rashawn Stone [id number] 01/14/2022 01/13/2022 Hydrocodon-acetaminophen 21.0 7 5MG-325MG 15 Paxton Lay Md [id number] [place], [place] 1 [id number] 12/16/2021 12/16/2021 oxyCODONE-ACETAMINOPHEN 20.0 5 5MG-325MG 30 [place] Tati [facility] [id number] [place], [place] 1 [id number] 12/08/2021 12/08/2021 oxyCODONE-ACETAMINOPHEN 15.0 3 5MG-325MG 37.50 Km Wyman (Do) - [id number] [place], [place] 1 [id number] 12/01/2021 12/01/2021 oxyCODONE-ACETAMINOPHEN 30.0 7 5MG-325MG 32.14 [place] Tati [facility] [id number] [place] 1 [id number] 12/01/2021 12/01/2021 traMADol 30.0 7 50MG 21.43 Rashawn Stone [id number] 01/14/2022 01/13/2022 Hydrocodon-acetaminophen 21.0 7 5MG-325MG 15 Paxton Lay Md [id number] [place], [place] 1 [id number] 12/16/2021 12/16/2021 oxyCODONE-ACETAMINOPHEN 20.0 5 5MG-325MG 30 Rashawn Duffy [facility] [id number] [place], [place] 1 [id number] 12/08/2021 12/08/2021 oxyCODONE-ACETAMINOPHEN 15.0 3 5MG-325MG 37.50 Km Wyman (Do) - [id number] [place] 1 [id number] 12/01/2021 12/01/2021 oxyCODONE-ACETAMINOPHEN 30.0 7 5MG-325MG 32.14 Rashawn Duffy [facility] [id number] [place], [place] 1 [id number] 12/01/2021 12/01/2021 traMADol 30.0 7 50MG 21.43 Rashawn Stone [id number] 01/14/2022 01/13/2022 Hydrocodon-acetaminophen 21.0 7 5MG-325MG 15 Paxton Lay Md [id number] [place], [place] 1 [id number] 12/16/2021 12/16/2021 oxyCODONE-ACETAMINOPHEN 20.0 5 5MG-325MG 30 Rashawn Duffy [facility] [id number] [place], [place] 1 [id number] 12/08/2021 12/08/2021 oxyCODONE-ACETAMINOPHEN 15.0 3 5MG-325MG 37.50 Km Wyman (Do) - [id number] [place], [place] 1 [id number] 12/01/2021 12/01/2021 oxyCODONE-ACETAMINOPHEN 30.0 7 5MG-325MG 32.14 Rashawn Stone [id number] [place] 1 [id number] 12/01/2021 12/01/2021 traMADol 30.0 7 50MG 21.43 Rashawn Stone [id number] 01/14/2022 01/13/2022 Hydrocodon-acetaminophen 21.0 7 5MG-325MG 15 Paxton Lay Md [id number] [place], [place] 1 [id number] 12/16/2021 12/16/2021 oxyCODONE-ACETAMINOPHEN 20.0 5 5MG-325MG 30 Rashawn Stone [id number] [place], [place] 1 [id number] 12/08/2021 12/08/2021 oxyCODONE-ACETAMINOPHEN 15.0 3 5MG-325MG 37.50 Km Wyman (Do) - [id number] [place], [place] 1 [id number] 12/01/2021 12/01/2021 oxyCODONE-ACETAMINOPHEN 30.0 7 5MG-325MG 32.14 Rashawn Stone [id number] [place], [place] 1 [id number] 12/01/2021 12/01/2021 traMADol 30.0 7 50MG 21.43 Rashawn Stone [id number] 01/14/2022 01/13/2022 Hydrocodon-acetaminophen 21.0 7 5MG-325MG 15 Paxton Lay Md [id number] [place], [place] 1 [id number] 12/16/2021 12/16/2021 oxyCODONE-ACETAMINOPHEN 20.0 5 5MG-325MG 30 Rashawn Duffy [facility] [id number] [place], [place] 1 [id number] 12/08/2021 12/08/2021 oxyCODONE-ACETAMINOPHEN 15.0 3 5MG-325MG 37.50 Km Wyman (Do) - [id number] [place] 1 [id number] 12/01/2021 12/01/2021 oxyCODONE-ACETAMINOPHEN 30.0 7 5MG-325MG 32.14 Rashawn Duffy [facility] [id number] [place] 1 [id number] 12/01/2021 12/01/2021 traMADol 30.0 7 50MG 21.43 Rashawn Stone [id number] 01/14/2022 01/13/2022 Hydrocodon-acetaminophen 21.0 7 5MG-325MG 15 Paxton Lya Md [id number] [place], [place] 1 [id number] 12/16/2021 12/16/2021 oxyCODONE-ACETAMINOPHEN 20.0 5 5MG-325MG 30 Rashawn Duffy [facility] [id number] [place], [place] 1 [id number] 12/08/2021 12/08/2021 oxyCODONE-ACETAMINOPHEN 15.0 3 5MG-325MG 37.50 Km Wyman (Do) - [id number] [place], [place] 1 [id number] 12/01/2021 12/01/2021 oxyCODONE-ACETAMINOPHEN 30.0 7 5MG-325MG 32.14 Rashawn Duffy [facility] [id number] [place] 1 [id number] 12/01/2021 12/01/2021 traMADol 30.0 7 50MG 21.43 Rashawn Stone [id number] 01/14/2022 01/13/2022 Hydrocodon-acetaminophen 21.0 7 5MG-325MG 15 Paxton Lay Md [id number] [place], [place] 1 [id number] 12/16/2021 12/16/2021 oxyCODONE-ACETAMINOPHEN 20.0 5 5MG-325MG 30 Rashawn Duffy [facility] [id number] [place] 1 [id number] 12/08/2021 12/08/2021 oxyCODONE-ACETAMINOPHEN 15.0 3 5MG-325MG 37.50 Km Wyman (Do) - [id number] [place] 1 [id number] 12/01/2021 12/01/2021 oxyCODONE-ACETAMINOPHEN 30.0 7 5MG-325MG 32.14 Rashawn Duffy [facility] [id number] [place] 1 [id number] 12/01/2021 12/01/2021 traMADol 30.0 7 50MG 21.43 Rashawn Stone [id number] 01/14/2022 01/13/2022 Hydrocodon-acetaminophen 21.0 7 5MG-325MG 15 Paxton Lay Md [id number] [place], [place] 1 [id number] 12/16/2021 12/16/2021 oxyCODONE-ACETAMINOPHEN 20.0 5 5MG-325MG 30 [facility] Tati [facility] [id number] [place], [place] 1 [id number] 12/08/2021 12/08/2021 oxyCODONE-ACETAMINOPHEN 15.0 3 5MG-325MG 37.50 Km Wyman (Do) - [id number] [place], [place] 1 [id number] 12/01/2021 12/01/2021 oxyCODONE-ACETAMINOPHEN 30.0 7 5MG-325MG 32.14 Rashawn Duffy [facility] [id number] [place] 1 [id number] 12/01/2021 12/01/2021 traMADol 30.0 7 50MG 21.43 Rashawn Stone [id number] 01/14/2022 01/13/2022 Hydrocodon-acetaminophen 21.0 7 5MG-325MG 15 Paxton Lay Md [id number] [place], [place] 1 [id number] 12/16/2021 12/16/2021 oxyCODONE-ACETAMINOPHEN 20.0 5 5MG-325MG 30 Rashawn Duffy [facility] [id number] [place], [place] 1 [id number] 12/08/2021 12/08/2021 oxyCODONE-ACETAMINOPHEN 15.0 3 5MG-325MG 37.50 Km Wyman (Do) - [id number] [place] 1 [id number] 12/01/2021 12/01/2021 oxyCODONE-ACETAMINOPHEN 30.0 7 5MG-325MG 32.14 [facility] Tati [facility] [id number] [place] 1 [id number] 12/01/2021 12/01/2021 traMADol 30.0 7 50MG 21.43 Rashawn Stone [id number] 12/16/2021 12/16/2021 oxyCODONE-ACETAMINOPHEN 20.0 5.0 5MG-325MG 30 Rashawn Stone [id number] [place], [place] 1 [id number] 12/08/2021 12/08/2021 oxyCODONE-ACETAMINOPHEN 15.0 3.0 5MG-325MG 37.50 Km Wyman (Do) - [id number] [place], [place] 1 [id number] 12/01/2021 12/01/2021 oxyCODONE-ACETAMINOPHEN 30.0 7.0 5MG-325MG 32.14 Rashawn Duffy [facility] [id number] [place] 1 [id number] 12/01/2021 12/01/2021 traMADol 30.0 7.0 50MG 21.43 Rashawn Duffy [id number] 01/14/2022 01/13/2022 Hydrocodon-acetaminophen 21.0 7 5MG-325MG 15 Paxton Lay Md [id number] [place], [place] 1 [id number] 12/16/2021 12/16/2021 oxyCODONE-ACETAMINOPHEN 20.0 5 5MG-325MG 30 Rashawn Duffy [id number] [place], [place] 1 [id number] 12/08/2021 12/08/2021 oxyCODONE-ACETAMINOPHEN 15.0 3 5MG-325MG 37.50 Km Wyman (Do) - [id number] [place] 1 [id number] 12/01/2021 12/01/2021 oxyCODONE-ACETAMINOPHEN 30.0 7 5MG-325MG 32.14 [facility] Tati [facility] [id number] [place] 1 [id number] 12/01/2021 12/01/2021 traMADol 30.0 7 50MG 21.43 Rashawn Stone [id number] 01/14/2022 01/13/2022 Hydrocodon-acetaminophen 21.0 7 5MG-325MG 15 Paxton Lay Md [id number] [place], [place] 1 [id number] 12/16/2021 12/16/2021 oxyCODONE-ACETAMINOPHEN 20.0 5 5MG-325MG 30 Rashawn Duffy [facility] [id number] [place], [place] 1 [id number] 12/08/2021 12/08/2021 oxyCODONE-ACETAMINOPHEN 15.0 3 5MG-325MG 37.50 Km Wyman (Do) - [id number] [place], [place] 1 [id number] 12/01/2021 12/01/2021 oxyCODONE-ACETAMINOPHEN 30.0 7 5MG-325MG 32.14 Rashawn Duffy [facility] [id number] [place] 1 [id number] 12/01/2021 12/01/2021 traMADol 30.0 7 50MG 21.43 Rashawn Stone [id number] 01/14/2022 01/13/2022 Hydrocodon-acetaminophen 21.0 7 5MG-325MG 15 Paxton Lay Md [id number] [place], [place] 1 [id number] 12/16/2021 12/16/2021 oxyCODONE-ACETAMINOPHEN 20.0 5 5MG-325MG 30 Rashawn Duffy [facility] [id number] [place], [place] 1 [id number] 12/08/2021 12/08/2021 oxyCODONE-ACETAMINOPHEN 15.0 3 5MG-325MG 37.50 Km Wyman (Do) - [id number] [place] 1 [id number] 12/01/2021 12/01/2021 oxyCODONE-ACETAMINOPHEN 30.0 7 5MG-325MG 32.14 Rashawn Duffy [facility] [id number] [place] 1 [id number] 12/01/2021 12/01/2021 traMADol 30.0 7 50MG 21.43 Rashawn Stone [id number] 01/14/2022 01/13/2022 Hydrocodon-acetaminophen 21.0 7 5MG-325MG 15 Paxton Lay Md [id number] [place], [place] 0 [place] 1 [id number] 12/16/2021 12/16/2021 oxyCODONE-ACETAMINOPHEN 20.0 5 5MG-325MG 30 [place] Tati [facility] [id number] [place], [place] 1 [id number] 12/08/2021 12/08/2021 oxyCODONE-ACETAMINOPHEN 15.0 3 5MG-325MG 37.50 Km Wyman (Do) - [id number] [place] 1 [id number] 12/01/2021 12/01/2021 oxyCODONE-ACETAMINOPHEN 30.0 7 5MG-325MG 32.14 Rashawn Duffy [facility] [id number] [place] 1 [id number] 12/01/2021 12/01/2021 traMADol 30.0 7 50MG 21.43 Rashawn Stone [id number] 01/14/2022 01/13/2022 Hydrocodon-acetaminophen 21.0 7 5MG-325MG 15 Paxton Lay Md [id number] [place], [place] NA 0 [place] 1 [id number] 12/16/2021 12/16/2021 oxyCODONE-ACETAMINOPHEN 20.0 5 5MG-325MG 30 Rashawn Stone [id number] [place], [place] 1 [id number] 12/08/2021 12/08/2021 oxyCODONE-ACETAMINOPHEN 15.0 3 5MG-325MG 37.50 Km Wyman (Do) - [id number] [place], [place] 0 [place] 1 [id number] 12/01/2021 12/01/2021 oxyCODONE-ACETAMINOPHEN 30.0 7 5MG-325MG 32.14 Rashawn Stone [id number] [place] 1 [id number] 12/01/2021 12/01/2021 traMADol 30.0 7 50MG 21.43 Rashawn Stone [id number] Problems Problem Type SNOMED Code ICD Code Onset Dates Problem Status W/U Status Risk Notes Problem Tobacco user (163509684) Nicotine dependence, unspecified, uncomplicated (F17.200) Active confirmed Problem Generalized anxiety disorder (04337099) Generalized anxiety disorder (F41.1) Active confirmed Problem Anxiety (86633894) Anxiety (F41.9) Active confirmed Problem Bipolar affective disorder (47646635) Bipolar affective disorder (F31.9) 10/20/19 22 Active confirmed Will continue to monitor and evaluate as poor insight on patient's behalf does limits evaluation . Problem Overweight (732007497) Over weight (E66.3) Active confirmed Problem Chronic tension-type headache (942599823) Chronic tension headaches (G44.229) Active confirmed Problem Depressive disorder (disorder) (06117505) Depression, unspecified depression type (F32.9) Active confirmed Problem Recurrent major depression (28104554) Episode of recurrent major depressive disorder, unspecified depression episode severity (F33.9) Active confirmed Problem Drug monitoring done (662123956) Therapeutic drug monitoring (Z51.81) Active confirmed Problem Stimulant abuse (109470043) Methamphetamine use disorder, 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) Active confirmed Problem Tardive dyskinesia (204333934) Tardive dyskinesia (G24.01) Active confirmed Problem Body mass index 30.00 to 34.99 (3152300767084 07) Body mass index [BMI] 31.0-31.9, adult (Z68.31) Active confirmed Vital Signs Heart Rate 90 /min 03/27/2025 Temperature 98.1 degrees Fahrenheit 03/27/2025 Respiratory Rate 18 /min 03/27/2025 Oximetry 95 % 03/27/2025 Blood pressure diastolic 80 mm Hg 03/27/2025 Height 61 in 03/27/2025 Blood pressure systolic 138 mm Hg 03/27/2025 Weight 163.2 lbs 03/27/2025 BMI 30.83 kg/m2 03/27/2025 Encounters Encounter Location Date Provider Diagnosis [address] [place] [address] 05/24/2024 Radha Moreno Nicotine dependence, unspecified, uncomplicated F17.200 ; Generalized anxiety disorder F41.1 ; Bipolar affective disorder F31.9 and Tardive dyskinesia G24.[address] [place] [address] 06/28/2024 Radha Moreno Nicotine dependence, unspecified, uncomplicated F17.200 ; Generalized anxiety disorder F41.1 ; Bipolar affective disorder F31.9 and Tardive dyskinesia G24.01 [address] [address] [place] [address] 07/25/2024 Shae Philip Nicotine dependence, unspecified, uncomplicated F17.200 ; Generalized anxiety disorder F41.1 ; Bipolar affective disorder F31.9 and Tardive dyskinesia G24.01 [address] [address] [place] [address] 08/29/2024 Shae Philip Generalized anxiety disorder F41.1 ; Bipolar affective disorder F31.9 ; Tardive dyskinesia G24.01 ; Fatigue R53.83 ; Medication monitoring encounter Z51.81 and Nicotine dependence, unspecified, uncomplicated F17.200 [address] [address] [place] [address] 08/30/2024 Shae Philip Fatigue R53.83 ; Medication monitoring encounter Z51.81 and Bipolar affective disorder F31.[address] [place] [address] 09/25/2024 Shae Philip Generalized anxiety disorder F41.1 ; Bipolar affective disorder F31.9 ; Tardive dyskinesia G24.01 and Nicotine dependence, unspecified, uncomplicated F17.200 [address] [place] [address] 10/24/2024 Shae Philip Generalized anxiety disorder F41.1 ; Bipolar affective disorder F31.9 ; Tardive dyskinesia G24.01 ; Nicotine dependence, unspecified, uncomplicated F17.200 and Encounter for immunization Z23 [address] [place] [address] 12/06/2024 Shae Philip Generalized anxiety disorder F41.1 ; Bipolar affective disorder F31.9 ; Tardive dyskinesia G24.01 ; Nicotine dependence, unspecified, uncomplicated F17.200 and Encounter for immunization Z23 [address] [address] [place] [address] 01/09/2025 Shaeeugene Philip Over weight E66.3 ; Generalized anxiety disorder F41.1 ; Bipolar affective disorder F31.9 ; Tardive dyskinesia G24.01 ; Nicotine dependence, unspecified, uncomplicated F17.200 and Encounter for immunization [address] [address] [place] [address] 03/06/2025 Shae Philip Over weight E66.3 ; Generalized anxiety disorder F41.1 ; Bipolar affective disorder F31.9 ; Tardive dyskinesia G24.01 ; Nicotine dependence, unspecified, uncomplicated F17.200 and Encounter for immunization [address] [address] [place] [address] 03/27/2025 Shaeeugene Philip Over weight E66.3 ; Bipolar affective disorder F31.9 ; Generalized anxiety disorder F41.1 ; Tardive dyskinesia G24.01 ; Nicotine dependence, unspecified, uncomplicated F17.200 and Encounter for immunization Z23 [address] [place] [address] 05/03/2024 Radha Moreno Generalized anxiety disorder F41.1 and Bipolar affective disorder F31.[address] [place] [address] 06/07/2024 Radha Moreno [address] [place] [address] 07/25/2024 Shae Philip [address] [place] [address] 07/27/2024 Shae Philip Bipolar affective disorder F31.9 ; Generalized anxiety disorder F41.1 and Tardive dyskinesia G24.[address] [address] 08/23/2024 [address] [place] [address] 08/24/2024 Shae Philip Bipolar affective disorder F31.9 and Tardive dyskinesia G24.[address] [place] [address] 09/05/2024 Shae Philip [address] [place] [address] 09/12/2024 Shae Philip Generalized anxiety disorder F41.1 and Tardive dyskinesia G24.01 [facility] [address] [address] 09/12/2024 Shae Philip [address] [place] [address] 10/19/2024 [facility] [address] [place] [address] 11/27/2024 Shae Philip Tardive dyskinesia G24.01 [facility] [address] [address] 02/13/2025 Shae Philip Tardive dyskinesia G24.01 ; Bipolar affective disorder F31.9 and Generalized anxiety disorder F41.1 [facility] [address] [place] [address] 03/14/2025 Shae Philip Generalized anxiety disorder F41.[address] [place] [address] 03/29/2025 Shae Philip [address] [place] [address] 04/11/2025 Shae Philip Tardive dyskinesia G24.01 Assessments Encounter Date Diagnosis (ICD Code) Assessment Notes Treatment Notes Treatment Clinical Notes Section Notes 05/03/2024 Generalized anxiety disorder (ICD-10 - F41.1) [...] hygeine. 01/09/2025 Over weight (ICD-10 - E66.3) 02/13/2025 Tardive dyskinesia (ICD-10 - G24.01) 03/06/2025 Over weight (ICD-10 - E66.3) 03/14/2025 Generalized anxiety disorder (ICD-10 - F41.1) 03/27/2025 Bipolar affective disorder (ICD-10 - F31.9) Will continue to monitor and evaluate as poor insight on patient's behalf does limits evaluation. Due to TD and reports of this medication not doing anything. Client to stop Abilify. States she has not taken in 2 days. Call with any issues. Increase trazodone for sleep and depression. Continue hydroxyzine PRN. May look to change SGA if needed, has not tried Geodon or Latuda. 03/27/2025 Over weight (ICD-10 - E66.3) 04/11/2025 Tardive dyskinesia (ICD-10 - G24.01) 03/27/2025 Generalized anxiety disorder (ICD-10 - F41.1) Client reports intermittent dry mouth- discussed this can be SE of multiple medications and continue to monitor. Encouraged oral hygeine. 03/06/2025 Generalized anxiety disorder (ICD-10 - F41.1) [...] Client v/u and agreement to this plan. 02/13/2025 Bipolar affective disorder (ICD-10 - F31.9) Will continue to monitor and evaluate as poor insight on patient behalf limits evaluation. 12/06/2024 Bipolar affective disorder (ICD-10 - F31.9) [...] Pt understands that TD symptoms would be mcc and irreversible. 08/30/2024 Medication monitoring encounter (ICD-10 - Z51.81) 08/29/2024 Tardive dyskinesia (ICD-10 - G24.01) Pt has Hx of TD since 02/2022. Pt has tried Ingrezza with no relief. Will increase Austedo XR to 48mg to aid TD symptoms. Pt has been toleratng Austedo XR well. Denies side effects. Pt understands that TD symptoms would be mcc and irreversible. 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 States has not tried alternatives besides ingrezza. Benztropine with worsened symptoms. 02/13/2025 Generalized anxiety disorder (ICD-10 - F41.1) 03/27/2025 Tardive dyskinesia (ICD-10 - G24.01) Pt has Hx of TD since 02/2022. Pt has tried Ingrezza with no relief. Pt understands that TD symptoms would be mcc and irreversible. States has not tried alternatives besides ingrezza. Benztropine with worsened symptoms. No improvement noted with Austedo, client reports wanting to stop. 03/06/2025 Bipolar affective disorder (ICD-10 - F31.9) Will continue to monitor and evaluate as poor insight on patient behalf limits evaluation. May look to change SGA if needed, has not tried Geodon or Latuda. 03/27/2025 Nicotine dependence, unspecified, uncomplicated (ICD-10 - F17.200) 03/06/2025 Tardive dyskinesia (ICD-10 - G24.01) Pt has Hx of TD since 02/2022. Pt has tried Ingrezza with no relief. 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 States has not tried alternatives besides ingrezza. Benztropine with worsened symptoms. Continue Austedo. 01/09/2025 Tardive dyskinesia (ICD-10 - G24.01) Pt has Hx of TD since 02/2022. Pt has tried Ingrezza with no relief. 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 06/28/2024 Tardive dyskinesia (ICD-10 - G24.01) Pt has Hx of TD since 02/2022. Pt has tried Ingrezza with no relief. Will increase Austedo XR to 30mg to aid TD symptoms. Pt has been toleratng Austedo XR well. Denies side effects. 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 05/24/2024 Tardive dyskinesia (ICD-10 - G24.01) Pt has Hx of TD since 02/2022. Pt has tried Ingrezza with no relief. Will increase Austedo XR to 24mg to aid TD symptoms. Pt has been toleratng Austedo XR well. Denies side effects. Pt understands that TD symptoms would be mcc and irreversible. 08/29/2024 Nicotine dependence, unspecified, uncomplicated (ICD-10 - F17.200) 10/24/2024 Encounter for immunization (ICD-10 - Z23) pt tolerated well. Ordered per standing orders for administering influenza vaccine to adults. 03/06/2025 Nicotine dependence, unspecified, uncomplicated (ICD-10 - F17.200) 01/09/2025 Nicotine dependence, unspecified, uncomplicated (ICD-10 - F17.200) 12/06/2024 Encounter for immunization (ICD-10 - Z23) 03/27/2025 Encounter for immunization (ICD-10 - Z23) 01/09/2025 [...] May also contact the 24-hour crisis hotline ([facility]), refer to the closest emergency room [...] May also contact the 24-hour crisis hotline ([facility]), refer to the closest emergency room [...] aware that this provider will be leaving [facility] as of 07/05/2024, and she [...] May also contact the 24-hour crisis hotline ([facility]), refer to the closest emergency room [...] May also contact the 24-hour crisis hotline ([facility]), refer to the closest emergency room [...] May also contact the 24-hour crisis hotline ([facility]), refer to the closest emergency room [...] May also contact the 24-hour crisis hotline ([facility]), refer to the closest emergency room [...] May also contact the 24-hour crisis hotline ([facility]), refer to the closest emergency room [...] May also contact the 24-hour crisis hotline ([facility]), refer to the closest emergency room [...] May also contact the 24-hour crisis hotline ([facility]), refer to the closest emergency room [...] of education, treatment plan and follow up. 03/27/2025 Other Reasons, potential benefits, potential risks, interactions [...] Treatment Next Appt Details Provider Name:Shae fuentes, 04/17/2025 01:00:00 PM, [address], [place], [address], Insurance Providers Payer Name Payer Address Payer Phone Subscriber Number Group Number Insured Name Patient Relationship to Insured Coverage Start Date Coverage End Date MEDICARE PART A [address] [place] [address] [id number] Collins Stevensonki Self - patient is the insured 3 [facility] Att Claims Department [address] [place] [address] [id number] Elin Stevenson Self - patient is the insured 3 MEDICARE [employer] ADMINISTRATOR [address] [place] [address] [id number] StevensonCollinski Self - patient is the insured 3 Medical (General) History Medical History History ICD Code glaucoma depression anxiety hepatitis C goiter hypothyroid disorder Arthritis Surgical History Surgery Date(Month/Year) 1997 1997 Kidney stone removed 2015 breast implants-saline hemorrhoidectomy-[facility] 2021 Left cataract removal 08/2022 Right cataract removal 09/2022 Hospitalization History Reason Date(Month/Year)
[2025-04-12 14:19] VITALS: BP 153/74; PULSE 94; RESP 18; TEMP 36.1; O2SAT 97
--- OUTSIDE RECORDS SUMMARY | 2025-04-12 14:19 | XMS_ITS | Clinical Summary ---
Author Organization [facility] Address [address], [facility] [address] [place] [address] Phone Care Team Providers Care Continuous Absorption Process Operator Name Role Phone Braulio Mccabe MD Primary Care Provider [phone] Allergies Active Allergy Reactions Criticality Noted Date Comments Codeine Hives 12/24/2017 Penicillins Hives 12/24/2017 Medications latanoprost (XALATAN) 0.005 % Solution Place 2 Drops in affected eye(s) nightly. Each eye. 8 Active sertraline (ZOLOFT) 100 MG Tablet Take 100 mg by mouth daily. 8 Active levothyroxine (SYNTHROID) 112 MCG Tablet Take 112 mcg by mouth daily. 8 Active ergocalciferol (VITAMIN D) 85518 UNIT Capsule TK 1 C PO Q [...] 9:00 AM CDT Height 160 cm (5' 3) 12/28/2017 9:00 AM CDT Body Mass Index 34.19 12/28/2017 9:00 AM CDT Plan of Treatment Health Maintenance Due Date Last Done Comments Cologuard 2003 Colonoscopy 2003 Colorectal Cancer Screening 2003 Immunochemical Fecal Occult Blood 2003 Pneumococcal Immunization (5 0+ years) (1 of 1 - PCV) 2008 Zoster Immunization (1 of 2) 2008 SARS-COV-2 Immunization (1 - 2023- season) 2024 Influenza Immunization (Seas on Ended) 2025 08/12/2017, 09/23/2014 Respiratory Syncytial Virus (RSV) Immunization (Adult) (1 - 1-dose 75+ series) 2033 DTaP/Tdap/Td Immunization Discontinued 10/11/2013 TdaP Immunization Completed 10/11/2013 Hepatitis B Immunization Aged Out No longer eligible based on patient's age to complete this topic Human Papillomavirus (HPV) Immunization Aged Out No longer eligible based on patient's age to complete this topic Meningococcal Immunization (ACWY) Aged Out No longer eligible based on patient's age to complete this topic Rotavirus Immunization Aged Out No lo nger eligible based on patient's age to complete this topic Insurance MEDICAID [employer] Care Teams Continuous Absorption Process Operator Relationship Specialty Start Date End Date Braulio Mccabe MD [address] [place] [address] PCP - General Internal Medicine 06/10/17
--- OUTSIDE RECORDS SUMMARY | 2025-04-12 14:19 | XMS_ITS | Data Portability ---
Author Organization [place] [facility], Main Office Address [address] [place] [address] Care Team Providers Care Rotary Planer Set Up Operator Name Role Phone ELINOR FRANCISCO Primary Care Provider ELINOR FRANCISCO Referring Provider Assessment Encounter Date Assessment Date Assessment LastModified by Organization Details LastModified Time 10/19/2023 10/19/2023 By new x-ray miguel angel khalil the patient is noted to have a healing mildly displaced fracture of the greater tuberosity right shoulder. Fracture line is fading nicely. At this point we will start active assisted range of motion in formal physical therapy I demonstrated this for her and her caregiver that was with her today. They will work on this daily do some very gentle range of motion she can start to be out of the immobilizer to help promote range of motion of her elbow try to get that stiffness out and help her get back into full extension easily. With help she was able to get there today. I will see her back in 1 month for her next recheck and new x-rays if it appears she has a good amount healing we will start some gentle strengthening. For now she is not to do anything in terms of lifting pushing or pulling with the arm active assisted range of motion only. She and her caregiver voiced understanding and agree with above plan will call for any further problems difficulties or questions. I have also encouraged the patient to start Citracal with vitamin D to assist with her healing and the fact that she has osteoporosis. Patient was unable to obtain a prescription for the high-dose vitamin D due to insurance issues and states she was unable to afford to pay for it on her own. Not available 10/19/2023 14:36:07 12/09/2023 12/09/2023 The patient has moderate to severe primary osteoarthritis left knee she would like to repeat round of gel shots therefore under sterile conditions I injected the patient's left knee joint in the office today with Orthovisc injection 1. I will see her back next week for the 2nd injection left knee. She got good relief from the last round of injections hopefully she will this time too, The patient also has a healed fracture of the greater tuberosity the right shoulder as previously described. It has been a little over 3 months since her injury. Everything looks good on x-ray today. She also has some glenohumeral osteoarthritis. Her comfort level and function are very good today she states it feels just a little tight at the extremes of motion and a little weak we are going to write advanced her therapy to strengthening. I do not think we need to do any further x-rays I will see her back next week for her 2nd and then 3rd gel shot after that she will work with the therapist for strengthening and getting those last few degrees of range of motion of the shoulder particularly overhead. She voiced understanding and agrees above plan she will call for any further problems difficulties or questions. Not available 12/09/2023 11:18:03 12/16/2023 12/16/2023 The patient has moderate to severe primary osteoarthritis of left knee joint. Under sterile conditions I injected the patient's left knee joint in the office with Orthovisc injection number 2. I will see her back next week for the 3rd injection left knee she voiced understanding agrees above plan she will call for any further problems difficulties or questions. Not available 12/16/2023 10:45:43 12/23/2023 12/23/2023 The patient has severe primary osteoarthritis left knee joint. Under sterile conditions I injected the patient's left knee joint in the office with Orthovisc injection number 3. I will see her back as needed we can do this again in 6 months if necessary versus cortisone in between she will let me know if she needs anything else she voiced understanding and agrees above plan she will call for any further problems difficulties or questions. Not available 12/23/2023 10:30:24 02/15/2025 02/15/2025 This note is dictated and transcribed by [employer]. Transfer Specialist variances may occur. Despite proofreading, typographical errors may occur. Occasional wrong-word or '[id number]' substitutions may have occurred due to the inherent limitations of voice recording. Read the chart carefully and recognize, using context, where substitutions have occurred. [email or web address] Not available 02/15/2025 11:08:54 Plan of Treatment Reminders Order Date Submit Date Provider Last Modified By Organization Details Last Modified Time Details Appointments None recorded. Lab None recorded. Referral physical therapist referral - continuati on..... work on rom and strengthen ing 2023 024 [email or web address] [facility] [address], [place], [address], 11:38:44 physical therapist referral - Please contact patient at ....Thank you 2023 024 [email or web address] [facility] [address], [place], [address], 15:40:34 Procedures knee aspiration /injection (PROC) 2023 024 [email or web address] In-Office Order, Internal Use Only DO Not Attach Compendium DO Not Attach Compendium, Do Not Delete/merge, [id number] 10:21:24 knee aspiration /injection (PROC) 2023 024 [email or web address] In-Office Order, Internal Use Only DO Not Attach Compendium DO Not Attach Compendium, Do Not Delete/merge, [id number] 10:30:38 knee aspiration /injection (PROC) 2023 024 [email or web address] In-Office Order, Internal Use Only DO Not Attach Compendium DO Not Attach Compendium, Do Not Delete/merge, [id number] 10:53:56 Surgeries None recorded. Imaging XR, foot, 3 or more view 2024 025 [email or web address] [facility] [place], [address], [place], [address], 5 11:10:05 XR, knee 2023 024 [email or web address] [facility] [place], [address], [place], [address], 4 12:00:24 XR, shoulder, 2 or more view 2023 024 [email or web address] [facility] [place], [address], [place], [address], 4 11:38:44 XR, shoulder, 2 or more view 2023 024 [email or web address] [facility] [place], [address], [place], [address], 4 14:59:37 Medication Orders ORTHOVISC 30 mg/2 mL intra-sherly cular syringe 2023 024 [email or web address] [id number], [address], [place], [place], [id number], 4 10:55:29 ORTHOVISC 30 mg/2 mL intra-sherly cular syringe 2023 024 [email or web address] [id number], [address], [place], [place], [id number], 4 12:00:24 ORTHOVISC 30 mg/2 mL intra-sherly cular syringe 2023 024 [email or web address] [id number], [address], [place], [place], [id number], 4 11:20:05 Patient TargetsNo targets recorded. Patient Instructions Encounter Date Encounter Id Patient Instructions Last Modified By Organization Details Last Modified Time 02/15/2025 [id number] plantar fasciitis: exercises Not available 02/15/2025 11:11:46 plantar fasciiti s education Not available 02/15/2025 11:11:46 Reason for Referral Physical Therapist Referral for Closed fracture of greater tuberosity of proximal right humerus Please contact patient at [phone] ....Thank you Please teach caregiver home program to do daily Referring Physician: Willie Dong, Orthopedic Surgery, Encounter Date: 10/19/2023 Physical Therapist Referral for Closed fracture of greater tuberosity of proximal right humerus continuation..... work on rom and strengthening Referring Physician: Willie Dong, Orthopedic Surgery, Encounter Date: 12/09/2023 Results Created Date Observation Date Name Description Value Unit Range Abnormal Flag Note LastModifiedBy Organization Detail LastModifiedTime 09/28/20 23 XR, shoul chacorta, 2 or more view No observ ation record ed. [email or web address] [facility] [place] [address], [place], [address], 09/28/2023 14:40:34 10/19/19 24 XR, shoul chacorta, 2 or more view No observ ation record ed. [email or web address] [facility] [place] [address], [place], [address], 10/19/2023 14:35:13 12/09/19 24 XR, shoul chacorta, 2 or more view No observ ation record ed. [email or web address] [facility] [place] [address], [place], [address], 12/09/2023 11:19:04 12/16/19 24 XR, knee No observ ation record ed. [email or web address] [facility] [place] [address], [place], [address], 12/16/2023 10:46:31 02/16/20 25 XR, foot, 3 or more view No observ ation record ed. [email or web address] [facility] [place] [address], [place], [address], 02/15/2025 11:10:05 Result Notes None recorded. Problems Name Problem SNOMED Code Status Onset Date Resolution Date Notes Provider Name and Address Organization Details Recorded Time Pain in lower limb 34296066 Active 2018 Marycarmen Hutchinson RHEUMATOLOGY SPECIALIST null, [place] [facility] 3 08:45:52 Impacted cerumen of bilateral ears 9860273839088 108 Active 2017 Marycarmen Evangelina, RHEUMATOLOGY SPECIALIST null, [place] [facility] 3 08:45:52 Chronic neck pain 7001931214106 Active 2018 Marycarmen Evangelina, RHEUMATOLOGY SPECIALIST null, [place] [facility] 3 08:45:52 Chronic vertigo 4613129002653 5 Active 2018 Marycarmen Evangelina, RHEUMATOLOGY SPECIALIST null, [place] [facility] 3 08:45:52 Chronic hepatitis C 149361509 Active 2017 Marycarmen Hutchinson RHEUMATOLOGY SPECIALIST null, [place] [facility] 3 08:45:52 Bipolar disorder 82568677 Active 2017 Marycarmen Evangelina, RHEUMATOLOGY SPECIALIST null, [place] [facility] 3 08:45:52 Insomnia 374643418 Active 2017 Marycarmen Evangelina, RHEUMATOLOGY SPECIALIST null, [place] [facility] 3 08:45:52 Chronic constipatio n 201942047 Active 2018 Marycarmen Evangelina, RHEUMATOLOGY SPECIALIST null, [place] [facility] 3 08:45:52 Osteoarthri tis of knee 951695615 Active 2022 Marycarmen Hutchinson RHEUMATOLOGY SPECIALIST null, [place] [facility] 3 08:45:52 Degeneratio n of lumbar interverteb ral disc 59503785 Active 2018 Marycarmen Evangelina, RHEUMATOLOGY SPECIALIST null, [place] [facility] 3 08:45:52 Chronic low back pain 208526037 Active 2018 Marycarmen Hutchinson RHEUMATOLOGY SPECIALIST null, [place] [facility] 3 08:45:52 Pain in left knee Active 2017 Marycarmen Hutchinson RHEUMATOLOGY SPECIALIST null, [place] [facility] 3 08:45:52 Osteoarthri tis of left knee joint 9324361129631 09 Active 2021 Marycarmen Hutchinson RHEUMATOLOGY SPECIALIST null, [place] [facility] 3 08:45:53 Vitamin D deficiency 96854429 Active 2017 Marycarmen Hutchinson RHEUMATOLOGY SPECIALIST null, [place] [facility] 3 08:45:53 Osteoarthri tis 219321227 Active 2021 Marycarmen Hutchinson RHEUMATOLOGY SPECIALIST null, [place] [facility] 3 08:45:53 Hypothyroid ism 12172188 Active 2017 Marycarmen Hutchinson RHEUMATOLOGY SPECIALIST null, [place] [facility] 3 08:45:53 Obesity 333847876 Active 2017 Marycarmen Hutchinson RHEUMATOLOGY SPECIALIST null, [place] [facility] 3 08:45:53 Pain of left knee joint 9421831238883 07 Active 2021 Marycarmen Hutchinson RHEUMATOLOGY SPECIALIST null, [place] [facility] 3 08:45:53 Hyperlipide katerina 63022546 Active 2017 Marycarmen Hutchinson RHEUMATOLOGY SPECIALIST null, [place] [facility] 3 08:45:53 Osteoporosi s 37639156 Active 2017 Marycarmen Hutchinson, RHEUMATOLOGY SPECIALIST null, [place] [facility] 3 08:45:53 Schizoaffec tive disorder 04185702 Active 2017 Marycarmen Hutchinson RHEUMATOLOGY SPECIALIST null, [place] [facility] 3 08:45:53 Degeneratio n of cervical interverteb ral disc 76693504 Active 2018 Marycarmen Hutchinson RHEUMATOLOGY SPECIALIST null, [place] [facility] 3 08:45:53 Hemorrhoids 09316094 Active 2018 Marycarmen Hutchinson, RHEUMATOLOGY SPECIALIST null, [place] [facility] 3 08:45:53 Liver enzymes level above reference range 804666140 Active 2017 Marycarmen Hutchinson, RHEUMATOLOGY SPECIALIST null, [place] [facility] 3 08:45:53 Smoker 83331729 Active 2017 Marycarmen Hutchinson, RHEUMATOLOGY SPECIALIST null, [place] [facility] 3 08:45:53 Dystrophia unguium 27206504 Active 2021 Marycarmen Hutchinson, RHEUMATOLOGY SPECIALIST null, [place] [facility] 3 08:45:53 Pain in limb 65642272 Active Marycarmen Hutchinson, RHEUMATOLOGY SPECIALIST null, [place] [facility] 3 08:45:53 Pain in right arm 601567632 Active 2022 Marycarmen Hutchinson RHEUMATOLOGY SPECIALIST null, [place] [facility] 3 08:45:52 Closed fracture of greater tuberosity of proximal left humerus 5203259188994 9100 Active 2022 Marycarmen Hutchinson, RHEUMATOLOGY SPECIALIST null, [place] [facility] 3 08:45:52 Closed fracture of greater tuberosity of proximal right humerus 0829842516002 9105 Active 2022 Marycarmen Hutchinson RHEUMATOLOGY SPECIALIST null, [place] [facility] 3 08:45:52 Pain in right foot 5776432676128 07 Active 2024 David Hernandez DPM [address], [facility] [address], [place], [address], [facility] 5 11:09:07 Plantar fasciitis of right foot 0784026514708 9101 Active 2024 David Hernandez DPM [address], [place], [address], [place] [facility] 5 11:10:21 Problem Notes None recorded. Procedures Surgical History Date Name Laterality Status Provider Name and Address Organization Details Recorded Time 5 Plantar Fascia Injection Right Foot completed David Hernandez DPM [address], [place], [address], [place] [facility] 02/15/2025 11:04:07 Imaging Results None recorded. Procedure Notes None recorded. Medical Equipment None Reported. Allergies Allergen ID Allergen Name Allergen Category Reaction Reaction Severity Criticality Documentation Date Start Date Code Code System Note Provider Name and Address Organization Details Recorded Time Product containin g penicilli n (product) medicatio n hives severe Not available 12/09/2022 56641 8001 SNOMED Not Available [facility] 3 09:01:05 49851 Mavyret medicatio n Not available Not available Not available 12/09/2022 23397 04 RxNorm BURNI NG HER SKIN ON HER FOLDS Not Available [facility] 3 09:01:05 80192 codeine medicatio n hives severe Not available 12/09/2022 2670 RxNorm Not Available [facility] 3 09:01:05 Medications Name Sig Start Date Stop Date Status Note LastModified by Organization Details LastModified Time fluoxetine 40 mg capsule TAKE 1 CAPSULE BY MOUTH EVERY DAY 01/28 completed Not Available Not Available Not Available cyclobenza matty 10 mg tablet TAKE 1 TABLET BY MOUTH TWICE DAILY NEEDED FOR MUSCLE SPASM active Not Available Not Available No t Available latanopros t 0.005 % eye drops INSTILL 1 DROP INTO RIGHT EYE EVERY NIGHT AT BEDTIME 01/28 completed Not Available Not Available Not Available bupropion HCl SR 150 mg tablet,12 hr sustained- release TAKE 1 TABLET BY MOUTH EVERY DAY IN THE MORNING 01/22 completed Not Available Not Available Not Available levothyrox ine 137 mcg tablet TAKE 1 TABLET BY MOUTH EVERY DAY IN THE MORNING FOR HYPOTHYR OIDISM active Not Available Not Available No t Available prednisone 10 mg tablet 01/28 completed Not Available Not Available Not Available nicotine 14 mg/24 hr daily transderma l patch APPLY 1 PATCH TOPICALL Y TO THE SKIN EVERY DAY 01/28 completed Not Available Not Available Not Available ammonium lactate 12 % lotion APPLY TOPICALL Y TO AREAS PRONE TO DRYNESS TWICE DAILY 01/22 completed Not Available Not Available Not Available citalopram 40 mg tablet TAKE 1 TABLET BY MOUTH EVERY MORNING 01/22 completed Not Available Not Available Not Available trazodone 50 mg tablet TK 1/ T PO BID PRN 07/26 completed Not Available Not Available Not Available cetirizine 10 mg tablet 07/21 completed Not Available Not Available Not Available ibuprofen 800 mg tablet 01/22 completed Not Available Not Available Not Available nystatin 100,000 unit/gram topical ointment APPLY TOPICALL Y TO THE AFFECTED AREA TWICE DAILY 01/28 completed Not Available Not Available Not Available tizanidine 4 mg tablet TAKE 1 TABLET BY MOUTH THREE TIMES DAILY NEEDED active Not Available Not Available No t Available fluconazol e 150 mg tablet TAKE 1 TABLET BY MOUTH ONCE FOR 1 DAY 01/28 completed Not Available Not Available Not Available hydrocodon e 5 mg-acetami nophen 325 mg tablet TAKE 1 TABLET BY MOUTH EVERY 12 HOURS NEEDED FOR PAIN active Not Available Not Available No t Available metronidaz ole 0.75 % (37.5 mg/5 gram) vaginal gel INSERT ONE APPLICAT ORFUL VAGINALL Y AT BEDTIME 01/22 completed Not Available Not Available Not Available alendronat e 70 mg tablet TAKE 1 TABLET BY MOUTH 1 TIME EVERY WEEK active Not Available Not Available No t Available sertraline 100 mg tablet TK 2 TS PO QD 02/22 completed Not Available Not Available Not Available Debrox 6.5 % ear drops INSTILL 4 DROPS INTO AFFECTED EAR(S) BY OTIC ROUTE 2 TIMES PER DAY 12/06 completed Not Available Not Available Not Available phentermin e 15 mg capsule Take 1 capsule every day by oral route before meals for 30 days. active [address] Not Available Not Available Not Available metronidaz ole 500 mg tablet TAKE 1 TABLET BY MOUTH TWICE DAILY FOR 7 DAYS 01/22 completed Not Available Not Available Not Available hydroxyzin e HCl 50 mg tablet TAKE 1 AND 1/2 TO 2 TABLETS BY MOUTH DAILY NEEDED FOR ANXIETY OR SLEEP active Not Available Not Available No t Available sulfametho xazole 800 mg-trimeth oprim 160 mg tablet TK 1 T PO Q 12 H FOR 10 DAYS 01/22 completed Not Available Not Available Not Available tramadol 50 mg tablet TAKE 1 TABLET BY MOUTH THREE TIMES DAILY NEEDED active Not Available Not Available No t Available phentermin e 30 mg capsule Take 1 capsule every day by oral route in the morning for 45 days. active Not Available Not Available No t Available bupropion HCl SR 100 mg tablet,12 hr sustained- release TAKE 1 TABLET BY MOUTH TWICE DAILY 01/28 completed Not Available Not Available Not Available ondansetro n 8 mg disintegra ting tablet TK 1 T PO Q 6-8 HOURS PRN N ALLOW T TO DISSOLVE ON TONGUE 02/22 completed Not Available Not Available Not Available ketorolac 0.5 % eye drops INSTILL 1 DROP IN LEFT EYE FOUR TIMES DAILY 01/28 completed Not Available Not Available Not Available prednisone 10 mg tablets in a dose pack Take 1 tab by mouth, 3 times a day for 3 daysTake 1 tab by mouth 2 times a day for 2 daysTake 1 tab by mouth once a day for 1 day 01/28 completed Not Available Not Available Not Available cefadroxil 500 mg capsule TAKE 2 CAPSULES BY MOUTH TWICE DAILY FOR 10 DAYS active Not Available Not Available No t Available oxycodone- acetaminop hen 5 mg-325 mg tablet TAKE 1 TABLET BY MOUTH EVERY 6 HOURS NEEDED FOR PAIN 01/22 completed Not Available Not Available Not Available hydrocorti sone 2.5 % topical cream with perineal applicator APPLY RECTALLY TO THE AFFECTED AREA DAILY NEEDED FOR HEMORRHO IDS 01/22 completed Not Available Not Available Not Available propranolo l 10 mg tablet TAKE 1 TABLET BY MOUTH DAILY active Not Available Not Available No t Available citalopram 20 mg tablet TK 1 T PO QAM 01/22 completed Not Available Not Available Not Available pravastati n 10 mg tablet 1 tab po once daily 08/04 completed Not Available Not Available Not Available trazodone 100 mg tablet TAKE 1 TABLET BY MOUTH EVERY NIGHT AT BEDTIME active Not Available Not Available No t Available Kenalog 10 mg/mL suspension for injection In office injectio n administ ered by the provider 01/[address] [facility]: [phone] Not Available Not Available Not Available meclizine 25 mg tablet Take 1 tablet every 8 hours by oral route as needed for 10 days. active Not Available Not Available No t Available doxycyclin e monohydrat e 100 mg capsule TAKE 1 CAPSULE BY MOUTH TWICE DAILY 01/22 completed Not Available Not Available Not Available cephalexin 500 mg capsule 07/21 completed Not Available Not Available Not Available erythromyc in 5 mg/gram (0.5 %) eye ointment 01/22 completed Not Available Not Available Not Available trazodone 150 mg tablet 07/26 completed Not Available Not Available Not Available levothyrox ine 125 mcg tablet TAKE 1 TABLET BY MOUTH EVERY DAY 01/28 completed Not Available Not Available Not Available neomycin-p olymyxin-d exameth 3.5 mg/mL-10,0 00 unit/mL-0. 1% eye drops INSTILL 1 DROP IN LEFT EYE QID UTD 02/22 completed Not Available Not Available Not Available triamcinol one acetonide 0.1 % topical ointment APPLY THIN LAYER TOPICALL Y TO THE AFFECTED AREA TWICE DAILY 01/28 completed Not Available Not Available Not Available levothyrox ine 150 mcg tablet TAKE 1 TABLET BY MOUTH EVERY DAY active Not Available Not Available No t Available bupropion HCl 75 mg tablet 07/25 completed Not Available Not Available Not Available nicotine 21 mg/24 hr daily transderma l patch APPLY 1 PATCH QD UTD 01/22 completed Not Available Not Available Not Available docusate sodium 100 mg capsule Take 1 capsule twice a day by oral route as directed for 30 days. 07/26 completed Not Available Not Available Not Available gabapentin 300 mg capsule TK ONE C PO TID UTD 01/22 completed Not Available Not Available Not Available Banophen 25 mg capsule TK ONE C PO HS PRN 06/13 completed Not Available Not Available Not Available diclofenac sodium 75 mg tablet,del ayed release TK 1 T PO Q 12 H WF PRN 01/22 completed Not Available Not Available Not Available lidocaine HCl 3 % topical cream APPLY TOPICALL Y TO THE AFFECTED AREA ON SKIN THREE TIMES DAILY NEEDED FOR PAIN 01/28 completed Not Available Not Available Not Available hydrocorti sone 2.5 % topical cream 07/21 completed Not Available Not Available Not Available montelukas t 10 mg tablet 07/26 completed Not Available Not Available Not Available hydroxyzin e HCl 25 mg tablet 01/28 completed Not Available Not Available Not Available pravastati n 20 mg tablet TAKE 1 TABLET BY MOUTH EVERY DAY active Not Available Not Available No t Available mupirocin 2 % topical ointment 01/22 completed Not Available Not Available Not Available gabapentin 100 mg capsule Take 2 capsules 3 times a day by oral route as directed for 30 days. 01/22 completed Not Available Not Available Not Available ergocalcif rashad (vitamin D2) 1,250 mcg (50,000 unit) capsule TAKE 1 CAPSULE BY MOUTH EVERY WEDNESDAY active Not Available Not Available No t Available ibuprofen 600 mg tablet TAKE 1 TABLET BY MOUTH THREE TIMES DAILY WITH MEALS NEEDED active Not Available Not Available No t Available polyethyle ne glycol 3350 17 gram/dose oral powder 07/21 completed Not Available Not Available Not Available methylpred nisolone 4 mg tablets in a dose pack FOLLOW PACKAGE DIRECTIO NS 01/22 completed Not Available Not Available Not Available timolol maleate 0.5 % eye drops INSTILL 1 DROP IN BOTH EYES TWICE DAILY 01/14 completed Not Available Not Available Not Available propranolo l 20 mg tablet TAKE 1 TABLET BY MOUTH EVERY DAY 01/28 completed Not Available Not Available Not Available timolol maleate 0.5 % eye gel forming solution INSTILL 1 DROP INTO BOTH EYES ONCE DAILY 01/22 completed Not Available Not Available Not Available hydrocorti sone 2.5 % topical ointment DYLAN TO GROIN/AR MPITS UP TO ONCE TO BID PRN 07/26 completed Not Available Not Available Not Available betamethas one dipropiona te 0.05 % topical ointment 07/26 completed Not Available Not Available Not Available fluoxetine 20 mg capsule TAKE 1 CAPSULE BY MOUTH EVERY DAY FOR 14 DAYS 01/28 completed Not Available Not Available Not Available fluticason e propionate 50 mcg/actuat ion nasal spray,susp ension 07/26 completed Not Available Not Available Not Available doxycyclin e hyclate 100 mg tablet TAKE 1 TABLET BY MOUTH TWICE DAILY FOR 10 DAYS active Not Available Not Available No t Available levothyrox ine 112 mcg tablet TAKE 1 TABLET BY MOUTH EVERY DAY 01/28 completed Not Available Not Available Not Available hydroxyzin e pamoate 25 mg capsule TK 1 C PO TID PRN 01/22 completed Not Available Not Available Not Available bupropion HCl SR 200 mg tablet,12 hr sustained- release 01/22 completed Not Available Not Available Not Available aripiprazo le 10 mg tablet TAKE 1 TABLET BY MOUTH EVERY DAY active Not Available Not Available No t Available nicotine (polacrile x) 4 mg buccal lozenge USE 1 LOZENGE Q 2 H UTD 07/21 completed Not Available Not Available Not Available aripiprazo le 5 mg tablet TAKE 1 TABLET BY MOUTH EVERY DAY active Not Available Not Available No t Available bupropion HCl XL 300 mg 24 hr tablet, extended release TAKE 1 TABLET BY MOUTH DAILY IN THE MORNING active Not Available Not Available No t Available bupropion HCl XL 150 mg 24 hr tablet, extended release TAKE 1 TABLET BY MOUTH DAILY IN THE MORNING active Not Available Not Available No t Available ORTHOVISC 30 mg/2 mL intra-sherly cular syringe Inject 2 mL every week by intra-ar ticular route. 2023 active Not Available Not Available Not Avai lable nitrofuran toin monohydrat e/macrocry stals 100 mg capsule TAKE 1 CAPSULE BY MOUTH EVERY 12 HOURS FOR 5 DAYS 01/28 completed Not Available Not Available Not Available lidocaine (PF) 10 mg/mL (1 %) injection solution In office injectio n administ ered by the provider 01/[address] [facility]: [id number] Not Available Not Available Not Available aripiprazo le 2 mg tablet TAKE 1 TABLET BY MOUTH DAILY active Not Available Not Available No t Available Calcium 600 + D(3) 600 mg-10 mcg (400 unit) tablet Take 1 tablet twice a day by oral route for 30 days. 07/25 completed Not Available Not Available Not Available Minerin Creme topical DYLAN TO SKIN UP TO QID 01/22 completed Not Available Not Available Not Available Viibryd 10 mg tablet TAKE 1 TABLET BY MOUTH EVERY DAY WITH FOOD FOR 8 DAYS 01/28 completed Not Available Not Available Not Available Viibryd 20 mg tablet TAKE 1 TABLET BY MOUTH EVERY DAY WITH FOOD active Not Available Not Available No t Available ropivacain e (PF) 5 mg/mL (0.5 %) injection solution In office injectio n administ ered by the provider 01/[address] [facility] [id number] Not Available Not Available Not Available Banophen 50 mg capsule TK 1 C PO D 30 MINUTES PRIOR TO HEPATITI S-C MEDICATI ON 06/13 completed Not Available Not Available Not Available Rexulti 1 mg tablet TAKE 1 TABLET BY MOUTH EVERY DAY 01/22 completed Not Available Not Available Not Available Rexulti 2 mg tablet 01/28 completed Not Available Not Available Not Available Austedo 12 mg tablet active Not Available Not Available No t Available Austedo 6 mg tablet 01/28 completed Not Available Not Available Not Available Ingrezza 40 mg capsule TAKE 1 CAPSULE BY MOUTH AT NIGHT 01/28 completed Not Available Not Available Not Available ergocalcif rashad (vit D2) (bulk) 01/28 completed Not Available Not Available Not Available Mavyret 100 mg-40 mg tablet 12/06 completed Not Available Not Available Not Available Ingrezza 80 mg capsule 01/28 completed Not Available Not Available Not Available Ingrezza 60 mg capsule 01/28 completed Not Available Not Available Not Available Vitals Date Recorded Body height Body mass index (BMI) Body weight Provider Name and Address Organization Details Last Updated DateTime 10/19/2023 160.02 cm 31.9 kg/m2 06140.63 g Marycarmen Evangelina, RHEUMATOLOGY SPECIALIST [employer] 10/19/2023 14:03:44 Date Recorded Body height Body mass index (BMI) Body weight Provider Name and Address Organization Details Last Updated DateTime 12/09/2023 154.94 cm 33.1 kg/m2 42890.66 g Marycarmen Evangelina, [employer] 12/09/2023 10:24:59 Date Recorded Body height Body mass index (BMI) Body weight Provider Name and Address Organization Details Last Updated DateTime 12/16/2023 154.94 cm 34 kg/m2 68300.63 g Marycarmen Evangelina, [employer] 12/16/2023 10:28:19 Date Recorded Body height Body mass index (BMI) Body weight Provider Name and Address Organization Details Last Updated DateTime 12/23/2023 157.48 cm 32.9 kg/m2 48294.63 g MarycarmenCarvoyantwest RHEUMATOLOGY SPECIALIST [employer] 12/23/2023 10:18:20 Date Recorded Body height Body mass index (BMI) Body weight Heart rate Respiratory rate Oxygen saturation Oxygen saturation in Arterial blood by Pulse oximetry Systolic And Diastolic Provider Name and Address Organization Details Last Updated DateTime 157.48 cm 32.9 kg/m2 50814.6 3 g 65 /min 14 /min 97 % 97 % 140/91 mm[Hg] Rosa Elena Farrar [employer] 5 10:37:56 Social History Question Answer Notes LastModified by Organizat ion Details LastModified Time Tobacco Smoking Status Current Every Day Smoker Not Available [employer] 12/09/2022 08:53:46 How Much Tobacco Do You Smoke? 1 PPD [id number] Information not available 12/09/2022 Sex: Unknown Functional Status Question Answer Note LastModified by Organization D etails LastModified Time What is your level of alcohol consumption? None [email or web address] Information not available 01/28/2023 Mental Status None recorded. Family History Nothing Reported. Medical History Condition Response SKIN PROBLEMS Y ARTHRITIS Y GOUT Y HEPATITIS / LIVER DISEASE Y Gynecological HistoryNo gynecological history recorded. Obstetrics History GPAL:G 0 P 0 0 0 0 Immunizations Vaccine Type Date Status Note Provider Nam e and Address Organization Details Recorded Time influenza, unspecified formulation 07/12/2018 [facility] [employer] 09/27/2023 08:45:53 Past Encounters Encounter ID Performer Location Encounter Start Date Encounter Closed Date Diagnosis/Indication Diagnosis SNOMED-CT Code Diagnosis ICD10 Code Diagnosis Note [id number] Adis Cisneros MD [facility] [address] [place] [address] 01/22/2022 00:00:00 01/22/2022 13:49:48 [id number] MD [facility]MA [facility] [place] [address] [place] [address] 02/05/2022 00:00:00 02/05/2022 10:43:04 [id number] MD ALMA [facility] [place] [address] [place] [address] 02/12/2022 00:00:00 02/12/2022 10:14:04 [id number] Adis Cisneros MD [facility] [place] [address] [place] [address] 02/19/2022 00:00:00 02/19/2022 12:23:45 [id number] [facility] [place] [address] [place] [address] 02/26/2022 00:00:00 02/26/2022 13:45:12 [id number] Adis Cisneros MD [facility] [place] [address] [place] [address] 10/01/2022 00:00:00 10/01/2022 12:56:22 [id number] Adis Cisneros MD [facility] [place] [address] [place] [address] 11/09/2022 00:00:00 11/09/2022 10:51:17 [id number] Adis Cisneros MD [facility] [place] [address] [place] [address] 01/14/2023 09:34:10 01/14/2023 10:22:17 Pain in left knee 1646192361 13962 M25.562 Osteoarthr itis of left knee joint 2661861514 53995 M17.12 [id number] Adis Cisneros MD [facility] [place] [address] [place] [address] 01/21/2023 09:29:05 01/21/2023 10:35:36 Pain in left knee 3556118806 22807 M25.562 Osteoarthr itis of left knee joint 8893117490 18060 M17.12 [id number] Adis Cisneros MD [facility] [place] [address] [place] [address] 01/28/2023 09:41:54 01/28/2023 10:26:45 Pain in left knee 0859328180 90253 M25.562 Osteoarthr itis of left knee joint 1555936578 29366 M17.12 [id number] DYAN Zepeda [facility] [place] [address] [place] [address] 09/21/2023 14:49:26 09/21/2023 15:29:13 Pain in right arm 468953283 M79.601 Closed fra cture of greater tuberosity of proximal right humerus 0215928951 6327076 S42.254A [id number] DYAN Zepeda [facility] [place] [address] [place] [address] 09/28/2023 14:08:59 09/28/2023 14:33:42 Pain in right arm 461460900 M79.601 Closed fra cture of greater tuberosity of proximal right humerus 3021527569 4926268 S42.254D [id number] Flex Rich MD [facility] [place] [address] [place] [address] 10/19/2023 13:57:40 10/19/2023 14:30:15 Pain in right arm 208534144 M79.601 Closed fra cture of greater tuberosity of proximal right humerus 3573314508 0284106 S42.254D [id number] Flex Rich MD [facility] [place] [address] [place] [address] 12/09/2023 10:22:24 12/09/2023 11:38:44 Closed fracture of greater tuberosity of proximal right humerus 9781864087 7044750 S42.254D Pain in right arm 139275 004 M79.601 Pain in left knee 837873 8440 95149 M25.562 Osteoarthr itis of left knee joint 1768729864 35780 M17.12 [id number] Tigre Dow MD [facility] [place] [address] [place] [address] 12/16/2023 10:26:17 12/16/2023 11:11:51 Osteoarthritis of left knee joint 7582485941 68155 M17.12 Pain of le ft knee joint 1729475191 53220 M25.499 [id number] Tigre Dow MD [facility] [place] [address] [place] [address] 12/23/2023 10:15:53 12/23/2023 10:40:34 Pain of left knee joint 3812420730 55278 M25.562 Osteoarthr itis of left knee joint 9283999552 26002 M17.12 [id number] David Hernandez DPM [facility] [place] [address] [place] [address] 02/15/2025 10:28:47 02/16/2025 13:32:05 Pain in right foot 7540636413 39114 M79.671 rice therapyice technique reviewedfo llow-up 5 weeks Plantar fa sciitis of right foot 3496937703 8137714 M72.2 As above new line recommend supportive shoe gearStretc ambika exercises dispensedF ollow-up 5 weeks possible physical therapypat ient states she likely will not stretch Health Concerns Section Related Observation LastModified by Organization Detai ls LastModified Time None Recorded Concern Status LastModified by Organization Details LastModified Time None Recorded Advance Directives Directive None Recorded Payers Insurance Date Sequence Insurance Name Policy Number Policy Curran Covered Member ID Curran Member ID Guarantor Name 03/19/2025 1 [place] Elin Stevenson [id number] Elin Stevenson 03/21/2025 2 [place] WHEN MEDICARE OR MEDICARE REPLACEMENT PRIMARY) Elin Stevenson [id number] Elin Stevenson 03/21/2025 [facility] ON OR AFTER 04/10/21 (MEDICAID REPLACEMENT - HMO) Elin Stevenson [id number] Elin Stevenson 02/15/2025 3 [facility] ON OR AFTER 04/10/21 (MEDICAID REPLACEMENT - HMO) Elin Stevenson [id number] Elin Stevenson Notes Date Note Type Note Provider Name and Address Organization Details Recorded Time 10/19/2023 text/html Patient returns for recheck of her right shoulder. She had fallen she is now about 4 and half weeks status post injury. She had a minimally displaced fracture of the greater tuberosity the right humeral head she has been in a shoulder immobilizer recently she has been instructed to work on Codman exercises. She does have a history of osteoporosis she takes alendronate 70 mg weekly I tried to get her on vitamin-D 08610 IU weekly but this was declined by insurance I recommended she take Citracal with vitamin-D zykh-agz-[id number] she also states that she has not picked this up her started taking this. Despite all this her x-rays show some healing today she states the pain has subsided significantly. She had a lot of ecchymosis and swelling in the right upper arm and biceps region this is still a bit tender and sore but is resolving with time. Today's x-rays show early healing without further displacement she seems to be comfortable I think at this point we can start to get her out of the shoulder mobilizer and start with some gentle physical therapy. She denies any neurovascular deficits. DYAN Zepeda [address] [facility], [facility] [address], [place], [address], [place] [facility] [employer] 10/19/2023 14:36:27 12/09/2023 text/html Patient returns for recheck of her right shoulder. She had a mildly displaced fracture through the greater tuberosity which was longitudinal in nature. And oblique vertical type fracture through the greater tuberosity extending just below the anatomic neck with a minimal step-off at the distal portion of the fragment. She has been going through a course of therapy for gentle range of motion I was supposed to see her a month ago however she missed that appointment it has now been 2 more months so she is just about the 3 month shreyas status post slip and fall with a fracture. She has low vitamin D and has been treated for osteoporosis I tried to get her on a vitamin-D supplement however insurance declined this she has been instructed to take vitamin-D with calcium ryvy-hwm-diuttiq. We were worried about this going on to delayed or nonunion however her x-rays look good today. She states her shoulder is a little stiff but the pain is all gone now. If she tries to get to the extremes of motion particularly overhead motion this is when it bothers her the most but otherwise she has regained good strength and function really doesnt have any significant complaints. She comes in today for new x-rays and recheck.She is also complaining of left knee pain she has known significant primary osteoarthritis in left knee this is bothering her again. It has been a year since her last Gel shot series she would like to start a new series today. We can do Orthovisc injection 1. Today. Denies any new problems with her left knee. DYAN Zepeda [address] [employer], [address], [place], [address], [employer] 12/09/2023 11:19:35 12/16/2023 text/html Patient returns for Orthovisc injection number 2 left knee. The patient has moderately severe primary osteoarthritis in the left knee, there is only a sliver of joint space remaining in the medial compartment patellofemoral articulation shows moderate narrowing. she has aching pain and is going through a course of Orthovisc injections. She states she is already noticing some moderate relief from the 1st round. DYAN Zepeda [address], [address], [place], [address], [employer] 12/16/2023 10:46:55 12/23/2023 text/html patient returns for Orthovisc injection number 3 left knee. She has yuph-nf-cqrb changes in the medial compartment of the left knee and significant narrowing in the patellofemoral articulation. She has had chronic pain due to her severe primary osteoarthritis. She states she is getting some pretty good relief from the 1st 2 rounds of injections. Denies any problems today walking more comfortably. DYAN Zepeda [address], [place], [address], [employer] 12/23/2023 10:30:40 02/15/2025 text/html . Patient is a 64-year-old female she presents the office with complaints of pain to the plantar heel she states that when she is standing or walking she has pain she states it worsens as she is on her feet longer. Patient states when she is off her feet it does feel better. Patient denies any other complaints she denies any injury. David Hernandez DPM [address], [place], [address], [employer] [facility] 02/15/2025 11:12:09 OBGyn Episode No OBEpisode recorded.
--- OUTSIDE RECORDS SUMMARY | 2025-04-12 14:19 | XMS_ITS ---
Author Organization [facility] Address [address] [place] [address] Care Team Providers Care Earth Auger Operator Name Role Phone Shae Philip Primary Care Provider REASON FOR VISIT 4 week F/U Social History Sex Assigned At : Social History Observation Description Sex Assigned At Female Encounters Encounter Location Date Provider Diagnosis [facility] [address] [place] [address] 02/20/2025 Shae Philip Plan Of Treatment Next Appt Details Provider Name:Shae fuentes, 04/17/2025 01:00:00 PM, [address], [place], [address], Progress Notes * Elin GÓMEZDOB:1960 ([age] yo F)Acc No.[id number]:02/20/2025 UNLOCKED PROGRESS NOTE Patient: Dilma REYES Elin Provider: Juan Philip, MSN, DYE AND CHEMICAL COORDINATOR, BARGAIN TABLE CLERK-C :1960 A ge:64 Y S ex:Female Date:02/20/2025 Phone: Address:[address], [facility] [address], [place] Subjective: * Chief Complaints: * 1 . 4 week F/U. * Medical History: Objective: * Vitals: Assessment: Plan: * Treatment: * * Electronic signature of Soraida Philip , [id number] on 04/12/2025 at 02:18 PM CDT Sign off status: Pending * Provider: Juan Philip, KATERINE, DYE AND CHEMICAL COORDINATOR, BARGAIN TABLE CLERK-C Date: 0 02/20/2025 Generated for Lorenzo white/Brenda/Tasneem on: 0 04/12/2025 02:18 PM CDT
--- NOTE | 2025-04-12 15:47 | PC.NURSE ---
Pt and pts daughter ambulate to intake desk and stated they were leaving and would come back later. This RN notified them that if they left they would be removed from the list and would have to start the process over. Pts daughter verbalized understanding. Pt and her daughter then ambulated out of ER waiting room with steady gaits.
--- OUTSIDE RECORDS SUMMARY | 2025-04-12 16:12 | XMS_ITS | Referral Summary ---
Author Organization [facility] Address [address] [place] [address] Care Team Providers Care Sales Consulting Director Name Role Phone Shae Philip NP Primary Care Provider [phone] Encounters Date Type Department Care Team Description 04/11/2025 10:00 AM CDT Office Visit [facility] [address] [facility] [address] [place] [address] Parveen Bertrand MD Tardive dyskinesia [...] 1 tablet (137 mcg total) by mouth roller leveler before breakfast Active traMADoL (ULTRAM) 50 mg [...] on file 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
--- OUTSIDE RECORDS SUMMARY | 2025-04-12 16:12 | XMS_ITS | Clinical Summary ---
Author Organization [facility] Address [address], [facility] [address] [place] [address] Phone Care Team Providers Care Clothing Supervisor Name Role Phone Braulio Mccabe MD Primary Care Provider [phone] Allergies Active Allergy Reactions Criticality Noted Date Comments Codeine Hives 12/24/2017 Penicillins Hives 12/24/2017 Medications latanoprost (XALATAN) 0.005 % Solution Place 2 Drops in affected eye(s) nightly. Each eye. 8 Active sertraline (ZOLOFT) 100 MG Tablet Take 100 mg by mouth daily. 8 Active levothyroxine (SYNTHROID) 112 MCG Tablet Take 112 mcg by mouth daily. 8 Active ergocalciferol (VITAMIN D) 46877 UNIT Capsule TK 1 C PO Q [...] Insurance MEDICAID [facility] [employer] Care Teams Clothing Supervisor Relationship Specialty Start Date End Date Braulio Mccabe MD [address] [place] [address] PCP - General Internal Medicine 06/10/17
--- OUTSIDE RECORDS SUMMARY | 2025-04-12 16:12 | XMS_ITS | Clinical Summary ---
Author Organization [facility] Address [address] [place] [address] Care Team Providers Care Ruling Technician Name Role Phone Shae Philip NP Primary Care Provider [phone] Allergies Active Allergy Reactions Criticality Noted Date Comments Codeine Hives,Urticaria Medium 12/24/2017 Penicillins Medications alendronate (FOSAMAX) 70 mg tablet Take 1 tablet (70 mg total) by mouth every 7 days Active pravastatin (PRAVACHOL) 20 mg tablet Take 1 tablet (20 mg total) by mouth daily Active levothyroxine (SYNTHROID) 137 mcg tablet Take 1 tablet (137 mcg total) by mouth cotton chopper before breakfast Active traMADoL (ULTRAM) 50 mg [...] Description 04/11/2025 10:00 AM CDT Office Visit [facility] [address] [facility] [address] [place] [address] Parveen Bertrand MD Tardive dyskinesia [...] on file 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
--- OUTSIDE RECORDS SUMMARY | 2025-04-12 16:12 | XMS_ITS | Encounter Summary ---
Author Organization [facility] Address [address] [place] [address] Care Team Providers Care Pan Greaser Name Role Phone Shae Philip NP Primary Care Provider [phone] Reason for Visit * Consultation (Routine) - Closed Specialty Diagnoses / Procedures Referred By Melita wen Referred To Contact Neurology Diagnoses Tardive dyskinesia Shae Philip, ESVIN [address] [place] [address] Phone: tel: fax: Parveen Bertrand MD [address] [place] [address] [address] [facility] [place] [address] Phone: tel: fax: Referral ID Status Reason Start Date Expiration Date V isits Requested Visits Authorized [id number] Closed Specialty Services Required 10/20/2024 11/19/2025 1 1 Encounter Details Date Type Department Care Team (Late st Contact Info) Description 04/11/2025 10:00 AM CDT [facility] [address] [facility] [address] [place] [address] Parveen Bertrand MD [address] [place] [address] [address] [place] [address] Tardive dyskinesia Social History Tobacco Use Types Packs/Day Years Used Date Smoking Tobacco: Never Smokeless Tobacco: Never Comments Unknown Sex and Gender Information Value Date Recorded Sex Assigned at Not on file 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
== END 2025-04-12 16:15 | disposition left against medical advice (07) ==
PROVIDERS: PCP Internal Medicine Gastroenterology
DX: Z53.21 Procedure and treatment not carried out due to patient leaving prior to being seen by health care provider (principal)
CPT/HCPCS: 99199

== ENCOUNTER 2025-04-12 16:37 | Emergency (ER) | payer MEDICARE, MEDICAID, SELFPAY ==
--- NOTE | ~2025-04-12 | CT_ITS ---
CT abdomen pelvis wo con Ordering provider: Parvene Matthews MD History: 64 years Female with . flank pain dysuria . Comparison: January 25, 2025 Technique: CT abdomen and pelvis without IV and without oral contrast. Automated exposure control and iterative reconstruction technique were employed. The dose-length product was 168.55 mGy-cm. Findings: VISUALIZED LOWER CHEST: Normal. Bilateral implants calcifications. 3 mm nodule is seen in the left lower lobe. 12 months follow-up CT is advised. UPPER ABDOMINAL ORGANS: Liver: Normal. Gallbladder: Normal. Spleen: Normal. Benign calcifications. Stomach/duodenum: Small sliding hiatus hernia. Pancreas: Normal. Adrenals: Small left adrenal adenoma measuring 1.1 cm. No follow-up advised unless clinically warrant ed. Kidneys: Cyst in the left kidney measuring 1.9 CNM. PELVIC ORGANS: The bladder is underfilled. BOWEL AND MESENTERY: Colon: No evidence of diverticulitis.. Normal appendix. Small Bowel: Normal. No obstruction. Peritoneum/mesentery: No free air or free fluid. No mesenteric lymphadenopathy. RETROPERITONEUM: Mild atheromatous disease of the abdominal aorta. No retroperitoneal lymphadenopat hy. MUSCULOSKELETAL: Superficial soft tissues: Fat containing small umbilical hernia. Otherwise, The superficial soft tiss ues are normal. Bones: Age appropriate degenerative changes of the spine. IMPRESSION: 1. No evidence of appendicitis, diverticulitis or intestinal obstruction. 2. No definite kidney stones. 3. Small sliding hiatus hernia. 4. Small left kidney cyst. Reviewed, dictated and finalized at location A.
[2025-04-12 16:37] VITALS: BP 158/87; PULSE 78; RESP 18; TEMP 36.3; O2SAT 95
--- OUTSIDE RECORDS SUMMARY | 2025-04-12 16:38 | XMS_ITS | Referral Summary ---
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
--- OUTSIDE RECORDS SUMMARY | 2025-04-12 16:38 | XMS_ITS | Clinical Summary ---
Author Organization [facility] Medical Office Building [address] Address [address] [place] [address] Care Team Providers Care Employee Operations Examiner Name Role Phone Shae Philip NP Primary Care Provider [phone] Allergies Active Allergy Reactions Criticality Noted Date Comments Codeine Hives,Urticaria Medium 12/24/2017 Penicillins Medications alendronate (FOSAMAX) 70 mg tablet Take 1 tablet (70 mg total) by mouth every 7 days Active pravastatin (PRAVACHOL) 20 mg tablet Take 1 tablet (20 mg total) by mouth daily Active levothyroxine (SYNTHROID) 137 mcg tablet Take 1 tablet (137 mcg total) by mouth plant safety engineer before breakfast Active traMADoL (ULTRAM) 50 mg [...] Description 04/11/2025 10:00 AM CDT Office Visit [facility] [place] [address] [facility] [address] [place] [address] Parveen Bertrand MD Tardive dyskinesia [...] on file Legal Sex Female 11:12 AM RETAIL AND PROMOTIONS COORDINATOR Gender Identity Not on file Sexual Orientation [...] Completed 02/13/2015 Insurance IDPA MEDICARE Care Teams Employee Operations Examiner Relationship Specialty Start Date End Date Shae Philip NP [address] [place] [address] PCP - General Family Medicine 10/20/24
--- OUTSIDE RECORDS SUMMARY | 2025-04-12 16:38 | XMS_ITS | Encounter Summary ---
Author Organization [facility] Healthcare Address [address] [place] [address] Care Team Providers Care Public Finance Specialist Name Role Phone Shae Philip NP Primary Care Provider [phone] Reason for Visit * Consultation (Routine) - Closed Specialty Diagnoses / Procedures Referred By Melita wen Referred To Contact Neurology Diagnoses Tardive dyskinesia Shae Philip, ESVIN [address] [place] [address] Phone: tel: fax: Parveen Bertrand MD [address] [place] [address] [address] [facility] [place] [address] Phone: tel: fax: Referral ID Status Reason Start Date Expiration Date V isits Requested Visits Authorized [id number] Closed Specialty Services Required 10/20/2024 11/19/2025 1 1 Encounter Details Date Type Department Care Team (Late st Contact Info) Description 04/11/2025 10:00 AM CDT Office Visit [facility] [address] [facility] [address] [place] [address] Parveen Bertrand MD [address] [place] [address] [address] [place] [address] Tardive dyskinesia Social History Tobacco Use Types Packs/Day Years Used Date Smoking Tobacco: Never Smokeless Tobacco: Never Comments Unknown Sex and Gender Information Value Date Recorded Sex Assigned at Not on file 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
--- OUTSIDE RECORDS SUMMARY | 2025-04-12 16:39 | XMS_ITS | Clinical Summary ---
Author Organization [facility] Address [address], [facility] [address] [place] [address] Phone Care Team Providers Care Cutting And Boning Supervisor Name Role Phone Braulio Mccabe MD Primary Care Provider [phone] Allergies Active Allergy Reactions Criticality Noted Date Comments Codeine Hives 12/24/2017 Penicillins Hives 12/24/2017 Medications latanoprost (XALATAN) 0.005 % Solution Place 2 Drops in affected eye(s) nightly. Each eye. 8 Active sertraline (ZOLOFT) 100 MG Tablet Take 100 mg by mouth daily. 8 Active levothyroxine (SYNTHROID) 112 MCG Tablet Take 112 mcg by mouth daily. 8 Active ergocalciferol (VITAMIN D) 95947 UNIT Capsule TK 1 C PO Q [...] Insurance MEDICAID [employer] Care Teams Cutting And Boning Supervisor Relationship Specialty Start Date End Date Braulio Mccabe MD [address] [place] [address] PCP - General Internal Medicine 06/10/17
[2025-04-12 16:57] LABS: Add Urine Microscopic? YES; Appearance Urine Clear (Clear); Glucose Urine UA Negative (Negative); Leukocyte Esterase Ur Negative LEU/UL (Negative); Nitrate Urine Negative (Negative); Specific Grav Ur <= 1.005 (1.010-1.020)
[2025-04-12 17:02] LABS: Hematocrit 41.8 % (35.0-42.0); Hemoglobin 14.4 g/dL (11.7-13.8); Immature Granulocyte Percent A 0.3 % (0.0-0.0); Lymphocytes Absolute Auto 2.79 K/mm3 (1.10-4.50); Mean Corpuscular HGB Conc 34.4 g/dL (32-36); Mean Corpuscular Hemoglobin 33.2 pg (27.0-31.0); Mean Corpuscular Volume 96.3 fL (78.0-102.0); Nucleated Red Blood Cells Absolute Auto 0.00 K/mm3 (0.00-0.00); Nucleated Red Blood Cells Perc 0.0 % (0-0.0); Platelet Count Result 328 K/mm3 (150-420); Red Blood Count 4.34 M/mm3 (4.20-5.40); White Blood Count 6.8 K/mm3 (4.8-10.8)
[2025-04-12] MEDS: SODIUM CHLORIDE 0.9% IV 1,000 ML 999 ML IV CONT (17:03)
[2025-04-12 17:13] LABS: Alanine Aminotransferase 27 U/L (6-35); Albumin Level 4.5 g/dL (3.5-5.1); Alkaline Phosphatase 50 U/L (38-126); Anion Gap 5 mmol/L (4-12); Aspartate Amino Transferase 32 U/L (14-36); Bilirubin,Total 0.8 mg/dL (0.2-1.3); Blood Urea Nitrogen 19 mg/dL (7-17); Calcium 9.1 mg/dL (8.4-10.2); Carbon Dioxide 29 mmol/L (22-30); Chloride 106 mmol/L (98-107); Estimated CRCL calculation 45 ml/min; Estimated Glomerular Filt Rate 56; Glucose 103 mg/dL (65-110); Osmolality Calculated 292 mOsm/kg (285-295); Potassium 4.2 mmol/L (3.4-5.0); Sodium 140 mmol/L (137-145); Total Protein 7.5 g/dL (6.3-8.2)
--- NOTE | 2025-04-12 17:45 | ED_ITS ---
HPI - Female Genitourinary General Chief complaint: Urogenital-Female Stated complaint: unable to urinate Source: patient and family Mode of arrival: ambulatory Limitations: no limitations History of Present Illness HPI Narrative: This is a 64-year-old female with history of hypothyroidism and hyper lipidemia presents with some dysuria with some difficulty passing urine but did give a urine sample with no hematuria no cloudy urine no flank pain no suprapubic or abdominal pain but has a history according to her daughter of hydronephrosis and kidney stones. Otherwise no fever chills no nausea vomiting no chest pain or shortness of breath. MD elicited complaint: dysuria Related Data Home Medications ?Medication ?Instructions ?Recorded ?Confirmed ?Last Taken ?Type alendronate 70 mg tablet 70 mg PO WEEKLY 11/28/19 04/21/22 11/30/21 History pravastatin 20 mg tablet 20 mg PO DAILY 11/28/19 04/21/22 11/30/21 History hydroxyzine HCl 25 mg tablet 25 mg PO BID PRN Anxiety 07/22/21 04/21/22 Unknown History tramadol 50 mg tablet 50 mg PO Q6H PRN Pain 07/22/21 12/17/21 Unknown History levothyroxine 137 mcg tablet 137 mcg PO DAILY 04/12/25 04/12/25 Unknown History tizanidine 4 mg tablet 4 mg PO Q8H PRN muscle spasticity 04/12/25 Unknown History Allergies Allergy/AdvReac Type Severity Reaction Status Date / Time codeine Allergy Mild Hives Verified 04/12/25 16:47 Penicillins Allergy Mild Hives Verified 04/12/25 16:47 Review of Systems 2 Review of Systems: All systems reviewed & are unremarkable except as noted in HPI and below PMFSH Past Medical History Medical History History of hepatitis C Glaucoma Anxiety Depression Schizophrenia Gout History of hypothyroidism Dyslipidemia Surgical History Surgical History Status post hemorrhoidectomy 12/01/21 H/O breast augmentation H/O hemorrhoidectomy History of section Hx of cholecystectomy Family History Family History Mother Family history of thyroid disease Hypertension Social History Social History Smoking packs per day: 1 Smoking cigarettes per day: 20.0 Years smoked: 36 Smoking pack-years: 36.00 Smoking status: Current every day smoker Tobacco type: cigarettes Alcohol intake: never Substance use type: marijuana Other substance usage details: DAILY Living arrangements: alone Occupation/Education: unemployed Exam 2 Const: General: healthy appearing and no acute distress Nutritional Appearance: well nourished and obese Orientation/consciousness: patient oriented x3 Limitations: no limitations Chest: Chest palpation & inspection: normal inspection of the chest Resp: Effort & Inspection: normal respiratory effort Auscultation: clear to auscultation bilaterally Cardio: Rate: regular rate Rhythm: regular rhythm GI: GI Palp: Yes Soft to palpation Auscultation: normal bowel sounds : General: Yes bladder normal to palpation Urinary Catheter: Urinary Catheter: patent and draining Back/Spine/Pelvis: Back: no CVA tenderness Skin: General skin exam: normal color Rashes: no rashes Course Course Emergency Course: Patient had IV fluids with normal saline given CT scan shows no acute intra- abdominal process, blood work unremarkable urinalysis performed does not show a urinary tract infection. Vital Signs Vital signs: Vital Signs Temperature 36.3 C L 04/12/25 16:37 Pulse Rate 78 04/12/25 16:37 Respiratory Rate 18 04/12/25 16:37 Blood Pressure 158/87 H 04/12/25 16:37 Pulse Oximetry 95 04/12/25 16:37 Oxygen Delivery Room Air 04/12/25 16:37 Temperature 36.3 C L 04/12/25 16:37 Pulse Rate 78 04/12/25 16:37 Respiratory Rate 18 04/12/25 16:37 Blood Pressure 158/87 H 04/12/25 16:37 Pulse Oximetry 95 04/12/25 16:37 Oxygen Delivery Room Air 04/12/25 16:37 MDM - Female Genitourinary Lab Data 04/12/25 16:58 04/12/25 16:58 Labs: Lab Results 04/12/25 04/12/25 Range/Units 16:40 16:58 WBC 6.8 (4.8-10.8) K/mm3 RBC 4.34 (4.20-5.40) M/mm3 Hgb 14.4 H (11.7-13.8) g/dL Hct 41.8 (35.0-42.0) % MCV 96.3 (78.0-102.0) fL MCH 33.2 H (27.0-31.0) pg MCHC 34.4 (32-36) g/dL RDW 12.9 (11.6-14.4) % Plt Count 328 (150-420) K/mm3 MPV 8.7 L (9.2-11.8) fl Immature Gran % (Auto) 0.3 H (0.0-0.0) % Neut % (Auto) 45.9 L (50.0-70.0) % Lymph % (Auto) 41.3 (18.0-42.0) % Sequoyah % (Auto) 10.5 (2.0-11.0) % Eos % (Auto) 1.0 (1.0-6.0) % Baso % (Auto) 1.0 (0.0-1.0) % Lymph # (Auto) 2.79 (1.10-4.50) K/mm3 Sequoyah # (Auto) 0.71 (0.10-0.90) K/mm3 Eos # (Auto) 0.07 (0.02-0.50) K/mm3 Baso # (Auto) 0.07 (0.00-0.10) K/mm3 Abs Immat Gran (auto) 0.02 H (0.00-0.00) K/mm3 Absolute Neuts (auto) 3.09 (1.70-7.20) K/mm3 Absolute Nucleated RBC 0.00 (0.00-0.00) K/mm3 Nucleated RBC % 0.0 (0-0.0) % Sodium 140 (137-145) mmol/L Potassium 4.2 (3.4-5.0) mmol/L Chloride 106 (98-107) mmol/L Carbon Dioxide 29 (22-30) mmol/L Anion Gap 5 (4-12) mmol/L BUN 19 H (7-17) mg/dL Creatinine 0.99 (0.7-1.0) mg/dL Estim Creat Clear Calc 45 ml/min Estimated GFR 56 L (59 - ) Glucose 103 (65-110) mg/dL Calculated Osmolality 292 (285-295) mOsm/kg Calcium 9.1 (8.4-10.2) mg/dL Total Bilirubin 0.8 (0.2-1.3) mg/dL AST 32 (14-36) U/L ALT 27 (6-35) U/L Alkaline Phosphatase 50 (38-126) U/L Total Protein 7.5 (6.3-8.2) g/dL Albumin 4.5 (3.5-5.1) g/dL Urine Color Light yellow (Yellow) Urine Appearance Clear (Clear) Urine pH 6.0 (5.0-8.0) Ur Specific Ayden <= 1.005 L (1.010-1.020) Urine Protein Negative (Negative) Urine Glucose (UA) Negative (Negative) Urine Ketones Negative (Negative) Ur Blood (Man) 1+ H (Negative) Urine Nitrate Negative (Negative) Urine Bilirubin Negative (Negative) Urine Urobilinogen 0.2 (0.2-1.0) mg/dL Leukocyte Esterase Rfl Negative (Negative) JUAN JOSE/UL Urine RBC 0-2 (0-2) /hpf Urine WBC None seen (0-3) /hpf Ur Squamous Epith Cells Few (Few) /hpf Urine Bacteria Rare (None) /hpf Critical Care Time Critical Care Time Critical Care Time: No Discharge Plan Discharge Clinical Impression: Spastic dysuria Patient Disposition: Home Condition: Stable Instructions: Antibiotic Form, Dysuria (ED) Additional Instructions: advised patient to continue current medical regimen and to follow with primary within next 3 to 5 days for further evaluation and treatment. Patient Language: Bulgarian Prescriptions: No Action tizanidine 4 mg tablet 4 mg PO Q8H PRN (Reason: muscle spasticity) levothyroxine 137 mcg tablet 137 mcg PO DAILY alendronate 70 mg tablet 70 mg PO WEEKLY Rx Instructions: WEDNESDAY pravastatin 20 mg tablet 20 mg PO DAILY hydroxyzine HCl 25 mg tablet 25 mg PO BID PRN (Reason: Anxiety) tramadol 50 mg tablet 50 mg PO Q6H PRN (Reason: Pain) Follow-up/Referrals: Km Trejo RT(R) [Primary Care Provider] - Time of Disposition: 17:48
[2025-04-12 17:53] VITALS: BP 143/77; PULSE 85; RESP 20; TEMP 36.8; O2SAT 98
== END 2025-04-12 17:53 | disposition home or self-care (01) ==
PROVIDERS: Emergency Provider Emergency Medicine
DX: R30.0 Dysuria (principal); E78.5 Hyperlipidemia, unspecified; E03.9 Hypothyroidism, unspecified; F17.210 Nicotine dependence, cigarettes, uncomplicated; Z79.899 Other long term (current) drug therapy
CPT/HCPCS: 36415; 74176; 80053; 81001; 85025; 96360; 99284; J7030

== ENCOUNTER 2025-04-14 10:54 | Emergency (ER) | payer MEDICARE, MEDICAID, SELFPAY ==
[2025-04-14 11:03] VITALS: BP 144/70; PULSE 71; RESP 16; TEMP 36.1; O2SAT 98
--- NOTE | 2025-04-14 11:19 | ED_ITS ---
HPI - General Adult General Chief complaint: Unspecified Stated complaint: Nose Irritation Time Seen by Provider: 04/14/25 11:20 Source: patient Mode of arrival: ambulatory Limitations: no limitations History of Present Illness HPI narrative: 64 y/o female presented for c/o irritation in the nose for 3 days. Says it feels tender inside and has been itchy. Denies nasal congestion or drainage, nose bleeding, or ear pain. 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 Related Data Home Medications ?Medication ?Instructions ?Recorded ?Confirmed ?Last Taken ?Type alendronate 70 mg tablet 70 mg PO WEEKLY 11/28/19 04/21/22 11/30/21 History pravastatin 20 mg tablet 20 mg PO DAILY 11/28/19 04/21/22 11/30/21 History hydroxyzine HCl 25 mg tablet 25 mg PO BID PRN Anxiety 07/22/21 04/21/22 Unknown History tramadol 50 mg tablet 50 mg PO Q6H PRN Pain 07/22/21 12/17/21 Unknown History levothyroxine 137 mcg tablet 137 mcg PO DAILY 04/12/25 04/12/25 Unknown History tizanidine 4 mg tablet 4 mg PO Q8H PRN muscle spasticity 04/12/25 Unknown History Allergies Allergy/AdvReac Type Severity Reaction Status Date / Time codeine Allergy Mild Hives Verified 04/14/25 11:03 Penicillins Allergy Mild Hives Verified 04/14/25 11:03 Review of Systems Review of Systems: CONSTITUTIONAL: Denies body aches, fever, chills, or sweats. EYES: Denies visual changes, redness, or discharge. ENT: reports itchy nose Denies rhinorrhea, congestion, sore throat, or otalgia. CARDIOVASCULAR: Denies chest pain, palpitations, or edema. RESPIRATORY: Denies cough or dyspnea. GASTROINTESTINAL: Denies abdominal pain, nausea, vomiting, or diarrhea. SKIN: Denies rash, itching, or wounds. NEUROLOGIC: Denies headache PSYCH: Denies depression or anxiety. All systems reviewed & are unremarkable except as noted in HPI and below PMFSH Past Medical History Medical History History of hepatitis C Glaucoma Anxiety Depression Schizophrenia Gout History of hypothyroidism Dyslipidemia Surgical History Surgical History Status post hemorrhoidectomy 12/01/21 H/O breast augmentation H/O hemorrhoidectomy History of section Hx of cholecystectomy Family History Family History Mother Family history of thyroid disease Hypertension Social History Social History Smoking packs per day: 1 Smoking cigarettes per day: 20.0 Years smoked: 36 Smoking pack-years: 36.00 Smoking status: Current every day smoker Tobacco type: cigarettes Alcohol intake: never Substance use type: marijuana Other substance usage details: DAILY Living arrangements: alone Occupation/Education: unemployed Comments At time of signature, I have reviewed and agree with nursing past medical, surgical, social and family history unless otherwise noted. Please see nursing chart for further information. There is no relevant family history pertinent to the presenting complaint Exam Narrative: GENERAL: Well-appearing, well-nourished, and in no acute distress. HEAD: Normocephalic, atraumatic. EYES: EOMI. No redness or drainage. Conjunctivae normal. ENT: Mucous membranes pink and moist. No rhinorrhea or epistaxis, nontender nose no swelling. Mildly erythematous right nare. TMs normal bilaterally. Throat normal. Uvula midline. NECK: Normal AROM. CHEST: No respiratory distress. Clear to auscultation. HEART: Regular rate and rhythm. No murmur appreciated. Normal peripheral pulses. SKIN: Warm, dry, no rash. Capillary refill normal. Normal skin turgor. NEURO: Alert and oriented x3. Course Course Emergency Course: Patient is aware of diagnosis, understands and agrees to treatment plan. Anticipatory guidance given. Patient agrees to follow-up as directed and is aware of reasons to seek care at the emergency department. Portions of this record may have been created with voice recognition software Level of Care: Express Care Visit Vital Signs Vital signs: Vital Signs Temperature 96.9 F L 04/14/25 11:03 Pulse Rate 71 04/14/25 11:03 Respiratory Rate 16 04/14/25 11:03 Blood Pressure 144/70 H 04/14/25 11:03 Pulse Oximetry 98 04/14/25 11:03 Temperature 96.9 F L 04/14/25 11:03 Pulse Rate 71 04/14/25 11:03 Respiratory Rate 16 04/14/25 11:03 Blood Pressure 144/70 H 04/14/25 11:03 Pulse Oximetry 98 04/14/25 11:03 Medical Decision Making MDM Narrative Medical decision making narrative: Discussed physical exam findings. Reviewed RX Advised supportive measures and signs/symptoms to go to the ER. Pt is appropriate for outpt treatment and f/u. Differential Diagnosis Differential Diagnosis: nasal folliculitis, URI, allergic rhinitis Vital Signs Vital Signs: Vital Signs Temperature 96.9 F L 04/14/25 11:03 Pulse Rate 71 04/14/25 11:03 Respiratory Rate 16 04/14/25 11:03 Blood Pressure 144/70 H 04/14/25 11:03 Pulse Oximetry 98 04/14/25 11:03 Temperature 96.9 F L 04/14/25 11:03 Pulse Rate 71 04/14/25 11:03 Respiratory Rate 16 04/14/25 11:03 Blood Pressure 144/70 H 04/14/25 11:03 Pulse Oximetry 98 04/14/25 11:03 reviewed Discharge Plan Discharge Clinical Impression: Folliculitis of nose Patient Disposition: Home Condition: Stable Instructions: Antibiotic Form, Folliculitis (ED) Additional Instructions: Using ointment as directed Recommend using saline nasal numbness throughout the day as needed for irritation Follow up with your primary care provider as needed in 1 week Go to the ER for worsening symptoms or concerns Patient Language: Czech Prescriptions: New mupirocin 2 % ointment 1 applic topical BID 7 Days Qty: 22 0RF No Action tizanidine 4 mg tablet 4 mg PO Q8H PRN (Reason: muscle spasticity) levothyroxine 137 mcg tablet 137 mcg PO DAILY alendronate 70 mg tablet 70 mg PO WEEKLY Rx Instructions: WEDNESDAY pravastatin 20 mg tablet 20 mg PO DAILY hydroxyzine HCl 25 mg tablet 25 mg PO BID PRN (Reason: Anxiety) tramadol 50 mg tablet 50 mg PO Q6H PRN (Reason: Pain) Follow-up/Referrals: Neil,MD Parveen [Primary Care Provider] - Time of Disposition: 11:27
== END 2025-04-14 11:30 | disposition home or self-care (01) ==
PROVIDERS: Emergency Provider Nurse Practitioner Family; PCP Internal Medicine
DX: L73.9 Follicular disorder, unspecified (principal); E78.5 Hyperlipidemia, unspecified; E03.9 Hypothyroidism, unspecified; M10.9 Gout, unspecified; H40.9 Unspecified glaucoma; F41.9 Anxiety disorder, unspecified; F17.210 Nicotine dependence, cigarettes, uncomplicated; F12.90 Cannabis use, unspecified, uncomplicated; Z90.49 Acquired absence of other specified parts of digestive tract
CPT/HCPCS: 99213; G0463

== ENCOUNTER 2025-04-19 10:34 | Emergency (ER) | payer MEDICARE, MEDICAID, SELFPAY ==
[2025-04-19] VITALS (9 sets, daily range): BP systolic 129–148; BP diastolic 73–93; PULSE 84; RESP 18; TEMP 36.1; O2SAT 92–97
--- OUTSIDE RECORDS SUMMARY | 2025-04-19 10:37 | XMS_ITS | Clinical Summary ---
Author Organization [facility] Address [address], [facility] [address] [place] [address] Phone Care Team Providers Care Aluminum Fabrication Supervisor Name Role Phone Braulio Mccabe MD Primary Care Provider [phone] Allergies Active Allergy Reactions Criticality Noted Date Comments Codeine Hives 12/24/2017 Penicillins Hives 12/24/2017 Medications latanoprost (XALATAN) 0.005 % Solution Place 2 Drops in affected eye(s) nightly. Each eye. 8 Active sertraline (ZOLOFT) 100 MG Tablet Take 100 mg by mouth daily. 8 Active levothyroxine (SYNTHROID) 112 MCG Tablet Take 112 mcg by mouth daily. 8 Active ergocalciferol (VITAMIN D) 59645 UNIT Capsule TK 1 C PO Q [...] (1 - 2023- season) 2024 Influenza Immunization (#1) 06/11/202511/2016, 09/23/2014 Respiratory Syncytial Virus (RSV) Immunization (Adult) [...] Insurance MEDICAID [employer] Care Teams Aluminum Fabrication Supervisor Relationship Specialty Start Date End Date Braulio Mccabe MD [address] [place] [address] PCP - General Internal Medicine 06/10/17
--- OUTSIDE RECORDS SUMMARY | 2025-04-19 10:37 | XMS_ITS | Clinical Summary ---
Author Organization [facility] Medical Office Building B Address [address] [place] [address] Care Team Providers Care Speech Instructor Name Role Phone Shae Philip NP Primary Care Provider [phone] Allergies Active Allergy Reactions Criticality Noted Date Comments Codeine Hives,Urticaria Medium 12/24/2017 Penicillins Medications alendronate (FOSAMAX) 70 mg tablet Take 1 tablet (70 mg total) by mouth every 7 days Active pravastatin (PRAVACHOL) 20 mg tablet Take 1 tablet (20 mg total) by mouth daily Active levothyroxine (SYNTHROID) 137 mcg tablet Take 1 tablet (137 mcg total) by mouth pain medicine physician before breakfast Active traMADoL (ULTRAM) 50 mg tablet Take 1 tablet (50 mg total) by mouth 3 (three) times a day as needed Active hydrOXYzine (ATARAX) 25 mg tablet Take 1 tablet (25 mg total) by mouth every 6 (six) hours as needed Active amantadine (SYMMETREL) 100 mg capsuleIndicati ons:Tardive dyskinesia Take 1 capsule (100 mg total) by mouth 2 (two) times a day 60 capsule 5 Active amantadine (SYMMETREL) 100 mg capsule Take 1 capsule (100 mg total) by mouth 2 (two) times a day 04/11/20 25 Discontinu ed(Reorder ) Active Problems Problem Noted Date Diagnosed Date Tardive dyskinesia 04/18/2025 Encounters Date Type Department Care Team Description 04/11/2025 10:00 AM CDT Office Visit [facility] [address] [facility] [address] [place] [address] Parveen Bertrand MD Tardive dyskinesia [...] on file Legal Sex Female 11:12 AM KAIWHAKAHAERE Gender Identity Not on file Sexual Orientation [...] Completed 02/13/2015 Insurance IDPA MEDICARE Care Teams Speech Instructor Relationship Specialty Start Date End Date Shae Philip NP [address] [place] [address] PCP - General Family Medicine 10/20/24
--- OUTSIDE RECORDS SUMMARY | 2025-04-19 10:37 | XMS_ITS ---
Author Organization [facility] Address [address] [place] [address] Care Team Providers Care Supervisor Fleshing Name Role Phone Shae Philip Primary Care Provider Social History Sex Assigned At : Social History Observation Description Sex Assigned At Female Encounters Encounter Location Date Provider Diagnosis [place] [address] [place] [address] 04/18/2025 Shae Philip Plan Of Treatment No Information Progress Notes * Elin GÓMEZDOB:1960 ([age] yo F)Acc No.[id number]:04/18/2025 Patient: Dilma REYESElin :1960 A ge:64 Y S ex:Female Phone: Address:[address], [place], [address] Subjective: * Chief Complaints: * * Medical History: * Surgical History: * Hospitalization/Major Diagno stic Procedure: * Medications: Objective: * Vitals: * Physical Examination: Assessment: Plan: * Treatment: * Procedure Codes: * true * Date: Generated for Printi ng/Faxing/eTransmitting on: 0 04/19/2025 10:37 AM CDT
--- OUTSIDE RECORDS SUMMARY | 2025-04-19 10:37 | XMS_ITS | Patient Health Record ---
Author Organization [facility] Address [address] [place] [address] Care Team Providers Care Staff Trainer Name Role Phone Shae Philip Primary Care Provider Josh Radha Unavailable [phone] Allergies Allergen (clinical drug ingredient) Drug/Non Drug Allergy documented on EMR Reaction Allergy Type Onset Date Status codeine Codeine hives Drug Allergy Active Penicillin hives Drug Allergy Active Results Component Value Reference Range Notes TSH* Reviewed date:04/19/2025 07:11:57 AM Interpretation:Critical low Performing Lab:[facility] [place], [address] [facility], Phone - [phone], [facility] Notes/Report: TSH 0.022 0.450-4.500 uIU/mL CBC With Differential/Platel et* Reviewed date:04/19/2025 07:11:57 AM Interpretation:Abnormal Performing Lab:[facility], [address] [facility], Phone - [phone], [facility] Notes/Report: WBC 6.3 3.4-10.8 x10E3/uL RBC 4.57 3.77-5.28 x10E6/uL Hemoglobin 15.0 11.1-15.9 g/dL Hematocrit 45.5 34.0-46.6 % MCV 100 79-97 fL MCH 32.8 26.6-33.0 pg MCHC 33.0 31.5-35.7 g/dL RDW 12.8 11.7-15.4 % Platelets 330 150-450 x10E3/uL Neutrophils 57 Not Estab. % Lymphs 33 Not Estab. % Monocytes 8 Not Estab. % Eos 1 Not Estab. % Basos 1 Not Estab. % Neutrophils (Absolute) 3.6 1.4-7.0 x10E3/uL Lymphs (Absolute) 2.1 0.7-3.1 x10E3/uL Monocytes(Absolute) 0.5 0.1-0.9 x10E3/uL Eos (Absolute) 0.1 0.0-0.4 x10E3/uL Baso (Absolute) 0.1 0.0-0.2 x10E3/uL Immature Granulocytes 0 Not Estab. % Immature Grans (Abs) 0.0 0.0-0.1 x10E3/uL Vitamin B12 and Folate Reviewed date:09/08/2024 09:26:42 AM Interpretation:Normal Performing Lab:[facility], Phone - [phone], Director - [facility] Notes/Report: Vitamin B12 109 019-2333 pg/mL Folate (Folic Acid), Serum >20.0 >3.0 ng/mL A serum folate concentration of less than 3.1 ng/mL is considered to represent clinical deficiency. Hemoglobin A1c* Reviewed date:09/08/2024 09:26:55 AM Interpretation:Normal Performing Lab:[facility], Phone - [phone], Director - [facility] Notes/Report: Hemoglobin A1c 5.4 4.8-5.6 % . Prediabetes: 5.7 - 6.4 Diabetes: >6.4 Glycemic control for adults with diabetes: <7.0 TSH* Reviewed date:09/08/2024 09:27:07 AM Interpretation:Low Performing Lab:[facility], Phone - [phone], Director - [facility] Notes/Report: TSH 0.036 0.450-4.500 uIU/mL CBC With Differential/Platel et* Reviewed date:09/08/2024 09:27:41 AM Interpretation:Abnormal Performing Lab:[address], Phone - [phone], Director - [facility] Notes/Report: WBC 4.7 3.4-10.8 x10E3/uL Effective September 11, 2024 profile [id number] WBC will be made non-orderable as a [...] 25-Hydroxy* Reviewed date:09/08/2024 09:26:29 AM Interpretation:Normal Performing Lab:[facility] [place], [address] [place] [address], Phone - [phone], Director - Sridhar Notes/Report: Vitamin D, 25-Hydroxy 63.6 30.0-100.0 ng/mL Vitamin D deficiency has been defined by the [place] of [employer] and an Endocrine Society practice guideline as a level of serum 25-OH vitamin D less than 20 ng/mL (1,2). The Endocrine Society went on to further define vitamin D insufficiency as a level between 21 and 29 ng/mL (2). 1. IOM ([place] of [employer]). 2010. Dietary reference intakes for calcium and D. [place]: The National Academies Press. 2. Deena MF, Martin [place], Raymon CHOWDARY, et al. Evaluation, treatment, and prevention of vitamin D deficiency: an Endocrine Society clinical practice guideline. JCEM. 2011 Apr; 96(7):1911-30. Lipid Panel* Reviewed date:09/08/2024 09:27:17 AM Interpretation:Normal Performing Lab:[facility] [place], [address] [facility], Phone - [phone], [facility]Report: Cholesterol, Total 184 100-199 mg/dL Triglycerides 88 0-149 mg/dL HDL Cholesterol 70 >39 mg/dL VLDL Cholesterol [place] 16 5-40 mg/dL LDL Chol Calc (NIH) 98 0-99 mg/dL CMP 14 Comprehensive Metabol ic Panel* Reviewed date:09/08/2024 09:27:29 AM Interpretation:Normal Performing Lab:[facility] [place], [address] [facility], [place], Phone - [phone], Director - [facility]/Report: Glucose 92 70-99 mg/dL BUN [...] (F31.9) Diagnosis 2 Anxiety (F41.9) Referral Organization [facility] Referring Provider First Name Shae Referring Provider Last Name Cedrick Referring Provider Speciality Psychiatry Referred Provider Specialty Director Manufacturing EngineeringFinance Attorney Notes Shae Philip 01:51:20 PM > Client states she is currently living in a mobile home that may lose access to water soon. She would like to discuss possible housing options with [place]. Please refer. Thank you! Clinical Notes Dalia Locke 07/27/2024 09:21:07 AM >HN reached the home health care worker for the client Elin Stevenson. HN's phone number was text to the client and home connect lpn, so the client could reach out later for resources pertaining to housing. Referral Priority Routine Reason Movement disorder, t ardive dyskinesia Diagnosis 1 Tardive dyskinesia ( G24.01) Referral Organization [facility] Referring Provider First Name Shae Referring Provider Last Name Cedrick Referring Provider Speciality Psychiatry Referred Provider Specialty Neurology General Notes Shae Philip 12/2023 10:46:18 AM > Client has tried and failed multiple medications. Has been on Ingrezza and Austedo. Currently taking Austedo 48 mg (max dose). Please refer to neuro to see if they have any further suggestions and for further assessment. Thank you. Clinical Notes Francia Laura RN 06/2024 09:54:00 AM >Referral sent to [facility] Neurology in [place]., Shae Philip 03/27/2025 01:32:01 PM > Appointment in April. Referral Priority Routine Reason 2nd opinion neurolog y abnormal movements Diagnosis 1 Tardive dyskinesia ( G24.01) Referral Organization [facility] Referring Provider First Name Shae Referring Provider Last Name Cedrick Referring Provider Speciality Psychiatry Referred Provider Specialty Neurology General Notes Shae Philip 06/2025 05:23:36 PM > Client wanting second opinion on abnormal movements that have not made much improvement with Austedo and worsened with Cogentin, wants further assessment, went to [facility] provider already. States wants further assessment and evaluation. She would like to see if [facility] may take her insurance? Thank you. Clinical Notes Shae Philip 06/2025 05:25:08 PM > Caregiver, Daya, would like info on referral to help set up the appt if able. Thank you. Referral Priority Routine Medications Medication SIG (Take, Route, Frequency, Duration) Notes Start Date End Date Status Austedo XR 42 MG 1 tablet Orally Once a day; Duration: 7 days after 36 mg, take this for one week then increase to 48 mg script dosing Active traMADol HCl 50 MG 1 tablet as needed Orally every 8 hours Not-Taking traZODone HCl 300 MG 1 tablet at bedtime as needed Orally Once a day; Duration: 30 days Active Pravastatin Sodium 20 MG 1 tablet Orally Once a day; Duration: 30 day(s) 01/11/2020 Not-Taking hydrOXYzine HCl 25 MG 1 tablet as needed Orally Once a day; Duration: 30 days Active Austedo XR 48 MG 1 tablet Orally Once a day; Duration: 30 days after 42 mg, start this script 04/11/2025 Not-Taking Austedo XR 42 MG 1 tablet Orally Once a day; Duration: 7 days after 36 mg, take 42 mg x1 week then increase to 48 mg script 04/11/2025 Not-Taking Alendronate Sodium 70 MG 1 tablet 30 min utes before the first food, beverage or medicine of the day with plain water Orally Once a week; Duration: 30 days Not-Takmily ng Austedo XR Patient Titration 12 & 18 & 24 & 30 MG as directed Orally 04/11/2025 Active Austedo XR 36 MG 1 tablet Orally Once a day; Duration: 14 days Not-Takin g hydrOXYzine HCl 25 MG 1 tablet as needed Orally Once a day; Duration: 30 days Active traZODone HCl 150 MG 1 tablet at bedtime as needed Orally Once a day; Duration: 30 days Not-Takin g Austedo XR 48 MG 1 tablet Orally Once a day; Duration: 30 day(s) 04/17/2025 Active Levothyroxine Sodium 137 MCG 1 capsule in the morning on an empty stomach Orally Once a day Active Wellbutrin XL 150 MG 1 tablet in the mor rick Orally Once a day for 7 days, then take every other day for 3 doses, then stop this medication Not-Taking hydrOXYzine HCl 50 MG TAKE 1 & 1/2 - 2 TABLETS BY MOUTH ONCE DAILY if NEEDED FOR ANXIETY AND SLEEP; Duration: 30 days Active buPROPion HCl ER (XL) 150 mg TAKE 1 TABLET BY MOUTH EVERY MORNING; Duration: 30 Not-Taking buPROPion HCl ER (XL) 300 mg TAKE 1 TABLET BY MOUTH EVERY MORNING; Duration: 30 Not-Taking Wellbutrin XL 300 MG 1 tablet in the mor rick Orally Once a day for 7 days then decrease to 150mg script Not-Taking ARIPiprazole 2 MG TAKE 1 TABLET BY ZOE TH DAILY; Duration: 30 days Not-Taking Cholecalciferol 1.25 MG (43261 UT) 1 capsule Orally once per week Not-Taking Levothyroxine Sodium 150 MCG 1 tablet on an empty stomach in the morning Orally Once a day Not-Taking Influenza Vac Subunit Quad 0.5 ML as directed Intramuscular once; Duration: 1 days Not-Taking Influenza Vac Split Quad 0.5 ML as directed Intramuscular once Not-Taking Propranolol HCl 10 MG 1 tablet Orally On ce a day; Duration: 30 days Not-Takin g Immunizations Vaccine Route Administration Date Status Comme nts Influenza, virus vaccine, trivalent, preservative free IM Intramuscular 10/24/2024 Administered Ludmila Ratliff 10/24/2024 10:33:36 AM 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 >Pt tolerated well FLU VAC NO PRSV [...] Notes Tobacco use: Current smoker Section Notes: [id number] 01/14/2022 01/13/2022 Hydrocodon-acetaminophen 21.0 7 5MG-325MG 15 Paxton Lay Md - [id number] [place], [place] NA [place] 1 [id number] 12/16/2021 12/16/2021 oxyCODONE-ACETAMINOPHEN 20.0 5 5MG-325MG 30 Rashawn Stone [id number] [place], [place] NA [place] 1 [id number] 12/08/2021 12/08/2021 oxyCODONE-ACETAMINOPHEN 15.0 3 5MG-325MG 37.50 Km Wyman () - [id number] [place], [place] 1 [id number] 12/01/2021 12/01/2021 oxyCODONE-ACETAMINOPHEN 30.0 7 5MG-325MG 32.14 Rashawn Kauffman [id number] [place], [place] 1 [id number] 12/01/2021 12/01/2021 traMADol 30.0 7 50MG 21.43 Rashawn Stone [id number] 01/14/2022 01/13/2022 Hydrocodon-acetaminophen 21.0 7 5MG-325MG 15 Paxton Lay Md [id number] [place], [place] 1 [id number] 12/16/2021 12/16/2021 oxyCODONE-ACETAMINOPHEN 20.0 5 5MG-325MG 30 Rashawn Stone [id number] [place], [place] 1 [id number] 12/08/2021 12/08/2021 oxyCODONE-ACETAMINOPHEN 15.0 3 5MG-325MG 37.50 Km Wyman (Do) - [id number] [place], [place] 1 [id number] 12/01/2021 12/01/2021 oxyCODONE-ACETAMINOPHEN 30.0 7 5MG-325MG 32.14 Rashawn Stone [id number] [place], [place] 1 [id number] 12/01/2021 12/01/2021 traMADol 30.0 7 50MG 21.43 Rashawn Stone [id number] 01/14/2022 01/13/2022 Hydrocodon-acetaminophen 21.0 7 5MG-325MG 15 Paxton Lay Md [id number] [place], [place] 1 [id number] 12/16/2021 12/16/2021 oxyCODONE-ACETAMINOPHEN 20.0 5 5MG-325MG 30 Rashawn Stone [id number] [place], [place] 1 [id number] 12/08/2021 12/08/2021 oxyCODONE-ACETAMINOPHEN 15.0 3 5MG-325MG 37.50 Km Wyman (Do) - [id number] [place], [place] 1 [id number] 12/01/2021 12/01/2021 oxyCODONE-ACETAMINOPHEN 30.0 7 5MG-325MG 32.14 [facility] [id number] [place], [place] 1 [id number] 12/01/2021 12/01/2021 traMADol 30.0 7 50MG 21.43 Rashawn Duffy [facility] [id number] 01/14/2022 01/13/2022 Hydrocodon-acetaminophen 21.0 7 5MG-325MG 15 Paxton Lay Md [id number] [place], [place] 1 [id number] 12/16/2021 12/16/2021 oxyCODONE-ACETAMINOPHEN 20.0 5 5MG-325MG 30 [facility] [id number] [place], [place] 1 [id number] 12/08/2021 12/08/2021 oxyCODONE-ACETAMINOPHEN 15.0 3 5MG-325MG 37.50 Km Wyman (Do) - [id number] [place], [place] 1 [id number] 12/01/2021 12/01/2021 oxyCODONE-ACETAMINOPHEN 30.0 7 5MG-325MG 32.14 [facility] [id number] [place], [place] 1 [id number] 12/01/2021 12/01/2021 traMADol 30.0 7 50MG 21.43 Rashawn Duffy [facility] [id number] 01/14/2022 01/13/2022 Hydrocodon-acetaminophen 21.0 7 5MG-325MG 15 Paxton Lay Md [id number] [place], [place] 1 [id number] 12/16/2021 12/16/2021 oxyCODONE-ACETAMINOPHEN 20.0 5 5MG-325MG 30 [facility] [id number] [place], [place] 1 [id number] 12/08/2021 12/08/2021 oxyCODONE-ACETAMINOPHEN 15.0 3 5MG-325MG 37.50 Km Wyman (Do) - [id number] [place], [place] 1 [id number] 12/01/2021 12/01/2021 oxyCODONE-ACETAMINOPHEN 30.0 7 5MG-325MG 32.14 Morocho Tati [facility] [id number] [place], [place] 1 [id number] 12/01/2021 12/01/2021 traMADol 30.0 7 50MG 21.43 Rashawn Stone [id number] 01/14/2022 01/13/2022 Hydrocodon-acetaminophen 21.0 7 5MG-325MG 15 Paxton Lay Md [id number] [place], [place] 1 [id number] 12/16/2021 12/16/2021 oxyCODONE-ACETAMINOPHEN 20.0 5 5MG-325MG 30 [facility] Tati [facility] [id number] [place], [place] 1 [id number] 12/08/2021 12/08/2021 oxyCODONE-ACETAMINOPHEN 15.0 3 5MG-325MG 37.50 Km Wyman () - [id number] [place], [place] 1 [id number] 12/01/2021 12/01/2021 oxyCODONE-ACETAMINOPHEN 30.0 7 5MG-325MG 32.14 [facility] [id number] [place], [place] 1 [id number] 12/01/2021 12/01/2021 traMADol 30.0 7 50MG 21.43 Rashawn Stone [id number] 01/14/2022 01/13/2022 Hydrocodon-acetaminophen 21.0 7 5MG-325MG 15 Paxton Lay Md [id number] [facility], [place] 1 [id number] 12/16/2021 12/16/2021 oxyCODONE-ACETAMINOPHEN 20.0 5 5MG-325MG 30 [facility] Tati [facility] [id number] [place], [place] 1 [id number] 12/08/2021 12/08/2021 oxyCODONE-ACETAMINOPHEN 15.0 3 5MG-325MG 37.50 Km Wyman () - [id number] [place], [place] 1 [id number] 12/01/2021 12/01/2021 oxyCODONE-ACETAMINOPHEN 30.0 7 5MG-325MG 32.14 Morocho Tati [facility] [id number] [place], [place] 1 [id number] 12/01/2021 12/01/2021 traMADol 30.0 7 50MG 21.43 Rashawn Stone [id number] 01/14/2022 01/13/2022 Hydrocodon-acetaminophen 21.0 7 5MG-325MG 15 Paxton Lay Md [id number] [place], [place] 1 [id number] 12/16/2021 12/16/2021 oxyCODONE-ACETAMINOPHEN 20.0 5 5MG-325MG 30 [facility] Tati [facility] [id number] [place], [place] 1 [id number] 12/08/2021 12/08/2021 oxyCODONE-ACETAMINOPHEN 15.0 3 5MG-325MG 37.50 Km Wyman () - [id number] [place], [place] 1 [id number] 12/01/2021 12/01/2021 oxyCODONE-ACETAMINOPHEN 30.0 7 5MG-325MG 32.14 [facility] [id number] [place], [place] 1 [id number] 12/01/2021 12/01/2021 traMADol 30.0 7 50MG 21.43 Rashawn Duffy [facility] [id number] 01/14/2022 01/13/2022 Hydrocodon-acetaminophen 21.0 7 5MG-325MG 15 Paxton Lay Md [id number] [place], [place] 1 [id number] 12/16/2021 12/16/2021 oxyCODONE-ACETAMINOPHEN 20.0 5 5MG-325MG 30 [facility] [id number] [place], [place] 1 [id number] 12/08/2021 12/08/2021 oxyCODONE-ACETAMINOPHEN 15.0 3 5MG-325MG 37.50 Km Wyman () - [id number] [place], [place] 1 [id number] 12/01/2021 12/01/2021 oxyCODONE-ACETAMINOPHEN 30.0 7 5MG-325MG 32.14 Rashawn Duffy [facility] [id number] [place], [place] 1 [id number] 12/01/2021 12/01/2021 traMADol 30.0 7 50MG 21.43 Rashawn Duffy [id number] 01/14/2022 01/13/2022 Hydrocodon-acetaminophen 21.0 7 5MG-325MG 15 Paxton Lay Md [id number] [place], [place] 1 [id number] 12/16/2021 12/16/2021 oxyCODONE-ACETAMINOPHEN 20.0 5 5MG-325MG 30 Morocho Tati [facility] [id number] [place], [place] 1 [id number] 12/08/2021 12/08/2021 oxyCODONE-ACETAMINOPHEN 15.0 3 5MG-325MG 37.50 Km Wyman () - [id number] [place], [place] 1 [id number] 12/01/2021 12/01/2021 oxyCODONE-ACETAMINOPHEN 30.0 7 5MG-325MG 32.14 Rashawn Duffy [facility] [id number] [place], [place] 1 [id number] 12/01/2021 12/01/2021 traMADol 30.0 7 50MG 21.43 Rashawn Duffy [id number] 01/14/2022 01/13/2022 Hydrocodon-acetaminophen 21.0 7 5MG-325MG 15 Paxton Lay Md [id number] [place], [place] 1 [id number] 12/16/2021 12/16/2021 oxyCODONE-ACETAMINOPHEN 20.0 5 5MG-325MG 30 Rashawn Duffy [facility] [id number] [place], [place] 1 [id number] 12/08/2021 12/08/2021 oxyCODONE-ACETAMINOPHEN 15.0 3 5MG-325MG 37.50 Km Wyman () - [id number] [place], [place] 1 [id number] 12/01/2021 12/01/2021 oxyCODONE-ACETAMINOPHEN 30.0 7 5MG-325MG 32.14 Morocho Tati [facility] [id number] [place], [place] 1 [id number] 12/01/2021 12/01/2021 traMADol 30.0 7 50MG 21.43 [id number] 01/14/2022 01/13/2022 Hydrocodon-acetaminophen 21.0 7 5MG-325MG 15 Paxton Lay Md [id number] [place], [place] 1 [id number] 12/16/2021 12/16/2021 oxyCODONE-ACETAMINOPHEN 20.0 5 5MG-325MG 30 [facility] Tati [facility] [id number] [place], [place] 1 [id number] 12/08/2021 12/08/2021 oxyCODONE-ACETAMINOPHEN 15.0 3 5MG-325MG 37.50 Km Wyman (Do) - [id number] [place], [place] 0 [place] 1 [id number] 12/01/2021 12/01/2021 oxyCODONE-ACETAMINOPHEN 30.0 7 5MG-325MG 32.14 Rashawn Duffy [facility] [id number] [place], [place] 1 [id number] 12/01/2021 12/01/2021 traMADol 30.0 7 50MG 21.43 Rashawn Duffy [facility] [id number] 01/14/2022 01/13/2022 Hydrocodon-acetaminophen 21.0 7 5MG-325MG 15 Paxton Lay Md [id number] [place], [place] 1 [id number] 12/16/2021 12/16/2021 oxyCODONE-ACETAMINOPHEN 20.0 5 5MG-325MG 30 Morocho Tati [facility] [id number] [place], [place] 1 [id number] 12/08/2021 12/08/2021 oxyCODONE-ACETAMINOPHEN 15.0 3 5MG-325MG 37.50 Km Wyman (Do) - [id number] [place], [place] 1 [id number] 12/01/2021 12/01/2021 oxyCODONE-ACETAMINOPHEN 30.0 7 5MG-325MG 32.14 Mor[place]o Tati [facility] [id number] [place], [place] 1 [id number] 12/01/2021 12/01/2021 traMADol 30.0 7 50MG 21.43 Rashawn Stone [id number] 01/14/2022 01/13/2022 Hydrocodon-acetaminophen 21.0 7 5MG-325MG 15 Paxton Lay Md [id number] [place], [place] 1 [id number] 12/16/2021 12/16/2021 oxyCODONE-ACETAMINOPHEN 20.0 5 5MG-325MG 30 [facility] Tati [facility] [id number] [place], [place] 1 [id number] 12/08/2021 12/08/2021 oxyCODONE-ACETAMINOPHEN 15.0 3 5MG-325MG 37.50 Km Wyman (Do) - [id number] [place], [place] 1 [id number] 12/01/2021 12/01/2021 oxyCODONE-ACETAMINOPHEN 30.0 7 5MG-325MG 32.14 Morocho Tati [facility] [id number] [place], [place] 1 [id number] 12/01/2021 12/01/2021 traMADol 30.0 7 50MG 21.43 Rashawn Duffy [facility] [id number] 01/14/2022 01/13/2022 Hydrocodon-acetaminophen 21.0 7 5MG-325MG 15 Paxton Lay Md [id number] [place], [place] 1 [id number] 12/16/2021 12/16/2021 oxyCODONE-ACETAMINOPHEN 20.0 5 5MG-325MG 30 Morocho Tati [facility] [id number] [place], [place] 1 [id number] 12/08/2021 12/08/2021 oxyCODONE-ACETAMINOPHEN 15.0 3 5MG-325MG 37.50 Km Wyman (Do) - [id number] [place], [place] 0 [place] 1 [id number] 12/01/2021 12/01/2021 oxyCODONE-ACETAMINOPHEN 30.0 7 5MG-325MG 32.14 [facility] [id number] [place], [place] 1 [id number] 12/01/2021 12/01/2021 traMADol 30.0 7 50MG 21.43 [id number] 12/16/2021 12/16/2021 oxyCODONE-ACETAMINOPHEN 20.0 5.0 5MG-325MG 30 [facility] [id number] [place], [place] 1 [id number] 12/08/2021 12/08/2021 oxyCODONE-ACETAMINOPHEN 15.0 3.0 5MG-325MG 37.50 Km Wyman (Do) - [id number] [place], [place] 0 [place] 1 [id number] 12/01/2021 12/01/2021 oxyCODONE-ACETAMINOPHEN 30.0 7.0 5MG-325MG 32.14 [id number] [place], [place] 1 [id number] 12/01/2021 12/01/2021 traMADol 30.0 7.0 50MG 21.43 [facility]1449912 [id number] 01/14/2022 01/13/2022 Hydrocodon-acetaminophen 21.0 7 5MG-325MG 15 Paxton Lay Md - [id number] [place], [place] 1 [id number] 12/16/2021 12/16/2021 oxyCODONE-ACETAMINOPHEN 20.0 5 5MG-325MG 30 [facility] [id number] [place], [place] 1 [id number] 12/08/2021 12/08/2021 oxyCODONE-ACETAMINOPHEN 15.0 3 5MG-325MG 37.50 Km Wyman (Do) - [id number] [place], [place] 0 [place] 1 [id number] 12/01/2021 12/01/2021 oxyCODONE-ACETAMINOPHEN 30.0 7 5MG-325MG 32.14 Morocho Tati [facility] [id number] [place], [place] 1 [id number] 12/01/2021 12/01/2021 traMADol 30.0 7 50MG 21.43 Rashawn Duffy [id number] 01/14/2022 01/13/2022 Hydrocodon-acetaminophen 21.0 7 5MG-325MG 15 Paxton Lay Md [id number] [place], [place] 0 [place] 1 [id number] 12/16/2021 12/16/2021 oxyCODONE-ACETAMINOPHEN 20.0 5 5MG-325MG 30 Morocho Tati [facility] [id number] [place], [place] 1 [id number] 12/08/2021 12/08/2021 oxyCODONE-ACETAMINOPHEN 15.0 3 5MG-325MG 37.50 Km Wyman (Do) - [id number] [place], [place] 0 [place] 1 [id number] 12/01/2021 12/01/2021 oxyCODONE-ACETAMINOPHEN 30.0 7 5MG-325MG 32.14 Rashawn Duffy [facility] [id number] [place], [place] 1 [id number] 12/01/2021 12/01/2021 traMADol 30.0 7 50MG 21.43 Rashawn Duffy [id number] 01/14/2022 01/13/2022 Hydrocodon-acetaminophen 21.0 7 5MG-325MG 15 Paxton Lay Md [id number] [place], [place] 0 [place] 1 [id number] 12/16/2021 12/16/2021 oxyCODONE-ACETAMINOPHEN 20.0 5 5MG-325MG 30 Rashawn Duffy [facility] [id number] [place], [place] 0 [place] 1 [id number] 12/08/2021 12/08/2021 oxyCODONE-ACETAMINOPHEN 15.0 3 5MG-325MG 37.50 Km Wyman (Do) - [id number] [place], [place] 0 [place] 1 [id number] 12/01/2021 12/01/2021 oxyCODONE-ACETAMINOPHEN 30.0 7 5MG-325MG 32.14 Rashawn Duffy [facility] [id number] [place], [place] 1 [id number] 12/01/2021 12/01/2021 traMADol 30.0 7 50MG 21.43 Rashawn Duffy [facility] [id number] 01/14/2022 01/13/2022 Hydrocodon-acetaminophen 21.0 7 5MG-325MG 15 Paxton Lya Md - [id number] [place], [place] NA 0 [place] 1 [id number] 12/16/2021 12/16/2021 oxyCODONE-ACETAMINOPHEN 20.0 5 5MG-325MG 30 [facility] [id number] [place], [place] 0 [place] 1 [id number] 12/08/2021 12/08/2021 oxyCODONE-ACETAMINOPHEN 15.0 3 5MG-325MG 37.50 Km Wyman (Do) - [id number] [place], [place] NA 0 [place] 1 [id number] 12/01/2021 12/01/2021 oxyCODONE-ACETAMINOPHEN 30.0 7 5MG-325MG 32.14 [place]o Tati [facility] [id number] [place], [place] NA 0 [place] 1 [id number] 12/01/2021 12/01/2021 traMADol 30.0 7 50MG 21.43 Rashawn Duffy [facility] [id number] Problems Problem Type SNOMED Code ICD Code Onset Dates Problem Status W/U Status Risk Notes Problem Tobacco user (756935288) Nicotine dependence, unspecified, uncomplicated (F17.200) Active confirmed Problem Generalized anxiety disorder (51964330) Generalized anxiety disorder (F41.1) Active confirmed Problem Anxiety (75476745) Anxiety (F41.9) Active confirmed Problem Bipolar affective disorder (13562220) Bipolar affective disorder (F31.9) 10/20/19 22 Active confirmed Will continue to monitor and evaluate as poor insight on patient's behalf does limits evaluation . Problem Overweight (569399630) Over weight (E66.3) Active confirmed Problem Chronic tension-type headache (506595973) Chronic tension headaches (G44.229) Active confirmed Problem Depressive disorder (disorder) (16979615) Depression, unspecified depression type (F32.9) Active confirmed Problem Recurrent major depression (50293628) Episode of recurrent major depressive disorder, unspecified depression episode severity (F33.9) Active confirmed Problem Drug monitoring done (981735110) Therapeutic drug monitoring (Z51.81) Active confirmed Problem Stimulant abuse (206608112) Methamphetamine use disorder, 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) Active confirmed Problem Tardive dyskinesia ([id number]) Tardive dyskinesia (G24.01) Active confirmed Problem Body mass index 30.00 to 34.99 ([id number]) Body mass index [BMI] 31.0-31.9, adult (Z68.31) Active confirmed Vital Signs Heart Rate 80 /min 04/17/2025 Temperature 98.0 degrees Fahrenheit 04/17/2025 Respiratory Rate 20 /min 04/17/2025 Oximetry 95 % 04/17/2025 Blood pressure diastolic 82 mm Hg 04/17/2025 Height 61 in 04/17/2025 Blood pressure systolic 138 mm Hg 04/17/2025 Weight 160.8 lbs 04/17/2025 BMI 30.38 kg/m2 04/17/2025 Encounters Encounter Location Date Provider Diagnosis [address] [place] [address] 05/24/2024 Radha Moreno Nicotine dependence, unspecified, uncomplicated F17.200 ; Generalized anxiety disorder F41.1 ; Bipolar affective disorder F31.9 and Tardive dyskinesia G24.[address] [place] [address] 06/28/2024 Radha Moreno Nicotine dependence, unspecified, uncomplicated F17.200 ; Generalized anxiety disorder F41.1 ; Bipolar affective disorder F31.9 and Tardive dyskinesia G24.01 [facility] [address] [place] [address] 07/25/2024 Shae Philip Nicotine dependence, unspecified, uncomplicated F17.200 ; Generalized anxiety disorder F41.1 ; Bipolar affective disorder F31.9 and Tardive dyskinesia G24.01 [address] [place] [address] 08/29/2024 Shae Philip Generalized anxiety disorder F41.1 ; Bipolar affective disorder F31.9 ; Tardive dyskinesia G24.01 ; Fatigue R53.83 ; Medication monitoring encounter Z51.81 and Nicotine dependence, unspecified, uncomplicated F17.200 [address] [place] [address] 08/30/2024 Shae Philip Fatigue R53.83 ; Medication monitoring encounter Z51.81 and Bipolar affective disorder F31.[address] [place] [address] 09/25/2024 Shae Philip Generalized anxiety disorder F41.1 ; Bipolar affective disorder F31.9 ; Tardive dyskinesia G24.01 and Nicotine dependence, unspecified, uncomplicated F17.200 [address] [place] [address] 10/24/2024 Shae Philip Generalized anxiety disorder F41.1 ; Bipolar affective disorder F31.9 ; Tardive dyskinesia G24.01 ; Nicotine dependence, unspecified, uncomplicated F17.200 and Encounter for immunization Z23 [address] [place] [address] 12/06/2024 Shae Philip Generalized anxiety disorder F41.1 ; Bipolar affective disorder F31.9 ; Tardive dyskinesia G24.01 ; Nicotine dependence, unspecified, uncomplicated F17.200 and Encounter for immunization Z23 [address] [place] [address] 01/09/2025 Shae Philip Over weight E66.3 ; Generalized anxiety disorder F41.1 ; Bipolar affective disorder F31.9 ; Tardive dyskinesia G24.01 ; Nicotine dependence, unspecified, uncomplicated F17.200 and Encounter for immunization Z23 [address] [place] [address] 03/06/2025 Shae Cedrick Over weight E66.3 ; Generalized anxiety disorder F41.1 ; Bipolar affective disorder F31.9 ; Tardive dyskinesia G24.01 ; Nicotine dependence, unspecified, uncomplicated F17.200 and Encounter for immunization Z23 [facility] [address] [place] [address] 03/27/2025 Shaeeugene Philip Over weight E66.3 ; Bipolar affective disorder F31.9 ; Generalized anxiety disorder F41.1 ; Tardive dyskinesia G24.01 ; Nicotine dependence, unspecified, uncomplicated F17.200 and Encounter for immunization Z23 [facility] [address] [place] [address] 04/17/2025 Shaeeugene Philip Over weight E66.3 ; Tardive dyskinesia G24.01 ; Bipolar affective disorder F31.9 ; Generalized anxiety disorder F41.1 ; Nicotine dependence, unspecified, uncomplicated F17.200 ; Encounter for immunization Z23 and Medication monitoring encounter Z51.[address] [place] [address] 05/03/2024 Radha Moreno Generalized anxiety disorder F41.1 and Bipolar affective disorder F31.[address] [place] [address] 06/07/2024 Radha Moreno [address] [place] [address] 07/25/2024 Shae Philip [address] [place] [address] 07/27/2024 Shae Philip Bipolar affective disorder F31.9 ; Generalized anxiety disorder F41.1 and Tardive dyskinesia G24.[address] [address] 08/23/2024 Shae Philip [facility] [place] [address] 08/24/2024 Shae Philip Bipolar affective disorder F31.9 and Tardive dyskinesia G24.[address] [place] [address] 09/05/2024 Shae Philip [address] [place] [address] 09/12/2024 Shae Philip Generalized anxiety disorder F41.1 and Tardive dyskinesia G24.01 [facility] [address], [place] [address] 09/12/2024 Shae Philip [address] [place] [address] 10/19/2024 [facility] [address] [place] [address] 11/27/2024 Shae Philip Tardive dyskinesia G24.01 [facility] [address] [place] [address] 02/13/2025 Shae Philip Tardive dyskinesia G24.01 ; Bipolar affective disorder F31.9 and Generalized anxiety disorder F41.1 [address] [place] [address] 03/14/2025 Shae Philip Generalized anxiety disorder F41.[address] [place] [address] 03/29/2025 Shae Philip [address] [place] [address] 04/11/2025 Shae Philip Tardive dyskinesia G24.01 [address] [place] [address] 04/18/2025 Shae Philip [address] [place] [address] 04/18/2025 Shae Philip Assessments Encounter Date Diagnosis (ICD Code) Assessment Notes Treatment Notes Treatment Clinical Notes Section Notes 05/24/2024 Nicotine dependence, unspecified, uncomplicated (ICD-10 - F17.200) 06/28/2024 Nicotine dependence, unspecified, uncomplicated (ICD-10 - F17.200) 05/03/2024 Generalized anxiety disorder (ICD-10 - F41.1) 08/24/2024 Bipolar affective disorder (ICD-10 - F31.9) [...] or Latuda. 08/30/2024 Fatigue (ICD-10 - R53.83) 09/12/2024 Generalized anxiety disorder (ICD-10 - F41.1) 09/12/2024 Tardive dyskinesia (ICD-10 - G24.01) 10/24/2024 Generalized anxiety disorder (ICD-10 - F41.1) Hydroxyzine with rare use. Client reports intermittent dry mouth- discussed this can be SE of multiple medications and continue to monitor. Encouraged oral hygeine. 12/06/2024 Generalized anxiety disorder (ICD-10 - F41.1) Hydroxyzine with rare use. Client reports intermittent dry mouth- discussed this can be SE of multiple medications and continue to monitor. Encouraged oral hygeine. 01/09/2025 Over weight (ICD-10 - E66.3) 03/06/2025 Over weight (ICD-10 - E66.3) 03/14/2025 [...] E66.3) 04/11/2025 Tardive dyskinesia (ICD-10 - G24.01) 04/17/2025 Over weight (ICD-10 - E66.3) 09/25/2024 Generalized anxiety disorder (ICD-10 - F41.1) Hydroxyzine with rare use. Client reports intermittent dry mouth- discussed this can be SE of multiple medications and continue to monitor. Encouraged oral hygeine. 02/13/2025 Tardive dyskinesia (ICD-10 - G24.01) 11/27/2024 Tardive dyskinesia (ICD-10 - G24.01) 07/27/2024 Bipolar affective disorder (ICD-10 - F31.9) Past symptoms c/w hypomania/ivette a with elevated moods, increased interest, racing thoughts, irritability and changes to sleep. Symptoms worsened with SSRI and has appeared to improve with Abilify. Will continue to monitor and evaluate as poor insight on patient behalf limits evaluation. 07/25/2024 Nicotine dependence, unspecified, uncomplicated (ICD-10 - F17.200) 02/13/2025 Bipolar affective disorder (ICD-10 - F31.9) Will continue to monitor and evaluate as poor insight on patient behalf limits evaluation. 07/25/2024 Generalized anxiety disorder (ICD-10 - F41.1) Hydroxyzine with rare use. Client reports intermittent dry mouth- discussed this can be SE of multiple medications and continue to monitor. Encouraged oral hygeine. 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 07/27/2024 Generalized anxiety disorder (ICD-10 - F41.1) 04/17/2025 Tardive dyskinesia (ICD-10 - G24.01) Pt has Hx of TD since 02/2022. Pt has tried Ingrezza with no relief. Pt understands that TD symptoms would be residential and irreversible. States has not tried alternatives besides ingrezza. Benztropine with worsened symptoms. Mild improvement with Austedo up to 48 mg, and recommended to continue at 48 mg per neuro, increasing back. 03/27/2025 Generalized anxiety disorder (ICD-10 - F41.1) [...] Client v/u and agreement to this plan. 10/24/2024 Bipolar affective disorder (ICD-10 - F31.9) Will continue to monitor and evaluate as poor insight on patient behalf limits evaluation. May look to change SGA if needed, has not tried Geodon or Latuda. 12/06/2024 Bipolar affective disorder (ICD-10 - F31.9) [...] Pt understands that TD symptoms would be residential and irreversible. 08/24/2024 Tardive dyskinesia (ICD-10 - G24.01) 05/03/2024 Bipolar affective disorder (ICD-10 - F31.9) 06/28/2024 Generalized anxiety disorder (ICD-10 - F41.1) [...] denies therapy referral at this time. 05/24/2024 Bipolar affective disorder (ICD-10 - F31.9) [...] and would like to increase Austedo first. 08/29/2024 Fatigue (ICD-10 - R53.83) 08/30/2024 Bipolar affective disorder (ICD-10 - F31.9) 12/06/2024 Tardive dyskinesia (ICD-10 - G24.01) Pt has Hx of TD since 02/2022. Pt has tried Ingrezza with no relief. 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 States has not tried alternatives besides ingrezza. Benztropine with worsened symptoms. 10/24/2024 Tardive dyskinesia (ICD-10 - G24.01) Pt has Hx of TD since 02/2022. Pt has tried Ingrezza with no relief. Reports that she feels mouth movements have worsened since increase in Austedo, decreasing. 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 States has not tried alternatives besides ingrezza, starting benztropine. 01/09/2025 Bipolar affective disorder (ICD-10 - F31.9) Will continue to monitor and evaluate as poor insight on patient behalf limits evaluation. May look to change SGA if needed, has not tried Geodon or Latuda. 03/27/2025 Tardive dyskinesia (ICD-10 - G24.01) Pt has Hx of TD since 02/2022. Pt has tried Ingrezza with no relief. Pt understands that TD symptoms would be residential and irreversible. States has not tried alternatives [...] 02/13/2025 Generalized anxiety disorder (ICD-10 - F41.1) 04/17/2025 Bipolar affective disorder (ICD-10 - F31.9) Will continue to monitor and evaluate as poor insight on patient's behalf does limits evaluation. Due to TD and report of Abilify not doing anything, medication stopped. Continue trazodone for sleep and depression. Continue hydroxyzine PRN. May look to change SGA if needed, has not tried Geodon or Latuda. 07/25/2024 Bipolar affective disorder (ICD-10 - F31.9) [...] Latuda. 07/27/2024 Tardive dyskinesia (ICD-10 - G24.01) 09/25/2024 Nicotine dependence, unspecified, uncomplicated (ICD-10 - F17.200) 07/25/2024 Tardive dyskinesia (ICD-10 - G24.01) Pt has Hx of TD since 02/2022. Pt has tried Ingrezza with no relief. Will increase Austedo XR to 36mg to aid TD symptoms. Pt has been toleratng Austedo XR well. Denies side effects. 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 04/17/2025 Generalized anxiety disorder (ICD-10 - F41.1) Client reports intermittent dry mouth- discussed this can be SE of multiple medications and continue to monitor. Discussed anticholinergic effects- try to take rare and PRN Encouraged oral hygeine. 03/27/2025 Nicotine dependence, unspecified, uncomplicated (ICD-10 - F17.200) 01/09/2025 Tardive dyskinesia (ICD-10 - G24.01) Pt has Hx of TD since 02/2022. Pt has tried Ingrezza with no relief. Pt understands that TD symptoms would be residential and irreversible. States has not tried alternatives besides ingrezza. Benztropine with worsened symptoms. Increase Austedo. 03/06/2025 Tardive dyskinesia (ICD-10 - G24.01) Pt has Hx of TD since 02/2022. Pt has tried Ingrezza with no relief. 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 States has not tried alternatives besides ingrezza. Benztropine with worsened symptoms. Continue Austedo. 12/06/2024 Nicotine dependence, unspecified, uncomplicated (ICD-10 - F17.200) 10/24/2024 Nicotine dependence, unspecified, uncomplicated (ICD-10 - F17.200) 08/29/2024 Medication monitoring encounter (ICD-10 - Z51.81) 06/28/2024 Tardive dyskinesia (ICD-10 - G24.01) Pt has Hx of TD since 02/2022. Pt has tried Ingrezza with no relief. Will increase Austedo XR to 30mg to aid TD symptoms. Pt has been toleratng Austedo XR well. Denies side effects. Pt understands that TD symptoms would be residential and irreversible. 05/24/2024 Tardive dyskinesia (ICD-10 - G24.01) Pt has Hx of TD since 02/2022. Pt has tried Ingrezza with no relief. Will increase Austedo XR to 24mg to aid TD symptoms. Pt has been toleratng Austedo XR well. Denies side effects. 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 08/29/2024 Nicotine dependence, unspecified, uncomplicated (ICD-10 - F17.200) 10/24/2024 Encounter for immunization (ICD-10 - Z23) pt tolerated well. Ordered per standing orders for administering influenza vaccine to adults. 12/06/2024 Encounter for immunization (ICD-10 - Z23) 01/09/2025 Nicotine dependence, unspecified, uncomplicated (ICD-10 - F17.200) 03/06/2025 Nicotine dependence, unspecified, uncomplicated (ICD-10 - F17.200) 03/27/2025 Encounter for immunization (ICD-10 - Z23) 04/17/2025 Nicotine dependence, unspecified, uncomplicated (ICD-10 - F17.200) 04/17/2025 Encounter for immunization (ICD-10 - Z23) 03/06/2025 Encounter for immunization (ICD-10 - Z23) 01/09/2025 Encounter for immunization (ICD-10 - Z23) 04/17/2025 Medication monitoring encounter (ICD-10 - Z51.81) 05/24/2024 Other Discussed treat ment planDiscussed sleep [...] May also contact the 24-hour crisis hotline ([facility]), refer to the closest emergency [...] May also contact the 24-hour crisis hotline ([facility]), refer to the closest emergency [...] aware that this provider will be leaving [facility] as of 07/05/2024, and she [...] May also contact the 24-hour crisis hotline ([facility]), refer to the closest emergency [...] May also contact the 24-hour crisis hotline ([facility]), refer to the closest emergency [...] May also contact the 24-hour crisis hotline ([facility]), refer to the closest emergency [...] May also contact the 24-hour crisis hotline ([facility]), refer to the closest emergency [...] May also contact the 24-hour crisis hotline ([facility]), refer to the closest emergency [...] May also contact the 24-hour crisis hotline ([facility]), refer to the closest emergency [...] May also contact the 24-hour crisis hotline ([facility]), refer to the closest emergency [...] May also contact the 24-hour crisis hotline ([facility]), refer to the closest emergency [...] of education, treatment plan and follow up. 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
--- OUTSIDE RECORDS SUMMARY | 2025-04-19 10:37 | XMS_ITS ---
Author Organization [facility] Address [address] [place] [address] Care Team Providers Care Supervisor Wet Pour Name Role Phone Shae Philip Primary Care Provider [phone] Social History Sex Assigned At : Social History Observation Description Sex Assigned At Female Encounters Encounter Location Date Provider Diagnosis [address] [place] [address] 04/18/2025 Shae Philip Plan Of Treatment No Information Progress Notes * Elin GÓMEZDOB:1960 ([age] yo F)Acc No.[id number]:04/18/2025 Patient: Collins JOSEki :1960 A ge:64 Y S ex:Female Phone: Address:[address], [place], [address] Subjective: * Chief Complaints: * * HPI: C ontinuity: Patient contacted after-hours nursing line. Urgency of Call U rgent Condition. O utcome of Call?Nurse instructed patient's caregiver to call PCP office { Dr Trejo at [facility]} estephania seen xiomara , Nurse instructed caregiver to take client to ED if she has any concerning symptoms Caregiver reports she is at what her usual baseline has been for several months. F ollow-up plans N urse to follow-up per provider recommendations. Per provider instructions, the nurse will:call PCP 0ffice in am to report critical TSH. * Medical History: * Surgical History: * Hospitalization/Major Diagno stic Procedure: * Medications: Objective: * Vitals: * Physical Examination: Assessment: Plan: * Treatment: * Procedure Codes: C HS06 After Hours [id number] OFF/OP EST FEBRUARY X REQ PHY/QHP * true * Date: Generated for Lorenzo white/Brenda/Tasneem on: 0 04/19/2025 10:37 AM CDT History and Physical Notes * HPI (History of Present Illness) Category Sub-Category Detail Notes Category Not es Continuity Urgency of Call Urgent Condition Outcome of Call Nurse instructed pat jose elias's caregiver to call PCP office { Dr Trejo at [facility]} estephania seen xiomara , Nurse instructed caregiver to take client to ED if she has any concerning symptoms Caregiver reports she is at what her usual baseline has been for several months Follow-up plans Nurse to follow-up p er provider recommendations. Per provider instructions, the nurse will:call PCP 0ffice in am to report critical TSH
--- OUTSIDE RECORDS SUMMARY | 2025-04-19 10:37 | XMS_ITS | Referral Summary ---
Author Organization [facility] Address [address] [place] [address] Care Team Providers Care Blasting Contract Miner Name Role Phone Shae Philip NP Primary Care Provider [phone] Encounters Date Type Department Care Team Description 04/11/2025 10:00 AM CDT Office Visit [facility] [address] [place] [address] Parveen Bertrand MD Tardive dyskinesia [...] 1 tablet (137 mcg total) by mouth smash fixer before breakfast Active traMADoL (ULTRAM) 50 mg [...] Noted Date Diagnosed Date Tardive dyskinesia 04/18/2025 Social History Tobacco Use Types Packs/Day Years Used Date Smoking Tobacco: Never Smokeless Tobacco: Never Comments Unknown Sex and Gender Information Value Date Recorded Sex Assigned at Not on file Legal Sex Female 11:12 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
--- OUTSIDE RECORDS SUMMARY | 2025-04-19 10:37 | XMS_ITS | Data Portability ---
Author Organization [place] [facility], Main Office Address [address] [place] [address] Care Team Providers Care Suppository Molding Machine Operator Name Role Phone ELINOR FRANCISCO Primary Care Provider ELINOR FRANCISCO Referring Provider [phone] Assessment Encounter Date Assessment Date Assessment LastModified [...] This note is dictated and transcribed by [employer] Software. Licensed Real Estate Broker variances may occur. Despite proofreading, typographical errors may occur. Occasional wrong-word or 'zgati-c-dlfm' substitutions may have occurred due to the inherent limitations of voice recording. Read the chart carefully and recognize, using context, where substitutions have occurred. [email or web address] Not available 02/15/2025 11:08:54 Plan of Treatment Reminders Order Date Submit Date Provider Last Modified By Organization Details Last Modified Time Details Appointments None recorded. Lab None recorded. Referral physical therapist referral - continuati on..... work on rom and strengthen ing 2023 024 [facility] [address], [place], [address], 11:38:44 physical therapist referral - Please contact patient at [phone] ....Thank you 2023 024 [facility] [address], [place], [address], 15:40:34 Procedures knee aspiration /injection (PROC) 2023 024 [email or web address] In-Office Order, Internal Use Only DO Not Attach Compendium DO Not Attach Compendium, Do Not Delete/merge, 11503 10:21:24 knee aspiration /injection (PROC) 2023 024 [email or web address] In-Office Order, Internal Use Only DO Not Attach Compendium DO Not Attach Compendium, Do Not Delete/merge, [address] 10:30:38 knee aspiration /injection (PROC) 2023 024 [email or web address] In-Office Order, Internal Use Only DO Not Attach Compendium DO Not Attach Compendium, Do Not Delete/merge, 86647 10:53:56 Surgeries None recorded. Imaging XR, foot, 3 or more view 2024 025 [email or web address] [facility] [place], [address], [place], [address], 5 11:10:05 XR, knee 2023 024 [email or web address] [facility] [place], [address], [place], [address], 4 12:00:24 XR, shoulder, 2 or more view 2023 024 [email or web address] [facility] [place], [address], [place], [address], 4 11:38:44 XR, shoulder, 2 or more view 2023 024 [email or web address] [facility] [place], [address], [place], [address], 4 14:59:37 Medication Orders ORTHOVISC 30 mg/2 mL intra-sherly cular syringe 2023 024 [email or web address] [id number], [address], [place], [place], [id number], 4 10:55:29 ORTHOVISC 30 mg/2 mL intra-sherly cular syringe 2023 024 [email or web address] [id number], [address], [place], [place], [id number], 4 12:00:24 ORTHOVISC 30 mg/2 mL intra-sherly cular syringe 2023 024 [email or web address] [id number], [address], [place], [place], [id number], 4 11:20:05 Patient TargetsNo targets recorded. Patient Instructions Encounter Date Encounter Id Patient Instructions Last Modified By Organization Details Last Modified Time 02/15/2025 [id number] plantar fasciitis: exercises Not available 02/15/2025 11:11:46 plantar fasciiti s education Not available 02/15/2025 11:11:46 Reason for Referral Physical Therapist Referral for Closed fracture of greater tuberosity of proximal right humerus Please contact patient at [phone] ....Thank you Please teach caregiver home program [...] observ ation record ed. [email or web address] [facility] [place] [address], [place], [address], 09/28/2023 14:40:34 10/19/19 24 XR, shoul chacorta, 2 or more view No observ ation record ed. [email or web address] [facility] [place] [address], [place], [address], 10/19/2023 14:35:13 12/09/19 24 XR, shoul chacorta, 2 or more view No observ ation record ed. [email or web address] [facility] [place] [address], [place], [address], 12/09/2023 11:19:04 12/16/19 24 XR, knee No observ ation record ed. [email or web address] [facility] [place] [address], [place], [address], 12/16/2023 10:46:31 02/16/20 25 XR, foot, 3 or more view No observ ation record ed. [email or web address] [facility] [place] [address], [place], [address], 02/15/2025 11:10:05 Result Notes None recorded. Problems Name Problem SNOMED Code Status Onset Date Resolution Date Notes Provider Name and Address Organization Details Recorded Time Pain in lower limb 84121234 Active 2018 Marycarmen Hutchinson INSIDE POLISHER null, [place] [facility] 3 08:45:52 Impacted cerumen of bilateral ears 4339641470427 108 Active 2017 Marycarmen Evangelina, INSIDE POLISHER null, [place] [facility] 3 08:45:52 Chronic neck pain 4007137356065 Active 2018 Marycarmen Evangelina, INSIDE POLISHER null, [place] [facility] 3 08:45:52 Chronic vertigo 3666313168155 5 Active 2018 Marycarmen Evangelina, INSIDE POLISHER null, [place] [facility] 3 08:45:52 Chronic hepatitis C 038762576 Active 2017 Marycarmen Hutchinson INSIDE POLISHER null, [place] [facility] 3 08:45:52 Bipolar disorder 36450533 Active 2017 Marycarmen Evangelina, INSIDE POLISHER null, [place] [facility] 3 08:45:52 Insomnia 216043969 Active 2017 Marycarmen Evangelina, INSIDE POLISHER null, [place] [facility] 3 08:45:52 Chronic constipatio n 162997576 Active 2018 Marycarmen Evangelina, INSIDE POLISHER null, [place] [facility] 3 08:45:52 Osteoarthri tis of knee 750357272 Active 2022 Marycarmen Hutchinson INSIDE POLISHER null, [place] [facility] 3 08:45:52 Degeneratio n of lumbar interverteb ral disc 57265112 Active 2018 Marycarmen Evangelina, INSIDE POLISHER null, [place] [facility] 3 08:45:52 Chronic low back pain 386440097 Active 2018 Marycarmen Hutchinson INSIDE POLISHER null, [place] [facility] 3 08:45:52 Pain in left knee Active 2017 Marycarmen Hutchinson INSIDE POLISHER null, [place] [facility] 3 08:45:52 Osteoarthri tis of left knee joint 1121221117165 09 Active 2021 Marycarmen Hutchinson INSIDE POLISHER null, [place] [facility] 3 08:45:53 Vitamin D deficiency 77140709 Active 2017 Marycarmen Hutchinson INSIDE POLISHER [place] [facility] 3 08:45:53 Osteoarthri tis 202718566 Active 2021 Marycarmen Hutchinson INSIDE POLISHER [place], [place] [facility] 3 08:45:53 Hypothyroid ism 18712803 Active 2017 Marycarmen Hutchinson INSIDE POLISHER null, [place] [facility] 3 08:45:53 Obesity 888393419 Active 2017 Marycarmen Hutchinson INSIDE POLISHER null, [place] [facility] 3 08:45:53 Pain of left knee joint 9284971079719 07 Active 2021 Marycarmen Hutchinson INSIDE POLISHER [place] [facility] 3 08:45:53 Hyperlipide katerina 64223413 Active 2017 Marycarmen Hutchinson INSIDE POLISHER null, [place] [facility] 3 08:45:53 Osteoporosi s 44182593 Active 2017 Marycarmen Hutchinson, INSIDE POLISHER null, [place] [facility] 3 08:45:53 Schizoaffec tive disorder 46918064 Active 2017 Marycarmen Hutchinson INSIDE POLISHER null, [place] [facility] 3 08:45:53 Degeneratio n of cervical interverteb ral disc 63188032 Active 2018 Marycarmen Hutchinson INSIDE POLISHER [place] [facility] 3 08:45:53 Hemorrhoids 90849294 Active 2018 Marycarmen Hutchinson, INSIDE POLISHER null[place] [facility] 3 08:45:53 Liver enzymes level above reference range 885775870 Active 2017 Marycarmen Hutchinson, INSIDE POLISHER null[place] [facility] 3 08:45:53 Smoker 65958636 Active 2017 Marycarmen Hutchinson, INSIDE POLISHER null, [place] [facility] 3 08:45:53 Dystrophia unguium 50800594 Active 2021 Marycarmen Hutchinson, INSIDE POLISHER null, [place] [facility] 3 08:45:53 Pain in limb 51616822 Active Marycarmen Hutchinson, INSIDE POLISHER null[place] [facility] 3 08:45:53 Pain in right arm 574160614 Active 2022 Marycarmen Hutchinson INSIDE POLISHER null[place] [facility] 3 08:45:52 Closed fracture of greater tuberosity of proximal left humerus 0482418283469 9100 Active 2022 Marycarmen Hutchinson, INSIDE POLISHER null, [place] [facility] 3 08:45:52 Closed fracture of greater tuberosity of proximal right humerus 6507390729002 9105 Active 2022 Marycarmen Hutchinson INSIDE POLISHER null, [place] [facility] 3 08:45:52 Pain in right foot 9547622930661 07 Active 2024 David Hernandez DPM [address], [address], [place], [address], [facility] 5 11:09:07 Plantar fasciitis of right foot 1085335500825 9101 Active 2024 David Hernandez DPM [address], [place], [address], [place] [facility] 5 11:10:21 Problem Notes None recorded. Procedures Surgical History Date Name Laterality Status Provider Name and Address Organization Details Recorded Time 5 Plantar Fascia Injection Right Foot completed Dvaid Hernandez DPM [address], [place], [address], [place] [facility] 02/15/2025 11:04:07 Imaging Results None recorded. Procedure Notes None recorded. Medical Equipment None Reported. Allergies Allergen ID Allergen Name Allergen Category Reaction Reaction Severity Criticality Documentation Date Start Date Code Code System Note Provider Name and Address Organization Details Recorded Time Product containin g penicilli n (product) medicatio n hives severe Not available 12/09/2022 42667 8001 SNOMED Not Available [facility] 3 09:01:05 40238 Mavyret medicatio n Not available Not available Not available 12/09/2022 26093 04 RxNorm BURNI NG HER SKIN ON HER FOLDS Not Available [facility] 3 09:01:05 83236 codeine medicatio n hives severe Not available 12/09/2022 2670 RxNorm Not Available [facility] 3 09:01:05 Medications Name Sig Start Date [...] administ ered by the provider 01/14 completed [facility]: 0003-04 94-20 Not Available Not Available Not [...] administ ered by the provider 01/22 completed [facility]: 0409-42 76-17 Not Available Not Available Not [...] administ ered by the provider 01/14 completed [facility] 25861-4 64-01 Not Available Not Available Not Available [...] Updated DateTime 10/19/2023 160.02 cm 31.9 kg/m2 47906.63 g Marycarmen Evangelina, INSIDE POLISHER [employer] 10/19/2023 14:03:44 Date Recorded Body height Body mass index (BMI) Body weight Provider Name and Address Organization Details Last Updated DateTime 12/09/2023 154.94 cm 33.1 kg/m2 03808.66 g Marycarmen Evangelina, [employer] 12/09/2023 10:24:59 Date Recorded Body height Body mass index (BMI) Body weight Provider Name and Address Organization Details Last Updated DateTime 12/16/2023 154.94 cm 34 kg/m2 92267.63 g Marycarmen Evangelina, [employer] 12/16/2023 10:28:19 Date Recorded Body height Body mass index (BMI) Body weight Provider Name and Address Organization Details Last Updated DateTime 12/23/2023 157.48 cm 32.9 kg/m2 62636.63 g MarycarmenTeachernowwest INSIDE POLISHER [employer] 12/23/2023 10:18:20 Date Recorded Body height Body mass index (BMI) Body weight Heart rate Respiratory rate Oxygen saturation Oxygen saturation in Arterial blood by Pulse oximetry Systolic And Diastolic Provider Name and Address Organization Details Last Updated DateTime 157.48 cm 32.9 kg/m2 92557.6 3 g 65 /min 14 /min 97 % 97 % 140/91 mm[Hg] Rosa Elena Farrar [employer] 5 10:37:56 Social History Question Answer Notes LastModified by Organizat ion Details LastModified Time Tobacco Smoking Status Current Every Day Smoker Not Available [facility] 12/09/2022 08:53:46 How Much Tobacco Do You Smoke? 1 PPD [id number] Information not available 12/09/2022 Sex: Unknown Functional Status Question Answer Note LastModified by Organization D etails LastModified Time What is your level of alcohol consumption? None [email or web address] Information not available 01/28/2023 Mental Status None recorded. Family History Nothing Reported. Medical History Condition Response ARTHRITIS Y SKIN PROBLEMS Y HEPATITIS / LIVER DISEASE Y GOUT Y Gynecological HistoryNo gynecological history recorded. Obstetrics History GPAL:G 0 P 0 0 0 0 Immunizations Vaccine Type Date Status Note Provider Nam e and Address Organization Details Recorded Time influenza, unspecified formulation 07/12/2018 [facility] [employer] 09/27/2023 08:45:53 Past Encounters Encounter ID Performer Location Encounter Start Date Encounter Closed Date Diagnosis/Indication Diagnosis SNOMED-CT Code Diagnosis ICD10 Code Diagnosis Note [id number] Adis Cisneros MD [facility] [place] [address] [place] [address] 01/22/2022 00:00:00 01/22/2022 13:49:48 [id number] MD [facility] [place] [address] [place] [address] 02/05/2022 00:00:00 02/05/2022 10:43:04 [id number] MD [facility] [place] [address] [place] [address] 02/12/2022 00:00:00 02/12/2022 10:14:04 [id number] Adis Cisneros MD [facility] [place] [address] [place] [address] 02/19/2022 00:00:00 02/19/2022 12:23:45 [id number] [facility] [place] [address] [place] [address] 02/26/2022 00:00:00 02/26/2022 13:45:12 [id number] Adis Cisneros MD [facility] [place] [address] [place] [address] 10/01/2022 00:00:00 10/01/2022 12:56:22 [id number] Adis Cisneros MD [facility] [place] [address] [place] [address] 11/09/2022 00:00:00 11/09/2022 10:51:17 [id number] Adis Cisneros MD [facility] [place] [address] [place] [address] 01/14/2023 09:34:10 01/14/2023 10:22:17 Pain in left knee 2811122726 57321 M25.562 Osteoarthr itis of left knee joint 0700749859 28961 M17.12 [id number] Adis Cisneros MD [facility] [place] [address] [place] [address] 01/21/2023 09:29:05 01/21/2023 10:35:36 Pain in left knee 5239552800 49295 M25.562 Osteoarthr itis of left knee joint 5772786733 48577 M17.12 [id number] Adis Cisneros MD [facility] [place] [address] [place] [address] 01/28/2023 09:41:54 01/28/2023 10:26:45 Pain in left knee 8217574919 16363 M25.562 Osteoarthr itis of left knee joint 1701961032 62169 M17.12 [id number] DYAN Zepeda [facility] [place] [address] [place] [address] 09/21/2023 14:49:26 09/21/2023 15:29:13 Pain in right arm 684945421 M79.601 Closed fra cture of greater tuberosity of proximal right humerus 3735440741 8065941 S42.254A [id number] DYAN Zepeda [facility] [place] [address] [place] [address] 09/28/2023 14:08:59 09/28/2023 14:33:42 Pain in right arm 625546639 M79.601 Closed fra cture of greater tuberosity of proximal right humerus 9765286437 0616632 S42.254D [id number] Flex Rich MD [facility] [place] [address] [place] [address] 10/19/2023 13:57:40 10/19/2023 14:30:15 Pain in right arm 255675575 M79.601 Closed fra cture of greater tuberosity of proximal right humerus 6159674016 4910367 S42.254D [id number] Flex Rich MD [facility] [place] [address] [place] [address] 12/09/2023 10:22:24 12/09/2023 11:38:44 Closed fracture of greater tuberosity of proximal right humerus 7791064312 3259461 S42.254D Pain in right arm 979592 004 M79.601 Pain in left knee 888694 8775 72601 M25.562 Osteoarthr itis of left knee joint 6732584995 11640 M17.12 [id number] Tigre Dow MD [facility] [place] [address] [place] [address] 12/16/2023 10:26:17 12/16/2023 11:11:51 Osteoarthritis of left knee joint 3169614154 19706 M17.12 Pain of le ft knee joint 7728297084 75529 M25.929 [id number] Tigre Dow MD [facility] [place] [address] [place] [address] 12/23/2023 10:15:53 12/23/2023 10:40:34 Pain of left knee joint 8394254039 70096 M25.562 Osteoarthr itis of left knee joint 4346819719 87898 M17.12 [id number] David Hernandez DPM [facility] [place] [address] [place] [address] 02/15/2025 10:28:47 02/16/2025 13:32:05 Pain in right foot 8042610872 69780 M79.671 rice therapyice technique reviewedfo llow-up 5 weeks Plantar fa sciitis of right foot 5558865132 7535374 M72.2 As above new line recommend supportive [...] Name 03/19/2025 1 [place] Elin Stevenson [id number] Elin Stevenson 03/21/2025 2 [place] WHEN MEDICARE OR MEDICARE REPLACEMENT PRIMARY) Elin Stevenson [id number] Elin Stevenson 03/21/2025 [facility] ON OR AFTER 04/10/21 (MEDICAID REPLACEMENT - HMO) Elin Stevenson [id number] Elin Stevenson 02/15/2025 3 [facility] ON OR AFTER 04/10/21 (MEDICAID REPLACEMENT - HMO) Elin Stevenson [id number] Elin Stevenson Notes Date Note Type Note [...] I tried to get her on vitamin-D 50382 IU weekly but this was declined by insurance I recommended she take Citracal with vitamin-D kyhv-rbo-qfacpae she also states that she has not [...] denies any neurovascular deficits. DYAN Zepeda [address], [place], [address], [place] [facility] 10/19/2023 14:36:27 12/09/2023 text/html Patient returns for [...] been instructed to take vitamin-D with calcium vitk-mwn-blakhss. We were worried about this going on [...] with her left knee. DYAN Zepeda [address], [place], [address], [employer] 12/09/2023 11:19:35 12/16/2023 text/html Patient returns for [...] from the 1st round. DYAN Zepeda [address], [place], [address], [employer] 12/16/2023 10:46:55 12/23/2023 text/html patient returns for Orthovisc injection number 3 left knee. She has iupc-fb-exhv changes in the medial compartment of the left knee and significant narrowing in the patellofemoral articulation. She has had chronic pain due to her severe primary osteoarthritis. She states she is getting some pretty good relief from the 1st 2 rounds of injections. Denies any problems today walking more comfortably. DYAN Zepeda [address], [place], [address], [employer] 12/23/2023 10:30:40 02/15/2025 text/html . Patient is [...] denies any injury. David Hernandez DPM [address], [place], [address], [facility] 02/15/2025 11:12:09 OBGyn Episode No OBEpisode recorded.
--- OUTSIDE RECORDS SUMMARY | 2025-04-19 11:20 | XMS_ITS | Referral Summary ---
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
--- OUTSIDE RECORDS SUMMARY | 2025-04-19 11:21 | XMS_ITS | Clinical Summary ---
Author Organization [facility] Address [address] [place] [address] Care Team Providers Care Drilling Supervisor Name Role Phone Shae Philip NP Primary Care Provider Allergies Active Allergy Reactions Criticality Noted Date Comments Codeine Hives,Urticaria Medium 12/24/2017 Penicillins Medications alendronate (FOSAMAX) 70 mg tablet Take 1 tablet (70 mg total) by mouth every 7 days Active pravastatin (PRAVACHOL) 20 mg tablet Take 1 tablet (20 mg total) by mouth daily Active levothyroxine (SYNTHROID) 137 mcg tablet Take 1 tablet (137 mcg total) by mouth med admin before breakfast Active traMADoL (ULTRAM) 50 mg [...] Description 04/11/2025 10:00 AM CDT Office [facility] [address] [place] [address] Parveen Bertrand MD Tardive dyskinesia [...] on file Legal 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
--- OUTSIDE RECORDS SUMMARY | 2025-04-19 11:21 | XMS_ITS | Clinical Summary ---
Author Organization [facility] Address [address], [facility] [address] [place] [address] Phone Care Team Providers Care Banquet Manager Name Role Phone Braulio Mccabe MD Primary Care Provider [phone] Allergies Active Allergy Reactions Criticality Noted Date Comments Codeine Hives 12/24/2017 Penicillins Hives 12/24/2017 Medications latanoprost (XALATAN) 0.005 % Solution Place 2 Drops in affected eye(s) nightly. Each eye. 8 Active sertraline (ZOLOFT) 100 MG Tablet Take 100 mg by mouth daily. 8 Active levothyroxine (SYNTHROID) 112 MCG Tablet Take 112 mcg by mouth daily. 8 Active ergocalciferol (VITAMIN D) 14277 UNIT Capsule TK 1 C PO Q [...] Insurance MEDICAID [facility] Care Teams Banquet Manager Relationship Specialty Start Date End Date Braulio Mccabe MD [address] [place] [address] PCP - General Internal Medicine 06/10/17
[2025-04-19 11:28] LABS: Hematocrit 41.4 % (35.0-42.0); Hemoglobin 14.4 g/dL (11.7-13.8); Immature Granulocyte Percent A 0.2 % (0.0-0.0); Lymphocytes Absolute Auto 1.71 K/mm3 (1.10-4.50); Mean Corpuscular HGB Conc 34.8 g/dL (32-36); Mean Corpuscular Hemoglobin 33.2 pg (27.0-31.0); Mean Corpuscular Volume 95.4 fL (78.0-102.0); Nucleated Red Blood Cells Absolute Auto 0.00 K/mm3 (0.00-0.00); Nucleated Red Blood Cells Perc 0.0 % (0-0.0); Platelet Count Result 269 K/mm3 (150-420); Red Blood Count 4.34 M/mm3 (4.20-5.40); White Blood Count 5.0 K/mm3 (4.8-10.8)
[2025-04-19 11:42] LABS: Alanine Aminotransferase 20 U/L (6-35); Albumin Level 4.4 g/dL (3.5-5.1); Alkaline Phosphatase 64 U/L (38-126); Anion Gap 4 mmol/L (4-12); Aspartate Amino Transferase 28 U/L (14-36); Bilirubin,Total 1.2 mg/dL (0.2-1.3); Blood Urea Nitrogen 13 mg/dL (7-17); Calcium 8.9 mg/dL (8.4-10.2); Carbon Dioxide 29 mmol/L (22-30); Chloride 106 mmol/L (98-107); Estimated CRCL calculation 51 ml/min; Estimated Glomerular Filt Rate > 60; Glucose 107 mg/dL (65-110); Osmolality Calculated 288 mOsm/kg (285-295); Potassium 4.0 mmol/L (3.4-5.0); Sodium 139 mmol/L (137-145); Total Protein 7.3 g/dL (6.3-8.2)
[2025-04-19 12:12] LABS: Thyroid Stimulating Hormone < 0.015 uIU/mL (0.465-4.680)
--- NOTE | 2025-04-19 12:26 | ED_ITS ---
HPI - Recheck/Abnormal Lab/Rx General Chief Complaint: Recheck/Abnormal Lab/Rx Stated Complaint: thyroid Time Seen by Provider: 04/19/25 10:50 Source: patient and family Mode of arrival: ambulatory Limitations: no limitations History of Present Illness HPI narrative: This is a 64-year-old female with history of hypothyroidism currently on levothyroxine, was being evaluated by our psychiatrist and there was concerns that she needed her thyroid levels checked. Otherwise patient with no shortness of breath no chest pain no fever chills no dysuria or hematuria no flank pain no headache no blurry vision no neurological deficits. Initial visit (ago): day(s) Related Data Home Medications ?Medication ?Instructions ?Recorded ?Confirmed ?Last Taken ?Type alendronate 70 mg tablet 70 mg PO WEEKLY 11/28/19 04/19/25 11/30/21 History pravastatin 20 mg tablet 20 mg PO DAILY 11/28/19 04/19/25 11/30/21 History hydroxyzine HCl 25 mg tablet 25 mg PO BID PRN Anxiety 07/22/21 04/19/25 Unknown History tramadol 50 mg tablet 50 mg PO Q6H PRN Pain 07/22/21 04/19/25 Unknown History levothyroxine 137 mcg tablet 137 mcg PO DAILY 04/12/25 04/19/25 Unknown History tizanidine 4 mg tablet 4 mg PO Q8H PRN muscle spasticity 04/12/25 04/19/25 Unknown History amantadine HCl 100 mg capsule mg 04/19/25 Unknown History Allergies Allergy/AdvReac Type Severity Reaction Status Date / Time codeine Allergy Mild Hives Verified 04/19/25 10:39 Penicillins Allergy Mild Hives Verified 04/19/25 10:39 Review of Systems 2 Review of Systems: All systems reviewed & are unremarkable except as noted in HPI and below PMFSH Past Medical History Medical History History of hepatitis C Glaucoma Anxiety Depression Schizophrenia Gout History of hypothyroidism Dyslipidemia Surgical History Surgical History Status post hemorrhoidectomy 12/01/21 H/O breast augmentation H/O hemorrhoidectomy History of section Hx of cholecystectomy Family History Family History Mother Family history of thyroid disease Hypertension Social History Social History Smoking packs per day: 1 Smoking cigarettes per day: 20.0 Years smoked: 36 Smoking pack-years: 36.00 Smoking status: Current every day smoker Tobacco type: cigarettes Alcohol intake: never Substance use type: marijuana Other substance usage details: DAILY Living arrangements: alone Occupation/Education: unemployed Exam 2 Const: General: healthy appearing Nutritional Appearance: well nourished Orientation/consciousness: patient oriented x3 Limitations: no limitations HENMT: Head: normal to inspection Eyes: Conjunctivae: conjunctivae normal Pupils: Equal, round and reactive pupils present Neck: Neck: normal visual inspection Chest: Chest palpation & inspection: normal inspection of the chest Resp: Effort & Inspection: normal respiratory effort Auscultation: clear to auscultation bilaterally Cardio: Rate: regular rate Rhythm: regular rhythm GI: GI Palp: Yes Soft to palpation : General: Yes bladder normal to palpation Urinary Catheter: Urinary Catheter: patent and draining Back/Spine/Pelvis: Back: no CVA tenderness Skin: General skin exam: normal color Rashes: no rashes Neuro: General: patient oriented x3, moves all extremities, no meningeal signs and no focal motor deficits Extrem: General: normal to inspection Course Course Emergency Course: Patient had blood work performed and her thyroid levels are low currently on levothyroxine 137 advised patient to hold her levothyroxine for the next 3 days and and then restart at a lower dose, and I will send a prescription and advised close follow-up with her primary. Vital Signs Vital signs: Vital Signs Temperature 36.1 C L 04/19/25 10:35 Pulse Rate 84 04/19/25 10:35 Respiratory Rate 18 04/19/25 10:35 Pulse Oximetry 95 04/19/25 10:35 Oxygen Delivery Room Air 04/19/25 10:35 Temperature 36.1 C L 04/19/25 10:35 Pulse Rate 84 04/19/25 10:35 Respiratory Rate 18 04/19/25 10:35 Pulse Oximetry 95 04/19/25 10:35 Oxygen Delivery Room Air 04/19/25 10:35 MDM - Recheck/Abnormal Lab/Rx Lab Data 04/19/25 11:23 04/19/25 11:23 Labs: Lab Results 04/19/25 Range/Units 11:23 WBC 5.0 (4.8-10.8) K/mm3 RBC 4.34 (4.20-5.40) M/mm3 Hgb 14.4 H (11.7-13.8) g/dL Hct 41.4 (35.0-42.0) % MCV 95.4 (78.0-102.0) fL MCH 33.2 H (27.0-31.0) pg MCHC 34.8 (32-36) g/dL RDW 12.7 (11.6-14.4) % Plt Count 269 (150-420) K/mm3 MPV 9.0 L (9.2-11.8) fl Immature Gran % (Auto) 0.2 H (0.0-0.0) % Neut % (Auto) 53.6 (50.0-70.0) % Lymph % (Auto) 34.5 (18.0-42.0) % [place] % (Auto) 9.9 (2.0-11.0) % Eos % (Auto) 0.8 L (1.0-6.0) % Baso % (Auto) 1.0 (0.0-1.0) % Lymph # (Auto) 1.71 (1.10-4.50) K/mm3 [place] # (Auto) 0.49 (0.10-0.90) K/mm3 Eos # (Auto) 0.04 (0.02-0.50) K/mm3 Baso # (Auto) 0.05 (0.00-0.10) K/mm3 Abs Immat Gran (auto) 0.01 H (0.00-0.00) K/mm3 Absolute Neuts (auto) 2.65 (1.70-7.20) K/mm3 Absolute Nucleated RBC 0.00 (0.00-0.00) K/mm3 Nucleated RBC % 0.0 (0-0.0) % Sodium 139 (137-145) mmol/L Potassium 4.0 (3.4-5.0) mmol/L Chloride 106 (98-107) mmol/L Carbon Dioxide 29 (22-30) mmol/L Anion Gap 4 (4-12) mmol/L BUN 13 D (7-17) mg/dL Creatinine 0.86 (0.7-1.0) mg/dL Estim Creat Clear Calc 51 ml/min Estimated GFR > 60 (59 - ) Glucose 107 (65-110) mg/dL Calculated Osmolality 288 (285-295) mOsm/kg Calcium 8.9 (8.4-10.2) mg/dL Total Bilirubin 1.2 (0.2-1.3) mg/dL AST 28 (14-36) U/L ALT 20 (6-35) U/L Alkaline Phosphatase 64 (38-126) U/L Total Protein 7.3 (6.3-8.2) g/dL Albumin 4.4 (3.5-5.1) g/dL TSH < 0.015 L (0.465-4.680) uIU/mL Critical Care Time Critical Care Time Critical Care Time: No Discharge Plan Discharge Clinical Impression: Hypothyroidism Qualifiers: Hypothyroidism type: other Qualified Code(s): E03.8 - Other specified hypothyroidism Patient Disposition: Home Condition: Stable Instructions: Antibiotic Form, Hypothyroidism (ED) Additional Instructions: advised patient to hold her levothyroxine x3 days and then restart levothyroxine [id number] daily and to follow with primary within the next 3 to 5 days further evaluation and treatment. Patient Language: Bengali Prescriptions: New levothyroxine 50 mcg capsule 50 mcg PO DAILY Qty: 20 0RF No Action tizanidine 4 mg tablet 4 mg PO Q8H PRN (Reason: muscle spasticity) levothyroxine 137 mcg tablet 137 mcg PO DAILY amantadine HCl 100 mg capsule alendronate 70 mg tablet 70 mg PO WEEKLY Rx Instructions: WEDNESDAY pravastatin 20 mg tablet 20 mg PO DAILY mupirocin 2 % ointment 1 applic topical BID 7 Days Qty: 22 0RF hydroxyzine HCl 25 mg tablet 25 mg PO BID PRN (Reason: Anxiety) tramadol 50 mg tablet 50 mg PO Q6H PRN (Reason: Pain) Follow-up/Referrals: Km Trejo RT(R) [Primary Care Provider] - Time of Disposition: 12:32
== END 2025-04-19 13:03 | disposition home or self-care (01) ==
PROVIDERS: Emergency Provider Emergency Medicine
DX: E03.8 Other specified hypothyroidism (principal); F17.210 Nicotine dependence, cigarettes, uncomplicated; Z79.899 Other long term (current) drug therapy
CPT/HCPCS: 36415; 80053; 84443; 85025; 99283

== ENCOUNTER 2025-04-27 12:40 | Emergency (ER) | payer MEDICARE, MEDICAID, SELFPAY ==
[2025-04-27 12:50] VITALS: BP 124/90; PULSE 70; RESP 16; TEMP 36.2; O2SAT 97
--- NOTE | 2025-04-27 13:08 | ED_ITS ---
HPI - Skin/Abscess/Foreign Bdy General Chief complaint: Extremity Problem,Nontraumatic Stated complaint: Left Foot Pain Time Seen by Provider: 04/27/25 13:00 Source: patient Mode of arrival: ambulatory Limitations: no limitations History of Present Illness HPI narrative: Elin is a 64-year-old female patient presenting to the clinic today with complaints of possible spider bite to the left foot/heel. She reports that she noticed around 7:00 a.m. last night that she had some itching to the back of the heel and it became red, swollen, and warm to touch. States her symptoms have somewhat improved however she still has the redness and swelling to the left foot. History of staph infection in the past. She is not diabetic. Denies any fevers, chills, body aches. States the area has decreased in itching at this time. No chest pain, shortness of breath, PVD, or issues with venous insufficiency. Related Data Home Medications ?Medication ?Instructions ?Recorded ?Confirmed ?Last Taken ?Type alendronate 70 mg tablet 70 mg PO WEEKLY 11/28/19 04/27/25 11/30/21 History pravastatin 20 mg tablet 20 mg PO DAILY 11/28/19 04/27/25 11/30/21 History hydroxyzine HCl 25 mg tablet 25 mg PO BID PRN Anxiety 07/22/21 04/19/25 Unknown History tramadol 50 mg tablet 50 mg PO Q6H PRN Pain 07/22/21 04/27/25 Unknown History levothyroxine 137 mcg tablet 137 mcg PO DAILY 04/12/25 04/27/25 Unknown History tizanidine 4 mg tablet 4 mg PO Q8H PRN muscle spasticity 04/12/25 04/27/25 Unknown History amantadine HCl 100 mg capsule mg 04/19/25 Unknown History Allergies Allergy/AdvReac Type Severity Reaction Status Date / Time codeine Allergy Mild Hives Verified 04/27/25 12:49 Penicillins Allergy Mild Hives Verified 04/27/25 12:49 Review of Systems Review of Systems: Pertinent positives per HPI. Patient denies any fever, chills, rash, headache, visual changes, dizziness, cough, shortness of breath, chest pain, palpitations, nausea, vomiting, diarrhea, constipation, abdominal pain, or any urinary issues. [facility] Past Medical History Medical History History of hepatitis C Glaucoma Anxiety Depression Schizophrenia Gout History of hypothyroidism Dyslipidemia Surgical History Surgical History Status post hemorrhoidectomy 12/01/21 H/O breast augmentation H/O hemorrhoidectomy History of section Hx of cholecystectomy Family History Family History Mother Family history of thyroid disease Hypertension Social History Social History Smoking packs per day: 1 Smoking cigarettes per day: 20.0 Years smoked: 36 Smoking pack-years: 36.00 Smoking status: Current every day smoker Tobacco type: cigarettes Alcohol intake: never Substance use type: marijuana Other substance usage details: DAILY Living arrangements: alone Occupation/Education: unemployed Comments At the time of my signature, I reviewed and agree with the nursing past medical, surgical, social, and family history. There is no relevant family history pertinent to the patient complaint. Exam Narrative: General: Well-developed, well nourished, in no apparent distress Head: Normocephalic, atraumatic. Cardio: Regular rate and rhythm, s1 and s2 normal, no murmur appreciated. Resp: Clear to auscultation bilaterally, no rhonchi, rales, wheezing or rubs. Integumentary: Tamms, warm, and dry, insect bite to the left posterior lateral heel with redness/swelling to the posterior heel and to the dorsal foot, non circumferential Course Course Emergency Course: Portions of this record may have been created with voice recognition software. Level of Care: Express Care Visit Vital Signs Vital signs: Vital Signs Temperature 36.2 C L 04/27/25 12:50 Pulse Rate 70 04/27/25 12:50 Respiratory Rate 16 04/27/25 12:50 Blood Pressure 124/90 04/27/25 12:50 Pulse Oximetry 97 04/27/25 12:50 Oxygen Delivery Room Air 04/27/25 12:50 Temperature 36.2 C L 04/27/25 12:50 Pulse Rate 70 04/27/25 12:50 Respiratory Rate 16 04/27/25 12:50 Blood Pressure 124/90 04/27/25 12:50 Pulse Oximetry 97 04/27/25 12:50 Oxygen Delivery Room Air 04/27/25 12:50 Vital signs reviewed MDM - Skin/Abscess/Foreign Bdy MDM Narrative Medical decision making narrative: At the time of visit patient is resting comfortably on the exam table. Patient appears to be nontoxic. Patient has probable insect sting to the left posterior heel with redness, mild erythema, swelling to the heel and dorsal foot. Redness is not circumferential. No history of cellulitis but does have a history of staph infection in the past. Denies any fevers, chills, body aches. States the area is itchy with very mild pain to palpation. Vital signs are stable. Plan: I suspect patient has a allergic reaction due to an insect bite/sting Will place her on prednisone and cover her with doxycycline as she has a history of staph infections in the past. Supportive measures were discussed with the patient and they voiced understanding discharge instructions and agrees to treatment plan. Return precautions reviewed Discharge Plan Discharge Clinical Impression: Insect bite Qualifiers: Encounter type: initial encounter Site of insect bite: foot Laterality: left Qualified Code(s): S90.862A - Insect bite (nonvenomous), left foot, initial encounter Patient Disposition: Home Condition: Stable Instructions: Antibiotic Form, Insect Bite or Sting (ED) Additional Instructions: Increase fluids and stay well hydrated Take doxycycline and prednisone as directed Keep it clean and dry Watch for signs and symptoms of worsening infection-fevers, chills, body aches, weakness, lethargy, confusion, increase in pain, redness, streaking, or purulent discharge Patient Language: Lithuanian Prescriptions: New prednisone 20 mg tablet 40 mg PO DAILY 5 Days Qty: 10 0RF doxycycline monohydrate 100 mg capsule 100 mg PO BID 7 Days Qty: 14 0RF No Action tizanidine 4 mg tablet 4 mg PO Q8H PRN (Reason: muscle spasticity) levothyroxine 137 mcg tablet 137 mcg PO DAILY amantadine HCl 100 mg capsule levothyroxine 50 mcg capsule 50 mcg PO DAILY Qty: 20 0RF alendronate 70 mg tablet 70 mg PO WEEKLY Rx Instructions: WEDNESDAY pravastatin 20 mg tablet 20 mg PO DAILY mupirocin 2 % ointment 1 applic topical BID 7 Days Qty: 22 0RF hydroxyzine HCl 25 mg tablet 25 mg PO BID PRN (Reason: Anxiety) tramadol 50 mg tablet 50 mg PO Q6H PRN (Reason: Pain) Follow-up/Referrals: Neil,MD Parveen [Primary Care Provider] - Time of Disposition: 13:01 Quality NIHSS Nursing Documentation ED NIHSS nursing documentation: reviewed/agree
== END 2025-04-27 13:05 | disposition home or self-care (01) ==
PROVIDERS: Emergency Provider Nurse Practitioner Family; PCP Internal Medicine
DX: S90.862A Insect bite (nonvenomous), left foot, initial encounter (principal); W57.XXXA Bitten or stung by nonvenomous insect and other nonvenomous arthropods, initial encounter; F17.210 Nicotine dependence, cigarettes, uncomplicated; F12.90 Cannabis use, unspecified, uncomplicated; H40.9 Unspecified glaucoma; E03.9 Hypothyroidism, unspecified; E78.5 Hyperlipidemia, unspecified; M10.9 Gout, unspecified; F41.9 Anxiety disorder, unspecified
CPT/HCPCS: 99213; G0463

== ENCOUNTER 2025-07-26 12:21 | Outpatient (CLI) | payer MEDICARE, MEDICAID, SELFPAY ==
--- OUTSIDE RECORDS SUMMARY | 2025-02-20 08:40 | XMS_ITS ---
Author Organization [facility] Address [address] [place] [address] Care Team Providers Care Aircraft Detail Draftsperson Name Role Phone Shae Philip Primary Care Provider [phone] REASON FOR VISIT 4 week F/U Social History Sex Assigned At : Social History Observation Description Sex Assigned At Female Encounters Encounter Location Date Provider Diagnosis [address] [place] [address] 02/20/2025 Shae Philip Plan Of Treatment Next Appt Details Provider Name:Shae fuentes, 08/13/2025 09:40:00 AM, [address] [facility] , [place], [address], Progress Notes * Elin GÓMEZDOB:1960 (6 5 yo F)Acc No.[id number]:02/20/2025 UNLOCKED PROGRESS NOTE Patient: Dilma REYES Elin Provider: Juan Philip, MSN, DEVICE TEST ENGINEER, GENOMICS SCIENTIST-C :1960 A ge:64 Y S ex:Female Date:02/20/2025 Phone: Address:[address], [facility] [address] Subjective: * Chief Complaints: * 1 . 4 week F/U. * Medical History: Objective: * Vitals: Assessment: Plan: * Treatment: * * Electronic signature of Soraida Philip , [id number] on 07/26/2025 at 01:53 PM CDT Sign off status: Pending * Provider: Juan Philip, KATERINE, DEVICE TEST ENGINEER, GENOMICS SCIENTIST-C Date: 0 02/20/2025 Generated for Lorenzo white/Brenda/Tasneem on: 1 01:53 PM CDT
[2025-07-26 13:16] LABS: Alanine Aminotransferase 31 U/L (6-35); Albumin Level 4.7 g/dL (3.5-5.1); Alkaline Phosphatase 62 U/L (38-126); Anion Gap 8 mmol/L (4-12); Aspartate Amino Transferase 34 U/L (14-36); Bilirubin,Total 1.1 mg/dL (0.2-1.3); Blood Urea Nitrogen 16 mg/dL (7-17); Calcium 9.3 mg/dL (8.4-10.2); Carbon Dioxide 30 mmol/L (22-30); Chloride 99 mmol/L (98-107); Estimated Glomerular Filt Rate 50; Glucose 99 mg/dL (65-110); Potassium 3.8 mmol/L (3.4-5.0); Sodium 137 mmol/L (137-145); Total Protein 7.8 g/dL (6.3-8.2)
[2025-07-26 13:52] LABS: Thyroid Stimulating Hormone 8.810 uIU/mL (0.465-4.680)
--- OUTSIDE RECORDS SUMMARY | 2025-07-26 13:53 | XMS_ITS | Clinical Summary ---
Author Organization [facility] Medical Office Building [address] Address [address] [place] [address] Care Team Providers Care Garbage Collector Name Role Phone Shae Philip NP Primary Care Provider [phone] Allergies Active Allergy Reactions Criticality Noted Date Comments Codeine Hives,Urticaria Medium 12/24/2017 Penicillins Medications alendronate (FOSAMAX) 70 mg tablet Take 1 tablet (70 mg total) by mouth every 7 days Active pravastatin (PRAVACHOL) 20 mg tablet Take 1 tablet (20 mg total) by mouth daily Active levothyroxine (SYNTHROID) 137 mcg tablet Take 1 tablet (137 mcg total) by mouth early head start director before breakfast Active traMADoL (ULTRAM) 50 mg [...] a day 60 capsule 5 5 Active Active Problems Problem Noted Date Diagnosed Date Tardive dyskinesia 04/18/2025 Surgical History Surgery Date Site/Laterality Comments BREAST IMPLANT REMOVAL SECTION Medical History Medical History Date Comments Anxiety Arthritis Depression Thyroid disease Social History Tobacco Use Types Packs/Day Years Used Date Smoking Tobacco: Never Smokeless Tobacco: Never Comments Unknown Sex and Gender Information Value Date Recorded Sex Assigned at Not on file Legal Sex Female 11:12 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
--- OUTSIDE RECORDS SUMMARY | 2025-07-26 13:53 | XMS_ITS | Encounter Summary ---
Author Organization [facility] Address [address] [place] [address] Care Team Providers Care Utilities Estimator And Drafter Name Role Phone Noe Crooks MD Unavailable [phone] Paxton Lay MD Primary Care Provider [phone] Manpreet LAURA MD, Lan Copeland Primary Care Provider [phone] Parveen Trejo MD Primary Care Provider [phone] Reason for Visit * Reason Onset Date Comments Medication Problem 06/12/2021 Encounter Details Date Type Department Care Team (Late st Contact Info) Description 06/12/2021 Telephone [facility] [address] [place] [address] Omar Da Silva MD [address] [facility] [place] [address] [place] [address] Medication Problem Social History Tobacco Use Types Packs/Day Years Used Date Smoking Tobacco: Every Day Cigarettes 1 40 Smokeless Tobacco: Never Alcohol Use Standard Drinks/Week Comments No 0 (1 standard drink = 0.6 oz pur e alcohol) Comments No Sex and Gender Information Value Date Recorded Sex Assigned at Not on file Legal Sex Female 6:18 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 Pt had script sent to [facility] on [address] [phone] Pt phone [phone]. Please call to advise/discuss. documented in this encounter Plan of Treatment Upcoming Encounters Date Type Department Care Team (Late st Contact Info) Description 11/15/2025 10:00 AM FIELD MARKETING REPRESENTATIVE Office Visit [facility] - Ophthalmology [address] [place] [phone] Gurmeet Romo, PEDRO [address] [place] [address] [phone] 11/21/2025 9:00 AM FIELD MARKETING REPRESENTATIVE Office Visit [facility] - Neurology [address] [place] [address] [phone] Sarbjit Yuen APRN-LICENSED FUNERAL DIRECTOR AND EMBALMER [address] [place] [address] [place] [phone] documented as of this encounter Goals Goal [...] on filedocumented in this encounter Care Teams Utilities Estimator And Drafter Relationship Specialty Start Date End Date Paxton Lay MD [address] [place] [address] PCP - General 11/28/19 10/22/21 Lan Case III, MD [address] [address] PCP - General 10/23/21 05/14/25 [place] [address] [place] [phone] PCP - General Internal Medicine 05/15/25 Noe Crooks MD Dermatology 10/24/18 documented as of this encounter
--- OUTSIDE RECORDS SUMMARY | 2025-07-26 13:53 | XMS_ITS | Data Portability ---
Author Organization [place] [facility] Address [address] [address] Assessment No assessment recorded. Plan of Treatment Reminders Order Date Submit Date Provider Last Modified By Organization Details Last Modified Time Details Appointments None recorded. Lab None recorded. Referral None recorded. Procedures None recorded. Surgeries None recorded. Imaging None recorded. Medication Orders fluconazole 150 mg tablet 2021 [facility] [employer] #[id number], [address] [place], [place], [phone], 15:49:35 nystatin-tr iamcinolone 100,000 unit/gram-0 .1 % topical ointment 2021 [facility] [employer] #[id number], [address] [place], [place], [phone], 15:49:35 Patient TargetsNo targets recorded. Patient InstructionsNo instructions recorded. Reason for Referral None Reported. Results Created Date Observation Date Name Description Value Unit Range Abnormal Flag Note LastModifiedBy Organization Detail LastModifiedTime 04/23/2004/23/2022 VAGIN ITIS/ VAGIN OSIS, DNA PROBE tristen sp. detection, direct probe Negati ve negati ve Not Available [facility] [address] [place], [address], 04/24/2022 15:33:41 04/23/20 22 04/23/2022 VAGIN ITIS/ VAGIN OSIS, DNA PROBE gardnerella vag. detection, direct probe Negati ve negati ve Not Available [facility] [address] [place], [address], 04/24/2022 15:33:41 04/23/2004/23/2022 VAGIN ITIS/ VAGIN OSIS, DNA PROBE trichomonas vag. detection, direct probe Negati ve negati ve Not Available [facility] [address] [place], [address], 04/24/2022 15:33:41 Result Notes None recorded. Problems No Known Problems Procedures Surgical History Date Name Laterality Status Provider Name and Address Organization Details Recorded Time Date of Last Pap Smear completed Munira Gu [facility] 04/23/2022 15:20:29 Imaging Results None recorded. Procedure Notes None recorded. Medical Equipment None Reported. Allergies Allergen ID Allergen Name Allergen Category Reaction Reaction Severity Criticality Documentation Date Start Date Code Code System Note Provider Name and Address Organization Details Recorded Time 42885 codeine medicatio n Not available Not available Not available 04/23/2022 2670 RxNorm Munira rivera [facility] 2 15:19:37 15444 Product containin g penicilli n (product) medicatio n Not available Not available Not available 04/23/2022 30438 8001 SNOMED Munira rivera [facility] 2 15:19:56 Medications Name Sig Start [...] Body mass index (BMI) Body weight Systolic And Diastolic Provider Name and Address Organization Details Last Updated DateTime 04/23/2022 160.02 cm 31.7 kg/m2 78924.75 g 105/71 mm[Hg] Munira Gu [facility] 04/23/2022 14:58:20 Social History Question Answer Notes LastModified by Organizat ion Details LastModified Time Tobacco Smoking Status Current Every Day Smoker Munira rivera [facility] 04/23/2022 15:22:30 Are You Blind Or Do You Have Difficulty Seeing? No eusebio Information not available 04/23/2022 Are You Deaf Or Do You Have Serious Difficulty Hearing? No Information not available 04/23/2022 What Type Of Diet Are You Following? REGULAR Information not available 04/23/2022 Do You Have Difficulty Walking Or Climbing Stairs? No Information not available 04/23/2022 Sex: Unknown Functional Status Question Answer Note LastModified by Organizat ion Details LastModified Time What is your level of alcohol consumption? None Information not available 04/23/2022 Are you able to walk independently without assistance or assistive devices? YESWOREST Information not available 04/23/2022 Are you able to care for yourself independently? Yes Information not available 04/23/2022 Do you have difficulty dressing, bathing, grooming, or toileting? No Information not available 04/23/2022 What is your exercise level? None Information not available 04/23/2022 Mental Status None recorded. Family History Nothing Reported. Medical History Condition Response Other N Blood Transfusion N Dermatologic Disorders N Gestational Diabetes N Anxiety Disorder N Autoimmune disease N Arthritis N Polyps N Infertility N Acid Reflux (GERD) N Cancer N Varicosities N Stroke N Neurologic/Epilepsy N Fibromyalgia N Headaches N Kidney Disease N Heart Problems N Kidney or Bladder Problems N Eating Disorder N Art (IVF or FET) N Hepatitis/Liver Disease N No Past Medical History N Urinary Tract Infection N Asthma N Trauma/Violence N Thrombophilias N Allergies (Food, seasonal, environmental ) N Breast Cancer N Drug/Latex Allergies/Reactions N Lung Disease N Defects or Inherited Disease N Breast Problem N Hematologic disorders N Anesthesia Complications N History of STI N Deep Vein Thrombosis N Polycystic ovary syndrome N History of abnormal pap N Endometriosis N High Cholesterol Y Thyroid Problems Y GI Problems N Anemia N Psychiatric Illness N Ovarian Cancer N Diabetes N Pulmonary (TB, Asthma) N Eczema N Abuse/Domestic Violence N Depression/ depression N Heart Disease N Pre-Eclampsia N Hypertension N Osteoporosis N Gynecological History Statement/Question Response STIs/STDs N HPV Vaccine N Date of Last Pap Smear 10/11/2018 Sexual Problems? N Current Control Method Menopause Sexually Active? N Obstetrics History GPAL:G 3 P 0 0 2 1 Type Value Induced 2 Living 1 Total 3 Past Encounters Encounter ID Performer Location Encounter Start Date Encounter Closed Date Diagnosis/Indication Diagnosis SNOMED-CT Code Diagnosis ICD10 Code Diagnosis IMO Codes Diagnosis Note [id number] Emili JadechristopherJAMES Sanger [address] [address] 04/23/2022 14:48:43 04/23/2022 16:06:11 Vaginal irritation 966237915 N89.8 On exam, mild vaginal atrophy notedPatie [...] Curran Member ID Guarantor Name 04/23/2022 1 [facility] - DOS ON OR AFTER 21 (MEDICAID REPLACEMENT - HMO) Elin Stevenson [id number] Elin Stevenson Notes Date Note Type Note [...] vaginal soaps or products JAMES Fernandez [address], [place], [address], [place] [facility] 04/23/2022 15:54:16 OBGyn Episode Ob Episode Information Episode Created Date Number of Fetuses Patient Bloodtype Patient rh Status Prepregnancy Weight lbs Domestic Partner Domestic Partner Phone Father Name Rat Exterminator Status 04/23/20 22 1 CLOSED Fetus Data First Name Last Name Admitted to NICU Weight (g) Sex Living Outcome Pediatric Complications Fetus ID Race Codes Race Delivery Type 3401.94 F [id number] Primary Jhon Calculation Initial Jhon Date Initial [...]
--- OUTSIDE RECORDS SUMMARY | 2025-07-26 13:53 | XMS_ITS | Data Portability ---
Author Organization [place] [facility] [employer], Main Office Address [address] [place] [address] Care Team Providers Care State Game Protector Name Role Phone ELINOR FRANCISCO Primary Care [...] This note is dictated and transcribed by [employer]. Chief Technician variances may occur. Despite proofreading, typographical errors may occur. Occasional wrong-word or '[id number]-m-[id number]' substitutions may have occurred due to the [...] on rom and strengthen ing 2023 024 [email or web address] [facility] [address], [place], [address], 11:38:44 physical therapist referral - Please contact patient at ....Thank you 2023 024 ATHENAFAX [facility] [address], [place], [address], 15:40:34 Procedures knee aspiration /injection (PROC) 2023 024 [email or web address] In-Office Order, Internal Use Only DO Not Attach Compendium DO Not Attach Compendium, Do Not Delete/merge, [id number] 10:21:24 knee aspiration /injection (PROC) 2023 024 [email or web address] In-Office Order, Internal Use Only DO Not Attach Compendium DO Not Attach Compendium, Do Not Delete/merge, [id number] 10:30:38 knee aspiration /injection (PROC) 2023 024 [email or web address] In-Office Order, Internal Use Only DO Not Attach Compendium DO Not Attach Compendium, Do Not Delete/merge, [id number] 10:53:56 Surgeries None recorded. Imaging XR, foot, 3 or more view 2024 025 [email or web address] [facility] [place], [address], [place], [address], 5 11:10:05 XR, knee 2023 024 [email or web address] [facility] [place], [address], [place], [address], 4 12:00:24 XR, shoulder, 2 or more view 2023 024 [email or web address] [facility] [place], [address], [place], [address], 4 11:38:44 XR, shoulder, 2 or more view 2023 024 [email or web address] [facility] [place], [address], [place], [address], 4 14:59:37 Medication Orders ORTHOVISC 30 mg/2 mL intra-sherly cular syringe 2023 024 [email or web address] [id number], [address], [place], [place], [id number], 4 10:55:29 ORTHOVISC 30 mg/2 mL intra-sherly cular syringe 2023 024 [email or web address] [id number], [address], [place], [place], [id number], 4 12:00:24 ORTHOVISC 30 mg/2 mL intra-sherly cular syringe 2023 024 [email or web address] [id number], [address], [place], [place], [id number], 4 11:20:05 Patient TargetsNo targets recorded. Patient Instructions Encounter Date Encounter Id Patient Instructions Last Modified By Organization Details Last Modified Time 02/15/2025 [id number] plantar fasciitis: exercises Not available 02/15/2025 11:11:46 plantar fasciiti s education Not available 02/15/2025 11:11:46 Reason for Referral Physical Therapist Referral for Closed fracture of greater tuberosity of proximal right humerus Please contact patient at [phone] ....Thank you Please teach caregiver home program [...] observ ation record ed. [email or web address] [facility] [place] [address], [place], [address], 09/28/2023 14:40:34 10/19/19 24 XR, shoul chacorta, 2 or more view No observ ation record ed. [email or web address] [facility] [place] [address], [place], [address], 10/19/2023 14:35:13 12/09/19 24 XR, shoul chacorta, 2 or more view No observ ation record ed. [email or web address] [facility] [place] [address], [place], [address], 12/09/2023 11:19:04 12/16/19 24 XR, knee No observ ation record ed. [email or web address] [facility] [place] [address], [place], [address], 12/16/2023 10:46:31 02/16/20 25 XR, foot, 3 or more view No observ ation record ed. [email or web address] [facility] [place] [address], [place], [address], 02/15/2025 11:10:05 06/29/20 25 06/29/2025 scree rick breas t kareem, bilat [facility] [address], [place] [address] Patien t Name: ELIN GÓMEZ Access ion #: [id number] Sex: F : 1959 1 Dictat ed By: Milla Ro Attend ing Physic sakshi: JERAD SMITH Orderi ng Physic sakshi: JERAD SMITH Exam Date: 2024 08:53 AM Exam Name: MG SCRN BREAST KAREEM BILAT Admitt ing Diagno sis(es ): PROCED URE: SCREEN ING MAMMOG TIA WITH TOMOSY NTHESI S REASON FOR EXAM: screen ing COMPAR ELISHA: DIGITA L MAMM, BILAT SCREEN ING on DOS: , DIGITA L MAMM, BILAT SCREEN ING 2D on DOS: TECHNI QUE: Bilate ral CC and MLO views obtain ed. Images were obtain ed using a Digita l Tomosy nthesi s Unit. Standa rd 2D and 3D Tomosy nthesi s images were review ed. This examin ation was analyz ed using Lunit Insigh t DBT/MM G in additi on to a radiol ogist review , an AI softwa re develo ped to enhanc e the effect ivenes s of breast cancer screen ing with mammog cheryle. FINDIN GS: BREAST COMPOS ITION: A - The breast s are almost entire ly fatty. There are prepec malachi silico ne implan ts. In the right breast , no asymme trical parenc hymal patter n, simba ectura l distor tion, pleomo rphic microc alcifi cation s or masses . In the left breast , no asymme trical parenc hymal patter n, simba ectura l distor tion, pleomo rphic microc alcifi cation s or masses . IMPRES GURWINDER: No findin gs of malign yareli. RECOMM ENDATI ON: Recomm end annual mammog tia. Page 1 [facility] [address] [place] [address] Patien t Name: ELIN GÓMEZ Access ion #: [id number] Sex: F : 1959 1 Dictat ed By: Milla Ro Attend ing Physic sakshi: LUIS VITALE Physic sakshi: JERAD SMITH Exam Date: 2024 08:53 AM Exam Name: MG FUNK BREAST KAREEM BILAT Admitt ing Diagno sis(es ): ASSESS MENT: BIRADS : 2 - Benign Electr onical ly Signed by: Milla Ro at 2024 10:17: 34 AM Page 2 INTERFACE [facility] (Imaging) [address] [place], [place], [facility], 06/29/2025 11:19:48 06/29/20 25 06/29/2025 LD[facility], chest , [facility] [address] [place] [address] [phone] RADIOL OGY REPORT _ Patien t Name: RICO Dodson Date Of : [birth year] Date Of Study: 025 Ref. Physic sakshi: LUIS Sánchez _ Examin ation: CT LOW DOSE CNCR SCREEN ING CLINIC AL INDICA TION: lung screen ing for nicoti ne depend ence. COMPAR ELISHA: None. CONTRA ST USED: None. TECHNI QUE: A plain low dose CT study of the chest is perfor med. CT scan done accord ing to ALARA (As Low as Reason ably Achiev able). Multip lanar recons tructi ons were obtain ed. FINDIN GS: Lower neck and thyroi d: The lower neck and thyroi d gland appear normal with no focal lesion s or signif icant lympha denopa thy. Lungs and pleura : Mild fibrot ic scarri ng is seen in the bilate ral upper lobes, right middle lobe, lingul a, and both lower lobes. The pulmon burt parenc hyma does not show any additi onal signif icant abnorm ality. No pulmon burt nodule s are detect ed. Pleura l spaces are clear. Medias tinum, Heart and great vessel s: The trache a and the mainst em bronch i are normal . Few small calcif ied left hilar and subcar inal lymph nodes are seen. No signif icant medias tinal lympha denopa thy is detect ed. Mild athero sclero tic wall calcif icatio n is seen along the ascend ing aorta, arch of the aorta, and descen ding thorac ic aorta. Mild morales ry artery calcif icatio n is noted. The medias tinal vascul ature otherw ise appear s normal . Cardia c size appear s normal . No obviou s perica rdial effusi on is presen t. Chest wall and Axilla e: Bilate ral breast implan ts are noted. The chest wall and axilla e show no eviden ce of mass or abnorm ality. Osseou s struct ures: Mild degene rative change s are seen in the thorac ic spine. The visual ized ribs, sternu m, and clavic les are intact withou t fractu re or lytic lesion s. Visual ized Upper Abdome n: Gallbl adder: The gallbl adder is normal in appear ance, withou t stones or wall thicke rick. Adrena l glands : Both adrena l glands are normal in size and shape withou t nodule s or masses . Liver: Mild hepati c steato sis is noted. The liver is mildly enlarg ed with a homoge neous attenu ation patter n, and no focal lesion s are presen t. Spleen : Visual ized spleni c parenc hyma contai ns few tiny foci of calcif icatio n. The spleen is normal in size and shape. Pancre as: The pancre as is normal in size and contou r with no masses or ductal dilata tion. Kidney s: Visual ized kidney s demons trate a simple exophy tic cortic al cyst in the left kidney . No hydron ephros is or stones are seen. Both kidney s are otherw ise normal in size, shape, and parenc hymal attenu ation. Additi onal Findin gs: A small slidin g hiatus hernia is presen t with stomac h fundus extend ing slight ly above the diaphr agm. Athero sclero tic wall calcif icatio n is also seen along the abdomi nal aorta. IMPRES GURWINDER: 1. Mild fibrot ic scarri ng in bilate ral upper lobes, right middle lobe, lingul a, and both lower lobes consis tent with fibrot ic lung change s. 2. Mild hepati c steato sis. 3. Simple exophy tic cortic al cyst in the left kidney . 4. Mild athero sclero tic calcif icatio n involv ing the thorac ic and abdomi nal aorta and morales ry arteri es. 5. Few small calcif ied left hilar and subcar inal lymph nodes withou t signif icant medias tinal lympha denopa thy. 6. Small slidin g hiatus hernia . 7. Mild degene rative change s in the thorac ic spine. Lung RADS: Catego ry 1. Electr onical ly Signed 025 10:[address] [facility] (Imaging) [address] [place], [address], 06/29/2025 11:41:37 Result Notes Documentation Provider Name and Address Organization Details Recorded Time Ldct, Chest, For Lung Cancer Screening : [facility] [address] [id number] [phone] RADIOLOGY REPORT _ Patient Name: RICO Dodson Date Of : 1960 Date Of Study: 06/29/2025 Ref. Physician: LIUS Sánchez _ Examination: CT LOW DOSE CNCR SCREENING CLINICAL INDICATION: lung screening for nicotine dependence. COMPARISON: None. CONTRAST USED: None. TECHNIQUE: A plain low dose CT study of the chest is performed. CT scan done according to ALARA (As Low as Reasonably Achievable). Multiplanar reconstructions were obtained. FINDINGS: Lower neck and thyroid: The lower neck and thyroid gland appear normal with no focal lesions or significant lymphadenopathy. Lungs and pleura: Mild fibrotic scarring is seen in the bilateral upper lobes, right middle lobe, lingula, and both lower lobes. The pulmonary parenchyma does not show any additional significant abnormality. No pulmonary nodules are detected. Pleural spaces are clear. Mediastinum, Heart and great vessels: The trachea and the mainstem bronchi are normal. Few small calcified left hilar and subcarinal lymph nodes are seen. No significant mediastinal lymphadenopathy is detected. Mild atherosclerotic wall calcification is seen along the ascending aorta, arch of the aorta, and descending thoracic aorta. Mild coronary artery calcification is noted. The mediastinal vasculature otherwise appears normal. Cardiac size appears normal. No obvious pericardial effusion is present. Chest wall and Axillae: Bilateral breast implants are noted. The chest wall and axillae show no evidence of mass or abnormality. Osseous structures: Mild degenerative changes are seen in the thoracic spine. The visualized ribs, sternum, and clavicles are intact without fracture or lytic lesions. Visualized Upper Abdomen: Gallbladder: The gallbladder is normal in appearance, without stones or wall thickening. Adrenal glands: Both adrenal glands are normal in size and shape without nodules or masses. Liver: Mild hepatic steatosis is noted. The liver is mildly enlarged with a homogeneous attenuation pattern, and no focal lesions are present. Spleen: Visualized splenic parenchyma contains few tiny foci of calcification. The spleen is normal in size and shape. Pancreas: The pancreas is normal in size and contour with no masses or ductal dilatation. Kidneys: Visualized kidneys demonstrate a simple exophytic cortical cyst in the left kidney. No hydronephrosis or stones are seen. Both kidneys are otherwise normal in size, shape, and parenchymal attenuation. Additional Findings: A small sliding hiatus hernia is present with stomach fundus extending slightly above the diaphragm. Atherosclerotic wall calcification is also seen along the abdominal aorta. IMPRESSION: 1. Mild fibrotic scarring in bilateral upper lobes, right middle lobe, lingula, and both lower lobes consistent with fibrotic lung changes. 2. Mild hepatic steatosis. 3. Simple exophytic cortical cyst in the left kidney. 4. Mild atherosclerotic calcification involving the thoracic and abdominal aorta and coronary arteries. 5. Few small calcified left hilar and subcarinal lymph nodes without significant mediastinal lymphadenopathy. 6. Small sliding hiatus hernia. 7. Mild degenerative changes in the thoracic spine. Lung RADS: Category 1. Electronically Signed 06/29/2025 10:40 Scotty Corey Not Available [facility] 06/29/2025 11:41:37 Problems Name Problem SNOMED Code Status Onset Date Resolution Date Notes Provider Name and Address Organization Details Recorded Time Pain in limb 75593118 Active Marycarmen Evangelina, WAFER CUTTER null, [place] [facility] 3 08:45:53 Impacted cerumen of bilateral ears 7416735329630 108 Active 2017 Marycarmen Evangelina, WAFER CUTTER null[place] [facility] 3 08:45:52 Chronic hepatitis C 240715440 Active 2017 Marycarmen Evangelina, WAFER CUTTER null[place] [facility] 3 08:45:52 Bipolar disorder 76176576 Active 2017 Marycarmen Evangelina, WAFER CUTTER null[place] [facility] [place] [facility] 3 08:45:52 Insomnia 461521993 Active 2017 Marycarmen Evangelina, WAFER CUTTER null, [place] [facility] 3 08:45:52 Hypothyroid ism 08063396 Active 2017 Marycarmen Hutchinson WAF[employer] CUTTER null[place] [facility] 3 08:45:53 Obesity 008460164 Active 2017 Marycarmen Hutchinson WAFER CUTTER null[place] [facility] 3 08:45:53 Hyperlipide katerina 99639510 Active 2017 Marycarmen Hutchinson WAFER CUTTER null[place] [facility] 3 08:45:53 Schizoaffec tive disorder 38753216 Active 2017 Marycarmen Hutchinson WAFER CUTTER null[place] [facility] 3 08:45:53 Smoker 91065357 Active 2017 Marycarmen Hutchinson WAFER CUTTER null[place] [facility] 3 08:45:53 Vitamin D deficiency 38865725 Active 2017 Marycarmen Hutchinson WAFER CUTTER null[place] [facility] 3 08:45:53 Osteoporosi s 69122450 Active 2017 Marycarmen Hutchinson WAFER CUTTER null[place] [facility] 3 08:45:53 Liver enzymes level above reference range 710062930 Active 2017 Marycarmen Hutchinson WAFER CUTTER null[place] [facility] 3 08:45:53 Pain in left knee Active 2017 Marycarmen Hutchinson WAFER CUTTER null[place] [facility] 3 08:45:52 Chronic vertigo 7818581514063 5 Active 2018 Marycarmen Hutchinson WAFER CUTTER null[place] [facility] 3 08:45:52 Chronic constipatio n 119556794 Active 2018 Marycarmen Hutchinson WAFER CUTTER null[place] [facility] 3 08:45:52 Hemorrhoids 73383398 Active 2018 Marycarmen Randallwest WAFER CUTTER null[place] [facility] 3 08:45:53 Chronic neck pain 5579121700318 Active 2018 Marycarmenmp Hutchinson WAFER CUTTER null[place] [facility] 3 08:45:52 Chronic low back pain 138906340 Active 2018 Marycarmenmp Hutchinson WAFER CUTTER null[place] [facility] 3 08:45:52 Degeneratio n of lumbar interverteb ral disc 32126796 Active 2018 Marycarmenmp Hutchinson WAFER CUTTER null[place] [facility] 3 08:45:52 Degeneratio n of cervical interverteb ral disc 68367575 Active 2018 Marycarmen Hutchinson WAFER CUTTER null[place] [facility] 3 08:45:53 Pain in lower limb 03316877 Active 2018 Marycarmen Hutchinson WAFER CUTTER null[place] [facility] 3 08:45:52 Osteoarthri tis of left knee joint 3067228322802 09 Active 2021 Marycarmen Hutchinson WAFER CUTTER null[place] [facility] 3 08:45:53 Osteoarthri tis 611237887 Active 2021 Marycarmen Hutchinson WAFER CUTTER null[place] [facility] 3 08:45:53 Pain of left knee joint 0128530770253 07 Active 2021 Marycarmen Hutchinson WAFER CUTTER null[place] [facility] 3 08:45:53 Dystrophia unguium 06053498 Active 2021 Marycarmen Hutchinson WAFER CUTTER null[place] [facility] 3 08:45:53 Osteoarthri tis of knee 512634143 Active 2022 Marycarmen Hutchinson WAFER CUTTER null[place] [facility] 3 08:45:52 Pain in right arm 613526179 Active 2022 Marycarmen Hutchinson WAFER CUTTER null[place] [facility] 3 08:45:52 Closed fracture of greater tuberosity of proximal left humerus 8369905004452 9100 Active 2022 Marycarmen Hutchinson CNA null, [facility] [employer] [facility] 3 08:45:52 Closed fracture of greater tuberosity of proximal right humerus 4284344583518 9105 Active 2022 Marycarmen Hutchinson WAFER CUTTER null, [place] [employer] [facility] 3 08:45:52 Pain in right foot 5744966671475 07 Active 2024 David Hernandez DPM [address], [place], [address], [facility] [employer] [facility] 5 11:09:07 Plantar fasciitis of right foot 1424078869173 9101 Active 2024 David Hernandez DPM [address], [place], [address], [facility] [employer] [facility] 5 11:10:21 Problem Notes None recorded. Procedures Surgical History Date Name Laterality Status Provider Name and Address Organization Details Recorded Time 5 Plantar Fascia Injection Right Foot completed David Hernandez DPM [address], [place], [address], [facility] [employer] [facility] 02/15/2025 11:04:07 Imaging Results None recorded. Procedure Notes None recorded. Medical Equipment None Reported. Allergies Allergen ID Allergen Name Allergen Category Reaction Reaction Severity Criticality Documentation Date Start Date Code Code System Note Provider Name and Address Organization Details Recorded Time Product containin g penicilli n (product) medicatio n hives severe Not available 12/09/2022 33186 8001 SNOMED Not Available [facility] 3 09:01:05 01760 Mavyret medicatio n Not available Not available Not available 12/09/2022 07601 04 RxNorm BURNI NG HER SKIN ON HER FOLDS Not Available [facility] 3 09:01:05 39952 codeine medicatio n hives severe Not available 12/09/2022 2670 RxNorm Not Available [facility] 3 09:01:05 Medications Name Sig Start Date [...] Not Available trazodone 50 mg tablet TK 10/14 T PO BID PRN 07/26 completed Not [...] administ ered by the provider 01/14 completed NDC: 0003-04 94-20 Not Available Not Available Not [...] administ ered by the provider 01/22 completed [facility]: 0409-42 76-17 Not Available Not Available Not [...] administ ered by the provider 01/14 completed [facility] 02633-9 64-01 Not Available Not Available Not Available [...] Updated DateTime 10/19/2023 160.02 cm 31.9 kg/m2 37024.63 g Marycarmen EvangelinaFELECIA dodson [employer] [facility] [employer] [facility] 10/19/2023 14:03:44 Date Recorded Body height Body mass index (BMI) Body weight Provider Name and Address Organization Details Last Updated DateTime 12/09/2023 154.94 cm 33.1 kg/m2 51219.66 g Marycarmen EvangelinaFELECIA dodson [facility] [employer] [facility] 12/09/2023 10:24:59 Date Recorded Body height Body mass index (BMI) Body weight Provider Name and Address Organization Details Last Updated DateTime 12/16/2023 154.94 cm 34 kg/m2 24963.63 g Marycarmen EvangelinaFELECIA dodson [facility] [employer] [facility] 12/16/2023 10:28:19 Date Recorded Body height Body mass index (BMI) Body weight Provider Name and Address Organization Details Last Updated DateTime 12/23/2023 157.48 cm 32.9 kg/m2 75812.63 g Marycarmen Evangelina, [facility] [employer] [facility] 12/23/2023 10:18:20 Date Recorded Body height Body mass index (BMI) Body weight Heart rate Respiratory rate Oxygen saturation Oxygen saturation in Arterial blood by Pulse oximetry Systolic And Diastolic Provider Name and Address Organization Details Last Updated DateTime 157.48 cm 32.9 kg/m2 11013.6 3 g 65 /min 14 /min 97 % 97 % 140/91 mm[Hg] Rosa Elena Farrar [facility] [employer] [facility] 10:37:56 Social History Question Answer Notes LastModified by Organizat ion Details LastModified Time Tobacco Smoking Status Current Every Day Smoker Not Available [employer] 12/09/2022 08:53:46 How Much Tobacco Do You Smoke? 1 PPD [id number] Information not available 12/09/2022 Sex: Unknown [...] Details Recorded Time influenza, unspecified formulation 07/12/2018 completed FELECIA Gordon [place] [facility] [employer] [facility] 09/27/2023 08:45:53 Past Encounters Encounter ID Performer Location Encounter Start Date Encounter Closed Date Diagnosis/Indication Diagnosis SNOMED-CT Code Diagnosis ICD10 Code Diagnosis IMO Codes Diagnosis Note [id number] Adis Cisneros MD [facility] [place] [address] [place] [address] 01/22/2022 00:00:00 01/22/2022 13:49:48 [id number] Adis Cisneros MD [facility] [place] [address] [place] [address] 02/05/2022 00:00:00 02/05/2022 10:43:04 [id number] Adis Cisneros MD [facility] [place] [address] [place] [address] 02/12/2022 00:00:00 02/12/2022 10:14:04 [id number] Adis Cisneros MD [facility] [place] [address] [place] [address] 02/19/2022 00:00:00 02/19/2022 12:23:45 [id number] [facility] [place] [address] [place] [address] 02/26/2022 00:00:00 02/26/2022 13:45:12 [id number] Adis Cisneros MD [facility] [place] [address] [place] [address] 10/01/2022 00:00:00 10/01/2022 12:56:22 [id number] Adis Cisneros MD [facility] [place] [address] [place] [address] 11/09/2022 00:00:00 11/09/2022 10:51:17 [id number] Adis Cisneros MD [facility] [place] [address] [place] [address] 01/14/2023 09:34:10 01/14/2023 10:22:17 Pain in left knee 7623173855 34488 M25.562 Osteoarthr itis of left knee joint 7889249819 27543 M17.12 [id number] Adis Cisneros MD [facility] [place] [address] [place] [address] 01/21/2023 09:29:05 01/21/2023 10:35:36 Pain in left knee 7586520086 78133 M25.562 Osteoarthr itis of left knee joint 4204759980 49229 M17.12 [id number] Adis Cisneros MD [facility] [place] [address] [place] [address] 01/28/2023 09:41:54 01/28/2023 10:26:45 Pain in left knee 8259461015 99968 M25.562 Osteoarthr itis of left knee joint 9759293212 99830 M17.12 [id number] DYAN Zepeda [facility] [place] [address] [place] [address] 09/21/2023 14:49:26 09/21/2023 15:29:13 Pain in right arm 565961851 M79.601 Closed fra cture of greater tuberosity of proximal right humerus 6705006368 [id number] S42.254A [id number] DYAN Zepeda [facility] [place] [address] [place] [address] 09/28/2023 14:08:59 09/28/2023 14:33:42 Pain in right arm 888445132 M79.601 Closed fra cture of greater tuberosity of proximal right humerus 2291389510 [id number] S42.254D [id number] Flex Rich MD [facility] [address] [place] [address] 10/19/2023 13:57:40 10/19/2023 14:30:15 Pain in right arm [id number] M79.601 Closed fra cture of greater tuberosity of proximal right humerus [id number] S42.254D [id number] Flex Rich MD [facility] [address] [place] [address] 12/09/2023 10:22:24 12/09/2023 11:38:44 Closed fracture of greater tuberosity of proximal right humerus [id number] S42.254D Pain in right arm 079343 004 M79.601 Pain in left knee 044898 6127 59685 M25.562 Osteoarthr itis of left knee joint [id number] 50396 M17.12 [id number] Tigre Dow MD [facility] [address] [place] [address] 12/16/2023 10:26:17 12/16/2023 11:11:51 Osteoarthritis of left knee joint [id number] 79765 M17.12 Pain of le ft knee joint [id number] 98148 M25.006 [id number] Tigre Dow MD [facility] [address] [place] [address] 12/23/2023 10:15:53 12/23/2023 10:40:34 Pain of left knee joint [id number] 78517 M25.562 Osteoarthr itis of left knee joint 3158344965 42414 M17.12 [id number] David Hernandez DPM [facility] [address] [place] [address] 02/15/2025 10:28:47 02/16/2025 13:32:05 Pain in right foot [id number] 72367 M79.671 [id number] rice therapyice technique reviewedfo llow-up 5 weeks Plantar fa sciitis of right foot [id number] 4913786 M72.2 [id number] As above new line recommend supportive shoe [...] Guarantor Name 03/19/2025 1 [place] Elin Dodson Gómez [id number] Elin Dodson Rico 03/21/2025 2 [place] WHEN [place]ARE OR MEDICARE REPLACEMENT PRIMARY) Elin Dodson Rico [id number] Elin Dodson Rico 03/21/2025 [facility] ON OR AFTER 04/10/21 (MEDICAID REPLACEMENT - HMO) Elin Dodson Rico [id number] Elin Dodson Rico 02/15/2025 3 [facility] ON OR AFTER 04/10/21 (MEDICAID REPLACEMENT - HMO) Elin West Rico [id number] Elin West Rico Notes Date Note Type Note Provider Name [...] I tried to get her on vitamin-D 14631 IU weekly but this was declined by insurance I recommended she take Citracal with vitamin-D btvx-sgd-ramypha she also states that she has not [...] denies any neurovascular deficits. DYAN Zepeda [address], [facility] [address], [place], [address], [place] [employer] 10/19/2023 14:36:27 12/09/2023 text/html Patient returns for [...] been instructed to take vitamin-D with calcium bjyg-eed-gtzgbnr. We were worried about this going on [...] with her left knee. DYAN Zepeda [address] [employer] [address], [place], [address], [employer] 12/09/2023 11:19:35 12/16/2023 text/html Patient returns for [...] from the 1st round. DYAN Zepeda [address], [place], [address], [employer] 12/16/2023 10:46:55 12/23/2023 text/html patient returns for Orthovisc injection number 3 left knee. She has khoy-lk-kmjw changes in the medial compartment of the left knee and significant narrowing in the patellofemoral articulation. She has had chronic pain due to her severe primary osteoarthritis. She states she is getting some pretty good relief from the 1st 2 rounds of injections. Denies any problems today walking more comfortably. DYAN Zepeda [address], [place], [address], [employer] 12/23/2023 10:30:40 02/15/2025 text/html . Patient is [...] denies any injury. David Hernandez DPM [address], [place], [address], [employer] 02/15/2025 11:12:09 OBGyn Episode No OBEpisode recorded.
--- OUTSIDE RECORDS SUMMARY | 2025-07-26 13:53 | XMS_ITS | Clinical Summary ---
Author Organization [facility] [employer] Address [address] [place] [address] Care Team Providers Care Pie Crimping Machine Operator Name Role Phone Noe Crooks MD Unavailable [phone] Parveen Trejo MD Primary Care Provider [phone] Source Comments [facility],non-owned Affiliates and Associated Physician Practices is amultiple site organization consisting of ambulatory clinics and hospital sitesin [place], [place], [place] and [place]. This disclosure is being madepursuant to the Care Everywhere program and may not contain all information available regarding this patient. Last updated 18.[facility] [employer] Allergies Active Allergy Reactions Criticality Noted Date Comments Codeine Urticaria Medium 02/03/2022 Glecaprevir-Pibrentasvir Urticaria Medium 01/10/2019 Penicillins Urticaria Medium 12/24/2017 Medications * Be aware that medications may not be up to date on this document. Alwaysverify current medications with the patient. vitamin D, ergocalciferol, (DRISDOL) 33610 UNITS capsule Take 1 (one) capsule by [...] MG tablet TK 2 TS PO BID 0 Active hyaluronan (ORTHOVISC) 30 MG/2ML prefilled [...] FOR 14 DAYS NEEDED FOR ANXIETY Active amantadine (Symmetrel) 100 MG capsule Take by mouth once daily Active clonazePAM (KlonoPIN) 0.5 MG tabletIndicatio ns:Tardive dyskinesia Take 1 (one) tablet by mouth at bedtime 30 tablet 5 5 Active Active Problems Problem Noted [...] Encounters Date Type Department Care Team Description 07/11/2025 9:00 AM CDT Office Visit [facility] - Neurology [address] [place] [address] Sarbjit Yuen APRN-DIRECTOR OF SUPPLY CHAIN Tardive dyskinesia (Primary Dx) 07/11/2025 Travel 05/25/2025 Travel 05/15/2025 10:00 AM CDT Office Visit [facility] - Ophthalmology [address] [place] [phone] Gurmeet Romo, OD Primary open angle glaucoma (POAG) of left eye, moderate stage (Primary Dx); Pseudophakia 05/15/2025 9:40 AM CDT Clinical Support [facility] - Ophthalmology [address] [place] [address] Gurmeet Romo, OD Primary open angle glaucoma (POAG) of left eye, moderate stage (Primary Dx) 05/15/2025 Travel from Last 3 Months Family History [...] on file Legal Sex Female 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 AM 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 Gender Identity Not on file Sexual Orientation Not on file Last Filed Vital Signs Vital Sign Reading Time Taken Comments Blood Pressure 137/84 07/11/2025 9:03 AM CDT Pulse 88 07/11/2025 9:03 AM CDT Temperature 36.2 C (97.2 F) 09/09/2022 1:40 PM 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 Respiratory Rate 16 09/09/2022 1:55 PM 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 Oxygen Saturation 97% 07/11/2025 9:03 AM CDT Inhaled Oxygen Concentration - - Weight 70.3 kg (155 lb) 07/11/2025 9:03 AM CDT Height 160 cm (5' 3) 09/09/2022 10:48 AM 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 Body Mass Index 27.46 09/09/2022 10:48 AM 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 Plan of Treatment Upcoming Encounters Date Type Department Care Team (Late st Contact Info) Description 11/15/2025 10:00 AM 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 Office Visit [facility] - Ophthalmology [address] [place] [phone] Gurmeet Romo, PEDRO [address] [place] [phone] 11/21/2025 9:00 AM 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 Office Visit [facility] - Neurology [address] [place] [phone] Sarbjit Yuen, [place]-DIRECTOR OF SUPPLY CHAIN [address] [place] [address] [place] [phone] Health Maintenance Due Date Last Done Comments BONE DENSITY TESTING 1960 COLON MONITORING 1960 COLONOSCOPY - COLON CA SCREENING 1958 CT COLONOGRAPHY - COLON CA SCREENING 1960 FIT - COLON CA SCREENING 1958 [...] - Risk 60-74 years 1-dose series) 2018 DEPRESSION SCREENING 10/11/2024 COVID-19 VACCINE ( - season) 2025 INFLUENZA VACCINE (#1) 2025 , 08/19/2022, 07/17/2021, Additional history exists COLOGUARD (AGES 45-75) - COLON CA SCREENING 07/06/2028 07/06/2025 Colorectal Cancer Screening 07/06/2028 HEPATITIS C SCREENING Completed 05/31/2020 , 05/31/2020, 02/14/2019, Additional history exists HIB VACCINE Aged Out No longer eligi [...] you. Interventions: Medical Devices Implanted Type Area Hospice Care Sales Consultant Device Identifier Shelf Expiration Date Model / Serial / Lot [employer] Iol Implanted:Qty: 1 on 09/09/2022 by Shant Castillo MD at [facility] Ocular [employer] 10/10/2024 [id number] / [id number] / NA [employer] Implanted:Qty: 1 on 08/26/2022 by Shant Castillo MD at [facility] Left: Eye 10/10/2024 MX60E 22.5 / [id number] / [id number] Procedures Procedure Name Priority Date/Time Associated Diagnosis Comments OPTIC NERVE ANALYSIS OCT Routine 05/15/2025 9:35 AM CDT Primary open angle glaucoma (POAG) of left eye, moderate stage HEPATITIS C AB W/RFLX TO HCV RNA QN PCR Routine 05/31/2020 1:05 PM CDT History of hepatitis from Last 3 Months or Most Recently Relevant to Health Maintenance Results * OPTIC NERVE ANALYSIS OCT (05/15/2025 9:35 AM CDT) Anatomical Region Laterality Modality Head External-Camera Photography Narrative 05/15/2025 10:22 AM CDT Images from the original result were not included. OD: poor signal from likely no dilation OS: overall stable inferior thinning us Gurmeet Romo OD OPHTHALMOLOGY [...] a current active infection. Test Performed at: [facility] [address] [place] [address] MADELEINE WALKER DO,MPH Blood BLOOD SPECIMEN / Unknown 05/31/2020 1:05 PM CDT 05/31/2020 1:10 PM CDT Catrachita Zamudio MD LAB - CHEMISTRY ORDERABLES F inal Result [facility] [address] [place] [address] from Last 3 Months or Most Recently Relevant to Health Maintenance Insurance [facility] [address] [place] [id number] [facility] MEDICARE Care Teams Pie Crimping Machine Operator Relationship Specialty Start Date End Date Parveen Trejo MD [address] [place] [phone] PCP - General Internal Medicine 05/15/25 Noe Crooks MD Dermatology 10/24/18
--- OUTSIDE RECORDS SUMMARY | 2025-07-26 13:54 | XMS_ITS | Clinical Summary ---
Author Organization [facility] Address [address], [facility] [address] [place] [address] Phone Care Team Providers Care Deliverer Outside Name Role Phone Braulio Mccabe MD Primary Care Provider [phone] Allergies Active Allergy Reactions Criticality Noted Date Comments Codeine Hives 12/24/2017 Penicillins Hives 12/24/2017 Medications latanoprost (XALATAN) 0.005 % Solution Place 2 Drops in affected eye(s) nightly. Each eye. 8 Active sertraline (ZOLOFT) 100 MG Tablet Take 100 mg by mouth daily. 8 Active levothyroxine (SYNTHROID) 112 MCG Tablet Take 112 mcg by mouth daily. 8 Active ergocalciferol (VITAMIN D) 69092 UNIT Capsule TK 1 C PO Q [...] (1 of 2) 2008 Influenza Immunization (#1) 2025 11/0 11/2016, 09/23/2014 SARS-COV-2 Immunization ( - season) 2025 Respiratory Syncytial Virus (RSV) Immunization (Adult) (1 [...] Insurance MEDICAID [employer] Care Teams Deliverer Outside Relationship Specialty Start Date End Date Braulio Mccabe MD [address] [place] [address] PCP - General Internal Medicine 06/10/17
--- OUTSIDE RECORDS SUMMARY | 2025-07-26 13:54 | XMS_ITS | Patient Health Record ---
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 Name Role Phone Shae Philip Primary Care Provider [phone] Allergies Allergen (clinical drug ingredient) Drug/Non Drug Allergy documented on EMR Reaction Allergy Type Onset Date Status codeine Codeine hives Drug Allergy Active Penicillin hives Drug Allergy Active Results Component Value Reference Range Notes TSH* Reviewed date:04/19/2025 07:11:57 AM Interpretation:Critical low Performing Lab:[facility] [place], [address] [place] [address], Phone - [phone], Director - Sridhar Notes/Report: TSH 0.022 0.450-4.500 uIU/mL CBC With Differential/Platel et* Reviewed date:04/19/2025 07:11:57 AM Interpretation:Abnormal Performing Lab:[facility] [place], [address] [facility], Phone - [phone], Director - Sridhar Notes/Report: WBC 6.3 3.4-10.8 x10E3/uL RBC 4.57 [...] Folate Reviewed date:09/08/2024 09:26:42 AM Interpretation:Normal Performing Lab:[address], Phone - [phone], Director - [facility] Notes/Report: Vitamin B12 092 810-4017 pg/mL Folate (Folic Acid), Serum >20.0 >3.0 ng/mL A serum folate concentration of less than 3.1 ng/mL is considered to represent clinical deficiency. Hemoglobin A1c* Reviewed date:09/08/2024 09:26:55 AM Interpretation:Normal Performing Lab:[address], Phone - [phone], Director - [facility] Notes/Report: Hemoglobin A1c 5.4 4.8-5.6 % . Prediabetes: 5.7 - 6.4 Diabetes: >6.4 Glycemic control for adults with diabetes: <7.0 TSH* Reviewed date:09/08/2024 09:27:07 AM Interpretation:Low Performing Lab:[facility], Phone - [phone], Director - [facility] Notes/Report: TSH 0.036 0.450-4.500 uIU/mL CBC With Differential/Platel et* Reviewed date:09/08/2024 09:27:41 AM Interpretation:Abnormal Performing Lab:[address], Phone - [phone], Director - [facility] Notes/Report: WBC 4.7 3.4-10.8 x10E3/uL Effective September 11, 2024 profile [id number] WBC will be made non-orderable as a [...] Reviewed date:09/08/2024 09:26:29 AM Interpretation:Normal Performing Lab:[facility] [place], [address] [facility], Phone - [phone], Director - Sridhar Notes/Report: Vitamin D, 25-Hydroxy 63.6 30.0-100.0 ng/mL Vitamin D deficiency has been defined by the [place] of Medicine and an Endocrine Society practice guideline as a level of serum 25-OH vitamin D less than 20 ng/mL (1,2). The Endocrine Society went on to further define vitamin D insufficiency as a level between 21 and 29 ng/mL (2). 1. IOM ([place] of Medicine). 2010. Dietary reference intakes for calcium and D. [place]: The National Academies Press. 2. Deena MATOS, Martin ACOSTA, Raymon CHOWDARY, et al. Evaluation, treatment, and prevention of vitamin D deficiency: an Endocrine Society clinical practice guideline. JCEM. 2010; 96(7):1911-30. Lipid Panel* Reviewed date:09/08/2024 09:27:17 AM Interpretation:Normal Performing Lab:[facility] [place], [address] [facility], Phone - [phone], Director - Sridhar Notes/Report: Cholesterol, Total 184 100-199 mg/dL Triglycerides 88 0-149 mg/dL HDL Cholesterol 70 >39 mg/dL VLDL Cholesterol [place] 16 5-40 mg/dL LDL Chol Calc (NIH) 98 0-99 mg/dL CMP 14 Comprehensive Metabol ic Panel* Reviewed date:09/08/2024 09:27:29 AM Interpretation:Normal Performing Lab:[facility] [place], [address] [facility], [place], Phone - [phone], Director - Sridhar Notes/Report: Glucose 92 70-99 [...] 12 0-32 IU/L Reason For Referral Reason Movement disorder, t ardive dyskinesia Diagnosis 1 Tardive dyskinesia ( G24.01) Referral Organization [facility] Referring Provider First Name Shae Referring Provider [...] RN 06/2024 09:54:00 AM >Referral sent to [facility] Neurology in [place]., Shae Philip 03/27/2025 01:32:01 PM > Appointment in April. Referral Priority Routine Reason 2nd opinion neurolog y abnormal movements Diagnosis 1 Tardive dyskinesia ( G24.01) Referral Organization [facility] Referring Provider First Name Shae Referring Provider Last Name Cedrick Referring Provider Speciality Psychiatry Referred Provider [facility] Referred Provider Specialty Neurology General Notes Shae Philip 06/2025 05:23:36 PM > Client wanting second opinion on abnormal movements that have not made much improvement with Austedo and worsened with Cogentin, wants further assessment, went to [facility] provider already. States wants further assessment and evaluation. She would like to see if [facility] her insurance? Thank you., Dick HERNANDEZ, Marycarmen Her 05/01/2025 02:46:47 PM >Nurse completed and faxed referral to [facility], Neurology. Clinical Notes [facility], Neurology, [facility] [place] [address] , phone, fax Referral Priority Routine Medications Medication SIG (Take, Route, Frequency, Duration) Notes Start Date End Date Status Amantadine HCl 100 MG 1 capsule Orally t wice a day Active Levothyroxine Sodium 50 MCG 1 capsule in the morning on an empty stomach Orally Once a day Active hydrOXYzine HCl 50 MG TAKE 1 & 1/2 - 2 TABLETS BY MOUTH ONCE DAILY if NEEDED FOR ANXIETY AND SLEEP; Duration: 30 days Active traZODone HCl 150 mg TAKE 2 TABLETS BY M OUTH AT BEDTIME NEEDED; Duration: 30 Active Pravastatin Sodium 20 MG 1 tablet Orally Once a day; Duration: 30 day(s) 01/11/2020 Active Alendronate Sodium 70 MG 1 tablet 30 min utes before the first food, beverage or medicine of the day with plain water Orally Once a week; Duration: 30 days Active Austedo XR 36 MG 1 tablet Orally Once a day; Duration: 14 days Not-Takin g Austedo XR 42 MG 1 tablet Orally Once a day; Duration: 7 days after 36 mg, take 42 mg x1 week then increase to 48 mg script 04/11/2025 Not-Taking Wellbutrin XL 300 MG 1 tablet in the mor rick Orally Once a day for 7 days then decrease to 150mg script Not-Taking hydrOXYzine HCl 25 MG 1 tablet as needed Orally Once a day; Duration: 30 days Active Wellbutrin XL 150 MG 1 tablet in the mor rick Orally Once a day for 7 days, then take every other day for 3 doses, then stop this medication Not-Taking traZODone HCl 150 MG 1 tablet at bedtime as needed Orally Once a day; Duration: 30 days Active Austedo XR 42 MG 1 tablet Orally Once a day; Duration: 7 days after 36 mg, take this for one week then increase to 48 mg script dosing Not-Taking hydrOXYzine HCl 25 MG 1 tablet as needed Orally Once a day; Duration: 30 days Not-Taking Austedo XR 48 MG 1 tablet Orally Once a day; Duration: 30 days Active traMADol HCl 50 MG 1 tablet as needed Orally every 8 hours Not-Taking Propranolol HCl 10 MG 1 tablet Orally On ce a day; Duration: 30 days Not-Takin g Levothyroxine Sodium 150 MCG 1 tablet on an empty stomach in the morning Orally Once a day Not-Taking Cholecalciferol 1.25 MG (10157 UT) 1 capsule Orally once per week Not-Taking Influenza Vac Split Quad 0.5 ML as directed Intramuscular once Not-Taking Influenza Vac Subunit Quad 0.5 ML as directed Intramuscular once; Duration: 1 days Not-Taking buPROPion HCl ER (XL) 300 mg TAKE 1 TABLET BY MOUTH EVERY MORNING; Duration: 30 Not-Taking Austedo XR 48 MG 1 tablet Orally Once a day; Duration: 30 days after 42 mg, start this script 04/11/2025 Not-Taking buPROPion HCl ER (XL) 150 mg TAKE 1 TABLET BY MOUTH EVERY MORNING; Duration: 22 days Active ARIPiprazole 2 MG TAKE 1 TABLET BY DAILY; Duration: 30 days Not-Taking Immunizations Vaccine Route Administration Date Status Comme [...] 10/24/2024 Administered Ludmila Ratliff 10/24/2024 10:33:36 AM ELECTROTYPE CASTER >Pt tolerated well Social History Tobacco Use: Social History Observation Description Date Details (start date - stop date) Current Smoker NA - NA Sex Assigned At : Social History Observation Description Sex Assigned At Female Tobacco Control (Standard) Question Answer Notes Tobacco use: Current smoker Section Notes: [id number] 01/14/2022 01/13/2022 Hydrocodon-acetaminophen 21.0 7 5MG-325MG 15 [place] Lay Md [id number] [place], [place] NA 0 [place] 1 [id number] 12/16/2021 12/16/2021 oxyCODONE-ACETAMINOPHEN 20.0 5 5MG-325MG 30 Rashawn Kauffman [id number] [place], [place] 0 [place] 1 [id number] 12/08/2021 12/08/2021 oxyCODONE-ACETAMINOPHEN 15.0 3 5MG-325MG 37.50 Km Wyman (Do) - [id number] [place], [place] NA 0 [place] 1 [id number] 12/01/2021 12/01/2021 oxyCODONE-ACETAMINOPHEN 30.0 7 5MG-325MG 32.14 Rashawn Stone [id number] [place], [place] 0 [place] 1 [id number] 12/01/2021 12/01/2021 traMADol 30.0 7 50MG 21.43 Rashawn Kauffman [id number] 01/14/2022 01/13/2022 Hydrocodon-acetaminophen 21.0 7 5MG-325MG 15 Paxton Lay Md [id number] [place], [place] 1 [id number] 12/16/2021 12/16/2021 oxyCODONE-ACETAMINOPHEN 20.0 5 5MG-325MG 30 Rashawn Kauffman [id number] [place] 1 [id number] 12/08/2021 12/08/2021 oxyCODONE-ACETAMINOPHEN 15.0 3 5MG-325MG 37.50 Km Wyman (Do) - [id number] [place] 1 [id number] 12/01/2021 12/01/2021 oxyCODONE-ACETAMINOPHEN 30.0 7 5MG-325MG 32.14 [place] Tati [facility] [id number] [place] 1 [id number] 12/01/2021 12/01/2021 traMADol 30.0 7 50MG 21.43 Rashawn Stone [id number] 01/14/2022 01/13/2022 Hydrocodon-acetaminophen 21.0 7 5MG-325MG 15 Paxton Lay Md [id number] [place], [place] 1 [id number] 12/16/2021 12/16/2021 oxyCODONE-ACETAMINOPHEN 20.0 5 5MG-325MG 30 [facility] Tati [facility] [id number] [place], [place] 1 [id number] 12/08/2021 12/08/2021 oxyCODONE-ACETAMINOPHEN 15.0 3 5MG-325MG 37.50 Km Wyman (Do) - [id number] [place] 1 [id number] 12/01/2021 12/01/2021 oxyCODONE-ACETAMINOPHEN 30.0 7 5MG-325MG 32.14 [place] Tati [facility] [id number] [place] 1 [id number] 12/01/2021 12/01/2021 traMADol 30.0 7 50MG 21.43 Rashawn Duffy [facility] [id number] 01/14/2022 01/13/2022 Hydrocodon-acetaminophen 21.0 7 5MG-325MG 15 Paxton Lay Md [id number] [place] 1 [id number] 12/16/2021 12/16/2021 oxyCODONE-ACETAMINOPHEN 20.0 5 5MG-325MG 30 [place] Tati [facility] [id number] [place], [place] 1 [id number] 12/08/2021 12/08/2021 oxyCODONE-ACETAMINOPHEN 15.0 3 5MG-325MG 37.50 Km Wyman (Do) - [id number] [place] 1 [id number] 12/01/2021 12/01/2021 oxyCODONE-ACETAMINOPHEN 30.0 7 5MG-325MG 32.14 [place] Tati [facility] [id number] [place] 1 [id number] 12/01/2021 12/01/2021 traMADol 30.0 7 50MG 21.43 Rashawn Stone [id number] 01/14/2022 01/13/2022 Hydrocodon-acetaminophen 21.0 7 5MG-325MG 15 Paxton Lay Md [id number] [place], [place] 1 [id number] 12/16/2021 12/16/2021 oxyCODONE-ACETAMINOPHEN 20.0 5 5MG-325MG 30 [place] Tati [facility] [id number] [place], [place] 1 [id number] 12/08/2021 12/08/2021 oxyCODONE-ACETAMINOPHEN 15.0 3 5MG-325MG 37.50 Km Wyman (Do) - [id number] [place] 1 [id number] 12/01/2021 12/01/2021 oxyCODONE-ACETAMINOPHEN 30.0 7 5MG-325MG 32.14 Rashawn Duffy [facility] [id number] [place], [place] 1 [id number] 12/01/2021 12/01/2021 traMADol 30.0 7 50MG 21.43 Rashawn Stone [id number] 01/14/2022 01/13/2022 Hydrocodon-acetaminophen 21.0 7 5MG-325MG 15 Paxton Lay Md [id number] [place], [place] 1 [id number] 12/16/2021 12/16/2021 oxyCODONE-ACETAMINOPHEN 20.0 5 5MG-325MG 30 [place] Tati [facility] [id number] [place], [place] 1 [id number] 12/08/2021 12/08/2021 oxyCODONE-ACETAMINOPHEN 15.0 3 5MG-325MG 37.50 Km Wyman (Do) - [id number] [place] 1 [id number] 12/01/2021 12/01/2021 oxyCODONE-ACETAMINOPHEN 30.0 7 5MG-325MG 32.14 Rashawn Duffy [facility] [id number] [place] 1 [id number] 12/01/2021 12/01/2021 traMADol 30.0 7 50MG 21.43 Rashawn Stone [id number] 01/14/2022 01/13/2022 Hydrocodon-acetaminophen 21.0 7 5MG-325MG 15 Paxton Lay Md [id number] [place], [place] 1 [id number] 12/16/2021 12/16/2021 oxyCODONE-ACETAMINOPHEN 20.0 5 5MG-325MG 30 Rashawn Duffy [facility] [id number] [place], [place] 1 [id number] 12/08/2021 12/08/2021 oxyCODONE-ACETAMINOPHEN 15.0 3 5MG-325MG 37.50 Km Wyman (Do) - [id number] [place] 1 [id number] 12/01/2021 12/01/2021 oxyCODONE-ACETAMINOPHEN 30.0 7 5MG-325MG 32.14 Rashawn Duffy [facility] [id number] [place] 1 [id number] 12/01/2021 12/01/2021 traMADol 30.0 7 50MG 21.43 Rashawn Stone [id number] 01/14/2022 01/13/2022 Hydrocodon-acetaminophen 21.0 7 5MG-325MG 15 Paxton Lay Md [id number] [place], [place] 1 [id number] 12/16/2021 12/16/2021 oxyCODONE-ACETAMINOPHEN 20.0 5 5MG-325MG 30 Rashawn Duffy [facility] [id number] [place] 1 [id number] 12/08/2021 12/08/2021 oxyCODONE-ACETAMINOPHEN 15.0 3 5MG-325MG 37.50 Km Wyman (Do) - [id number] [place] 1 [id number] 12/01/2021 12/01/2021 oxyCODONE-ACETAMINOPHEN 30.0 7 5MG-325MG 32.14 [facility] Tati [facility] [id number] [place] 1 [id number] 12/01/2021 12/01/2021 traMADol 30.0 7 50MG 21.43 Rashawn Stone [id number] 01/14/2022 01/13/2022 Hydrocodon-acetaminophen 21.0 7 5MG-325MG 15 Paxton Lay Md [id number] [place], [place] 1 [id number] 12/16/2021 12/16/2021 oxyCODONE-ACETAMINOPHEN 20.0 5 5MG-325MG 30 Rashawn Duffy [facility] [id number] [place] 1 [id number] 12/08/2021 12/08/2021 oxyCODONE-ACETAMINOPHEN 15.0 3 5MG-325MG 37.50 Km Wyman (Do) - [id number] [place] 1 [id number] 12/01/2021 12/01/2021 oxyCODONE-ACETAMINOPHEN 30.0 7 5MG-325MG 32.14 Rashawn Duffy [facility] [id number] [place] 1 [id number] 12/01/2021 12/01/2021 traMADol 30.0 7 50MG 21.43 [id number] 01/14/2022 01/13/2022 Hydrocodon-acetaminophen 21.0 7 5MG-325MG 15 Paxton Lay Md [id number] [place], [place] 1 [id number] 12/16/2021 12/16/2021 oxyCODONE-ACETAMINOPHEN 20.0 5 5MG-325MG 30 Rashawn Duffy [facility] [id number] [place], [place] 1 [id number] 12/08/2021 12/08/2021 oxyCODONE-ACETAMINOPHEN 15.0 3 5MG-325MG 37.50 Km Wyman (Do) - [id number] [place] 1 [id number] 12/01/2021 12/01/2021 oxyCODONE-ACETAMINOPHEN 30.0 7 5MG-325MG 32.14 Rashawn Duffy [facility] [id number] [place] 1 [id number] 12/01/2021 12/01/2021 traMADol 30.0 7 50MG 21.43 Rashawn Stone [id number] 01/14/2022 01/13/2022 Hydrocodon-acetaminophen 21.0 7 5MG-325MG 15 Paxton Lay Md [id number] [place], [place] 1 [id number] 12/16/2021 12/16/2021 oxyCODONE-ACETAMINOPHEN 20.0 5 5MG-325MG 30 [place] Tati [facility] [id number] [place], [place] 1 [id number] 12/08/2021 12/08/2021 oxyCODONE-ACETAMINOPHEN 15.0 3 5MG-325MG 37.50 Km Wyman (Do) - [id number] [place] 1 [id number] 12/01/2021 12/01/2021 oxyCODONE-ACETAMINOPHEN 30.0 7 5MG-325MG 32.14 Rashawn Duffy [facility] [id number] [place] 1 [id number] 12/01/2021 12/01/2021 traMADol 30.0 7 50MG 21.43 Rashawn Stone [id number] 01/14/2022 01/13/2022 Hydrocodon-acetaminophen 21.0 7 5MG-325MG 15 Paxton Lay Md [id number] [place] 1 [id number] 12/16/2021 12/16/2021 oxyCODONE-ACETAMINOPHEN 20.0 5 5MG-325MG 30 Rashawn Duffy [facility] [id number] [place], [place] 1 [id number] 12/08/2021 12/08/2021 oxyCODONE-ACETAMINOPHEN 15.0 3 5MG-325MG 37.50 Km Wyman (Do) - [id number] [place] 1 [id number] 12/01/2021 12/01/2021 oxyCODONE-ACETAMINOPHEN 30.0 7 5MG-325MG 32.14 [facility] Tati [facility] [id number] [place] 1 [id number] 12/01/2021 12/01/2021 traMADol 30.0 7 50MG 21.43 Rashawn Stone [id number] 01/14/2022 01/13/2022 Hydrocodon-acetaminophen 21.0 7 5MG-325MG 15 Paxton Lay Md [id number] [place] 1 [id number] 12/16/2021 12/16/2021 oxyCODONE-ACETAMINOPHEN 20.0 5 5MG-325MG 30 [facility] Tati [facility] [id number] [place] 1 [id number] 12/08/2021 12/08/2021 oxyCODONE-ACETAMINOPHEN 15.0 3 5MG-325MG 37.50 Km Wyman (Do) - [id number] [place] 1 [id number] 12/01/2021 12/01/2021 oxyCODONE-ACETAMINOPHEN 30.0 7 5MG-325MG 32.14 [facility] Tati [facility] [id number] [place], [place] 1 [id number] 12/01/2021 12/01/2021 traMADol 30.0 7 50MG 21.43 Rashawn Stone [id number] 01/14/2022 01/13/2022 Hydrocodon-acetaminophen 21.0 7 5MG-325MG 15 Paxton Lay Md [id number] [place], [place] 1 [id number] 12/16/2021 12/16/2021 oxyCODONE-ACETAMINOPHEN 20.0 5 5MG-325MG 30 Rashawn Duffy [facility] [id number] [place] 1 [id number] 12/08/2021 12/08/2021 oxyCODONE-ACETAMINOPHEN 15.0 3 5MG-325MG 37.50 Km Wyman (Do) - [id number] [place] 1 [id number] 12/01/2021 12/01/2021 oxyCODONE-ACETAMINOPHEN 30.0 7 5MG-325MG 32.14 [facility] Tati [facility] [id number] [place] 1 [id number] 12/01/2021 12/01/2021 traMADol 30.0 7 50MG 21.43 [facility]awn [id number] 01/14/2022 01/13/2022 Hydrocodon-acetaminophen 21.0 7 5MG-325MG 15 Paxton Lay Md [id number] [place], [place] 1 [id number] 12/16/2021 12/16/2021 oxyCODONE-ACETAMINOPHEN 20.0 5 5MG-325MG 30 [facility] Tati [facility] [id number] [place], [place] 1 [id number] 12/08/2021 12/08/2021 oxyCODONE-ACETAMINOPHEN 15.0 3 5MG-325MG 37.50 Km Wyman () - [id number] [place] 1 [id number] 12/01/2021 12/01/2021 oxyCODONE-ACETAMINOPHEN 30.0 7 5MG-325MG 32.14 [place] Tati [facility] [id number] [place] 1 [id number] 12/01/2021 12/01/2021 traMADol 30.0 7 50MG 21.43 Rashawn Stone [id number] 01/14/2022 01/13/2022 Hydrocodon-acetaminophen 21.0 7 5MG-325MG 15 Paxton Lay Md [id number] [place], [place] 1 [id number] 12/16/2021 12/16/2021 oxyCODONE-ACETAMINOPHEN 20.0 5 5MG-325MG 30 [facility] Tati [facility] [id number] [place], [place] 1 [id number] 12/08/2021 12/08/2021 oxyCODONE-ACETAMINOPHEN 15.0 3 5MG-325MG 37.50 Km Wyman (Do) - [id number] [place], [place] 1 [id number] 12/01/2021 12/01/2021 oxyCODONE-ACETAMINOPHEN 30.0 7 5MG-325MG 32.14 [facility] Tati [id number] [place] 1 [id number] 12/01/2021 12/01/2021 traMADol 30.0 7 50MG 21.43 Rashawn Duffy [id number] 12/16/2021 12/16/2021 oxyCODONE-ACETAMINOPHEN 20.0 5.0 5MG-325MG 30 Rashawn Duffy [facility] [id number] [place], [place] 1 [id number] 12/08/2021 12/08/2021 oxyCODONE-ACETAMINOPHEN 15.0 3.0 5MG-325MG 37.50 Km Wyman (Do) - [id number] [place] 1 [id number] 12/01/2021 12/01/2021 oxyCODONE-ACETAMINOPHEN 30.0 7.0 5MG-325MG 32.14 Rashawn Duffy [facility] [id number] [place] 1 [id number] 12/01/2021 12/01/2021 traMADol 30.0 7.0 50MG 21.43 Rashawn Duffy [id number] 01/14/2022 01/13/2022 Hydrocodon-acetaminophen 21.0 7 5MG-325MG 15 Paxton Lay Md [id number] [place], [place] 1 [id number] 12/16/2021 12/16/2021 oxyCODONE-ACETAMINOPHEN 20.0 5 5MG-325MG 30 Rashawn Duffy [facility] [id number] [place], [place] 1 [id number] 12/08/2021 12/08/2021 oxyCODONE-ACETAMINOPHEN 15.0 3 5MG-325MG 37.50 Km Wyman (Do) - [id number] [place], [place] 1 [id number] 12/01/2021 12/01/2021 oxyCODONE-ACETAMINOPHEN 30.0 7 5MG-325MG 32.14 Rashawn Stone [id number] [place] 1 [id number] 12/01/2021 12/01/2021 traMADol 30.0 7 50MG 21.43 Rashawn Stone [id number] 01/14/2022 01/13/2022 Hydrocodon-acetaminophen 21.0 7 5MG-325MG 15 Paxton Lay Md [id number] [place], [place] 1 [id number] 12/16/2021 12/16/2021 oxyCODONE-ACETAMINOPHEN 20.0 5 5MG-325MG 30 [place] Tati [facility] [id number] [place], [place] 1 [id number] 12/08/2021 12/08/2021 oxyCODONE-ACETAMINOPHEN 15.0 3 5MG-325MG 37.50 Km Wyman (Do) - [id number] [place] 1 [id number] 12/01/2021 12/01/2021 oxyCODONE-ACETAMINOPHEN 30.0 7 5MG-325MG 32.14 Rashawn Duffy [facility] [id number] [place], [place] 1 [id number] 12/01/2021 12/01/2021 traMADol 30.0 7 50MG 21.43 Rashawn Stone [id number] 01/14/2022 01/13/2022 Hydrocodon-acetaminophen 21.0 7 5MG-325MG 15 Paxton Lay Md [id number] [place], [place] 1 [id number] 12/16/2021 12/16/2021 oxyCODONE-ACETAMINOPHEN 20.0 5 5MG-325MG 30 Rashawn Stone [id number] [place], [place] 1 [id number] 12/08/2021 12/08/2021 oxyCODONE-ACETAMINOPHEN 15.0 3 5MG-325MG 37.50 Km Wyman (Do) - [id number] [place], [place] 1 [id number] 12/01/2021 12/01/2021 oxyCODONE-ACETAMINOPHEN 30.0 7 5MG-325MG 32.14 Rashawn Stone [id number] [place] 1 [id number] 12/01/2021 12/01/2021 traMADol 30.0 7 50MG 21.43 Rashawn Stone [id number] Problems Problem Type SNOMED Code ICD Code Onset Dates Problem Status W/U Status Risk Notes Problem Tobacco user (468795944) Nicotine dependence, unspecified, uncomplicated (F17.200) Active confirmed Problem Generalized anxiety disorder (37508092) Generalized anxiety disorder (F41.1) Active confirmed Problem Anxiety (64983567) Anxiety (F41.9) Active confirmed Problem Bipolar affective disorder (73839912) Bipolar affective disorder (F31.9) 10/20/19 22 Active confirmed Will continue to monitor and evaluate as poor insight on patient's behalf does limits evaluation . Problem Overweight (210602113) Over weight (E66.3) Active confirmed Problem Chronic tension-type headache (472794071) Chronic tension headaches (G44.229) Active confirmed Problem Depressive disorder (disorder) (61848639) Depression, unspecified depression type (F32.9) Active confirmed Problem Recurrent major depression (64974721) Episode of recurrent major depressive disorder, unspecified depression episode severity (F33.9) Active confirmed Problem Drug monitoring done (871879902) Therapeutic drug monitoring (Z51.81) Active confirmed Problem Stimulant abuse (396187520) Methamphetamine use disorder, 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) Active confirmed Problem Tardive dyskinesia (952851188) Tardive dyskinesia (G24.01) Active confirmed Problem Body mass index 30.00 to 34.99 (7491330170103 07) Body mass index [BMI] 31.0-31.9, adult (Z68.31) Active confirmed Vital Signs Heart Rate 80 /min 06/05/2025 Temperature 98.0 degrees Fahrenheit 06/05/2025 Respiratory Rate 16 /min 06/05/2025 Oximetry 95 % 06/05/2025 Blood pressure diastolic 84 mm Hg 06/05/2025 Height 61 in 06/05/2025 Blood pressure systolic 128 mm Hg 06/05/2025 Weight 161.4 lbs 06/05/2025 BMI 30.49 kg/m2 06/05/2025 Encounters Encounter Location Date Provider Diagnosis [facility] [address] [place] [address] 08/29/2024 Shae Philip Generalized anxiety disorder F41.1 ; Bipolar affective disorder F31.9 ; Tardive dyskinesia G24.01 ; Fatigue R53.83 ; Medication monitoring encounter Z51.81 and Nicotine dependence, unspecified, uncomplicated F17.200 [facility] [address] [place] [address] 08/30/2024 Shae Philip Fatigue R53.83 ; Medication monitoring encounter Z51.81 and Bipolar affective disorder F31.[address] [place] [address] 09/25/2024 Shae Philip Generalized anxiety disorder F41.1 ; Bipolar affective disorder F31.9 ; Tardive dyskinesia G24.01 and Nicotine dependence, unspecified, uncomplicated F17.200 [facility] [address] [place] [address] 10/24/2024 Shae Philip Generalized anxiety disorder F41.1 ; Bipolar affective disorder F31.9 ; Tardive dyskinesia G24.01 ; Nicotine dependence, unspecified, uncomplicated F17.200 and Encounter for immunization Z23 [address] [place] [address] 12/06/2024 Shae Philip Generalized anxiety disorder F41.1 ; Bipolar affective disorder F31.9 ; Tardive dyskinesia G24.01 ; Nicotine dependence, unspecified, uncomplicated F17.200 and Encounter for immunization Z23 [facility] [address] [place] [address] 01/09/2025 Shae Cedrick Over weight E66.3 ; Generalized anxiety disorder F41.1 ; Bipolar affective disorder F31.9 ; Tardive dyskinesia G24.01 ; Nicotine dependence, unspecified, uncomplicated F17.200 and Encounter for immunization Z23 [place] [address] [place] [address] 03/06/2025 Shae Cedrick Over weight E66.3 ; Generalized anxiety disorder F41.1 ; Bipolar affective disorder F31.9 ; Tardive dyskinesia G24.01 ; Nicotine dependence, unspecified, uncomplicated F17.200 and Encounter for immunization Z23 [place] [address] [place] [address] 03/27/2025 Shae Cedrick Over weight E66.3 ; Bipolar affective disorder F31.9 ; Generalized anxiety disorder F41.1 ; Tardive dyskinesia G24.01 ; Nicotine dependence, unspecified, uncomplicated F17.200 and Encounter for immunization Z23 [place] [address] [place] [address] 04/17/2025 Shae Cedrick Over weight E66.3 ; Tardive dyskinesia G24.01 ; Bipolar affective disorder F31.9 ; Generalized anxiety disorder F41.1 ; Nicotine dependence, unspecified, uncomplicated F17.200 ; Encounter for immunization Z23 and Medication monitoring encounter Z51.81 [place] [address] [place] [address] 06/05/2025 Shae Cedrick Over weight E66.3 ; Tardive dyskinesia G24.01 ; Bipolar affective disorder F31.9 ; Generalized anxiety disorder F41.1 ; Nicotine dependence, unspecified, uncomplicated F17.200 ; Encounter for immunization Z23 and Medication monitoring encounter Z51.[address] [place] [address] 07/27/2024 Shae Cedrick Bipolar affective disorder F31.9 ; Generalized anxiety disorder F41.1 and Tardive dyskinesia G24.01 [facility] [address] [place] [address] 08/23/2024 Shae Philip [facility] [address] [place] [address] 08/24/2024 Shae Philip Bipolar affective disorder F31.9 and Tardive dyskinesia G24.[address] [place] [address] 09/05/2024 Shae Philip [address] [place] [address] 09/12/2024 Shae Philip Generalized anxiety disorder F41.1 and Tardive dyskinesia G24.01 [facility] [address], [place] [address] 09/12/2024 Shae Philip [address] [place] [address] 10/19/2024 [facility] [address] [place] [address] 11/27/2024 Shae Philip Tardive dyskinesia G24.01 [facility] [address], [place] [address] 02/13/2025 Shae Philip Tardive dyskinesia G24.01 ; Bipolar affective disorder F31.9 and Generalized anxiety disorder F41.1 [facility] [place] [address] 03/14/2025 Shae Philip Generalized anxiety disorder F41.[address] [place] [address] 03/29/2025 Shae Philip [address] [place] [address] 04/11/2025 Shae Philip Tardive dyskinesia G24.01 [facility] [address] [place] [address] [facility] [address] [place] [address] 04/18/2025 [facility] [address] [place] [address] 05/01/2025 [facility] [address] [place] [address] 05/01/[address] [place] [address] 07/20/2025 [facility] Generalized anxiety disorder F41.1 Assessments Encounter Date Diagnosis (ICD Code) Assessment Notes Treatment Notes Treatment Clinical Notes Section Notes 07/27/2024 Bipolar affective disorder (ICD-10 - F31.9) [...] G24.01) 04/17/2025 Over weight (ICD-10 - E66.3) 06/05/2025 Over weight (ICD-10 - E66.3) 07/20/2025 Generalized anxiety disorder (ICD-10 - F41.1) 06/05/2025 Tardive dyskinesia (ICD-10 - G24.01) Pt has Hx of TD since 02/2022. Pt has tried Ingrezza with no relief. Pt understands that TD symptoms would be terminal block assembler and irreversible. States has not tried alternatives besides ingrezza. Benztropine with worsened symptoms. Mild improvement with Austedo up to 48 mg, and recommended to continue at 48 mg per neuro, increasing back. Currently also taking amantadine 100mg BID by neuro. Has second opinion scheduled for Jul 11. 04/17/2025 Tardive dyskinesia (ICD-10 - G24.01) Pt has Hx of TD since 02/2022. Pt has tried Ingrezza with no relief. Pt understands that TD symptoms would be senior living and irreversible. States has not tried alternatives [...] understands that TD symptoms would be terminal block assembler and irreversible. 08/30/2024 Medication monitoring encounter (ICD-10 - Z51.81) 08/29/2024 Tardive dyskinesia (ICD-10 - G24.01) Pt has Hx of TD since 02/2022. Pt has tried Ingrezza with no relief. Will increase Austedo XR to 48mg to aid TD symptoms. Pt has been toleratng Austedo XR well. Denies side effects. Pt understands that TD symptoms would be senior living and irreversible. 08/24/2024 Tardive dyskinesia (ICD-10 - G24.01) 07/27/2024 Tardive dyskinesia (ICD-10 - G24.01) 08/29/2024 Fatigue (ICD-10 - R53.83) 08/30/2024 Bipolar affective disorder (ICD-10 - F31.9) 10/24/2024 Tardive dyskinesia (ICD-10 - G24.01) Pt has Hx of TD since 02/2022. Pt has tried Ingrezza with no relief. Reports that she feels mouth movements have worsened since increase in Austedo, decreasing. Pt understands that TD symptoms would be terminal block assembler and irreversible. States has not tried alternatives [...] Pt understands that TD symptoms would be senior living and irreversible. States has not tried alternatives besides ingrezza. Benztropine with worsened symptoms. 02/13/2025 Generalized anxiety disorder (ICD-10 - F41.1) 03/27/2025 Tardive dyskinesia (ICD-10 - G24.01) Pt has Hx of TD since 02/2022. Pt has tried Ingrezza with no relief. Pt understands that TD symptoms would be senior living and irreversible. States has not tried alternatives besides ingrezza. Benztropine with worsened symptoms. No improvement noted with Austedo, client reports wanting to stop. 04/17/2025 Bipolar affective disorder (ICD-10 - F31.9) [...] needed, has not tried Geodon or Latuda. 06/05/2025 Bipolar affective disorder (ICD-10 - F31.9) Will continue to monitor and evaluate as poor insight on patient's behalf does limits evaluation. Due to TD and report of Abilify not doing anything, medication stopped. Continue trazodone for sleep and depression. Continue hydroxyzine PRN. May look to change SGA if needed, has not tried Geodon or Latuda. 06/05/2025 Generalized anxiety disorder (ICD-10 - F41.1) Client reports intermittent dry mouth- discussed this can be SE of multiple medications and continue to monitor. Discussed anticholinergic effects- try to take rare and PRN Encouraged oral hygeine. 04/17/2025 Generalized anxiety disorder (ICD-10 - F41.1) [...] understands that TD symptoms would be terminal block assembler and irreversible. States has not tried alternatives besides ingrezza. Benztropine with worsened symptoms. Continue Austedo. 01/09/2025 Tardive dyskinesia (ICD-10 - G24.01) Pt has Hx of TD since 02/2022. Pt has tried Ingrezza with no relief. Pt understands that TD symptoms would be senior living and irreversible. States has not tried alternatives besides ingrezza. Benztropine with worsened symptoms. Increase Austedo. 12/06/2024 Nicotine dependence, unspecified, uncomplicated (ICD-10 - F17.200) 10/24/2024 Nicotine dependence, unspecified, uncomplicated (ICD-10 - F17.200) 08/29/2024 Medication monitoring encounter (ICD-10 - Z51.81) 08/29/2024 Nicotine dependence, unspecified, uncomplicated (ICD-10 - [...] Nicotine dependence, unspecified, uncomplicated (ICD-10 - F17.200) 06/05/2025 Nicotine dependence, unspecified, uncomplicated (ICD-10 - F17.200) 04/17/2025 Encounter for immunization (ICD-10 - Z23) 06/05/2025 Encounter for immunization (ICD-10 - Z23) 01/09/2025 Encounter for immunization (ICD-10 - Z23) 03/06/2025 Encounter for immunization (ICD-10 - Z23) 06/05/2025 Medication monitoring encounter (ICD-10 - Z51.81) 04/17/2025 Medication monitoring encounter (ICD-10 - Z51.81) 08/29/2024 Other Reasons, potential benefits, potential risks, [...] May also contact the 24-hour crisis hotline ([facility]), refer to the closest emergency room [...] up. This session was completed telephonically with client/parental/guar cj consent: Unable to determine movement status, assess [...] May also contact the 24-hour crisis hotline ([facility]), refer to the closest emergency room [...] May also contact the 24-hour crisis hotline ([facility]), refer to the closest emergency room [...] May also contact the 24-hour crisis hotline ([facility]), refer to the closest emergency room [...] up. This session was completed telephonically with client/parental/guar cj consent: Unable to determine movement status, assess [...] May also contact the 24-hour crisis hotline ([facility]), refer to the closest emergency room [...] May also contact the 24-hour crisis hotline ([facility]), refer to the closest emergency room [...] May also contact the 24-hour crisis hotline ([facility]), refer to the closest emergency room [...] May also contact the 24-hour crisis hotline ([facility]), refer to the closest emergency room [...] of education, treatment plan and follow up. 06/05/2025 Other Reasons, potential benefits, potential risks, interactions [...] Provider Name:Shae fuentes, 08/13/2025 09:40:00 AM, [address] [facility] , [place], [address], Insurance Providers Payer Name Payer Address Payer Phone Subscriber Number Group Number Insured Name Patient Relationship to Insured Coverage Start Date Coverage End Date MEDICARE PART A [address] [place] [address] [id number] Elin Stevenson Self - patient is the insured 3 [facility] Attn Claims Department [address] [place] [address] [id number] Elin Stevenson Self - patient is the insured 3 MEDICARE BEHAV SERVICE COUNTER CASHIER [address] [place] [address] [id number] Elin Stevenson Self - patient is the insured 3 Medical (General) History Medical History History ICD Code glaucoma depression anxiety hepatitis C goiter hypothyroid disorder Arthritis Surgical History Surgery Date(Month/Year) 1997 1997 Kidney stone removed 2015 breast implants-saline hemorrhoidectomy-[facility] 2021 Left cataract removal 08/2022 Right cataract removal 09/2022 Hospitalization History Reason Date(Month/Year)
[2025-07-27 00:08] LABS: Free T4 Free Thyroxine 1.69 ng/dL (0.78-2.19)
== END 2025-07-26 12:22 | disposition home or self-care (01) ==
PROVIDERS: PCP Internal Medicine Gastroenterology; Visit Provider Internal Medicine
DX: E03.8 Other specified hypothyroidism (principal); E03.1 Congenital hypothyroidism without goiter; E03.9 Hypothyroidism, unspecified; Z79.899 Other long term (current) drug therapy
CPT/HCPCS: 36415; 80053; 82306; 84439; 84443

== ENCOUNTER 2025-08-08 12:22 | Outpatient (CLI) | payer MEDICARE, MEDICAID, SELFPAY ==
--- OUTSIDE RECORDS SUMMARY | 2025-02-20 08:40 | XMS_ITS ---
Author Organization [facility] Address [address] [place] [address] Care Team Providers Care Business Analyst Manager Name Role Phone Shae Philip Primary Care Provider REASON FOR VISIT 4 week F/U Social History Sex Assigned At : Social History Observation Description Sex Assigned At Female Encounters Encounter Location Date Provider Diagnosis [address] [place] [address] 02/20/2025 Shae Philip Plan Of Treatment Next Appt Details Provider Name:Shae fuentes, 08/13/2025 09:40:00 AM, [address] [facility] , [place], [address], Progress Notes * Elin GÓMEZDOB:1960 ([age] yo F)Acc No.[id number]:02/20/2025 UNLOCKED PROGRESS NOTE Patient: Dilma REYES Elin Provider: Juan Philip, MSN, TELEVISION ENGINEERING TEACHER, INSIDE TECHNICAL SALES REPRESENTATIVE-C :1960 A ge:64 Y S ex:Female Date:02/20/2025 Phone: Address:[address] [facility] [address] Subjective: * Chief Complaints: * 1 . 4 week F/U. * Medical History: Objective: * Vitals: Assessment: Plan: * Treatment: * * Electronic signature of Soraida Philip , [id number] on 08/08/2025 at 01:39 PM CDT Sign off status: Pending * Provider: Juan Philip, KATERINE, TELEVISION ENGINEERING TEACHER, INSIDE TECHNICAL SALES REPRESENTATIVE-C Date: 0 02/20/2025 Generated for Lorenzo white/Brenda/Tasneem on: 1 01:39 PM CDT
--- NOTE | ~2025-08-08 | US_ITS ---
Clinical history:Goiter. EXAM:Ultrasound thyroid TECHNIQUE:Multiple static grayscale images and color Doppler images were obtained of the thyroid gland. Comparisons:None available FINDINGS: Right thyroid lobe measures 1.2 x 0.5 x 0.7 cm and is heterogeneous. Left thyroid lobe measures 2.4 x 0.9 x 0.9 cm and is heterogeneous. Isthmus measures 0.2 cm and is heterogeneous. There is a 0.4 x 0.4 x 1.0 cm left thyroid nodule which is solid and hypoechoic. TR 4. The study is limited due to the patient's imaging characteristics. IMPRESSION: 1. There is a 1.0 cm left thyroid nodule TR 4. A follow-up thyroid ultrasound in 6 months is recommended. 2. The thyroid gland is small and heterogeneous. Reviewed, dictated and finalized at location Q. IMPRESSION: 1. There is a 1.0 cm left thyroid nodule TR 4. A follow-up thyroid ultrasound i n 6 months is recommended. 2. The thyroid gland is small and heterogeneous.
--- OUTSIDE RECORDS SUMMARY | 2025-08-08 13:39 | XMS_ITS | Clinical Summary ---
Author Organization [facility] [email or web address] Address [address] [facility] [place] [address] Care Team Providers Care Textile Clothing And Footwear Mechanic Name Role Phone Noe Crooks MD Unavailable Parveen Trejo MD Primary Care Provider [phone] Source Comments [facility],non-owned Affiliates and Associated Physician Practices is amultiple site organization consisting of ambulatory clinics and hospital sitesin [place], [place], [place] and [place]. This disclosure is being madepursuant to the Care Everywhere program and may not contain all information available regarding this patient. Last updated 18.[facility] [email or web address] Allergies Active Allergy Reactions Criticality Noted Date Comments Codeine Urticaria Medium 02/03/2022 Glecaprevir-Pibrentasvir Urticaria Medium 01/10/2019 Penicillins Urticaria Medium 12/24/2017 Medications * Be aware that medications may not be up to date on this document. Alwaysverify current medications with the patient. vitamin D, ergocalciferol, (DRISDOL) 97764 UNITS capsule Take 1 (one) capsule by [...] Description 07/11/2025 9:00 AM CDT Office Visit [facility] - Neurology [address] [place] [phone] Sarbjit Yuen APRN-CREDIT REFERENCE CLERK Tardive dyskinesia (Primary Dx) 07/11/2025 Travel 05/25/2025 Travel 05/15/2025 10:00 AM CDT Office [facility] - Ophthalmology [address] [place] [phone] Gurmeet Romo, OD Primary open angle glaucoma (POAG) of left eye, moderate stage (Primary Dx); Pseudophakia 05/15/2025 9:40 AM CDT Clinical Support [facility] - Ophthalmology [address] [place] [phone] Gurmeet Romo, OD Primary open angle glaucoma [...] on file Legal Sex Female 6:18 AM AIR TRAFFIC SYSTEMS TECHNICIAN Gender Identity Not on file Sexual Orientation Not on file Last Filed Vital Signs Vital Sign Reading Time Taken Comments Blood Pressure 137/84 07/11/2025 9:03 AM CDT Pulse 88 07/11/2025 9:03 AM CDT Temperature 36.2 C (97.2 F) 09/09/2022 1:40 PM AIR TRAFFIC SYSTEMS TECHNICIAN Respiratory Rate 16 09/09/2022 1:55 PM AIR TRAFFIC SYSTEMS TECHNICIAN Oxygen Saturation 97% 07/11/2025 9:03 AM CDT Inhaled Oxygen Concentration - - Weight 70.3 kg (155 lb) 07/11/2025 9:03 AM CDT Height 160 cm (5' 3) 09/09/2022 10:48 AM AIR TRAFFIC SYSTEMS TECHNICIAN Body Mass Index 27.46 09/09/2022 10:48 AM AIR TRAFFIC SYSTEMS TECHNICIAN Plan of Treatment Upcoming Encounters Date Type Department Care Team (Late st Contact Info) Description 11/15/2025 10:00 AM AIR TRAFFIC SYSTEMS TECHNICIAN Office Visit [facility] - Ophthalmology [address] [place] [phone] Gurmeet Romo, PEDRO [address] [place] [phone] 11/21/2025 9:00 AM AIR TRAFFIC SYSTEMS TECHNICIAN Office Visit [facility] - Neurology [address] [place] [phone] Sarbjit Yuen, [place]-CREDIT REFERENCE CLERK [address] [place] [address] [place] [phone] Health Maintenance Due Date Last Done Comments [...] you. Interventions: Medical Devices Implanted Type Area Pricing Consultant Device Identifier Shelf Expiration Date Model / Serial / Lot [employer] - Envista Iol Implanted:Qty: 1 on 09/09/2022 by Shant Castillo MD at [facility] Ocular [employer] Surgical 10/10/2024 [id number] / [id number] / NA [employer] Implanted:Qty: 1 on 08/26/2022 by Shant Castillo MD at [facility] Left: Eye 10/10/2024 MX60E 22.5 / [id number] / [id number] Procedures Procedure Name Priority Date/Time Associated Diagnosis [...] a current active infection. Test Performed at: [facility] [address] [place] [address] MADELEINE WALKER DO,MPH Blood BLOOD SPECIMEN / Unknown 05/31/2020 1:05 PM CDT 05/31/2020 1:10 PM CDT Catrachita Zamudio MD LAB - CHEMISTRY ORDERABLES F inal Result [facility] [id number] [place] [address] from Last 3 Months or Most Recently Relevant to Health Maintenance Insurance [facility] [address] [place] [id number] [facility] MEDICARE Care Teams Textile Clothing And Footwear Mechanic Relationship Specialty Start Date End Date Parveen Trejo MD [address] [place] [phone] PCP - General Internal Medicine 05/15/25 Noe Crooks MD Dermatology 10/24/18
--- OUTSIDE RECORDS SUMMARY | 2025-08-08 13:39 | XMS_ITS | Encounter Summary ---
Author Organization [facility] Address [address] [place] [address] Care Team Providers Care Inspector Advanced Composite Name Role Phone Noe Crooks MD Unavailable [phone] Paxton Lay MD Primary Care Provider [phone] Manpreet LAURA MD, Lan Copeland Primary Care Provider [phone] Parveen Trejo MD Primary Care Provider [phone] Reason for Visit * Reason Onset Date Comments Medication Problem 06/12/2021 Encounter Details Date Type Department Care Team (Late st Contact Info) Description 06/12/2021 Telephone [facility]atology [address] [place] [address] Omar Da Silva MD [address] [facility] [address] [place] [address] Medication Problem Social History Tobacco Use Types Packs/Day Years Used Date Smoking Tobacco: Every Day Cigarettes 1 40 Smokeless Tobacco: Never Alcohol Use Standard Drinks/Week Comments No 0 (1 standard drink = 0.6 oz pur e alcohol) Comments No Sex and Gender Information Value Date Recorded Sex Assigned at Not on file Legal Sex Female 6:18 AM BULLET LUBRICANT MIXER Gender Identity Not on file Sexual Orientation [...] LONGER AVAILABLE. Pt had script sent to [facility] on [address] [phone] Pt phone [phone]. Please call to advise/discuss. documented in this encounter Plan of Treatment Upcoming Encounters Date Type Department Care Team (Late st Contact Info) Description 11/15/2025 10:00 AM BULLET LUBRICANT MIXER Office Visit [facility] - Ophthalmology [address] [place] [phone] Gurmeet Romo, PEDRO [address] [place] [phone] 11/21/2025 9:00 AM BULLET LUBRICANT MIXER Office Visit [facility] - Neurology [address] [place] [phone] Sarbjit Yuen APRN-STRUCTURAL LAYOUT WORKER [address] [place] [address] [place] [phone] documented as of this encounter Goals Goal [...] on filedocumented in this encounter Care Teams Inspector Advanced Composite Relationship Specialty Start Date End Date Paxton Lay MD [address] [place] [address] PCP - General 11/28/19 10/22/21 Lan Case III, MD [address] [phone] PCP - General 10/23/21 05/14/25 [place] [address] [place] [phone] PCP - General Internal Medicine 05/15/25 Noe Crooks MD Dermatology 10/24/18 documented as of this encounter
--- OUTSIDE RECORDS SUMMARY | 2025-08-08 13:39 | XMS_ITS | Patient Health Record ---
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 Name Role Phone Shae Philip Primary Care Provider [phone] Allergies Allergen (clinical drug ingredient) Drug/Non Drug Allergy documented on EMR Reaction Allergy Type Onset Date Status codeine Codeine hives Drug Allergy Active Penicillin hives Drug Allergy Active Results Component Value Reference Range Notes Vitamin B12 and Folate Reviewed date:09/08/2024 09:26:42 AM Interpretation:Normal Performing Lab:[facility], [address] [place] [address], Phone - [phone], Director - PhDReedsburg Area Medical Centeralexi Notes/Report: Vitamin B12 559 455-5005 pg/mL Folate (Folic Acid), Serum >20.0 >3.0 ng/mL A serum folate concentration of less than 3.1 ng/mL is considered to represent clinical deficiency. Hemoglobin A1c* Reviewed date:09/08/2024 09:26:55 AM Interpretation:Normal Performing Lab:[facility], [address] [place] [address], Phone - [phone], Director - PhDDale General Hospitalfermíni Notes/Report: Hemoglobin A1c 5.4 4.8-5.6 % . Prediabetes: 5.7 - 6.4 Diabetes: >6.4 Glycemic control for adults with diabetes: <7.0 TSH* Reviewed date:09/08/2024 09:27:07 AM Interpretation:Low Performing Lab:[facility], [address] [facility], Phone - [phone], Director - PhDMarciai Notes/Report: TSH 0.036 0.450-4.500 uIU/mL CBC With Differential/Platel et* Reviewed date:09/08/2024 09:27:41 AM Interpretation:Abnormal Performing Lab:[facility], [address] [facility], Phone - [phone], Director - [facility] Hospitalfermín Notes/Report: WBC 4.7 3.4-10.8 x10E3/uL Effective September 11, 2024 profile [id number] WBC will be made non-orderable as a [...] 25-Hydroxy* Reviewed date:09/08/2024 09:26:29 AM Interpretation:Normal Performing Lab:[facility] [place], [address] [facility], [place], Phone - [phone], Director - Dale General Hospitalgaby Notes/Report: Vitamin D, 25-Hydroxy 63.6 30.0-100.0 ng/mL Vitamin D deficiency has been defined by the [place] of Medicine and an Endocrine Society practice guideline as a level of serum 25-OH vitamin D less than 20 ng/mL (1,2). The Endocrine Society went on to further define vitamin D insufficiency as a level between 21 and 29 ng/mL (2). 1. IOM ([place] of Medicine). 2010. Dietary reference intakes for calcium and D. [place]: The National Academies Press. 2. Deena MF, Martin ACOSTA, Raymon CHOWDARY, et al. Evaluation, treatment, and prevention of vitamin D deficiency: an Endocrine Society clinical practice guideline. JCEM. 2010; 96(7):1911-30. Lipid Panel* Reviewed date:09/08/2024 09:27:17 AM Interpretation:Normal Performing Lab:[email or web address], Phone - [phone], Director - PhDDale General Hospitaluti Notes/Report: Cholesterol, Total 184 100-199 mg/dL Triglycerides 88 0-149 mg/dL HDL Cholesterol 70 >39 mg/dL VLDL Cholesterol [place] 16 5-40 mg/dL LDL Chol Calc (RUST) 98 0-99 mg/dL CMP 14 Comprehensive Metabol ic Panel* Reviewed date:09/08/2024 09:27:29 AM Interpretation:Normal Performing Lab:[facility], Phone - [phone], Director - PhDUnm Cancer Centeri Notes/Report: Glucose 92 70-99 mg/dL BUN 18 [...] 0-40 IU/L ALT (SGPT) 12 0-32 IU/L TSH* Reviewed date:04/19/2025 07:11:57 AM Interpretation:Critical low Performing Lab:[facility], Phone - [phone], Director - PhDRicalexi Notes/Report: TSH 0.022 0.450-4.500 uIU/mL CBC With Differential/Platel et* Reviewed date:04/19/2025 07:11:57 AM Interpretation:Abnormal Performing Lab:[facility] [place], [address] [facility], Phone - [phone], Director - Sridhar Notes/Report: WBC 6.3 3.4-10.8 [...] % Immature Grans (Abs) 0.0 0.0-0.1 x10E3/uL Reason For Referral Reason Movement disorder, t ardive dyskinesia Diagnosis 1 Tardive dyskinesia ( G24.01) Referral Organization [facility] Referring Provider First Name Shae Referring [...] RN 06/2024 09:54:00 AM >Referral sent to [facility] Neurology in [place]., Cedrick Shae Ibarra 03/27/2025 01:32:01 PM > Appointment in April. Referral Priority Routine Reason 2nd opinion neurolog y abnormal movements Diagnosis 1 Tardive dyskinesia ( G24.01) Referral Organization [facility] Referring Provider First Name Shae Referring Provider Last Name Cedrick Referring Provider Speciality Psychiatry Referred Provider [facility]- Neurology Referred Provider Specialty Neurology General Notes Cedrick Shae Ibarra 06/2025 05:23:36 PM > Client wanting second opinion on abnormal movements that have not made much improvement with Austedo and worsened with Cogentin, wants further assessment, went to [facility] provider already. States wants further assessment and evaluation. She would like to see if [facility] take her insurance? Thank you., Dick HERNANDEZ, Marycarmen Her 05/01/2025 02:46:47 PM >Nurse completed and faxed referral to [facility], Neurology. Clinical Notes [facility], Neurology, [facility] [place] [address] , phone, fax Referral Priority Routine Medications Medication SIG (Take, Route, Frequency, Duration) Notes Start Date End Date Status Amantadine HCl 100 MG 1 capsule Orally t wice a day Active traMADol HCl 50 MG 1 tablet as needed Orally every 8 hours Not-Taking Propranolol HCl 10 MG 1 tablet Orally On ce a day; Duration: 30 days Not-Takin g Levothyroxine Sodium 150 MCG 1 tablet on an empty stomach in the morning Orally Once a day Not-Taking Levothyroxine Sodium 50 MCG 1 capsule in the morning on an empty stomach Orally Once a day Active Cholecalciferol 1.25 MG (96273 UT) 1 capsule Orally once per week Not-Taking hydrOXYzine HCl 50 MG TAKE 1 & 1/2 - 2 TABLETS BY MOUTH ONCE DAILY if NEEDED FOR ANXIETY AND SLEEP; Duration: 30 days Active Influenza Vac Split Quad 0.5 ML as directed Intramuscular once Not-Taking Influenza Vac Subunit Quad 0.5 ML as directed Intramuscular once; Duration: 1 days Not-Taking Pravastatin Sodium 20 MG 1 tablet Orally Once a day; Duration: 30 day(s) 01/11/2020 Active buPROPion HCl ER (XL) 300 mg TAKE 1 TABLET BY MOUTH EVERY MORNING; Duration: 30 Not-Taking Alendronate Sodium 70 MG 1 tablet 30 min utes before the first food, beverage or medicine of the day with plain water Orally Once a week; Duration: 30 days Active Austedo XR 48 MG 1 tablet Orally Once a day; Duration: 30 days after 42 mg, start this script 04/11/2025 Not-Taking buPROPion HCl ER (XL) 150 mg TAKE 1 TABLET BY MOUTH EVERY MORNING; Duration: 22 days Active Austedo XR 36 MG 1 tablet Orally Once a day; Duration: 14 days Not-Takin g ARIPiprazole 2 MG TAKE 1 TABLET BY DAILY; Duration: 30 days Not-Taking traZODone HCl 150 MG 1 tablet at bedtime as needed Orally Once a day; Duration: 20 days Active Austedo XR 42 MG 1 [...] 3 doses, then stop this medication Not-Taking Austedo XR 42 MG 1 tablet Orally Once a day; Duration: 7 days after 36 mg, take this for one week then increase to 48 mg script dosing Not-Taking hydrOXYzine HCl 25 MG 1 tablet as needed Orally Once a day; Duration: 30 days Not-Taking Austedo XR 48 MG 1 tablet Orally Once a day; Duration: 30 days Active Immunizations Vaccine Route Administration [...] free IM Intramuscular 10/24/2024 Administered Ludmila Ratliff светлана Sánchez 10/24/2024 10:33:36 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 >Pt tolerated well Social History Tobacco Use: Social History Observation Description Date Details (start date - stop date) Current Smoker NA - NA Sex Assigned At : Social History Observation Description Sex Assigned At Female Tobacco Control (Standard) Question Answer Notes Tobacco use: Current smoker Section Notes: [id number] 01/14/2022 01/13/2022 Hydrocodon-acetaminophen 21.0 7 5MG-325MG 15 Pa[place] Lay Md [id number] [place], [place] NA 0 [place] 1 [id number] 12/16/2021 12/16/2021 oxyCODONE-ACETAMINOPHEN 20.0 5 5MG-325MG 30 Rashawn Kauffman [id number] [place], [place] 1 [id number] 12/08/2021 12/08/2021 oxyCODONE-ACETAMINOPHEN 15.0 3 5MG-325MG 37.50 Km Wyman (Do) - [id number] [place], [place] NA 0 [place] 1 [id number] 12/01/2021 12/01/2021 oxyCODONE-ACETAMINOPHEN 30.0 7 5MG-325MG 32.14 Rashawn Stone [id number] [place], [place] NA 0 [place] 1 [id number] 12/01/2021 12/01/2021 traMADol 30.0 7 50MG 21.43 Rashawn Kauffman [id number] 01/14/2022 01/13/2022 Hydrocodon-acetaminophen 21.0 7 5MG-325MG 15 Paxton Lay Md [id number] [place], [place] 1 [id number] 12/16/2021 12/16/2021 oxyCODONE-ACETAMINOPHEN 20.0 5 5MG-325MG 30 Rashawn Kauffman [id number] [place], [place] 1 [id number] 12/08/2021 12/08/2021 oxyCODONE-ACETAMINOPHEN 15.0 3 5MG-325MG 37.50 Km Wyman () - [id number] [place], [place] 1 [id number] 12/01/2021 12/01/2021 oxyCODONE-ACETAMINOPHEN 30.0 7 5MG-325MG 32.14 Morocho Tati [facility] [id number] [facility], [place] 1 [id number] 12/01/2021 12/01/2021 traMADol 30.0 7 50MG 21.43 Rashawn Duffy [facility] [id number] 01/14/2022 01/13/2022 Hydrocodon-acetaminophen 21.0 7 5MG-325MG 15 Paxton Lay Md [id number] [place], [place] 1 [id number] 12/16/2021 12/16/2021 oxyCODONE-ACETAMINOPHEN 20.0 5 5MG-325MG 30 Morocho Tati [facility] [id number] [place] 1 [id number] 12/08/2021 12/08/2021 oxyCODONE-ACETAMINOPHEN 15.0 3 5MG-325MG 37.50 Km Wyman () - [id number] [facility], [place] 1 [id number] 12/01/2021 12/01/2021 oxyCODONE-ACETAMINOPHEN 30.0 7 5MG-325MG 32.14 Morocho Tati [facility] [id number] [place], [place] 1 [id number] 12/01/2021 12/01/2021 traMADol 30.0 7 50MG 21.43 Rashawn Stone [id number] 01/14/2022 01/13/2022 Hydrocodon-acetaminophen 21.0 7 5MG-325MG 15 Paxton Lay Md [id number] [place], [place] 1 [id number] 12/16/2021 12/16/2021 oxyCODONE-ACETAMINOPHEN 20.0 5 5MG-325MG 30 Rashawn Duffy [facility] [id number] [place], [place] 1 [id number] 12/08/2021 12/08/2021 oxyCODONE-ACETAMINOPHEN 15.0 3 5MG-325MG 37.50 Km Wyman (Do) - [id number] [place], [place] 1 [id number] 12/01/2021 12/01/2021 oxyCODONE-ACETAMINOPHEN 30.0 7 5MG-325MG 32.14 Rashawn Duffy [facility] [id number] [place], [place] 1 [id number] 12/01/2021 12/01/2021 traMADol 30.0 7 50MG 21.43 Rashawn Duffy [id number] 01/14/2022 01/13/2022 Hydrocodon-acetaminophen 21.0 7 5MG-325MG 15 Paxton Lay Md [id number] [place], [place] 1 [id number] 12/16/2021 12/16/2021 oxyCODONE-ACETAMINOPHEN 20.0 5 5MG-325MG 30 [facility] T[facility] [id number] [place], [place] 1 [id number] 12/08/2021 12/08/2021 oxyCODONE-ACETAMINOPHEN 15.0 3 5MG-325MG 37.50 Km Wyman (Do) - [id number] [place], [place] 1 [id number] 12/01/2021 12/01/2021 oxyCODONE-ACETAMINOPHEN 30.0 7 5MG-325MG 32.14 Rashawn Duffy [facility] [id number] [place], [place] 1 [id number] 12/01/2021 12/01/2021 traMADol 30.0 7 50MG 21.43 Rashawn Duffy [id number] 01/14/2022 01/13/2022 Hydrocodon-acetaminophen 21.0 7 5MG-325MG 15 Paxton Lay Md [id number] [place], [place] 1 [id number] 12/16/2021 12/16/2021 oxyCODONE-ACETAMINOPHEN 20.0 5 5MG-325MG 30 Morocho Tati [facility] [id number] [place], [place] 1 [id number] 12/08/2021 12/08/2021 oxyCODONE-ACETAMINOPHEN 15.0 3 5MG-325MG 37.50 Km Wyman (Do) - [id number] [place], [place] 1 [id number] 12/01/2021 12/01/2021 oxyCODONE-ACETAMINOPHEN 30.0 7 5MG-325MG 32.14 Morocho Tati [facility] [id number] [place], [place] 1 [id number] 12/01/2021 12/01/2021 traMADol 30.0 7 50MG 21.43 Rashawn Stone [id number] 01/14/2022 01/13/2022 Hydrocodon-acetaminophen 21.0 7 5MG-325MG 15 Paxton Lay Md [id number] [place], [place] 1 [id number] 12/16/2021 12/16/2021 oxyCODONE-ACETAMINOPHEN 20.0 5 5MG-325MG 30 [facility] [id number] [place], [place] 1 [id number] 12/08/2021 12/08/2021 oxyCODONE-ACETAMINOPHEN 15.0 3 5MG-325MG 37.50 Km Wyman (Do) - [id number] [place], [place] 1 [id number] 12/01/2021 12/01/2021 oxyCODONE-ACETAMINOPHEN 30.0 7 5MG-325MG 32.14 Morocho Tati [facility] [id number] [place], [place] 1 [id number] 12/01/2021 12/01/2021 traMADol 30.0 7 50MG 21.43 Rashawn Stone [id number] 01/14/2022 01/13/2022 Hydrocodon-acetaminophen 21.0 7 5MG-325MG 15 Paxton Lay Md [id number] [place], [place] 1 [id number] 12/16/2021 12/16/2021 oxyCODONE-ACETAMINOPHEN 20.0 5 5MG-325MG 30 Morocho Tati [facility] [id number] [place], [place] 1 [id number] 12/08/2021 12/08/2021 oxyCODONE-ACETAMINOPHEN 15.0 3 5MG-325MG 37.50 Km Wyman (Do) - [id number] [place], [place] 1 [id number] 12/01/2021 12/01/2021 oxyCODONE-ACETAMINOPHEN 30.0 7 5MG-325MG 32.14 Morocho Tati [facility] [id number] [place], [place] 1 [id number] 12/01/2021 12/01/2021 traMADol 30.0 7 50MG 21.43 Rashawn Stone [id number] 01/14/2022 01/13/2022 Hydrocodon-acetaminophen 21.0 7 5MG-325MG 15 Paxton Lay Md [id number] [place], [place] 1 [id number] 12/16/2021 12/16/2021 oxyCODONE-ACETAMINOPHEN 20.0 5 5MG-325MG 30 Morocho Tati [facility] [id number] [place], [place] 1 [id number] 12/08/2021 12/08/2021 oxyCODONE-ACETAMINOPHEN 15.0 3 5MG-325MG 37.50 Km Wyman (Do) - [id number] [place], [place] 1 [id number] 12/01/2021 12/01/2021 oxyCODONE-ACETAMINOPHEN 30.0 7 5MG-325MG 32.14 Rashawn Duffy [facility] [id number] [place], [place] 1 [id number] 12/01/2021 12/01/2021 traMADol 30.0 7 50MG 21.43 Rashawn Stone [id number] 01/14/2022 01/13/2022 Hydrocodon-acetaminophen 21.0 7 5MG-325MG 15 Paxton Lay Md [id number] [place], [place] 1 [id number] 12/16/2021 12/16/2021 oxyCODONE-ACETAMINOPHEN 20.0 5 5MG-325MG 30 Morocho Tati [facility] [id number] [place], [place] 1 [id number] 12/08/2021 12/08/2021 oxyCODONE-ACETAMINOPHEN 15.0 3 5MG-325MG 37.50 Km Wyman (Do) - [id number] [place], [place] 1 [id number] 12/01/2021 12/01/2021 oxyCODONE-ACETAMINOPHEN 30.0 7 5MG-325MG 32.14 Rashawn Stone [id number] [place], [place] 1 [id number] 12/01/2021 12/01/2021 traMADol 30.0 7 50MG 21.43 Rashawn Stone [id number] 01/14/2022 01/13/2022 Hydrocodon-acetaminophen 21.0 7 5MG-325MG 15 Paxton Lay Md [id number] [place], [place] 1 [id number] 12/16/2021 12/16/2021 oxyCODONE-ACETAMINOPHEN 20.0 5 5MG-325MG 30 Rashawn Stone [id number] [place], [place] 1 [id number] 12/08/2021 12/08/2021 oxyCODONE-ACETAMINOPHEN 15.0 3 5MG-325MG 37.50 Km Wyman (Do) - [id number] [place], [place] 1 [id number] 12/01/2021 12/01/2021 oxyCODONE-ACETAMINOPHEN 30.0 7 5MG-325MG 32.14 Rashawn Duffy [facility] [id number] [place], [place] 1 [id number] 12/01/2021 12/01/2021 traMADol 30.0 7 50MG 21.43 Rashawn Stone [facility] [id number] 01/14/2022 01/13/2022 Hydrocodon-acetaminophen 21.0 7 5MG-325MG 15 Paxton Lay Md [id number] [place], [place] 1 [id number] 12/16/2021 12/16/2021 oxyCODONE-ACETAMINOPHEN 20.0 5 5MG-325MG 30 Rashawn Duffy [facility] [id number] [place], [place] 1 [id number] 12/08/2021 12/08/2021 oxyCODONE-ACETAMINOPHEN 15.0 3 5MG-325MG 37.50 Km Wyman (Do) - [id number] [place], [place] 1 [id number] 12/01/2021 12/01/2021 oxyCODONE-ACETAMINOPHEN 30.0 7 5MG-325MG 32.14 [facility] [id number] [place], [place] 1 [id number] 12/01/2021 12/01/2021 traMADol 30.0 7 50MG 21.43 Rashawn Stone [id number] 01/14/2022 01/13/2022 Hydrocodon-acetaminophen 21.0 7 5MG-325MG 15 Paxton Lay Md [id number] [place], [place] 1 [id number] 12/16/2021 12/16/2021 oxyCODONE-ACETAMINOPHEN 20.0 5 5MG-325MG 30 Rashawn Duffy [facility] [id number] [place], [place] 1 [id number] 12/08/2021 12/08/2021 oxyCODONE-ACETAMINOPHEN 15.0 3 5MG-325MG 37.50 Km Wyman (Do) - [id number] [place], [place] 1 [id number] 12/01/2021 12/01/2021 oxyCODONE-ACETAMINOPHEN 30.0 7 5MG-325MG 32.14 Rashawn Duffy [facility] [id number] [place], [place] 1 [id number] 12/01/2021 12/01/2021 traMADol 30.0 7 50MG 21.43 Rashawn Stone [facility] [id number] 01/14/2022 01/13/2022 Hydrocodon-acetaminophen 21.0 7 5MG-325MG 15 Paxton Lay Md [id number] [place], [place] 1 [id number] 12/16/2021 12/16/2021 oxyCODONE-ACETAMINOPHEN 20.0 5 5MG-325MG 30 Rashawn Duffy [facility] [id number] [place], [place] 1 [id number] 12/08/2021 12/08/2021 oxyCODONE-ACETAMINOPHEN 15.0 3 5MG-325MG 37.50 Km Wyman (Do) - [id number] [place], [place] 1 [id number] 12/01/2021 12/01/2021 oxyCODONE-ACETAMINOPHEN 30.0 7 5MG-325MG 32.14 Morocho Tati [facility] [id number] [place], [place] 1 [id number] 12/01/2021 12/01/2021 traMADol 30.0 7 50MG 21.43 Rashawn Stone [facility] [id number] 12/16/2021 12/16/2021 oxyCODONE-ACETAMINOPHEN 20.0 5.0 5MG-325MG 30 [facility] [id number] [place], [place] 1 [id number] 12/08/2021 12/08/2021 oxyCODONE-ACETAMINOPHEN 15.0 3.0 5MG-325MG 37.50 Km Wyman (Do) - [id number] [place], [place] 1 [id number] 12/01/2021 12/01/2021 oxyCODONE-ACETAMINOPHEN 30.0 7.0 5MG-325MG 32.14 Morocho Tati [facility] [id number] [place], [place] 1 [id number] 12/01/2021 12/01/2021 traMADol 30.0 7.0 50MG 21.43 Rashawn Duffy [id number] 01/14/2022 01/13/2022 Hydrocodon-acetaminophen 21.0 7 5MG-325MG 15 Paxton Lay Md - [id number] [place], [place] 1 [id number] 12/16/2021 12/16/2021 oxyCODONE-ACETAMINOPHEN 20.0 5 5MG-325MG 30 [facility] T[id number] [place], [place] 1 [id number] 12/08/2021 12/08/2021 oxyCODONE-ACETAMINOPHEN 15.0 3 5MG-325MG 37.50 Km Wyman (Do) - [id number] [place], [place] 1 [id number] 12/01/2021 12/01/2021 oxyCODONE-ACETAMINOPHEN 30.0 7 5MG-325MG 32.14 Morocho Tati [facility] [id number] [place], [place] 1 [id number] 12/01/2021 12/01/2021 traMADol 30.0 7 50MG 21.43 Rashawn Stone [id number] 01/14/2022 01/13/2022 Hydrocodon-acetaminophen 21.0 7 5MG-325MG 15 Paxton Lay Md [id number] [place], [place] 1 [id number] 12/16/2021 12/16/2021 oxyCODONE-ACETAMINOPHEN 20.0 5 5MG-325MG 30 Rashawn Duffy [facility] [id number] [place], [place] 1 [id number] 12/08/2021 12/08/2021 oxyCODONE-ACETAMINOPHEN 15.0 3 5MG-325MG 37.50 Km Wyman (Do) - [id number] [place], [place] 1 [id number] 12/01/2021 12/01/2021 oxyCODONE-ACETAMINOPHEN 30.0 7 5MG-325MG 32.14 Rashawn Duffy [facility] [id number] [place], [place] 1 [id number] 12/01/2021 12/01/2021 traMADol 30.0 7 50MG 21.43 Rashawn Stone [id number] 01/14/2022 01/13/2022 Hydrocodon-acetaminophen 21.0 7 5MG-325MG 15 Paxtno Lay Md [id number] [place], [place] 1 [id number] 12/16/2021 12/16/2021 oxyCODONE-ACETAMINOPHEN 20.0 5 5MG-325MG 30 Rashawn Duffy [facility] [id number] [place], [place] 1 [id number] 12/08/2021 12/08/2021 oxyCODONE-ACETAMINOPHEN 15.0 3 5MG-325MG 37.50 Km Wyman (Do) - [id number] [place], [place] 1 [id number] 12/01/2021 12/01/2021 oxyCODONE-ACETAMINOPHEN 30.0 7 5MG-325MG 32.14 Rashawn Stone [id number] [place], [place] 1 [id number] 12/01/2021 12/01/2021 traMADol 30.0 7 50MG 21.43 Rashawn Stone [id number] 01/14/2022 01/13/2022 Hydrocodon-acetaminophen 21.0 7 5MG-325MG 15 Paxton Lay Md [id number] [place], [place] 1 [id number] 12/16/2021 12/16/2021 oxyCODONE-ACETAMINOPHEN 20.0 5 5MG-325MG 30 Rashawn Stone [id number] [place], [place] 1 [id number] 12/08/2021 12/08/2021 oxyCODONE-ACETAMINOPHEN 15.0 3 5MG-325MG 37.50 Km Wyman (Do) - [id number] [place], [place] 1 [id number] 12/01/2021 12/01/2021 oxyCODONE-ACETAMINOPHEN 30.0 7 5MG-325MG 32.14 Rashawn Duffy [facility] [id number] [place], [place] 1 [id number] 12/01/2021 12/01/2021 traMADol 30.0 7 50MG 21.43 Rashawn Stone [id number] 01/14/2022 01/13/2022 Hydrocodon-acetaminophen 21.0 7 5MG-325MG 15 Paxton Lay Md [id number] [place], [place] 1 [id number] 12/16/2021 12/16/2021 oxyCODONE-ACETAMINOPHEN 20.0 5 5MG-325MG 30 Rashawn Stone [id number] [place], [place] 1 [id number] 12/08/2021 12/08/2021 oxyCODONE-ACETAMINOPHEN 15.0 3 5MG-325MG 37.50 Km Wyman Marleni (Do) - [id number] [place], [place] 1 [id number] 12/01/2021 12/01/2021 oxyCODONE-ACETAMINOPHEN 30.0 7 5MG-325MG 32.14 Rashawn Stone [id number] [place], [place] 1 [id number] 12/01/2021 12/01/2021 traMADol 30.0 7 50MG 21.43 Rashawn Stone [id number] Problems Problem Type SNOMED Code ICD Code Onset Dates Problem Status W/U Status Risk Notes Problem Tobacco user (352346397) Nicotine dependence, unspecified, uncomplicated (F17.200) Active confirmed Problem Generalized anxiety disorder (55080670) Generalized anxiety disorder (F41.1) Active confirmed Problem Anxiety (63188086) Anxiety (F41.9) Active confirmed Problem Bipolar affective disorder (02571820) Bipolar affective disorder (F31.9) 10/20/19 22 Active confirmed Will continue to monitor and evaluate as poor insight on patient's behalf does limits evaluation . Problem Overweight (003005443) Over weight (E66.3) Active confirmed Problem Chronic tension-type headache (305670407) Chronic tension headaches (G44.229) Active confirmed Problem Depressive disorder (disorder) (93886061) Depression, unspecified depression type (F32.9) Active confirmed Problem Recurrent major depression (22808689) Episode of recurrent major depressive disorder, unspecified depression episode severity (F33.9) Active confirmed Problem Drug monitoring done (898136703) Therapeutic drug monitoring (Z51.81) Active confirmed Problem Stimulant abuse (083983561) Methamphetamine use disorder, 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) Active confirmed Problem Tardive dyskinesia (429740531) Tardive dyskinesia (G24.01) Active confirmed Problem Body mass index 30.00 to 34.99 (9941169870288 07) Body mass index [BMI] 31.0-31.9, adult (Z68.31) Active confirmed Vital Signs Heart Rate 80 /min 06/05/2025 Temperature 98.0 degrees Fahrenheit 06/05/2025 Respiratory Rate 16 /min 06/05/2025 Oximetry 95 % 06/05/2025 Blood pressure diastolic 84 mm Hg 06/05/2025 Height 61 in 06/05/2025 Blood pressure systolic 128 mm Hg 06/05/2025 Weight 161.4 lbs 06/05/2025 BMI 30.49 kg/m2 06/05/2025 Encounters Encounter Location Date Provider Diagnosis Formerly [facility] [address] [place] [address] 08/29/2024 Shae Philip Generalized anxiety disorder F41.1 ; Bipolar affective disorder F31.9 ; Tardive dyskinesia G24.01 ; Fatigue R53.83 ; Medication monitoring encounter Z51.81 and Nicotine dependence, unspecified, uncomplicated F17.200 [facility]ly [facility] [address] [place] [address] 08/30/2024 Shae Philip Fatigue R53.83 ; Medication monitoring encounter Z51.81 and Bipolar affective disorder F31.[address] [place] [address] 09/25/2024 Shae Philip Generalized anxiety disorder F41.1 ; Bipolar affective disorder F31.9 ; Tardive dyskinesia G24.01 and Nicotine dependence, unspecified, uncomplicated F17.200 [facility] [address] [place] [address] 10/24/2024 Shae Philip Generalized anxiety disorder F41.1 ; Bipolar affective disorder F31.9 ; Tardive dyskinesia G24.01 ; Nicotine dependence, unspecified, uncomplicated F17.200 and Encounter for immunization Z23 [address] [place] [address] 12/06/2024 Shae Philip Generalized anxiety disorder F41.1 ; Bipolar affective disorder F31.9 ; Tardive dyskinesia G24.01 ; Nicotine dependence, unspecified, uncomplicated F17.200 and Encounter for immunization Z23 [facility] [place] [address] 01/09/2025 Shae Cedrick Over weight E66.3 ; Generalized anxiety disorder F41.1 ; Bipolar affective disorder F31.9 ; Tardive dyskinesia G24.01 ; Nicotine dependence, unspecified, uncomplicated F17.200 and Encounter for immunization Z23 Formerly [facility] [place] [address] 03/06/2025 Shae Cedrick Over weight E66.3 ; Generalized anxiety disorder F41.1 ; Bipolar affective disorder F31.9 ; Tardive dyskinesia G24.01 ; Nicotine dependence, unspecified, uncomplicated F17.200 and Encounter for immunization Z23 [address] [place] [address] [place] [address] 03/27/2025 Shae Cedrick Over weight E66.3 ; Bipolar affective disorder F31.9 ; Generalized anxiety disorder F41.1 ; Tardive dyskinesia G24.01 ; Nicotine dependence, unspecified, uncomplicated F17.200 and Encounter for immunization Z23 [address] [place] [address] [place] [address] 04/17/2025 Shae Cedrick Over weight E66.3 ; Tardive dyskinesia G24.01 ; Bipolar affective disorder F31.9 ; Generalized anxiety disorder F41.1 ; Nicotine dependence, unspecified, uncomplicated F17.200 ; Encounter for immunization Z23 and Medication monitoring encounter Z51.81 [facility]ly [facility] [place] [address] 06/05/2025 Shae Cedrick Over weight E66.3 ; Tardive dyskinesia G24.01 ; Bipolar affective disorder F31.9 ; Generalized anxiety disorder F41.1 ; Nicotine dependence, unspecified, uncomplicated F17.200 ; Encounter for immunization Z23 and Medication monitoring encounter Z51.[address] [address] 08/23/2024 Shae Cedrick [facility]ly [facility] [place] [address] 08/24/2024 Shae Cedrick Bipolar affective disorder F31.9 and Tardive dyskinesia G24.[address] [place] [address] 09/05/2024 Shae Philip [address] [place] [address] 09/12/2024 Shae Philip Generalized anxiety disorder F41.1 and Tardive dyskinesia G24.01 [facility] [address] [place] [address] 09/12/2024 Shae Philip [address] [place] [address] 10/19/[address] [address] 11/27/2024 Shaeeugene Philip Tardive dyskinesia G24.01 [facility] [address] [place] [address] 02/13/2025 Shae Philip Tardive dyskinesia G24.01 ; Bipolar affective disorder F31.9 and Generalized anxiety disorder F41.1 [address] [place] [address] [place] [address] 03/14/2025 Shae Philip Generalized anxiety disorder F41.[address] [place] [address] 03/29/2025 Shae Philip [address] [place] [address] 04/11/2025 Shae Philip Tardive dyskinesia G24.01 [facility] [address] [place] [address] 04/18/2025 Shae Philip [address] [address] [place] [address] 04/18/2025 Shae Philip [facility] [address] [place] [address] 05/01/2025 Shae Philip [address] [place] [address] 05/01/2025 Shae Philip [address] [place] [address] 07/20/2025 Shae Philip Generalized anxiety disorder F41.1 Assessments Encounter Date Diagnosis (ICD Code) Assessment Notes Treatment Notes Treatment Clinical Notes Section Notes 08/24/2024 Bipolar affective disorder (ICD-10 - F31.9) Past symptoms c/w hypomania/viette a with elevated moods, increased interest, racing [...] Pt understands that TD symptoms would be special events driver and irreversible. States has not tried [...] Pt understands that TD symptoms would be special events driver and irreversible. States has not tried [...] and continue to monitor. Encouraged oral hygeine. 10/24/2024 Bipolar affective disorder (ICD-10 - F31.9) [...] Pt understands that TD symptoms would be special events driver and irreversible. 08/30/2024 Medication monitoring encounter [...] irreversible. 08/24/2024 Tardive dyskinesia (ICD-10 - G24.01) 08/29/2024 Fatigue [...] Pt understands that TD symptoms would be special events driver and irreversible. States has not tried [...] May also contact the 24-hour crisis hotline ([facility]), refer to the closest emergency room or [...] May also contact the 24-hour crisis hotline ([facility]), refer to the closest emergency room or [...] May also contact the 24-hour crisis hotline ([facility]), refer to the closest emergency room or [...] May also contact the 24-hour crisis hotline ([facility]), refer to the closest emergency room or [...] May also contact the 24-hour crisis hotline ([facility]), refer to the closest emergency room or [...] May also contact the 24-hour crisis hotline ([facility]), refer to the closest emergency room or [...] May also contact the 24-hour crisis hotline ([facility]), refer to the closest emergency room or [...] May also contact the 24-hour crisis hotline ([facility]), refer to the closest emergency room or [...] Provider Name:Shae fuentes, 08/13/2025 09:40:00 AM, [address], [place], [address], Insurance Providers Payer Name Payer Address Payer Phone Subscriber Number Group Number Insured Name Patient Relationship to Insured Coverage Start Date Coverage End Date MEDICARE PART A [address] [place] [address] [id number] Elin Stevenson Self - patient is the insured 3 [facility] Att Claims Department [address] [place] [address] [id number] Elin Stevenson Self - patient is the insured 3 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
--- OUTSIDE RECORDS SUMMARY | 2025-08-08 13:39 | XMS_ITS | Clinical Summary ---
Author Organization [facility] Address [address], [facility] [address] [place] [address] Phone Care Team Providers Care Professional Sports Scout Name Role Phone Braulio Mccabe MD Primary Care Provider [phone] Allergies Active Allergy Reactions Criticality Noted Date Comments Codeine Hives 12/24/2017 Penicillins Hives 12/24/2017 Medications latanoprost (XALATAN) 0.005 % Solution Place 2 Drops in affected eye(s) nightly. Each eye. 8 Active sertraline (ZOLOFT) 100 MG Tablet Take 100 mg by mouth daily. 8 Active levothyroxine (SYNTHROID) 112 MCG Tablet Take 112 mcg by mouth daily. 8 Active ergocalciferol (VITAMIN D) 40533 UNIT Capsule TK 1 C PO Q [...] Insurance MEDICAID [employer] Care Teams Professional Sports Scout Relationship Specialty Start Date End Date Braulio Mccabe MD [address] [place] [address] PCP - General Internal Medicine 06/10/17
--- OUTSIDE RECORDS SUMMARY | 2025-08-08 13:39 | XMS_ITS | Clinical Summary ---
Author Organization [facility] Address [address] [place] [address] Care Team Providers Care Crumb Packer Name Role Phone Shae Philip NP Primary Care Provider [phone] Allergies Active Allergy Reactions Criticality Noted Date Comments Codeine Hives,Urticaria Medium 12/24/2017 Penicillins Medications alendronate (FOSAMAX) 70 mg tablet Take 1 tablet (70 mg total) by mouth every 7 days Active pravastatin (PRAVACHOL) 20 mg tablet Take 1 tablet (20 mg total) by mouth daily Active levothyroxine (SYNTHROID) 137 mcg tablet Take 1 tablet (137 mcg total) by mouth 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
--- OUTSIDE RECORDS SUMMARY | 2025-08-08 13:39 | XMS_ITS | Data Portability ---
Author Organization [place] [facility] Address [address] [place] [address] Assessment No assessment recorded. Plan of Treatment Reminders Order Date Submit Date Provider Last Modified By Organization Details Last Modified Time Details Appointments None recorded. Lab None recorded. Referral None recorded. Procedures None recorded. Surgeries None recorded. Imaging None recorded. Medication Orders fluconazole 150 mg tablet 2021 [facility] #[id number], [address] [place], [place], [id number], 15:49:35 nystatin-tr iamcinolone 100,000 unit/gram-0 .1 % topical ointment 2021 [facility] #[id number], [address] [place], [place], [id number], 15:49:35 Patient TargetsNo targets recorded. Patient InstructionsNo instructions recorded. Reason for Referral None Reported. Results Created Date Observation Date Name Description Value Unit Range Abnormal Flag Note LastModifiedBy Organization Detail LastModifiedTime 04/23/2004/23/2022 VAGIN ITIS/ VAGIN OSIS, DNA PROBE tristen sp. detection, direct probe Negati ve negati ve Not Available [facility] [address] [place], [address], 04/24/2022 15:33:41 04/23/20 22 04/23/2022 VAGIN ITIS/ VAGIN OSIS, DNA PROBE gardnerella vag. detection, direct probe Negati ve negati ve Not Available [facility] [address] [place], [address], 04/24/2022 15:33:41 04/23/2004/23/2022 VAGIN ITIS/ VAGIN OSIS, DNA PROBE trichomonas vag. detection, direct probe Negati ve negati ve Not Available [facility] [address] [place], [address], 04/24/2022 15:33:41 Result Notes None recorded. Problems No Known Problems Procedures Surgical History Date Name Laterality Status Provider Name and Address Organization Details Recorded Time Date of Last Pap Smear completed Munira Gu [facility] 04/23/2022 15:20:29 Imaging Results None recorded. Procedure Notes None recorded. Medical Equipment None Reported. Allergies Allergen ID Allergen Name Allergen Category Reaction Reaction Severity Criticality Documentation Date Start Date Code Code System Note Provider Name and Address Organization Details Recorded Time 73315 codeine medicatio n Not available Not available Not available 04/23/2022 2670 RxNorm Munira rivera [facility] 2 15:19:37 62886 Product containin g penicilli n (product) medicatio n Not available Not available Not available 04/23/2022 07484 8001 SNOMED Munira rivera [facility] 2 15:19:56 Medications Name Sig Start [...] Updated DateTime 04/23/2022 160.02 cm 31.7 kg/m2 06246.75 g 105/71 mm[Hg] Munira Gu [facility] 04/23/2022 14:58:20 Social History Question Answer Notes LastModified by Organizat ion Details LastModified Time Tobacco Smoking Status Current Every Day Smoker Munira rivera [facility] 04/23/2022 15:22:30 Are You Blind Or [...] ICD10 Code Diagnosis IMO Codes Diagnosis Note [id number] Emili JadechristopherJAMES [place] [address] [address] 04/23/2022 14:48:43 04/23/2022 16:06:11 Vaginal irritation [id number] N89.8 On exam, mild vaginal atrophy notedPatie [...] Curran Member ID Guarantor Name 04/23/2022 1 [facility] - DOS ON OR AFTER 21 (MEDICAID REPLACEMENT - HMO) Elin Stevenson [id number] Elin Stevenson Notes Date Note Type Note [...] or products JAMES Fernandez [address], [place], [address], [place] [facility] 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
== END 2025-08-08 12:23 | disposition home or self-care (01) ==
LOC: ANHIMG 12:25
PROVIDERS: Visit Provider Internal Medicine
DX: E03.8 Other specified hypothyroidism (principal)
CPT/HCPCS: 76536